=== PATIENT | female | born 1945 | race Caucasian/White ===

== ENCOUNTER → 2016-09-23 | Outpatient (CLI) | payer MEDICARE, BC ==
[2016-09-23 08:55] LABS: Blood Urea Nitrogen 30 mg/dL (7-17); Non-African American GFR(MDRD) 51 (>60 ml/min/1.73 sqM)
--- NOTE | 2016-09-23 09:54 | CT ---
EXAMINATION TYPE: CT chest abdomen w con DATE OF EXAM: 09/23/2016 9:37 AM INDICATION: Liver transplant COMPARISON: CT chest and abdomen of 04/06/2016 CT DLP: 1451 mGycm CONTRAST: Performed with Oral Contrast and with IV Contrast, patient injected with 80 mL of Visipaque 320. TECHNIQUE: Axial images at 5 mm thick sections. Reconstructed images in the coronal plane. Delayed images through the kidneys. FINDINGS: CT CHEST: Portion of the thyroid visualized is normal. No suspicious lung nodules or focal infiltrates are present. There are shotty lymph nodes within the superior mediastinum. No enlarged mediastinal or hilar adenop athy is evident. The ascending aorta diameter at the level of the main pulmonary artery is 2.9 cm. The main pulmonary artery diameter at the bifurcation is 2.[address] ABDOMEN: Multiple postsurgical clips are within the epigastric region. This causes some beam harde nilo artifact. Liver: Mild fatty infiltration liver is present. No discrete masses or cysts are evident. Spleen: Normal Pancreas: Atrophic Adrenal glands: Nodular prominence in the right adrenal gland from prior study appears stable. Gallbladder: Normal Kidneys: No masses are evident. No hydronephrosis is present. No cysts are present. Delayed images were obtained through the kidneys, which remain unremarkable. Aorta: Vascular calcification is within the aorta. Inferior vena cava: Normal. Fecal debris is within the colon. Small bowel loops distended with oral contrast appear unremarkable. IMPRESSIONS: 1. Shotty lymphadenopathy within the superior mediastinum. 2. No acute pulmonary process. 3. Postsurgical changes within the abdomen. 2. Mild fatty infiltration to the liver. 5. Pancreas atrophy.
== END | disposition home or self-care (01) ==
LOC: RADCTMAIN 08:07
DX: C22.0 Liver cell carcinoma (principal); K76.0 Fatty (change of) liver, not elsewhere classified; K86.89 Other specified diseases of pancreas; R59.0 Localized enlarged lymph nodes; Z98.890 Other specified postprocedural states; Z94.4 Liver transplant status
CPT/HCPCS: 82565; 84520; 71260; 74160; 36415; Q9967

== ENCOUNTER 2016-12-03 10:19 | Emergency (ER) | payer MEDICARE, BC ==
[2016-12-03 10:42] VITALS: RESP 18; TEMP 97.8
[2016-12-03] MEDS ORDERED: hydrOXYzine HCL 25 MG TAB PO STA (11:26)
--- NOTE | 2016-12-03 11:32 | ED ---
General Adult HPI - General Chief complaint: Recheck/Abnormal Lab/Rx Stated complaint: Hx liver transplant, itching all over Source: patient, family Mode of arrival: ambulatory Limitations: no limitations - History of Present Illness Initial comments: Patient is a pleasant 71-year-old female who presents for evaluation for itching over the last 24 hours. Past medical history of a liver transplant back in 2014. Patient states that she has been having severe whole-body itching over the last 24 hours. She denies any new exposures. Denies any changes in the skull or of her skin. Has a history of vertigo but denies any dizziness or lightheadedness or tremors. She does not seem confused per the family. No changes in her medications. Has been compliant with her medications. She contacted her liver patient services coordinator who recommended coming to the emergency department for evaluation. She currently denies fever, chills, headache, changes in vision, URI symptoms, shortness of breath, cough, chest pain, nausea, vomiting, diarrhea, pain or burning with urination. - Related Data Home Medications Medication Instructions Recorded Confirmed Mirtazapine 30 mg PO HS 05/10/15 12/03/16 Fludrocortisone [Florinef] 0.1 mg PO DAILY 10/23/15 12/03/16 Levothyroxine Sodium [Synthroid] 125 mcg PO AC-BRKFST 10/23/15 12/03/16 Metoprolol Tartrate [Lopressor] 12.5 mg PO BID 10/23/15 12/03/16 Tacrolimus [Prograf] 2 mg PO BID 10/23/15 12/03/16 Ursodiol [Actigall] 300 mg PO HS 10/23/15 12/03/16 Ursodiol [Actigall] 600 mg PO DAILY 10/23/15 12/03/16 Everolimus [Zortress] 2.25 mg PO BID 03/03/16 12/03/16 Aspirin 325 mg PO DAILY 12/03/16 12/03/16 hydrOXYzine HCL [Atarax] 25 mg PO TID PRN 12/03/16 12/03/16 Allergies Allergy/AdvReac Type Severity Reaction Status Date / Time No Known Allergies Allergy Verified 12/03/16 11:40 Review of Systems ROS Statement: Those systems with pertinent positive or pertinent negative responses have been documented in the HPI. ROS Other: All systems not noted in ROS Statement are negative. Past Medical History Past Medical History: COPD, Deep Vein Thrombosis (DVT), Liver Disease, Respiratory Disorder, Thyroid Disorder Additional Past Medical History / Comment(s): emphysema, thoracentesis 06/24/14, underactive thyroid. liver transplant 2014 History of Any Multi-Drug Resistant Organisms: None Reported Past Surgical History: Hernia Repair, Tonsillectomy Additional Past Surgical History / Comment(s): hiatal hernia, past liver/ gallbladder biopsies neg, Liver transplant 03/27/2015. Past Anesthesia/Blood Transfusion Reactions: No Reported Reaction Past Psychological History: No Psychological Hx Reported Smoking Status: Former smoker Past Alcohol Use History: None Reported Past Drug Use History: None Reported - Past Family History Father Family Medical History: Liver Disease Additional Family Medical History / Comment(s): dad at age 72- was a heavy drinker had liver disease Mother Family Medical History: Diabetes Mellitus, Renal Disease Additional Family Medical History / Comment(s): at age 78 kidney failure General Exam Limitations: no limitations General appearance: alert, in no apparent distress, other (Actively itching her body) Head exam: Present: atraumatic, normocephalic, normal inspection Eye exam: Present: normal appearance, PERRL, EOMI, scleral icterus (Very subtle scleral icterus bilaterally). Absent: conjunctival injection, periorbital swelling ENT exam: Present: normal exam, mucous membranes moist, other (The frenulum appears somewhat jaundiced) Neck exam: Present: normal inspection. Absent: tenderness, meningismus, lymphadenopathy Respiratory exam: Present: normal lung sounds bilaterally. Absent: respiratory distress, wheezes, rales, rhonchi, stridor Cardiovascular Exam: Present: regular rate, normal rhythm, normal heart sounds. Absent: systolic murmur, diastolic murmur, rubs, gallop, clicks GI/Abdominal exam: Present: soft, normal bowel sounds. Absent: distended, tenderness, guarding, rebound, rigid Extremities exam: Present: normal inspection, full ROM, normal capillary refill. Absent: tenderness, pedal edema, joint swelling, calf tenderness Back exam: Present: normal inspection Neurological exam: Present: alert, oriented X3, CN II-XII intact, other ( Granular sticking through 12 grossly intact without focal neurological deficits. Mentation appropriate. Alert and oriented 3. No asterixis. No tremors.) Psychiatric exam: Present: normal affect, normal mood Skin exam: Present: warm, dry, intact, normal color, other (No definitive rash area skin may be slightly red from her itching. No lesions. No vesicles. No petechia.). Absent: rash Course Vital Signs 12/03/16 10:39 Temperature 97.8 F Pulse Rate 115 H Respiratory 18 Rate Blood Pressure 141/86 O2 Sat by Pulse 96 Oximetry Medical Decision Making - Medical Decision Making 1130: Patient is a 71-year-old female history of liver transplant with whole- body itching. I spoke with the liver patient services coordinator, Tessa ([phone]) . Discussed physical exam findings. Will order CBC, CMP, urinalysis, coags and Atarax. No further requests per liver patient services coordinator. 1215: Discussed case with the drug safety coordinator. Redirected to the fellow. Recommending transfer to [facility] for further workup. Her AST and nail T and alk phos are acutely elevated from baseline. Her creatinine is also elevated from baseline. Her itching has resolved. Working on getting a bed currently. 1300: Patient has a bed at [facility]; [id number] (Dr. Villegas). Stable to drive herself downtown. Answered all questions. - Lab Data Result diagrams: 12/03/16 11:30 12/03/16 11:30 Lab Results 12/03/16 12/03/16 12/03/16 Range/Units 11:30 11:30 11:30 WBC 5.0 (3.8-10.6) k/uL RBC 4.32 (3.80-5.40) m/uL Hgb 12.0 (11.4-16.0) gm/dL Hct 33.8 L (34.0-46.0) % MCV 78.3 L (80.0-100.0) fL MCH 27.7 (25.0-35.0) pg MCHC 35.4 (31.0-37.0) g/dL RDW 15.7 H (11.5-15.5) % Plt Count 191 (150-450) k/uL Neutrophils % (Manual) 67.0 % Lymphocytes % (Manual) 27.0 % Monocytes % (Manual) 5.0 % Eosinophils % (Manual) 1.0 % Neutrophils # (Manual) 3.4 (1.3-7.7) k/uL Lymphocytes # (Manual) 1.4 (1.0-4.8) k/uL Monocytes # (Manual) 0.3 (0-1.0) k/uL Eosinophils # (Manual) 0.1 (0-0.7) k/uL Nucleated RBCs 0 (0-0) /100 WBC Manual Slide Review Performed Microcytosis Slight PT 10.0 (9.0-12.0) sec INR 1.0 (<1.1) APTT 23.6 (22.0-30.0) sec Sodium 142 (137-145) mmol/L Potassium 4.6 (3.5-5.1) mmol/L Chloride 108 H (98-107) mmol/L Carbon Dioxide 20 L (22-30) mmol/L Anion Gap 14 mmol/L BUN 31 H (7-17) mg/dL Creatinine 1.50 H (0.52-1.04) mg/dL Est GFR (MDRD) Af Amer 42 (>60 ml/min/1.73 sqM) Est GFR (MDRD) Non-Af 34 (>60 ml/min/1.73 sqM) Glucose 129 H (74-99) mg/dL Calcium 9.5 (8.4-10.2) mg/dL Magnesium 1.8 (1.6-2.3) mg/dL Total Bilirubin 0.5 (0.2-1.3) mg/dL AST 122 H (14-36) U/L ALT 139 H (9-52) U/L Alkaline Phosphatase 223 H (38-126) U/L Total Protein 7.3 (6.3-8.2) g/dL Albumin 4.4 (3.5-5.0) g/dL Urine Color Urine Appearance (Clear) Urine pH (5.0-8.0) Ur Specific [place] (1.001-1.035) Urine Protein (Negative) Urine Glucose (UA) (Negative) Urine Ketones (Negative) Urine Blood (Negative) Urine Nitrite (Negative) Urine Bilirubin (Negative) Urine Urobilinogen (<2.0) mg/dL Ur Leukocyte Esterase (Negative) 12/03/16 Range/Units 11:55 WBC (3.8-10.6) k/uL RBC (3.80-5.40) m/uL Hgb (11.4-16.0) gm/dL Hct (34.0-46.0) % MCV (80.0-100.0) fL MCH (25.0-35.0) pg MCHC (31.0-37.0) g/dL RDW (11.5-15.5) % Plt Count (150-450) k/uL Neutrophils % (Manual) % Lymphocytes % (Manual) % Monocytes % (Manual) % Eosinophils % (Manual) % Neutrophils # (Manual) (1.3-7.7) k/uL Lymphocytes # (Manual) (1.0-4.8) k/uL Monocytes # (Manual) (0-1.0) k/uL Eosinophils # (Manual) (0-0.7) k/uL Nucleated RBCs (0-0) /100 WBC Manual Slide Review Microcytosis PT (9.0-12.0) sec INR (<1.1) APTT (22.0-30.0) sec Sodium (137-145) mmol/L Potassium (3.5-5.1) mmol/L Chloride (98-107) mmol/L Carbon Dioxide (22-30) mmol/L Anion Gap mmol/L BUN (7-17) mg/dL Creatinine (0.52-1.04) mg/dL Est GFR (MDRD) Af Amer (>60 ml/min/1.73 sqM) Est GFR (MDRD) Non-Af (>60 ml/min/1.73 sqM) Glucose (74-99) mg/dL Calcium (8.4-10.2) mg/dL Magnesium (1.6-2.3) mg/dL Total Bilirubin (0.2-1.3) mg/dL AST (14-36) U/L ALT (9-52) U/L Alkaline Phosphatase (38-126) U/L Total Protein (6.3-8.2) g/dL Albumin (3.5-5.0) g/dL Urine Color Yellow Urine Appearance Clear (Clear) Urine pH 5.0 (5.0-8.0) Ur Specific [place] 1.010 (1.001-1.035) Urine Protein Trace H (Negative) Urine Glucose (UA) Negative (Negative) Urine Ketones Negative (Negative) Urine Blood Negative (Negative) Urine Nitrite Negative (Negative) Urine Bilirubin Negative (Negative) Urine Urobilinogen <2.0 (<2.0) mg/dL Ur Leukocyte Esterase Negative (Negative) Disposition Clinical Impression: Transaminitis, ASAF (acute kidney injury), Liver transplant recipient, Jaundice , Itching Disposition: OTHER INSTITUTION NOT DEFINED Condition: Fair Instructions: Jaundice (ED) Referrals: George Wheeler MD [Primary Care Provider] - 1-2 days - Out of Hospital Transfer - Req. Specs Out of Hospital Transfer - Requested Specifics: Other Non-Acute ([facility] Main)
[2016-12-03 12:03] LABS: Calcium 9.5 mg/dL (8.4-10.2); Magnesium 1.8 mg/dL (1.6-2.3); Potassium 4.6 mmol/L (3.5-5.1); Total Bilirubin 0.5 mg/dL (0.2-1.3); Total Protein 7.3 g/dL (6.3-8.2)
[2016-12-03 12:05] LABS: Aty Lym Flag Moderate; CH 26.4; HCT 33.8 % (34.0-46.0); HDW 3.37; MCH 27.7 pg (25.0-35.0); MCHC 35.4 g/dL (31.0-37.0); MCV 78.3 fL (80.0-100.0); Mean Platelet Volume 7.3; Microcytosis Slight; RBC 4.32 m/uL (3.80-5.40); RDW 15.7 % (11.5-15.5); WBC (Perox) 5.37
[2016-12-03 12:10] LABS: Appearance,Urine Clear (Clear); Bilirubin,Urine Negative (Negative); Glucose,Urine (UA) Negative (Negative); Ketones,Urine Negative (Negative); Leukocyte Esterase,Urine Negative (Negative); Nitrite,Urine Negative (Negative); Protein,Urine Trace (Negative); UA Billing (MACRO vs. MICRO) CHEM; Urobilinogen,Urine <2.0 mg/dL (<2.0)
[2016-12-03 12:12] LABS: Partial Thromboplastin Time 23.6 sec (22.0-30.0)
[2016-12-03] MEDS ORDERED: SODIUM CHLORIDE 0.9% 1,000 ML IV ONE (12:22)
[2016-12-03 12:59] LABS: Add Differential Manual Differential
[2016-12-03 13:03] LABS: Manual Review Performed; Nucleated Red Blood Cells 0 /100 WBC (0-0); Total Cells Counted 100
[2016-12-03 13:31] VITALS: BP 196/96; PULSE 107
== END 2016-12-03 13:38 | disposition short-term general hospital (02) ==
LOC: EC 10:19
DX: N17.9 Acute kidney failure, unspecified (principal); R74.0 Nonspecific elevation of levels of transaminase and lactic acid dehydrogenase [LDH]; R17 Unspecified jaundice; L29.9 Pruritus, unspecified; E07.9 Disorder of thyroid, unspecified; Z87.891 Personal history of nicotine dependence; Z79.82 Long term (current) use of aspirin; Z79.899 Other long term (current) drug therapy; Z94.4 Liver transplant status; Z84.1 Family history of disorders of kidney and ureter; Z83.79 Family history of other diseases of the digestive system
CPT/HCPCS: 36415; 80053; 81003; 83735; 85025; 85610; 85730; 96360; 99284

== ENCOUNTER 2017-03-09 17:54 | Emergency (ER) | payer MEDICARE, BC ==
[2017-03-09] MEDS ORDERED: methylPREDNISolone SOD SUCCI 125 MG/2 ML VIAL IV STA (19:00)
[2017-03-09] MEDS ORDERED: IPRATROPIUM-ALBUTEROL 3 ML NEB INHALATION STA (19:00)
[2017-03-09] MEDS ORDERED: SODIUM CHLORIDE 0.9% 1,000 ML IV STA (19:00)
[2017-03-09] MEDS ORDERED: SODIUM CHLORIDE 0.9% 500 ML IV STA (19:00)
--- NOTE | 2017-03-09 19:10 | ED ---
SOB HPI - General Chief Complaint: Shortness of Breath Stated Complaint: VIANNEY Time Seen by Provider: 03/09/17 18:40 Source: patient, RN notes reviewed Mode of arrival: wheelchair Limitations: no limitations - History of Present Illness Initial Comments: This is a 71-year-old female who presents with complaints of shortness of breath chills shaking all which started around midafternoon today. She also some nausea vomiting and route to. No dysuria no heme. Other symptoms such as chest pain. No rhinorrhea no earache sore throat he does have a slight cough with no phlegm production. Complaint: shortness of breath - Related Data Home Medications Medication Instructions Recorded Confirmed Fludrocortisone [Florinef] 0.1 mg PO DAILY 10/23/15 03/09/17 Levothyroxine Sodium [Synthroid] 125 mcg PO AC-BRKFST 10/23/15 03/09/17 Metoprolol Tartrate [Lopressor] 25 mg PO BID 10/23/15 03/09/17 Everolimus [Zortress] 3 mg PO QAM 03/03/16 03/09/17 Aspirin 325 mg PO DAILY 12/03/16 03/09/17 HYDROcodone/APAP 5-325MG [Rock 1 tab PO Q4-6H PRN 03/09/17 03/09/17 5-325] Ursodiol 600 mg PO DAILY 03/09/17 03/09/17 Ursodiol [Actigall] 300 mg PO HS 03/09/17 03/09/17 Zortress 0.75mg 2.25 mg PO HS 03/09/17 03/09/17 Allergies Allergy/AdvReac Type Severity Reaction Status Date / Time No Known Allergies Allergy Verified 03/09/17 19:15 Review of Systems ROS Statement: Those systems with pertinent positive or pertinent negative responses have been documented in the HPI. ROS Other: All systems not noted in ROS Statement are negative. Past Medical History Past Medical History: COPD, Deep Vein Thrombosis (DVT), Liver Disease, Respiratory Disorder, Thyroid Disorder Additional Past Medical History / Comment(s): emphysema, thoracentesis 06/24/14, underactive thyroid. liver transplant 2014 History of Any Multi-Drug Resistant Organisms: None Reported Past Surgical History: Hernia Repair, Tonsillectomy Additional Past Surgical History / Comment(s): hiatal hernia, past liver/ gallbladder biopsies neg, Liver transplant 03/27/2015. Past Anesthesia/Blood Transfusion Reactions: No Reported Reaction Past Psychological History: No Psychological Hx Reported Smoking Status: Former smoker Past Alcohol Use History: None Reported Past Drug Use History: None Reported - Past Family History Father Family Medical History: Liver Disease Additional Family Medical History / Comment(s): dad at age 72- was a heavy drinker had liver disease Mother Family Medical History: Diabetes Mellitus, Renal Disease Additional Family Medical History / Comment(s): at age 78 kidney failure General Exam - General Exam Comments Initial Comments: This is a well-developed well-nourished awake alert oriented x 3 female Limitations: no limitations General appearance: alert, in no apparent distress Head exam: Present: atraumatic, normocephalic, normal inspection Eye exam: Present: normal appearance, PERRL, EOMI. Absent: scleral icterus, conjunctival injection, periorbital swelling ENT exam: Present: normal exam, mucous membranes moist Neck exam: Present: normal inspection. Absent: tenderness, meningismus, lymphadenopathy Respiratory exam: Present: normal lung sounds bilaterally. Absent: respiratory distress, wheezes, rales, rhonchi, stridor Cardiovascular Exam: Present: regular rate, normal rhythm, normal heart sounds. Absent: systolic murmur, diastolic murmur, rubs, gallop, clicks GI/Abdominal exam: Present: soft, normal bowel sounds. Absent: distended, tenderness, guarding, rebound, rigid Extremities exam: Present: normal inspection, full ROM, normal capillary refill. Absent: tenderness, pedal edema, joint swelling, calf tenderness Back exam: Present: normal inspection Neurological exam: Present: alert, oriented X3, CN II-XII intact Psychiatric exam: Present: normal affect, normal mood Skin exam: Present: warm, dry, intact, normal color. Absent: rash Course Vital Signs 03/09/17 03/09/17 03/09/17 18:22 18:40 19:22 Temperature 101 F H Pulse Rate 103 H 96 Respiratory 22 24 Rate Blood Pressure 184/78 O2 Sat by Pulse 95 Oximetry 03/09/17 03/09/17 19:33 19:35 Temperature 99.2 F Pulse Rate 94 94 Respiratory 32 H Rate Blood Pressure 173/79 O2 Sat by Pulse 100 Oximetry Medical Decision Making - Medical Decision Making I did a long discussion with the patient family members regarding the findings Onset of CHF is suspected due to the elevated BNP the patient does have renal insufficiency and COPD exacerbation with a fever. I did discuss the case with family who is requesting transfer to [facility] in [place]. This is due to the liver transplant. Did discuss case with Dr. Jason who is agreed to accept the patient in transfer as a direct admit. Patient will be transported by EMS. Viral etiology of the elevated temperature suspected at this time - Lab Data Result diagrams: 03/09/17 18:57 03/09/17 18:57 Lab Results 03/09/17 03/09/17 03/09/17 Range/Units 18:57 18:57 18:57 WBC 6.3 (3.8-10.6) k/uL RBC 4.21 (3.80-5.40) m/uL Hgb 11.2 L (11.4-16.0) gm/dL Hct 34.4 (34.0-46.0) % MCV 81.7 (80.0-100.0) fL MCH 26.5 (25.0-35.0) pg MCHC 32.5 (31.0-37.0) g/dL RDW 16.3 H (11.5-15.5) % Plt Count 141 L (150-450) k/uL Neutrophils % 85 % Lymphocytes % 7 % Monocytes % 6 % Eosinophils % 2 % Basophils % 0 % Neutrophils # 5.4 (1.3-7.7) k/uL Lymphocytes # 0.4 L (1.0-4.8) k/uL Monocytes # 0.4 (0-1.0) k/uL Eosinophils # 0.1 (0-0.7) k/uL Basophils # 0.0 (0-0.2) k/uL Anisocytosis Slight PT (9.0-12.0) sec INR (<1.2) APTT (22.0-30.0) sec Sodium 137 (137-145) mmol/L Potassium 5.8 H (3.5-5.1) mmol/L Chloride 110 H (98-107) mmol/L Carbon Dioxide 16 L (22-30) mmol/L Anion Gap 11 mmol/L BUN 26 H (7-17) mg/dL Creatinine 1.20 H (0.52-1.04) mg/dL Est GFR (MDRD) Af Amer 54 (>60 ml/min/1.73 sqM) Est GFR (MDRD) Non-Af 45 (>60 ml/min/1.73 sqM) Glucose 109 H (74-99) mg/dL Calcium 9.2 (8.4-10.2) mg/dL Magnesium 1.7 (1.6-2.3) mg/dL Total Bilirubin 0.4 (0.2-1.3) mg/dL AST 18 (14-36) U/L ALT 26 (9-52) U/L Alkaline Phosphatase 138 H (38-126) U/L Total Creatine Kinase 107 (30-135) U/L CK-MB (CK-2) 0.6 (0.0-2.4) ng/mL CK-MB (CK-2) Rel Index 0.6 Troponin I <0.012 (0.000-0.034) ng/mL NT-Pro-B Natriuret Pep pg/mL Total Protein 7.3 (6.3-8.2) g/dL Albumin 4.1 (3.5-5.0) g/dL Urine Color Urine Appearance (Clear) Urine pH (5.0-8.0) Ur Specific [place] (1.001-1.035) Urine Protein (Negative) Urine Glucose (UA) (Negative) Urine Ketones (Negative) Urine Blood (Negative) Urine Nitrite (Negative) Urine Bilirubin (Negative) Urine Urobilinogen (<2.0) mg/dL Ur Leukocyte Esterase (Negative) Urine RBC (0-5) /hpf Urine WBC (0-5) /hpf Ur Squamous Epith Cells (0-4) /hpf Urine Mucus (None) /hpf 03/09/17 03/09/17 03/09/17 Range/Units 18:57 18:57 20:34 WBC (3.8-10.6) k/uL RBC (3.80-5.40) m/uL Hgb (11.4-16.0) gm/dL Hct (34.0-46.0) % MCV (80.0-100.0) fL MCH (25.0-35.0) pg MCHC (31.0-37.0) g/dL RDW (11.5-15.5) % Plt Count (150-450) k/uL Neutrophils % % Lymphocytes % % Monocytes % % Eosinophils % % Basophils % % Neutrophils # (1.3-7.7) k/uL Lymphocytes # (1.0-4.8) k/uL Monocytes # (0-1.0) k/uL Eosinophils # (0-0.7) k/uL Basophils # (0-0.2) k/uL Anisocytosis PT 10.2 (9.0-12.0) sec INR 1.0 (<1.2) APTT 24.7 (22.0-30.0) sec Sodium (137-145) mmol/L Potassium (3.5-5.1) mmol/L Chloride (98-107) mmol/L Carbon Dioxide (22-30) mmol/L Anion Gap mmol/L BUN (7-17) mg/dL Creatinine (0.52-1.04) mg/dL Est GFR (MDRD) Af Amer (>60 ml/min/1.73 sqM) Est GFR (MDRD) Non-Af (>60 ml/min/1.73 sqM) Glucose (74-99) mg/dL Calcium (8.4-10.2) mg/dL Magnesium (1.6-2.3) mg/dL Total Bilirubin (0.2-1.3) mg/dL AST (14-36) U/L ALT (9-52) U/L Alkaline Phosphatase (38-126) U/L Total Creatine Kinase (30-135) U/L CK-MB (CK-2) (0.0-2.4) ng/mL CK-MB (CK-2) Rel Index Troponin I (0.000-0.034) ng/mL NT-Pro-B Natriuret Pep 2770 pg/mL Total Protein (6.3-8.2) g/dL Albumin (3.5-5.0) g/dL Urine Color Yellow Urine Appearance Clear (Clear) Urine pH 5.0 (5.0-8.0) Ur Specific [place] 1.012 (1.001-1.035) Urine Protein Trace H (Negative) Urine Glucose (UA) Negative (Negative) Urine Ketones 2+ H (Negative) Urine Blood Trace H (Negative) Urine Nitrite Negative (Negative) Urine Bilirubin Negative (Negative) Urine Urobilinogen <2.0 (<2.0) mg/dL Ur Leukocyte Esterase Trace H (Negative) Urine RBC 2 (0-5) /hpf Urine WBC 1 (0-5) /hpf Ur Squamous Epith Cells <1 (0-4) /hpf Urine Mucus Rare H (None) /hpf - EKG Data -: EKG Interpreted by Me EKG shows normal: sinus rhythm (Sinus tachycardia rate of 102 appear interval 120 QRS rate 60 QT since QTC of 328/427 st-t wave changes.) - Radiology Data Radiology results: report reviewed (I did review the imaging and reports this appears be no acute change from previous x-ray.), image reviewed Disposition Clinical Impression: COPD with exacerbation, Febrile illness, acute, Renal insufficiency syndrome, Elevated brain natriuretic peptide (BNP) level Disposition: OTHER INSTITUTION NOT DEFINED Condition: Stable Referrals: George Wheeler MD [Primary Care Provider] - 1-2 days - Out of Hospital Transfer - Req. Specs Out of Hospital Transfer - Requested Specifics: Other Non-Acute
[2017-03-09 19:11] LABS: Anisocytosis Slight; Basophils % (A) 0 %; CHCM 33.3; Eosinophils # (A) 0.1 k/uL (0-0.7); Eosinophils % (A) 2 %; HCT 34.4 % (34.0-46.0); HDW 3.28; HGB 11.2 gm/dL (11.4-16.0); Luc # (Auto) 0.03; Luc % (Auto) 1; Lymphocytes # (A) 0.4 k/uL (1.0-4.8); Lymphocytes % (A) 7 %; MCH 26.5 pg (25.0-35.0); MCHC 32.5 g/dL (31.0-37.0); MCV 81.7 fL (80.0-100.0); Mean Platelet Volume 7.3; Monocytes # (A) 0.4 k/uL (0-1.0); Monocytes % (A) 6 %; Neutrophils # (A) 5.4 k/uL (1.3-7.7); Neutrophils % (A) 85 %; RBC 4.21 m/uL (3.80-5.40); RDW 16.3 % (11.5-15.5); WBC 6.3 k/uL (3.8-10.6); WBC (Perox) 6.83
[2017-03-09 19:23] LABS: Calcium 9.2 mg/dL (8.4-10.2); Magnesium 1.7 mg/dL (1.6-2.3); Potassium 5.8 mmol/L (3.5-5.1); Total Bilirubin 0.4 mg/dL (0.2-1.3); Total Protein 7.3 g/dL (6.3-8.2)
[2017-03-09 19:25] LABS: Partial Thromboplastin Time 24.7 sec (22.0-30.0); Prothrombin Time 10.2 sec (9.0-12.0)
[2017-03-09 19:33] VITALS: PULSE 94
[2017-03-09 19:36] VITALS: BP 173/79; RESP 32; TEMP 99.2
[2017-03-09 19:48] LABS: Creatine Kinase 107 U/L (30-135)
--- NOTE | 2017-03-09 19:57 | XR ---
EXAMINATION TYPE: XR chest 2V DATE OF EXAM: 03/09/2017 COMPARISON: 03/03/2016 HISTORY: Difficulty breathing TECHNIQUE: Frontal and lateral views of the chest are obtained. FINDINGS: There is no heart failure nor confluent pneumonic infiltrate. There is some coarsening of interstitial markings. There are chest leads. Bony thorax is intact. There is no sign of pleural effu alan. IMPRESSION: Interstitial pulmonary fibrotic changes. No acute lung disease. No significant change co mpared to old exam.
[2017-03-09 20:00] LABS: Creatine Kinase MB 0.6 ng/mL (0.0-2.4); Troponin I <0.012 ng/mL (0.000-0.034)
[2017-03-09 20:49] LABS: Appearance,Urine Clear (Clear); Bilirubin,Urine Negative (Negative); Glucose,Urine (UA) Negative (Negative); Ketones,Urine 2+ (Negative); Leukocyte Esterase,Urine Trace (Negative); Mucus,Urine Rare /hpf; Nitrite,Urine Negative (Negative); Particle Count 3356; Protein,Urine Trace (Negative); RBC,Urine 2 /hpf (0-5); Specific Gravity,Urine 1.012 (1.001-1.035); Squamous Epithelial Cell,Urine <1 /hpf (0-4); UA Billing (MACRO vs. MICRO) MICRO; Urobilinogen,Urine <2.0 mg/dL (<2.0); WBC,Urine 1 /hpf (0-5)
== END 2017-03-09 21:34 | disposition other institution (70) ==
LOC: EC 17:54
DX: J44.1 Chronic obstructive pulmonary disease with (acute) exacerbation (principal); R50.9 Fever, unspecified; N28.9 Disorder of kidney and ureter, unspecified; R79.89 Other specified abnormal findings of blood chemistry; E07.9 Disorder of thyroid, unspecified; Z86.718 Personal history of other venous thrombosis and embolism; Z87.891 Personal history of nicotine dependence; Z79.82 Long term (current) use of aspirin; Z79.899 Other long term (current) drug therapy
CPT/HCPCS: 36415; 94640; 93005; 83880; 80053; 82550; 82553; 83735; 84484; 85025; 85610; 85730; 81001; 87040; 71020; 99285; 96374; 96361 ×2; J2930

== ENCOUNTER 2017-04-27 19:02 | Emergency (ER) | payer MEDICARE, BC ==
[2017-04-27 19:15] VITALS: TEMP 98.2
[2017-04-27] MEDS ORDERED: PROPARACAINE 0.5% OPHTH DROPS 15 ML BTL ONE (22:04)
[2017-04-27] MEDS ORDERED: TOBRAMYCIN 0.3% OPHTH DROPS 5 ML BTL LEFT EYE STA (22:38)
--- NOTE | 2017-04-27 22:39 | ED ---
General Adult HPI - General Chief complaint: Eye Problems Stated complaint: LEFT EYE PAIN Time Seen by Provider: 04/27/17 21:22 Source: patient, RN notes reviewed, old records reviewed Mode of arrival: ambulatory Limitations: no limitations - History of Present Illness Initial comments: This is a 71-year-old female to the ER with left eye pain. Patient has left eye pain that started tonight. Patient admitted overnight a little bit but denies getting foreign body in her eye or has no recollection of that. No change in vision. No prior history of eye pain. Patient states the pain feels the left side of her eye. No modifying factors for her pain - Related Data Home Medications Medication Instructions Recorded Confirmed Metoprolol Tartrate [Lopressor] 50 mg PO BID 10/23/15 04/27/17 Everolimus [Zortress] 1.5 mg PO BID 03/03/16 04/27/17 Aspirin 325 mg PO QAM 12/03/16 04/27/17 Ursodiol 600 mg PO QAM 03/09/17 04/27/17 Ursodiol [Actigall] 300 mg PO HS 03/09/17 04/27/17 Levothyroxine Sodium 100 mcg PO QAM 04/27/17 04/27/17 Tacrolimus [Prograf] 1 mg PO HS 04/27/17 04/27/17 Tacrolimus [Prograf] 2 mg PO QAM 04/27/17 04/27/17 Allergies Allergy/AdvReac Type Severity Reaction Status Date / Time No Known Allergies Allergy Verified 04/27/17 21:14 Review of Systems ROS Statement: Those systems with pertinent positive or pertinent negative responses have been documented in the HPI. ROS Other: All systems not noted in ROS Statement are negative. Past Medical History Past Medical History: COPD, Deep Vein Thrombosis (DVT), Liver Disease, Respiratory Disorder, Thyroid Disorder Additional Past Medical History / Comment(s): emphysema, thoracentesis 06/24/14, underactive thyroid. liver transplant 2014 History of Any Multi-Drug Resistant Organisms: None Reported Past Surgical History: Hernia Repair, Tonsillectomy Additional Past Surgical History / Comment(s): hiatal hernia, past liver/ gallbladder biopsies neg, Liver transplant 03/27/2015. Past Anesthesia/Blood Transfusion Reactions: No Reported Reaction Past Psychological History: No Psychological Hx Reported Smoking Status: Former smoker Past Alcohol Use History: None Reported Past Drug Use History: None Reported - Past Family History Father Family Medical History: Liver Disease Additional Family Medical History / Comment(s): dad at age 72- was a heavy drinker had liver disease Mother Family Medical History: Diabetes Mellitus, Renal Disease Additional Family Medical History / Comment(s): at age 78 kidney failure General Exam - General Exam Comments Initial Comments: Left eye foreseen exam does show positive corneal abrasion, no foreign body, corneal abrasion at 6:00 Limitations: no limitations General appearance: alert, in no apparent distress Head exam: Present: atraumatic, normocephalic, normal inspection Eye exam: Present: normal appearance, PERRL, EOMI. Absent: scleral icterus, conjunctival injection, periorbital swelling ENT exam: Present: normal exam, mucous membranes moist Neck exam: Present: normal inspection. Absent: tenderness, meningismus, lymphadenopathy Respiratory exam: Present: normal lung sounds bilaterally. Absent: respiratory distress, wheezes, rales, rhonchi, stridor Cardiovascular Exam: Present: regular rate, normal rhythm, normal heart sounds. Absent: systolic murmur, diastolic murmur, rubs, gallop, clicks GI/Abdominal exam: Present: soft, normal bowel sounds. Absent: distended, tenderness, guarding, rebound, rigid Extremities exam: Present: normal inspection, full ROM, normal capillary refill. Absent: tenderness, pedal edema, joint swelling, calf tenderness Back exam: Present: normal inspection Neurological exam: Present: alert, oriented X3, CN II-XII intact Psychiatric exam: Present: normal affect, normal mood Skin exam: Present: warm, dry, intact, normal color. Absent: rash Course Vital Signs 04/27/17 04/27/17 19:13 22:49 Temperature 98.2 F Pulse Rate 87 75 Respiratory 18 16 Rate Blood Pressure 191/84 177/94 O2 Sat by Pulse 98 96 Oximetry - Reevaluation(s) Reevaluation #1: Should had complete relief after proparacaine Medical Decision Making - Medical Decision Making 71 female to ER with left corneal abrasion, patient given eyedrops antibiotics for discharge. Patient is not, patient to follow-up with ophthalmology in the morning Disposition Clinical Impression: Corneal abrasion, left Disposition: HOME SELF-CARE Condition: Good Instructions: Corneal Abrasion (ED), Eye Foreign Body (ED) Referrals: George Wheelre MD [Primary Care Provider] - 1-2 days Dawit Franklin MD [STAFF PHYSICIAN] - 1-2 days
[2017-04-27 22:50] VITALS: BP 177/94; PULSE 75; RESP 16
== END 2017-04-27 22:50 | disposition home or self-care (01) ==
LOC: EC 19:02
DX: S05.02XA Injury of conjunctiva and corneal abrasion without foreign body, left eye, initial encounter (principal); E07.89 Other specified disorders of thyroid; Z87.891 Personal history of nicotine dependence; Z79.82 Long term (current) use of aspirin; Z79.899 Other long term (current) drug therapy; X58.XXXA Exposure to other specified factors, initial encounter
CPT/HCPCS: 99283

== ENCOUNTER 2017-10-26 17:37 | Emergency (ER) | payer MEDICARE, BC ==
[2017-10-26] MEDS ORDERED: SODIUM CHLORIDE 0.9% 1,000 ML IV STA (18:18)
[2017-10-26] MEDS ORDERED: METOCLOPRAMIDE 5 MG/ML 2 ML VIAL IVP STA (18:19)
[2017-10-26] MEDS ORDERED: MECLIZINE 12.5 MG TAB PO STA (18:19)
--- NOTE | 2017-10-26 18:24 | ED ---
General Adult HPI - General Chief complaint: Dizziness Stated complaint: Dizziness Time Seen by Provider: 10/26/17 18:05 Source: patient, family, RN notes reviewed Mode of arrival: wheelchair Limitations: no limitations - History of Present Illness Initial comments: Patient is a pleasant 72-year-old female presenting to the emergency Department with complaints of dizziness. Onset of symptoms was a couple hours ago. Onset was fairly sudden. Patient has lightheadedness with associated spinning sensation. Symptoms are positional. Symptoms also worsen with upright position. Patient had similar symptoms several years ago associated with vertigo. No confusion. No speech problems. No weakness. Patient does have associated nausea. - Related Data Home Medications Medication Instructions Recorded Confirmed Metoprolol Tartrate [Lopressor] 50 mg PO BID 10/23/15 10/26/17 Everolimus [Zortress] 1.5 mg PO BID 03/03/16 10/26/17 Aspirin 325 mg PO QAM 12/03/16 10/26/17 Ursodiol 600 mg PO QAM 03/09/17 10/26/17 Ursodiol [Actigall] 300 mg PO HS 03/09/17 10/26/17 Levothyroxine Sodium 100 mcg PO QAM 04/27/17 10/26/17 Tacrolimus [Prograf] 1 mg PO QAM 04/27/17 10/26/17 Cholecalciferol [Vitamin D3] 400 unit PO BID 10/26/17 10/26/17 Omeprazole [PriLOSEC] 20 mg PO AC-BRKFST 10/26/17 10/26/17 Tacrolimus [Prograf] 0.5 mg PO HS 10/26/17 10/26/17 Allergies Allergy/AdvReac Type Severity Reaction Status Date / Time No Known Allergies Allergy Verified 10/26/17 18:29 Review of Systems ROS Statement: Those systems with pertinent positive or pertinent negative responses have been documented in the HPI. ROS Other: All systems not noted in ROS Statement are negative. Constitutional: Denies: fever Eyes: Denies: eye pain ENT: Denies: ear pain Respiratory: Denies: cough Cardiovascular: Denies: chest pain Endocrine: Denies: fatigue Gastrointestinal: Reports: nausea. Denies: abdominal pain Genitourinary: Denies: dysuria Musculoskeletal: Denies: back pain Skin: Denies: rash Neurological: Reports: vertigo. Denies: headache, confusion Past Medical History Past Medical History: COPD, Deep Vein Thrombosis (DVT), Liver Disease, Respiratory Disorder, Thyroid Disorder Additional Past Medical History / Comment(s): emphysema, thoracentesis 06/24/14, underactive thyroid. liver transplant 2014 History of Any Multi-Drug Resistant Organisms: None Reported Past Surgical History: Hernia Repair, Tonsillectomy Additional Past Surgical History / Comment(s): hiatal hernia, past liver/ gallbladder biopsies neg, Liver transplant 03/27/2015. Past Anesthesia/Blood Transfusion Reactions: No Reported Reaction Past Psychological History: No Psychological Hx Reported Smoking Status: Former smoker Past Alcohol Use History: None Reported Past Drug Use History: None Reported - Past Family History Father Family Medical History: Liver Disease Additional Family Medical History / Comment(s): dad at age 72- was a heavy drinker had liver disease Mother Family Medical History: Diabetes Mellitus, Renal Disease Additional Family Medical History / Comment(s): at age 78 kidney failure General Exam Limitations: no limitations General appearance: alert, in no apparent distress Head exam: Present: atraumatic Eye exam: Present: normal appearance, PERRL, EOMI. Absent: nystagmus ENT exam: Present: normal oropharynx Neck exam: Present: normal inspection Respiratory exam: Present: normal lung sounds bilaterally Cardiovascular Exam: Present: regular rate, normal rhythm GI/Abdominal exam: Present: soft. Absent: tenderness Extremities exam: Present: normal inspection Neurological exam: Present: alert, CN II-XII intact. Absent: motor sensory deficit Expanded Neurological exam: Present: protecting the airway Speech: Present: fluid speech Cranial nerves: EOM's Intact: Normal, Facial Sensation: Normal Sensory exam: Upper Extremity Light Touch: Normal, Lower Extremity Light Touch: Normal Motor strength exam: RUE: 5, LUE: 5, RLE: 5, LLE: 5 Eye Response: (4) open spontaneously Motor Response: (6) obeys commands Verbal Response: (5) oriented Psychiatric exam: Present: normal affect, normal mood Skin exam: Present: normal color Course Vital Signs 10/26/17 10/26/17 17:59 20:01 Temperature 98.6 F 97.4 F L Pulse Rate 90 82 Respiratory 20 16 Rate Blood Pressure 126/77 148/68 O2 Sat by Pulse 98 100 Oximetry EKG Findings - EKG Comments: EKG Findings:: Normal sinus rhythm 89. IN 134. QRS 74. QT 394. QTC 479. Normal axis. Normal QRS. No acute ST change. Medical Decision Making - Medical Decision Making Patient reevaluated and is requesting discharge. Patient states she is now symptom-free at this time. Patient was able to get up and ambulate to the emergency department without any difficulty. Patient updated on results and need for follow-up. - Lab Data Result diagrams: 10/26/17 18:32 10/26/17 18:32 Lab Results 10/26/17 10/26/17 10/26/17 Range/Units 18:32 18:32 18:32 WBC 5.9 (3.8-10.6) k/uL RBC 4.39 (3.80-5.40) m/uL Hgb 12.0 (11.4-16.0) gm/dL Hct 35.9 (34.0-46.0) % MCV 81.8 (80.0-100.0) fL MCH 27.3 (25.0-35.0) pg MCHC 33.4 (31.0-37.0) g/dL RDW 15.3 (11.5-15.5) % Plt Count 178 (150-450) k/uL Neutrophils % 69 % Lymphocytes % 17 % Monocytes % 8 % Eosinophils % 5 % Basophils % 0 % Neutrophils # 4.1 (1.3-7.7) k/uL Lymphocytes # 1.0 (1.0-4.8) k/uL Monocytes # 0.5 (0-1.0) k/uL Eosinophils # 0.3 (0-0.7) k/uL Basophils # 0.0 (0-0.2) k/uL PT 10.3 (9.0-12.0) sec INR 1.1 (<1.2) APTT 25.7 (22.0-30.0) sec Sodium 140 (137-145) mmol/L Potassium 4.2 (3.5-5.1) mmol/L Chloride 108 H (98-107) mmol/L Carbon Dioxide 18 L (22-30) mmol/L Anion Gap 14 mmol/L BUN 26 H (7-17) mg/dL Creatinine 1.00 (0.52-1.04) mg/dL Est GFR (CKD-EPI)AfAm 66 (>60 ml/min/1.73 sqM) Est GFR (CKD-EPI)NonAf 58 (>60 ml/min/1.73 sqM) Glucose 203 H (74-99) mg/dL Calcium 8.7 (8.4-10.2) mg/dL Total Bilirubin 0.1 L (0.2-1.3) mg/dL AST 19 (14-36) U/L ALT 21 (9-52) U/L Alkaline Phosphatase 114 (38-126) U/L Total Protein 6.5 (6.3-8.2) g/dL Albumin 3.7 (3.5-5.0) g/dL - Radiology Data Radiology results: report reviewed (Computed tomography scan of the brain shows no acute process.) Disposition Clinical Impression: Vertigo Disposition: HOME SELF-CARE Condition: Stable Instructions: Dizziness (ED) Additional Instructions: Please follow-up with primary care physician in the next day or 2 for recheck. [id number] Antivert as needed for dizziness. Return for increased dizziness, confusion, weakness, vomiting, sense of passing out, worsening symptoms or other concerns. Is patient prescribed a controlled substance at d/c from ED?: No Referrals: George Wheeler MD [Primary Care Provider] - 1-2 days Jeremiah Grace MD [STAFF PHYSICIAN] - 1-2 days Romy Oates MD [STAFF PHYSICIAN] - 1-2 days Time of Disposition: 20:32
[2017-10-26 18:45] LABS: Basophils % (A) 0 %; Eosinophils # (A) 0.3 k/uL (0-0.7); Eosinophils % (A) 5 %; HCT 35.9 % (34.0-46.0); Lymphocytes % (A) 17 %; MCH 27.3 pg (25.0-35.0); MCHC 33.4 g/dL (31.0-37.0); MCV 81.8 fL (80.0-100.0); Mean Platelet Volume 7.2; Monocytes # (A) 0.5 k/uL (0-1.0); Monocytes % (A) 8 %; Neutrophils # (A) 4.1 k/uL (1.3-7.7); Neutrophils % (A) 69 %; Platelet Count 178 k/uL (150-450); RBC 4.39 m/uL (3.80-5.40); RDW 15.3 % (11.5-15.5); WBC 5.9 k/uL (3.8-10.6)
[2017-10-26 18:50] LABS: Albumin 3.7 g/dL (3.5-5.0); Calcium 8.7 mg/dL (8.4-10.2); Potassium 4.2 mmol/L (3.5-5.1); Total Bilirubin 0.1 mg/dL (0.2-1.3); Total Protein 6.5 g/dL (6.3-8.2)
[2017-10-26 19:03] LABS: INR 1.1 (<1.2); Partial Thromboplastin Time 25.7 sec (22.0-30.0); Prothrombin Time 10.3 sec (9.0-12.0)
--- NOTE | 2017-10-26 19:32 | CT ---
EXAMINATION TYPE: CT brain wo con DATE OF EXAM: 10/26/2017 COMPARISON: 10/24/2015 HISTORY: Dizziness. CT DLP: [address] of the brain was performed. The ventricles, basal cisterns and sulci overlying the cerebral convexities demonstrate mild enlargem ent. There is no evidence for intracranial hemorrhage or sulcal effacement. There is decreased attenuation about the periventricular white matter and deep white matter of both c erebral hemispheres, compatible with chronic small vessel ischemia. Differential diagnosis does inclu de demyelination. No mass effects are seen.No midline shift. Osseous calvarium is intact. If symptoms persist consider MRI. IMPRESSION: 1. Age related atrophic and chronic small vessel ischemic change without acute intracranial process s een at this time.
[2017-10-26 20:02] VITALS: BP 148/68; PULSE 82; RESP 16; TEMP 97.4
== END 2017-10-26 20:20 | disposition home or self-care (01) ==
LOC: EC 17:37
DX: R42 Dizziness and giddiness (principal); R11.0 Nausea; R40.2142 Coma scale, eyes open, spontaneous, at arrival to emergency department; R40.2252 Coma scale, best verbal response, oriented, at arrival to emergency department; R40.2362 Coma scale, best motor response, obeys commands, at arrival to emergency department; E07.9 Disorder of thyroid, unspecified; Z86.718 Personal history of other venous thrombosis and embolism; Z94.4 Liver transplant status; Z98.890 Other specified postprocedural states; Z87.891 Personal history of nicotine dependence; Z79.82 Long term (current) use of aspirin; Z79.899 Other long term (current) drug therapy
CPT/HCPCS: 36415; 93005; 80053; 85025; 85610; 85730; 70450; 99284; 96374; 96361; J2765

== ENCOUNTER 2018-03-06 21:18 | Inpatient (IN) | payer MEDICARE, BC ==
[2018-03-06] MEDS ORDERED: MORPHINE SULFATE 4 MG/ML SYRINGE IV STA (21:47)
--- NOTE | 2018-03-06 21:56 | ED ---
General Adult HPI - General Chief complaint: Abdominal Pain Stated complaint: abdominal pain Time Seen by Provider: 03/06/18 21:41 Source: patient, family, RN notes reviewed, old records reviewed Mode of arrival: wheelchair Limitations: no limitations - History of Present Illness Initial comments: 72-year-old female presents for evaluation of left upper quadrant and epigastric abdominal pain. This is the patient's second ER visit with similar symptoms. She was seen on Tuesday at [facility] with similar symptoms. She does follow at [facility], history of liver transplant. She also has history of pancreatic cyst. She denies any chest pain. Denies dyspnea. Pain is localized to the epigastrium and left upper quadrant. This was sudden onset severe pain. She describes it as a constant ache and does radiate to her back. No lower abdominal pain. No fever or chills. No vomiting or diarrhea. - Related Data Home Medications Medication Instructions Recorded Confirmed Metoprolol Tartrate [Lopressor] 50 mg PO BID 10/23/15 03/06/18 Everolimus [Zortress] 1.5 mg PO BID 03/03/16 03/06/18 Aspirin 325 mg PO QAM 12/03/16 03/06/18 Ursodiol 600 mg PO QAM 03/09/17 03/06/18 Ursodiol [Actigall] 300 mg PO HS 03/09/17 03/06/18 Levothyroxine Sodium 100 mcg PO QAM 04/27/17 03/06/18 Tacrolimus [Prograf] 1 mg PO QAM 04/27/17 03/06/18 Cholecalciferol [Vitamin D3] 400 unit PO BID 10/26/17 03/06/18 Omeprazole [PriLOSEC] 20 mg PO AC-BRKFST 10/26/17 03/06/18 Tacrolimus [Prograf] 0.5 mg PO HS 10/26/17 03/06/18 Zortress 0.75mg 1.5 mg PO BID 03/06/18 03/06/18 Allergies Allergy/AdvReac Type Severity Reaction Status Date / Time No Known Allergies Allergy Verified 03/06/18 21:52 Review of Systems ROS Statement: Those systems with pertinent positive or pertinent negative responses have been documented in the HPI. ROS Other: All systems not noted in ROS Statement are negative. Past Medical History Past Medical History: COPD, Deep Vein Thrombosis (DVT), Liver Disease, Respiratory Disorder, Thyroid Disorder Additional Past Medical History / Comment(s): emphysema, thoracentesis 06/24/14, underactive thyroid. liver transplant 2014 History of Any Multi-Drug Resistant Organisms: None Reported Past Surgical History: Hernia Repair, Tonsillectomy Additional Past Surgical History / Comment(s): hiatal hernia, past liver/ gallbladder biopsies neg, Liver transplant 03/27/2015. Past Anesthesia/Blood Transfusion Reactions: No Reported Reaction Past Psychological History: No Psychological Hx Reported Smoking Status: Former smoker Past Alcohol Use History: None Reported Past Drug Use History: None Reported - Past Family History Father Family Medical History: Liver Disease Additional Family Medical History / Comment(s): dad at age 72- was a heavy drinker had liver disease Mother Family Medical History: Diabetes Mellitus, Renal Disease Additional Family Medical History / Comment(s): at age 78 kidney failure General Exam Limitations: no limitations General appearance: alert, in no apparent distress Head exam: Present: atraumatic, normocephalic Eye exam: Present: normal appearance, PERRL ENT exam: Present: normal exam Neck exam: Present: normal inspection. Absent: tenderness, meningismus Respiratory exam: Present: normal lung sounds bilaterally. Absent: respiratory distress, wheezes Cardiovascular Exam: Present: regular rate, normal rhythm GI/Abdominal exam: Present: distended, tenderness (Epigastric and right upper quadrant tenderness to palpation) Extremities exam: Present: normal inspection, normal capillary refill, other ( Distal pulses intact). Absent: pedal edema Back exam: Present: normal inspection, full ROM. Absent: tenderness Neurological exam: Present: alert, oriented X3, CN II-XII intact. Absent: motor sensory deficit Psychiatric exam: Present: normal affect, normal mood Skin exam: Present: warm, dry, intact. Absent: cyanosis, diaphoretic Course Vital Signs 03/06/18 03/07/18 03/07/18 21:32 00:22 00:23 Temperature 97.9 F Pulse Rate 95 83 76 Respiratory 26 H 17 15 Rate Blood Pressure 191/108 170/78 145/65 O2 Sat by Pulse 96 98 98 Oximetry Medical Decision Making - Medical Decision Making 72-year-old female presenting with severe abdominal pain. Patient does have tenderness in the epigastrium and left upper quadrant on initial evaluation. X- rays obtained, shows dilated stomach, CT is obtained, this does show dilated stomach with significant amount of debris, there is some concern for small bowel obstruction in mildly dilated loops of small bowel. There is concern for gastroparesis. Patient has been having normal bowel movements, no vomiting. CBC CMP are normal. Patient will be admitted for symptomatically treatment, she is placed on Reglan. Gastroenterology to see. Case discussed with Dr. Wheeler, will accept admission - Lab Data Result diagrams: 03/06/18 22:05 03/06/18 22:05 Lab Results 03/06/18 03/06/18 03/06/18 Range/Units 22:05 22:05 22:05 WBC 5.4 (3.8-10.6) k/uL RBC 4.51 (3.80-5.40) m/uL Hgb 12.0 (11.4-16.0) gm/dL Hct 37.1 (34.0-46.0) % MCV 82.1 (80.0-100.0) fL MCH 26.6 (25.0-35.0) pg MCHC 32.4 (31.0-37.0) g/dL RDW 15.5 (11.5-15.5) % Plt Count 198 (150-450) k/uL Neutrophils % 67 % Lymphocytes % 21 % Monocytes % 7 % Eosinophils % 3 % Basophils % 0 % Neutrophils # 3.6 (1.3-7.7) k/uL Lymphocytes # 1.1 (1.0-4.8) k/uL Monocytes # 0.4 (0-1.0) k/uL Eosinophils # 0.1 (0-0.7) k/uL Basophils # 0.0 (0-0.2) k/uL Hypochromasia Slight PT (9.0-12.0) sec INR (<1.2) APTT (22.0-30.0) sec Sodium 142 (137-145) mmol/L Potassium 4.8 (3.5-5.1) mmol/L Chloride 111 H (98-107) mmol/L Carbon Dioxide 22 (22-30) mmol/L Anion Gap 9 mmol/L BUN 27 H (7-17) mg/dL Creatinine 1.09 H (0.52-1.04) mg/dL Est GFR (CKD-EPI)AfAm 60 (>60 ml/min/1.73 sqM) Est GFR (CKD-EPI)NonAf 52 (>60 ml/min/1.73 sqM) Glucose 140 H (74-99) mg/dL Plasma Lactic Acid Jose (0.7-2.0) mmol/L Calcium 9.5 (8.4-10.2) mg/dL Total Bilirubin 0.2 (0.2-1.3) mg/dL AST 21 (14-36) U/L ALT 23 (9-52) U/L Alkaline Phosphatase 109 (38-126) U/L Total Creatine Kinase 225 H (30-135) U/L CK-MB (CK-2) 1.2 (0.0-2.4) ng/mL CK-MB (CK-2) Rel Index 0.5 Troponin I <0.012 (0.000-0.034) ng/mL Total Protein 7.5 (6.3-8.2) g/dL Albumin 4.1 (3.5-5.0) g/dL Amylase 72 (30-110) U/L Lipase 153 (23-300) U/L Urine Color Urine Appearance (Clear) Urine pH (5.0-8.0) Ur Specific [place] (1.001-1.035) Urine Protein (Negative) Urine Glucose (UA) (Negative) Urine Ketones (Negative) Urine Blood (Negative) Urine Nitrite (Negative) Urine Bilirubin (Negative) Urine Urobilinogen (<2.0) mg/dL Ur Leukocyte Esterase (Negative) Urine WBC (0-5) /hpf Ur Squamous Epith Cells (0-4) /hpf Urine Bacteria (None) /hpf Urine Mucus (None) /hpf 03/06/18 03/06/18 03/06/18 Range/Units 22:05 22:05 22:32 WBC (3.8-10.6) k/uL RBC (3.80-5.40) m/uL Hgb (11.4-16.0) gm/dL Hct (34.0-46.0) % MCV (80.0-100.0) fL MCH (25.0-35.0) pg MCHC (31.0-37.0) g/dL RDW (11.5-15.5) % Plt Count (150-450) k/uL Neutrophils % % Lymphocytes % % Monocytes % % Eosinophils % % Basophils % % Neutrophils # (1.3-7.7) k/uL Lymphocytes # (1.0-4.8) k/uL Monocytes # (0-1.0) k/uL Eosinophils # (0-0.7) k/uL Basophils # (0-0.2) k/uL Hypochromasia PT 9.4 (9.0-12.0) sec INR 0.9 (<1.2) APTT 23.7 (22.0-30.0) sec Sodium (137-145) mmol/L Potassium (3.5-5.1) mmol/L Chloride (98-107) mmol/L Carbon Dioxide (22-30) mmol/L Anion Gap mmol/L BUN (7-17) mg/dL Creatinine (0.52-1.04) mg/dL Est GFR (CKD-EPI)AfAm (>60 ml/min/1.73 sqM) Est GFR (CKD-EPI)NonAf (>60 ml/min/1.73 sqM) Glucose (74-99) mg/dL Plasma Lactic Acid Jose 0.9 (0.7-2.0) mmol/L Calcium (8.4-10.2) mg/dL Total Bilirubin (0.2-1.3) mg/dL AST (14-36) U/L ALT (9-52) U/L Alkaline Phosphatase (38-126) U/L Total Creatine Kinase (30-135) U/L CK-MB (CK-2) (0.0-2.4) ng/mL CK-MB (CK-2) Rel Index Troponin I (0.000-0.034) ng/mL Total Protein (6.3-8.2) g/dL Albumin (3.5-5.0) g/dL Amylase (30-110) U/L Lipase (23-300) U/L Urine Color Yellow Urine Appearance Cloudy H (Clear) Urine pH 5.5 (5.0-8.0) Ur Specific [place] 1.023 (1.001-1.035) Urine Protein Trace H (Negative) Urine Glucose (UA) Negative (Negative) Urine Ketones Negative (Negative) Urine Blood Negative (Negative) Urine Nitrite Negative (Negative) Urine Bilirubin Negative (Negative) Urine Urobilinogen <2.0 (<2.0) mg/dL Ur Leukocyte Esterase Small H (Negative) Urine WBC 6 H (0-5) /hpf Ur Squamous Epith Cells 4 (0-4) /hpf Urine Bacteria Occasional H (None) /hpf Urine Mucus Occasional H (None) /hpf Disposition Clinical Impression: Abdominal pain, Dilatation, stomach, acute Disposition: ADMITTED IP TO THIS [facility] Condition: Stable Is patient prescribed a controlled substance at d/c from ED?: No Referrals: George Wheeler MD [Primary Care Provider] - 1-2 days Decision to Admit Reason: Admit from EC Decision Date: 03/07/18 Decision Time: 01:05
[2018-03-06 22:24] LABS: Basophils % (A) 0 %; Eosinophils # (A) 0.1 k/uL (0-0.7); Eosinophils % (A) 3 %; HCT 37.1 % (34.0-46.0); Hypochromasia Slight; Lymphocytes # (A) 1.1 k/uL (1.0-4.8); Lymphocytes % (A) 21 %; MCH 26.6 pg (25.0-35.0); MCHC 32.4 g/dL (31.0-37.0); MCV 82.1 fL (80.0-100.0); Mean Platelet Volume 6.9; Monocytes # (A) 0.4 k/uL (0-1.0); Monocytes % (A) 7 %; Neutrophils # (A) 3.6 k/uL (1.3-7.7); Neutrophils % (A) 67 %; Platelet Count 198 k/uL (150-450); RBC 4.51 m/uL (3.80-5.40); RDW 15.5 % (11.5-15.5); WBC 5.4 k/uL (3.8-10.6)
[2018-03-06 22:37] LABS: Albumin 4.1 g/dL (3.5-5.0); Calcium 9.5 mg/dL (8.4-10.2); Potassium 4.8 mmol/L (3.5-5.1); Total Bilirubin 0.2 mg/dL (0.2-1.3); Total Protein 7.5 g/dL (6.3-8.2)
[2018-03-06 22:40] LABS: INR 0.9 (<1.2); Partial Thromboplastin Time 23.7 sec (22.0-30.0); Prothrombin Time 9.4 sec (9.0-12.0)
[2018-03-06 22:46] LABS: Creatine Kinase 225 U/L (30-135)
[2018-03-06] MEDS ORDERED: SODIUM CHLORIDE 0.9% 500 ML IV STA (22:47)
--- NOTE | 2018-03-06 22:49 | XR ---
EXAMINATION TYPE: XR KUB DATE OF EXAM: 03/06/2018 COMPARISON: NONE HISTORY: Abdominal pain TECHNIQUE: 2 views upright FINDINGS: There are multiple surgical clips in the left upper quadrant. There is large stomach. There is no sign of pneumoperitoneum. Fecal pattern is normal. Lung bases are clear of consolidation. IMPRESSION: Mildly dilated stomach. No free air.
[2018-03-06 22:59] LABS: Creatine Kinase MB 1.2 ng/mL (0.0-2.4); Troponin I <0.012 ng/mL (0.000-0.034)
[2018-03-06 23:07] LABS: Appearance,Urine Cloudy (Clear); Bacteria,Urine Occasional /hpf; Bilirubin,Urine Negative (Negative); Blood,Urine Negative (Negative); Color,Urine Yellow; Glucose,Urine (UA) Negative (Negative); Ketones,Urine Negative (Negative); Leukocyte Esterase,Urine Small (Negative); Mucus,Urine Occasional /hpf; Nitrite,Urine Negative (Negative); PH, Urine 5.5 (5.0-8.0); Protein,Urine Trace (Negative); Specific Gravity,Urine 1.023 (1.001-1.035); Squamous Epithelial Cell,Urine 4 /hpf (0-4); Urobilinogen,Urine <2.0 mg/dL (<2.0); WBC,Urine 6 /hpf (0-5)
--- NOTE | 2018-03-06 23:38 | CT ---
EXAMINATION TYPE: CT abdomen pelvis w con DATE OF EXAM: 03/06/2018 COMPARISON: 09/23/2016 HISTORY: Abdominal pain x3 hours. CT DLP: 1547.3 mGycm Automated exposure control for dose reduction was used. TECHNIQUE: Helical acquisition of images was performed from the lung bases through the pelvis. CONTRAST: Performed without Oral Contrast and with IV Contrast, patient injected with 100ml mL of Isovue 300. FINDINGS: Lung bases are clear. There is no pleural effusion. Heart size is normal. There is no pericardial eff usion. There are numerous surgical clips around the stomach. Stomach is mildly dilated. Spleen appear s normal. There is no evidence of pancreatic mass. There is no adrenal mass. Kidneys show satisfactory contrast opacification. There is no hydronephrosi s. There is no retroperitoneal adenopathy. There is no mesenteric adenopathy. There is no ascites. Bl adder distends smoothly. Uterus is slightly retroverted. There are mild spondylotic changes in the kristina mbar spine. There is 10% depression superior endplate of L4 and also 20% depression superior endplate of T12. I see no intestinal wall thickening. Gallbladder is absent. Bile ducts are not dilated. Splenic vein and portal vein are patent. Superior mesenteric vein is patent. There is surgical clips at the venous anastomosis. There is no sign of pneumoperitoneum. There are some fluid-filled distended proximal sm all bowel loops that measure up to 2.7 cm. There is small umbilical hernia that contains fat. There is no inguinal hernia or adenopathy. IMPRESSION: DILATED STOMACH AND MILD DISTENDED SMALL BOWEL LOOPS WITH FLUID. THIS COULD RELATE TO ILEUS AND GASTR OPARESIS. NO OBSTRUCTING LESION SEEN. NO DILATED DUCTS. ABNORMALITIES APPEAR NEW COMPARED TO LAST EXA M.
[2018-03-07] MEDS ORDERED: METOCLOPRAMIDE 5 MG/ML 2 ML VIAL IVP STA (00:33)
[2018-03-07] MEDS ORDERED: MORPHINE SULFATE 4 MG/ML SYRINGE IV PRN (01:00)
[2018-03-07] MEDS ORDERED: NALOXONE 0.4 MG/ML 1 ML VIAL IV PRN (01:00)
[2018-03-07] MEDS: SODIUM CHLORIDE 0.9% 1,000 ML IV SCH ×2 (01:59→16:32)
[2018-03-07 02:38] VITALS: BMI 31.9
[2018-03-07] MEDS: METOCLOPRAMIDE 5 MG/ML 2 ML VIAL IVP SCH ×4 (05:54→23:35)
[2018-03-07] MEDS: LEVOTHYROXINE 100 MCG TAB PO SCH (08:54)
[2018-03-07] MEDS: EVEROLIMUS PO SCH ×2 (08:54→21:47)
[2018-03-07] MEDS: TACROLIMUS 1 MG CAP PO SCH (08:55)
[2018-03-07] MEDS: METOPROLOL TARTRATE 25 MG TAB PO SCH ×2 (08:55→21:46)
[2018-03-07] MEDS: URSODIOL 300 MG CAP PO SCH (08:55)
[2018-03-07] MEDS: ZORTRESS PO SCH ×2 (08:56→21:47)
--- NOTE | 2018-03-07 10:15 | P.CONS ---
History of Present Illness - Reason for Consult Consult date: 03/07/18 abdominal pain diarrhea Requesting physician: George Wheeler - Chief Complaint abdominal pain - History of Present Illness 72-year-old female patient Dr. Wheeler with a past medical history of primary biliary cirrhosis status post liver transplant 2015 at [facility] [place], COPD, DVT. Patient developed mild to moderate midepigastric abdominal pain with nonbloody loose bowel movements last /Tuesday. She was evaluated at [facility] on Tuesday. According to the family and patient some abdominal imaging was performed and she was released; symptoms possibly related to constipation. Over the weekend her symptoms did not improve. She still continues to have loose nonbloody bowel movements. No emesis. Yesterday after eating a small dinner she developed severe epigastric pain. Denies hematemesis hematochezia or melena. No fever or chills. Prior to the onset of diarrhea and epigastric pain no changes in bowel habits. No history of these types of symptoms. No recent antibiotics. No changes in diet recent travel sick contacts or changes in medications. She was taken off her PPI therapy a few weeks ago by the [facility] transplant service. Endoscopic history: 1. EGD more than 10 years ago. Colonoscopy less than 5 years but more than 2 years does not remember results. White count 5.4. Hemoglobin 12. INR 0.9. Potassium 4.8. Sodium 142. BUN 27. Creatinine 1.0. LFTs within normal limits. Glucose 140. Urinalysis cloudy small leukocyte esterase. Occasional urine bacteria. CT abdomen and pelvis dilated stomach and mild distended small bowel loops with fluid. This could relate to ileus gastroparesis. No obstructing lesions seen. No dilated ducts. No pneumoperitoneum. Review of Systems Constitutional: Denies fever, chills, sweats, weight gain, or loss. HEENT: Negative for migraines, blurred vision or loss, earaches, drainage, tinnitus, oral mucosal lesions, dysphagia, or odynophagia. CARDIAC: Negative for chest pain, arrhythmias, or palpitation. RESPIRATORY: Negative for shortness of breath, hemoptysis, cough, or sputum production. GI: See HPI for pertinent findings. : Negative for hematuria, urgency, frequency, polyuria, or dysuria. GYNc: Negative vaginal discharge. MUSCULOSKELETAL: Negative for muscle aches, swelling, arthritis, and arthralgias. NEUROLOGIC: Negative for stroke or TIA. ENDOCRINE: History of underactive thyroid. SKIN: Negative for rash or itching. PSYCHIATRIC: Negative history for depression and anxiety Past Medical History Past Medical History: COPD, Deep Vein Thrombosis (DVT), Liver Disease, Respiratory Disorder, Thyroid Disorder Additional Past Medical History / Comment(s): emphysema, thoracentesis 06/24/14, underactive thyroid. liver transplant 2014 History of Any Multi-Drug Resistant Organisms: None Reported Past Surgical History: Hernia Repair, Tonsillectomy Additional Past Surgical History / Comment(s): hiatal hernia, past liver/ gallbladder biopsies neg, Liver transplant 03/27/2015. Past Anesthesia/Blood Transfusion Reactions: No Reported Reaction Past Psychological History: No Psychological Hx Reported Smoking Status: Former smoker Past Alcohol Use History: None Reported Additional Past Alcohol Use History / Comment(s): started smoking at age 17 smokes 1 ppd, stopped smoking 2 days ago. gave smoking cessation booklet. Past Drug Use History: None Reported - Past Family History Father Family Medical History: Liver Disease Additional Family Medical History / Comment(s): dad at age 72- was a heavy drinker had liver disease Mother Family Medical History: Diabetes Mellitus, Renal Disease Additional Family Medical History / Comment(s): at age 78 kidney failure Medications and Allergies Home Medications Medication Instructions Recorded Confirmed Type Metoprolol Tartrate [Lopressor] 50 mg PO BID 10/23/15 03/06/18 History Everolimus [Zortress] 1.5 mg PO BID 03/03/16 03/06/18 History Aspirin 325 mg PO QAM 12/03/16 03/06/18 History Ursodiol 600 mg PO QAM 03/09/17 03/06/18 History Ursodiol [Actigall] 300 mg PO HS 03/09/17 03/06/18 History Levothyroxine Sodium 100 mcg PO QAM 04/27/17 03/06/18 History Tacrolimus [Prograf] 1 mg PO QAM 04/27/17 03/06/18 History Cholecalciferol [Vitamin D3] 400 unit PO BID 10/26/17 03/06/18 History Omeprazole [PriLOSEC] 20 mg PO AC-BRKFST 10/26/17 03/06/18 History Tacrolimus [Prograf] 0.5 mg PO HS 10/26/17 03/06/18 History Zortress 0.75mg 1.5 mg PO BID 03/06/18 03/06/18 History Allergies Allergy/AdvReac Type Severity Reaction Status Date / Time No Known Allergies Allergy Verified 03/06/18 21:52 Physical Exam Vitals: Vital Signs Temp Pulse Pulse Resp BP BP Pulse Ox 03/07/18 06:48 97.9 F 85 18 110/71 96 03/07/18 02:50 97.7 F 84 18 110/73 95 03/07/18 01:39 95 15 113/57 95 03/07/18 00:23 76 15 145/65 98 03/07/18 00:22 83 17 170/78 98 03/06/18 21:32 97.9 F 95 26 H 191/108 96 Intake and Output 03/06/18 03/07/18 03/07/18 22:59 06:59 14:59 Other: # Voids 2 1 # Bowel Movements 1 Weight 87.09 kg 87.09 kg General appearance: The patient is alert, oriented, in no acute distress. HET: Head is normocephalic and atraumatic. Pupils are equal and reactive. Oropharynx is clear without lesions. Neck: Supple without lymphadenopathy. Trachea midline. Heart: S1 S2. Regular rate and rhythm. Lungs: No crackles or wheezes are heard. Abdomen: Soft, midepigastric tenderness mildly bloated hypoactive bowel sounds. No peritoneal signs. No palpable organomegaly or masses. Extremities: Normal skin color and turgor. No cyanosis, rash, ulceration, clubbing, or edema. Radial and pedal pulses are 2/4 bilaterally. Neurological: No focal deficits. Strength and sensation are grossly intact. Results CBC & Chem 7: 03/06/18 22:05 03/06/18 22:05 Labs: Abnormal Lab Results - Last 24 Hours (Table) 03/06/18 03/06/18 03/06/18 Range/Units 22:05 22:05 22:32 Chloride 111 H (98-107) mmol/L BUN 27 H (7-17) mg/dL Creatinine 1.09 H (0.52-1.04) mg/dL Glucose 140 H (74-99) mg/dL Total Creatine Kinase 225 H (30-135) U/L Urine Appearance Cloudy H (Clear) Urine Protein Trace H (Negative) Ur Leukocyte Esterase Small H (Negative) Urine WBC 6 H (0-5) /hpf Urine Bacteria Occasional H (None) /hpf Urine Mucus Occasional H (None) /hpf CT scan - abdomen: report reviewed (Dr. Ramsay) Assessment and Plan (1) Abdominal pain Narrative/Plan: 72-year-old female admitted with acute onset of nonbloody diarrhea midepigastric pain with a history of primary biliary cirrhosis status post liver transplant in 2014. Possible gastroenteritis. CT imaging reported dilated stomach small bowel loops suggestive of possible ileus possible gastroparesis. Current Visit: Yes Status: Acute Code(s): R10.9 - UNSPECIFIED ABDOMINAL PAIN SNOMED Code(s): 47163503 (2) Diarrhea Current Visit: Yes Status: Acute Code(s): R19.7 - DIARRHEA, UNSPECIFIED SNOMED Code(s): 90164658 (3) Primary biliary cirrhosis Current Visit: Yes Status: Resolved Code(s): K74.3 - PRIMARY BILIARY CIRRHOSIS SNOMED Code(s): 08540693 (4) Liver transplant recipient Current Visit: Yes Status: Chronic Code(s): Z94.4 - LIVER TRANSPLANT STATUS SNOMED Code(s): 415066523 Plan: 1. Symptomatic and supportive measures. Stool studies requested including Clostridium difficile testing. 2. Nothing by mouth except medications ice chips and popsicles as tolerated. 3. CBC BMP in a.m. 4. Abdominal x-rays today. 5. Protonix 40 mg daily. Inpatient endoscopic exams not planned at this time but contingent on clinical course. [facility] records requested for review. We 'll follow closely with you. Thank you for this kind referral and the opportunity to participate in the care of your patient. This consultation was discussed with Dr. Ramsay. The impression and plan of care have been directed as dictated.
[2018-03-07] MEDS: PANTOPRAZOLE 40 MG/10 ML VIAL IVP SCH (11:25)
--- NOTE | 2018-03-07 11:45 | P.HPIM ---
History of Present Illness H&P Date: 03/07/18 Chief Complaint: Abdominal pain 72-year-old female presented to emergency room on 03/06/2018 with a chief complaint of abdominal pain. Patient states over the last week she has been having abdominal pain but it became severe last night and she was doubled over in pain. She reports she was seen last week at [facility] in [place] for similar symptoms but was discharged home. She states her pain is mostly in the left upper quadrant. Patient reports that she has been having diarrhea 4-5 times a day. She reports increased pain after she eats a meal. She has been taking [id number] Rolaids which she reports usually helps her symptoms but did not yesterday. She denies nausea or vomiting. Denies hematemesis, hematochezia, or melena. Denies fever or chills. Denies shortness of breath. Denies chest pain or pressure. KUB x-ray was completed revealing mildly dilated stomach. No free air. CT of abdomen and pelvis was completed revealing dilated stomach and mild distended small bowel loops with fluid. This could relate to ileus and gastric paresis. No obstructing lesion seen. No dilated ducts. Laboratory data upon admission reveals white count of 5.4. Hemoglobin 12.0. Platelet count 197. Sodium 142. Potassium 4.8. BUN 27. Creatinine 1.09. Lactic acid 0.9. AST 21. ALT 23. Alkaline phosphatase 109. Total creatine kinase 225. Troponin negative 1. Amylase 72. Lipase 153. The patient was noted to the hospital under the care of Dr. Wheeler. Consultations were placed to gastroenterology. Review of Systems Those systems with pertinent positive or pertinent negative responses have been documented in the HPI Past Medical History Past Medical History: COPD, Deep Vein Thrombosis (DVT), Liver Disease, Respiratory Disorder, Thyroid Disorder Additional Past Medical History / Comment(s): emphysema, thoracentesis 06/24/14, underactive thyroid. liver transplant 2014 History of Any Multi-Drug Resistant Organisms: None Reported Past Surgical History: Hernia Repair, Tonsillectomy Additional Past Surgical History / Comment(s): hiatal hernia, past liver/ gallbladder biopsies neg, Liver transplant 03/27/2015. Past Anesthesia/Blood Transfusion Reactions: No Reported Reaction Past Psychological History: No Psychological Hx Reported Smoking Status: Former smoker Past Alcohol Use History: None Reported Additional Past Alcohol Use History / Comment(s): started smoking at age 17 smokes 1 ppd, stopped smoking 2 days ago. gave smoking cessation booklet. Past Drug Use History: None Reported - Past Family History Father Family Medical History: Liver Disease Additional Family Medical History / Comment(s): dad at age 72- was a heavy drinker had liver disease Mother Family Medical History: Diabetes Mellitus, Renal Disease Additional Family Medical History / Comment(s): at age 78 kidney failure Medications and Allergies Home Medications Medication Instructions Recorded Confirmed Type Metoprolol Tartrate [Lopressor] 50 mg PO BID 10/23/15 03/06/18 History Everolimus [Zortress] 1.5 mg PO BID 03/03/16 03/06/18 History Aspirin 325 mg PO QAM 12/03/16 03/06/18 History Ursodiol 600 mg PO QAM 03/09/17 03/06/18 History Ursodiol [Actigall] 300 mg PO HS 03/09/17 03/06/18 History Levothyroxine Sodium 100 mcg PO QAM 04/27/17 03/06/18 History Tacrolimus [Prograf] 1 mg PO QAM 04/27/17 03/06/18 History Cholecalciferol [Vitamin D3] 400 unit PO BID 10/26/17 03/06/18 History Omeprazole [PriLOSEC] 20 mg PO AC-BRKFST 10/26/17 03/06/18 History Tacrolimus [Prograf] 0.5 mg PO HS 10/26/17 03/06/18 History Zortress 0.75mg 1.5 mg PO BID 03/06/18 03/06/18 History Allergies Allergy/AdvReac Type Severity Reaction Status Date / Time No Known Allergies Allergy Verified 03/06/18 21:52 Physical Exam Vitals: Vital Signs Temp Pulse Pulse Resp BP BP Pulse Ox 03/07/18 06:48 97.9 F 85 18 110/71 96 03/07/18 02:50 97.7 F 84 18 110/73 95 03/07/18 01:39 95 15 113/57 95 03/07/18 00:23 76 15 145/65 98 03/07/18 00:22 83 17 170/78 98 03/06/18 21:32 97.9 F 95 26 H 191/108 96 Intake and Output 03/06/18 03/07/18 03/07/18 22:59 06:59 14:59 Other: # Voids 2 1 # Bowel Movements 1 Weight 87.09 kg 87.09 kg GENERAL: This is a 72-year-old female in no apparent distress at the time of examination. Pleasant and cooperative. HEENT: Head is atraumatic, normocephalic. Pupils are equal, round, and reactive to light. Sclerae anicteric. Conjunctivae are clear. Mucus membranes of the mouth are moist. Neck is supple. RESPIRATORY: Clear to ausculation. No wheezes, rales, or rhonchi. No use of accessory muscles. Patient maintaining oxygen saturation greater than 92%. No chest wall tenderness is noted on palpation or with deep breathing. CARDIOVASCULAR: Regular rate and rhythm. S1 and S2 noted. No systolic or diastolic murmur auscultated. No JVD noted. No S3 or S4 noted. GASTROINTESTINAL: No distention noted. Abdomen soft and round. Hypoactive bowel sounds auscultated to left upper quadrant. Bowel sounds normal in all remaining quadrants. Pain and tenderness noted upon palpation of left upper quadrant. INTEGUMENTARY: No cyanosis. No jaundice. No rashes noted. No cellulitis noted. EXTREMITIES: 2+ peripheral pulses. No evidence of peripheral edema. No calf tenderness noted. NEUROLOGIC: Cranial nerves II-XII intact. PSYCHIATRIC: Awake, alert, and oriented X 3. Appropriate affect. Intact judgement and insight. Results CBC & Chem 7: 03/06/18 22:05 03/06/18 22:05 Labs: Abnormal Lab Results - Last 24 Hours (Table) 03/06/18 03/06/18 03/06/18 Range/Units 22:05 22:05 22:32 Chloride 111 H (98-107) mmol/L BUN 27 H (7-17) mg/dL Creatinine 1.09 H (0.52-1.04) mg/dL Glucose 140 H (74-99) mg/dL Total Creatine Kinase 225 H (30-135) U/L Urine Appearance Cloudy H (Clear) Urine Protein Trace H (Negative) Ur Leukocyte Esterase Small H (Negative) Urine WBC 6 H (0-5) /hpf Urine Bacteria Occasional H (None) /hpf Urine Mucus Occasional H (None) /hpf Thrombosis Risk Factor Assmnt - Choose All That Apply Each Factor Represents 1 point: Abnormal pulmonary function (COPD) Each Risk Factor Represents 2 Points: Age 61-74 years Each Risk Factor Represents 3 Points: History of DVT/PE Thrombosis Risk Factor Assessment Total Risk Factor Score: 6 Thrombosis Risk Factor Assessment Level: High Risk Assessment and Plan Plan: ASSESSMENT: Abdominal pain with diarrhea x 1 week, CT reveals possible ileus or gastroparesis Primary biliary cirrhosis, status post liver transplant 2014 COPD, no evidence of acute exacerbation History of deep vein thrombosis Obesity: BMI 32.0 Nicotine dependence, patient smokes 1 pack per day PLAN: GI on consult. Appreciate recommendations and input Abdominal x-ray ordered. Await results Continue Reglan Home meds as appropriate NPO except medications and ice chips Monitor labs GI prophylaxis: Protonix 40 mg IV Daily DVT prophylaxis: SCDs to bilateral lower extremities Monitor vital signs and address as appropriate Discharge planning: Patient to return home when stable Further recommendations pending patient's course Nurse practitioner note has been reviewed by physician. Signing provider agrees with the documented findings, assessment, and plan of care.
[2018-03-07 15:38] VITALS: RESP 16
--- NOTE | 2018-03-07 16:05 | XR ---
EXAMINATION TYPE: XR abdomen complete w decub DATE OF EXAM: 03/07/2018 CLINICAL HISTORY: Abdominal pain not further specified. TECHNIQUE: Supine, upright, and left side down lateral decubitus views of the abdomen are obtained. COMPARISON: Abdominal x-ray and CT abdomen and pelvis from yesterday.. FINDINGS: Multiple surgical clips epigastric region are redemonstrated. There is interval improvement in debris-filled stomach epigastric region. On current study there is gas seen in nondistended small and large bowel loops throughout the abdomen and pelvis. Cholecystectomy clips are redemonstrated. L jaziel bases remain clear. Levoconvex scoliosis centered in the mid lumbar spine is redemonstrated. A fe w scattered pelvic phleboliths are seen. Dystrophic calcification in the left iliac crest correlates with posterior soft tissue on CT. IMPRESSION: Marked improvement in debris-filled distended stomach. Overall nonobstructive bowel gas p attern currently.
[2018-03-07] MEDS ORDERED: URSODIOL 300 MG CAP PO SCH (21:00)
[2018-03-07] MEDS ORDERED: TACROLIMUS 0.5 MG CAP PO SCH (21:00)
[2018-03-08] MEDS: SODIUM CHLORIDE 0.9% 1,000 ML IV SCH (05:25)
[2018-03-08] MEDS: METOCLOPRAMIDE 5 MG/ML 2 ML VIAL IVP SCH ×2 (05:53→11:48)
[2018-03-08 06:36] VITALS: BP 140/83; PULSE 73; TEMP 98.1
[2018-03-08] MEDS: METOPROLOL TARTRATE 25 MG TAB PO SCH (08:27)
[2018-03-08] MEDS: LEVOTHYROXINE 100 MCG TAB PO SCH (08:27)
[2018-03-08] MEDS: PANTOPRAZOLE 40 MG/10 ML VIAL IVP SCH (08:28)
[2018-03-08] MEDS: TACROLIMUS 1 MG CAP PO SCH (08:28)
[2018-03-08] MEDS: EVEROLIMUS PO SCH (08:29)
[2018-03-08] MEDS: URSODIOL 300 MG CAP PO SCH (08:29)
[2018-03-08] MEDS: ZORTRESS PO SCH (08:29)
--- NOTE | 2018-03-08 09:56 | P.PN ---
Subjective Progress Note Date: 03/08/18 Principal diagnosis: Abdominal pain nausea diarrhea Feels better today. Minimal abdominal discomfort. Afebrile. Past a formed nonbloody bowel movement. Requesting diet advancement. [facility] records reviewed. Abdominal x-ray just showed improvement in stomach distention. No nausea vomiting. Stool study positive for lactoferrin. Stool culture in progress. C. diff negative. Objective - Vital Signs Vital signs: Vital Signs Temp 98.1 F 03/08/18 06:36 Pulse 73 03/08/18 06:36 Resp 16 03/08/18 06:36 BP 140/83 03/08/18 06:36 Pulse Ox 96 03/08/18 06:36 Intake & Output 03/07/18 03/08/18 03/08/18 18:59 06:59 18:59 Intake Total 600 Balance 600 Intake: Intake, IV Titration 600 Amount Sodium Chloride 0.9% 1, 600 000 ml @ 75 mls/hr IV . [id number] [facility] Rx#:[id number] Other: # Voids 2 1 # Bowel Movements 1 - Exam General appearance: The patient is alert, oriented, in no acute distress. HET: Head is normocephalic and atraumatic. Pupils are equal and reactive. Oropharynx is clear without lesions. Neck: Supple without lymphadenopathy. Trachea midline. Heart: S1 S2. Regular rate and rhythm. Lungs: No crackles or wheezes are heard. Abdomen: Soft, nontender, nondistended with bowel sounds. No peritoneal signs. No palpable organomegaly or masses. Extremities: Normal skin color and turgor. No cyanosis, rash, ulceration, clubbing, or edema. Radial and pedal pulses are 2/4 bilaterally. Neurological: No focal deficits. Strength and sensation are grossly intact. - Labs CBC & Chem 7: 03/06/18 22:05 03/06/18 22:05 Labs: Abnormal Lab Results - Last 24 Hours (Table) 03/07/18 Range/Units 13:07 Stool Lactoferrin POSITIVE H (NEGATIVE) Microbiology - Last 24 Hours (Table) 03/07/18 13:07 Stool Culture - Preliminary Stool Assessment and Plan (1) Abdominal pain Narrative/Plan: 72-year-old female admitted with acute onset of nonbloody diarrhea midepigastric pain with a history of primary biliary cirrhosis status post liver transplant in 2014. Possible gastroenteritis. CT imaging reported dilated stomach small bowel loops suggestive of possible ileus possible gastroparesis. Current Visit: Yes Status: Acute Code(s): R10.9 - UNSPECIFIED ABDOMINAL PAIN SNOMED Code(s): 06992979 (2) Diarrhea Current Visit: Yes Status: Acute Code(s): R19.7 - DIARRHEA, UNSPECIFIED SNOMED Code(s): 91344901 (3) Primary biliary cirrhosis Current Visit: Yes Status: Resolved Code(s): K74.3 - PRIMARY BILIARY CIRRHOSIS SNOMED Code(s): 35909332 (4) Liver transplant recipient Current Visit: Yes Status: Chronic Code(s): Z94.4 - LIVER TRANSPLANT STATUS SNOMED Code(s): 850169261 Plan: 1. Advance diet if tolerated may be discharged. Return to GI office after discharge. Assessment and plan a care discussed with Dr. Ramsay
[2018-03-08] MEDS ORDERED: ACETAMINOPHEN TAB 325 MG TAB PO PRN (10:42)
--- NOTE | 2018-03-08 12:18 | P.PN ---
Subjective Progress Note Date: 03/08/18 72-year-old female presented to emergency room on 03/06/2018 with a chief complaint of abdominal pain. Patient states over the last week she has been having abdominal pain but it became severe last night and she was doubled over in pain. She reports she was seen last week at [facility] in [place] for similar symptoms but was discharged home. She states her pain is mostly in the left upper quadrant. Patient reports that she has been having diarrhea 4-5 times a day. She reports increased pain after she eats a meal. She has been taking [id number] Rolaids which she reports usually helps her symptoms but did not yesterday. She denies nausea or vomiting. Denies hematemesis, hematochezia, or melena. Denies fever or chills. Denies shortness of breath. Denies chest pain or pressure. KUB x-ray was completed revealing mildly dilated stomach. No free air. CT of abdomen and pelvis was completed revealing dilated stomach and mild distended small bowel loops with fluid. This could relate to ileus and gastric paresis. No obstructing lesion seen. No dilated ducts. Laboratory data upon admission reveals white count of 5.4. Hemoglobin 12.0. Platelet count 197. Sodium 142. Potassium 4.8. BUN 27. Creatinine 1.09. Lactic acid 0.9. AST 21. ALT 23. Alkaline phosphatase 109. Total creatine kinase 225. Troponin negative 1. Amylase 72. Lipase 153. The patient was noted to the hospital under the care of Dr. Wheeler. Consultations were placed to gastroenterology. The patient was made NPO. She did have a bowel movement. Abdominal pain has resolved. Abdominal xray revealed marked improvement in debris filled distended stomach. Nonobstructive bowel gas pattern. Lactoferrin was positive. GI aware. Cdiff negative. Patient was cleared for discharge from a GI standpoint. Patient also deemed stable for discharge per Dr. Wheeler. She is to follow up on an outpatient basis. DISCHARGE DIAGNOSIS: Abdominal pain with diarrhea x 1 week, CT reveals possible ileus or gastroparesis, resolved at discharge Primary biliary cirrhosis, status post liver transplant 2014 COPD, no evidence of acute exacerbation History of deep vein thrombosis Obesity: BMI 32.0 Nicotine dependence, patient smokes 1 pack per day Nurse practitioner note has been reviewed by physician. Signing provider agrees with the documented findings, assessment, and plan of care. Objective - Vital Signs Vital signs: Vital Signs Temp 98.1 F 03/08/18 06:36 Pulse 73 03/08/18 06:36 Resp 16 03/08/18 06:36 BP 140/83 03/08/18 06:36 Pulse Ox 96 03/08/18 06:36 Intake & Output 03/07/18 03/08/18 03/08/18 18:59 06:59 18:59 Intake Total 600 Balance 600 Intake: Intake, IV Titration 600 Amount Sodium Chloride 0.9% 1, 600 000 ml @ 75 mls/hr IV . [id number] [facility] Rx#:[id number] Other: # Voids 2 1 # Bowel Movements 1 - Labs CBC & Chem 7: 03/06/18 22:05 03/06/18 22:05 Labs: Abnormal Lab Results - Last 24 Hours (Table) 03/07/18 Range/Units 13:07 Stool Lactoferrin POSITIVE H (NEGATIVE) Microbiology - Last 24 Hours (Table) 03/07/18 13:07 Stool Culture - Preliminary Stool
--- NOTE | 2018-03-10 15:01 | CDI ---
Last Revision, May 2017 Documentation Clarification Form Date: 03/10/18 From: Ginna Jamaal Brandy Blanc, Manager Protein Hours-8:30 am & 5 pm [place] Admit Date: 03/07/2018 1:01:00 AM Patient Name: Wendie Montenegro Visit Number: [id number] Discharge Date: 03/08/18 ATTENTION: The Clinical Documentation Specialists (CDI) and [facility] Coding Staff appreciate your assistance in clarifying documentation. Please respond to the clarification below the line at the bottom and electronically sign. The CDI & [facility] Coding staff will review the response and follow-up if needed. Please note: Queries are made part of the Legal Health Record. If you have any questions, please contact the author of this message via ITS. Dr. Jesus Ramsay, Dr Wheeler referred query to GI physician to respond. Documentation in the HP states "abdominal pain with diarrhea x 1 week, CT reveals possible ileus or gastroparesis". GI consult documents Possible gastroenteritis, possible ileus, possible gastroparesis Presenting symptoms: acute onset of nonbloody diarrhea Patient history/risk factors: liver transplant status, emphysema, obesity Clinical Indicators: Lab findings: stool lactoferrin positive; [id number]-qcyoyeib ABDPELW: Dilated stomach and mild distended small bowel loops with fluid. This could related to ileus and gastroparesis. AAS: Marked improvement in debris-filled distended stomach. Vital Signs: R-26, T-97.9, BP-191/108 Treatment: Protonix IV 40 mg daily, continue Reglan, fluids The patients principal diagnosis has not been clearly identified and requires clarification. In your professional opinion, can you please clarify which diagnosis, after study, accounted for the patients presenting symptoms and was the reason chiefly responsible for the admission? Gastroenteritis Gastroparesis Ileus Other Please continue to document in your progress notes and discharge summary in order to capture severity of illness and risk of mortality. Include clinical findings that support your diagnosis. MTDD
--- NOTE | 2018-03-12 21:09 | P.DS ---
Providers Date of admission: 03/07/18 01:01 Expected date of discharge: 03/08/18 Attending physician: George Wheeler Consults: 03/07/18 01:01 Consult Physician Routine Consulting Provider: Danish Ashford Consult Reason/Comments: Distended stomach, concern for gastroparesis Do you want consulting provider notified?: Yes Primary care physician: George Liam [place] Hospital Course: 72-year-old female presented to emergency room on 03/06/2018 with a chief complaint of abdominal pain. Patient states over the last week she has been having abdominal pain but it became severe last night and she was doubled over in pain. She reports she was seen last week at [facility] in [place] for similar symptoms but was discharged home. She states her pain is mostly in the left upper quadrant. Patient reports that she has been having diarrhea 4-5 times a day. She reports increased pain after she eats a meal. She has been taking [id number] Rolaids which she reports usually helps her symptoms but did not yesterday. She denies nausea or vomiting. Denies hematemesis, hematochezia, or melena. Denies fever or chills. Denies shortness of breath. Denies chest pain or pressure. KUB x-ray was completed revealing mildly dilated stomach. No free air. CT of abdomen and pelvis was completed revealing dilated stomach and mild distended small bowel loops with fluid. This could relate to ileus and gastric paresis. No obstructing lesion seen. No dilated ducts. Laboratory data upon admission reveals white count of 5.4. Hemoglobin 12.0. Platelet count 197. Sodium 142. Potassium 4.8. BUN 27. Creatinine 1.09. Lactic acid 0.9. AST 21. ALT 23. Alkaline phosphatase 109. Total creatine kinase 225. Troponin negative 1. Amylase 72. Lipase 153. The patient was noted to the hospital under the care of Dr. Wheeler. Consultations were placed to gastroenterology. The patient was made NPO. She did have a bowel movement. Abdominal pain has resolved. Abdominal xray revealed marked improvement in debris filled distended stomach. Nonobstructive bowel gas pattern. Lactoferrin was positive. GI aware. Cdiff negative. Patient was cleared for discharge from a GI standpoint. Patient also deemed stable for discharge per Dr. Wheeler. She is to follow up on an outpatient basis. DISCHARGE DIAGNOSIS: Abdominal pain with diarrhea x 1 week, CT reveals possible ileus or gastroparesis, resolved at discharge Primary biliary cirrhosis, status post liver transplant 2014 COPD, no evidence of acute exacerbation History of deep vein thrombosis Obesity: BMI 32.0 Nicotine dependence, patient smokes 1 pack per day Nurse practitioner note has been reviewed by physician. Signing provider agrees with the documented findings, assessment, and plan of care. Patient Condition at Discharge: Stable Plan - Discharge Summary Discharge Rx Participant: No New Discharge Prescriptions: Continue Metoprolol Tartrate [Lopressor] 50 mg PO BID Everolimus [Zortress] 1.5 mg PO BID Aspirin 325 mg PO QAM Ursodiol [Actigall] 300 mg PO HS Ursodiol 600 mg PO QAM Tacrolimus [Prograf] 1 mg PO QAM Levothyroxine Sodium 100 mcg PO QAM Cholecalciferol [Vitamin D3] 400 unit PO BID Omeprazole [PriLOSEC] 20 mg PO AC-BRKFST Tacrolimus [Prograf] 0.5 mg PO HS Zortress 0.75mg 1.5 mg PO BID Discharge Medication List Metoprolol Tartrate [Lopressor] 50 mg PO BID 10/23/15 [History] Everolimus [Zortress] 1.5 mg PO BID 03/03/16 [History] Aspirin 325 mg PO QAM 12/03/16 [History] Ursodiol 600 mg PO QAM 03/09/17 [History] Ursodiol [Actigall] 300 mg PO HS 03/09/17 [History] Levothyroxine Sodium 100 mcg PO QAM 04/27/17 [History] Tacrolimus [Prograf] 1 mg PO QAM 04/27/17 [History] Cholecalciferol [Vitamin D3] 400 unit PO BID 10/26/17 [History] Omeprazole [PriLOSEC] 20 mg PO AC-BRKFST 10/26/17 [History] Tacrolimus [Prograf] 0.5 mg PO HS 10/26/17 [History] Zortress 0.75mg 1.5 mg PO BID 03/06/18 [History] Follow up Appointment(s)/Referral(s): Zelda Kincaid MD [STAFF PHYSICIAN] - 04/13/18 3:15 pm George Wheeler MD [Primary Care Provider] - 03/16/18 3:00 pm Patient Instructions/Handouts: Acute Abdominal Pain (DC), Gastroparesis (DC) Activity/Diet/Wound Care/Special Instructions: Cardiac diet. Activity as tolerated. Discharge Disposition: HOME SELF-CARE
--- NOTE | 2018-03-16 13:02 | CDI ---
Last Revision, May 2017 Documentation Clarification Form Date: 03/16/18 From: Ginna Jamaal Brandy Guanaco, Accounts Receivable Manager Hours-8:30 am & 5 pm [place] Admit Date: 03/07/2018 1:01:00 AM Patient Name: Wendie Montenegro Visit Number: [id number] Discharge Date: 03/08/18 ATTENTION: The Clinical Documentation Specialists (CDI) and [facility] Coding Staff appreciate your assistance in clarifying documentation. Please respond to the clarification below the line at the bottom and electronically sign. The CDI & [facility] Coding staff will review the response and follow-up if needed. Please note: Queries are made part of the Legal Health Record. If you have any questions, please contact the author of this message via ITS. Jesus Maurice MD Dr Stromberg requested that query be referred to GI physician. Documentation in the HP states "abdominal pain with diarrhea x 1 week, CT reveals possible ileus or gastroparesis". GI consult documents Possible gastroenteritis, possible ileus, possible gastroparesis Presenting symptoms: acute onset of nonbloody diarrhea Patient history/risk factors: liver transplant status, emphysema, obesity Clinical Indicators: Lab findings: stool lactoferrin positive; B-[id number]-[id number] ABDPELW: Dilated stomach and mild distended small bowel loops with fluid. This could related to ileus and gastroparesis. AAS: Marked improvement in debris-filled distended stomach. Vital Signs: R-26, T-97.9, BP-191/108 Treatment: Protonix IV 40 mg daily, continue Reglan, fluids The patients principal diagnosis has not been clearly identified and requires clarification. In your professional opinion, can you please clarify which diagnosis, after study, accounted for the patients presenting symptoms and was the reason chiefly responsible for the admission? Gastroenteritis Gastroparesis Ileus diagnosis: ileus secondary to acute gastroenteritis Other Please continue to document in your progress notes and discharge summary in order to capture severity of illness and risk of mortality. Include clinical findings that support your diagnosis. MTDD
== END 2018-03-08 13:35 | disposition home or self-care (01) | DRG 389 ==
LOC: EC 21:18 → 4MS4W 03-07 01:01
PROVIDERS: ADMIT Family Medicine; ATTEND Family Medicine
DX: K56.7 Ileus, unspecified (principal); Z94.4 Liver transplant status; K31.84 Gastroparesis; J43.9 Emphysema, unspecified; K52.9 Noninfective gastroenteritis and colitis, unspecified; E07.9 Disorder of thyroid, unspecified; F17.210 Nicotine dependence, cigarettes, uncomplicated; Z71.6 Tobacco abuse counseling; E66.9 Obesity, unspecified; Z68.32 Body mass index [BMI] 32.0-32.9, adult; Z79.82 Long term (current) use of aspirin; Z79.890 Hormone replacement therapy; Z79.899 Other long term (current) drug therapy; Z86.718 Personal history of other venous thrombosis and embolism; Z87.19 Personal history of other diseases of the digestive system; Z83.79 Family history of other diseases of the digestive system; Z83.3 Family history of diabetes mellitus; Z84.1 Family history of disorders of kidney and ureter
CPT/HCPCS: 36415; 74018; 74021; 74177; 80053; 81001; 82150; 82550; 82553; 83605; 83630; 83690; 84484; 85025; 85610; 85730; 87045; 87046; 87324; 96361; 96374; 96375; 99285

== ENCOUNTER → 2018-08-29 | Outpatient (CLI) | payer MEDICARE, BC ==
[2018-08-29 12:05] LABS: Anisocytosis Slight; Basophils % (A) 0 %; Eosinophils # (A) 0.1 k/uL (0-0.7); Eosinophils % (A) 3 %; HCT 36.1 % (34.0-46.0); HGB 11.2 gm/dL (11.4-16.0); Hypochromasia Slight; Lymphocytes % (A) 22 %; MCH 25.2 pg (25.0-35.0); MCV 81.4 fL (80.0-100.0); Mean Platelet Volume 6.8; Monocytes # (A) 0.3 k/uL (0-1.0); Monocytes % (A) 8 %; Neutrophils # (A) 2.8 k/uL (1.3-7.7); Neutrophils % (A) 64 %; Platelet Count 193 k/uL (150-450); RBC 4.44 m/uL (3.80-5.40); RDW 16.5 % (11.5-15.5); WBC 4.4 k/uL (3.8-10.6)
== END | disposition home or self-care (01) ==
LOC: LABWHC1 11:29
PROVIDERS: ATTEND Nurse Practitioner Women's Health
DX: D64.9 Anemia, unspecified (principal); K86.9 Disease of pancreas, unspecified; R94.4 Abnormal results of kidney function studies
CPT/HCPCS: 36415; 82150; 82565; 83690; 84520; 85025

== ENCOUNTER → 2018-08-30 | Outpatient (CLI) | payer MEDICARE, BC ==
[2018-08-30 08:17] LABS: Anisocytosis Slight; Basophils % (A) 1 %; Eosinophils # (A) 0.1 k/uL (0-0.7); Eosinophils % (A) 2 %; HCT 36.6 % (34.0-46.0); HGB 11.9 gm/dL (11.4-16.0); Hypochromasia Slight; Lymphocytes # (A) 0.9 k/uL (1.0-4.8); Lymphocytes % (A) 20 %; MCH 27.2 pg (25.0-35.0); MCHC 32.7 g/dL (31.0-37.0); MCV 83.2 fL (80.0-100.0); Mean Platelet Volume 6.8; Monocytes # (A) 0.4 k/uL (0-1.0); Monocytes % (A) 10 %; Neutrophils # (A) 2.8 k/uL (1.3-7.7); Neutrophils % (A) 65 %; Platelet Count 193 k/uL (150-450); RBC 4.39 m/uL (3.80-5.40); RDW 16.4 % (11.5-15.5); WBC 4.3 k/uL (3.8-10.6)
[2018-08-30 16:26] LABS: ALT 12 U/L (8-44); AST 17 U/L (13-35); Albumin/Globulin Ratio 1.78 (1.60-3.17); Alkaline Phosphatase 113 U/L (41-126); Bilirubin, Conjugated <0.20 mg/dL (0.20-0.40); Carbon Dioxide 23.8 mmol/L (21.6-31.8); Chloride 104 mmol/L (96-109); Cholesterol 208 mg/dL (0-200); Globulin 2.3 g/dL (1.6-3.3); Glucose 148 mg/dL (70-110); LDL Cholesterol,Calculated 107.6 mg/dL (0.0-131.0); Magnesium 1.7 mg/dL (1.5-2.4); Potassium 4.5 mmol/L (3.5-5.5); Sodium 138 mmol/L (135-145); Total Bilirubin 0.4 mg/dL (0.3-1.2); Total Protein 6.4 g/dL (6.2-8.2)
[2018-08-30 16:45] LABS: Alpha Fetoprotein, Tumor Mkr 3.3 ng/mL (0.0-7.9)
[2018-08-30 17:14] LABS: Cancer Antigen 19-9 6.3 U/mL (0.0-34.9)
== END | disposition home or self-care (01) ==
LOC: LABWHC1 06:46
PROVIDERS: ATTEND Internal Medicine Gastroenterology
DX: C22.0 Liver cell carcinoma (principal); Z94.4 Liver transplant status; R97.8 Other abnormal tumor markers
CPT/HCPCS: 36415; 80048; 80061; 80076; 80169; 80197; 82105; 83735; 85025; 86301

== ENCOUNTER → 2018-10-04 | Outpatient (CLI) | payer MEDICARE, BC ==
--- NOTE | 2018-10-04 16:55 | MR ---
EXAMINATION TYPE: MR brain and iac wo/w con DATE OF EXAM: 10/04/2018 COMPARISON: Brain 01/23/2016 HISTORY: 73-year-old female Sudden hearing loss / Tinnitus TECHNIQUE: Multiplanar, multisequence images of the brain and brainstem were acquired before and aft er administration of 8.5 mL IV Gadavist. Diffusion weighted imaging was performed. Additional coned -down sequences through the internal auditory canals and posterior cranial fossa before and after IV contrast administration. FINDINGS: Diffusion weighted images demonstrate no evidence of an acute ischemic lesion in the brain. T2/FLAIR weighted sequences show moderate confluent periventricular and mild to moderate scattered gardner bcortical and deep white matter bright signal change, slightly progressed from 01/23/2016. Midline structures demonstrate normal morphology. The craniocervical junction is normal. Moderate cerebral atrophy. No hydrocephalus. There is no evidence of an acute intracranial hemorrhage, infarct, mass, mass-effect or an extra-axia l fluid collection. There is no cerebellopontine angle mass. The internal auditory canals are symmetric. Brainstem and skull base abnormalities are not seen. Post contrast images demonstrate patchy irregular mild enhancement diffusely throughout the mastoid p rocess and bony labyrinth on the right (refer to axial series 801 image 13) with associated fluid in the right mastoid air cells. No evidence of pathologic enhancement in the posterior cranial fossa or the internal auditory canals. There is abnormal diminution or loss of signal in the proximal basal turn of the right cochlea, refer to axial series 601 image 42. Mucosal retention cyst right sphenoid sinus and moderate mucosal thickening left ethmoid air cells. T he globes appear intact. IMPRESSION: 1. Fluid in the right mastoid air cells suggestive of mastoiditis. 2. Postcontrast sequence shows diffuse patchy enhancement throughout the right mastoid process and anoop ny labyrinth. There is also truncation of normal signal in the proximal basal turn of the right coch aleksandr. Correlate for a contiguous labyrinthitis. CT may be helpful in assessing for any abnormal ossifi cation/bony changes. 3. Otherwise, no acute intracranial abnormality seen. 4. Moderate cerebral atrophy with patchy and confluent bright white matter change likely relating to chronic small vessel ischemic disease.
== END | disposition home or self-care (01) ==
LOC: RADMRIMAIN 08:40
PROVIDERS: ATTEND Otolaryngology
DX: G31.9 Degenerative disease of nervous system, unspecified (principal); R90.89 Other abnormal findings on diagnostic imaging of central nervous system; H91.91 Unspecified hearing loss, right ear; H93.11 Tinnitus, right ear
CPT/HCPCS: 70553; A9585

== ENCOUNTER → 2018-10-05 | Outpatient (CLI) | payer MEDICARE, BC ==
--- NOTE | 2018-10-05 19:24 | BD ---
EXAMINATION TYPE: Axial Bone Density DATE OF EXAM: 10/05/2018 COMPARISON: NONE CLINICAL HISTORY: 73 YR OLD FEMALE....ICD-10 CODE: Z78.0 POST MENOPAUSAL W/O HRT Height: 62 Weight: 193 FRAX RISK QUESTIONS: Secondary Osteoporosis: YES 5. Chronic liver disease: YES, HAS HAD LIVER TRANSPLANT Current Tobacco Use: QUIT ABOUT 30 YRS AGO RISK FACTORS HISTORY OF: Diet low in dairy products/other sources of calcium: YES Postmenopausal woman: YES AT AGE 52 Lost more than 2 inches in height since high school: YES Frequent falls: UNSTEADY Poor Health: FRAIL, TRANSPLANT RECIPIENT MEDICATIONS: Thyroid Medications: YES, TAKES SYNTHROID, X15 YRS Additional Medications: ANTI-REJECTION MEDS, VIT D , Additional History: LIVER TRANSPLANT, 2016 , EXAM MEASUREMENTS: Bone mineral densitometry was performed using the OTOY System. Bone mineral density as measured about the Lumbar spine is: ----- L1-L4(G/cm2): 1.000 T Score Values are as follows: ----- L1: -1.9 ----- L2: -1.9 ----- L3: -0.7 ----- L4: -1.8 ----- L1-L4: -1.5 Bone mineral density FIRST DEXA SCAN......BASELINE STUDY Bone mineral density about the R hip (g/cm2): 0.719 Bone mineral density about the L hip (g/cm2): 0.662 T Score values are as follows: -----R Neck: -2.4 -----L Neck: -2.3 -----R Total: -2.3 -----L Total: -2.7 Bone mineral density BASELINE STUDY FRAX%%s: THERE IS A 13.2% CHANCE FOR A MAJOR OSTEOPOROTIC FX AND A 3.1% FOR HIP.....PROBABILITY OF FX IN 10 YRS TIME IMPRESSION: Osteoporosis (T Score less than -2.5). There is increased fracture risk and therapy is usually indicated based on age. Re-Screen 1-2 years. NOTE: T-SCORE=SD OF THE YOUNG ADULT MEAN.
--- NOTE | 2018-10-09 08:06 | MM ---
Reason for exam: screening (asymptomatic). Last mammogram was performed 12 years and 4 months ago. History: Patient is postmenopausal. Family history of breast cancer in grandmother. Benign stereotactic core biopsy of the left breast, March 05, 2002. Benign excisional biopsy of the right breast, 1994. Taking estrogen for 2 years beginning at age 58. Taking progesterone for 2 years beginning at age 58. Physical Findings: A clinical breast exam by your physician is recommended on an annual basis and results should be correlated with mammographic findings. MG 3D Screening Mammo W/Cad Bilateral CC and MLO view(s) were taken. XCCL view(s) were taken of the right breast. Prior study comparison: June 07, 2006, bilateral screening mammogram w/CAD. There are scattered fibroglandular densities. No significant changes when compared with prior studies. ASSESSMENT: Benign, BI-RAD 2 RECOMMENDATION: Routine screening mammogram of both breasts in 1 year.
== END | disposition home or self-care (01) ==
LOC: RADBDWWP 14:14
PROVIDERS: ATTEND Family Medicine
DX: Z12.31 Encounter for screening mammogram for malignant neoplasm of breast (principal); M81.0 Age-related osteoporosis without current pathological fracture
CPT/HCPCS: 77063; 77067; 77080

== ENCOUNTER → 2018-10-31 | Outpatient (CLI) | payer MEDICARE, BC ==
--- NOTE | 2018-10-31 10:02 | CT ---
EXAMINATION TYPE: CT iac wo con DATE OF EXAM: 10/31/2018 COMPARISON: CT brain 10/26/2017 HISTORY: Hearing loss, Acoustic nerve disorder CT DLP: 150mGycm Automated exposure control for dose reduction was used. FINDINGS: The external auditory canals are patent bilaterally. Minimal change of right mastoiditis no nirali. Changes of chronic sinusitis seen. The middle ear ossicles are symmetric and unremarkable. There is no evidence of suspicious surroundi ng soft tissue density to suggest cholesteatoma. The scutum is preserved bilaterally. The cochlea a nd the semicircular canals are symmetric and unremarkable. Vestibular aqueduct and internal carotid canal appear unremarkable. Temporomandibular joints are maintained bilaterally. IMPRESSION: 1. Minimal changes of right mastoiditis. 2. Chronic sinusitis.
== END | disposition home or self-care (01) ==
LOC: RADCTMAIN 07:43
PROVIDERS: ATTEND Otolaryngology
DX: H70.91 Unspecified mastoiditis, right ear (principal); J32.9 Chronic sinusitis, unspecified
CPT/HCPCS: 36415; 70480; 82565; 84520

== ENCOUNTER 2018-11-01 20:52 | Observation (INO) | payer MEDICARE, BC ==
[2018-11-01] MEDS ORDERED: MECLIZINE 12.5 MG TAB PO STA (21:25)
[2018-11-01 22:26] LABS: Anisocytosis Slight; Basophils % (A) 0 %; Eosinophils # (A) 0.2 k/uL (0-0.7); Eosinophils % (A) 3 %; HGB 11.1 gm/dL (11.4-16.0); Lymphocytes # (A) 1.1 k/uL (1.0-4.8); Lymphocytes % (A) 19 %; MCH 26.5 pg (25.0-35.0); MCHC 31.8 g/dL (31.0-37.0); MCV 83.2 fL (80.0-100.0); Monocytes # (A) 0.5 k/uL (0-1.0); Monocytes % (A) 9 %; Neutrophils # (A) 3.6 k/uL (1.3-7.7); Neutrophils % (A) 66 %; Platelet Count 164 k/uL (150-450); RBC 4.21 m/uL (3.80-5.40); RDW 16.5 % (11.5-15.5); WBC 5.5 k/uL (3.8-10.6)
[2018-11-01 22:36] LABS: Albumin 3.5 g/dL (3.5-5.0); Calcium 9.9 mg/dL (8.4-10.2); Potassium 4.9 mmol/L (3.5-5.1); Total Bilirubin 0.3 mg/dL (0.2-1.3); Total Protein 6.4 g/dL (6.3-8.2)
--- NOTE | 2018-11-01 22:39 | ED ---
Dizziness HPI - General Chief Complaint: Dizziness Stated Complaint: Vertigo,weakness Time Seen by Provider: 11/01/18 21:25 Source: patient, family Mode of arrival: EMS Limitations: no limitations - History of Present Illness MD Complaint: dizziness, difficulty walking Onset/Timin -: hour(s) Timing: sudden onset Description: difficulty walking - Related Data Home Medications Medication Instructions Recorded Confirmed Metoprolol Tartrate [Lopressor] 50 mg PO BID 10/23/15 11/01/18 Everolimus [Zortress] 1.5 mg PO BID 03/03/16 11/01/18 Ursodiol 600 mg PO QAM 03/09/17 11/01/18 Ursodiol [Actigall] 300 mg PO HS 03/09/17 11/01/18 Levothyroxine Sodium 100 mcg PO QAM 04/27/17 11/01/18 Tacrolimus [Prograf] 1 mg PO QAM 04/27/17 11/01/18 Zortress 0.75mg 1.5 mg PO BID 03/06/18 11/01/18 Cholecalciferol [Vitamin D3 (25 5,000 unit PO BID 11/01/18 11/01/18 Mcg = 1000 Iu)] Escitalopram [Lexapro] 10 mg PO DAILY 11/01/18 11/01/18 Tacrolimus [Prograf] 0.5 mg PO HS 11/01/18 11/01/18 Allergies Allergy/AdvReac Type Severity Reaction Status Date / Time No Known Allergies Allergy Verified 11/01/18 21:24 Review of Systems ROS Statement: Those systems with pertinent positive or pertinent negative responses have been documented in the HPI. ROS Other: All systems not noted in ROS Statement are negative. Limitations: ROS unobtainable due to patients medical condition Past Medical History Past Medical History: COPD, Deep Vein Thrombosis (DVT), Liver Disease, Respiratory Disorder, Thyroid Disorder Additional Past Medical History / Comment(s): emphysema, thoracentesis 06/24/14, underactive thyroid. liver transplant 2014 History of Any Multi-Drug Resistant Organisms: None Reported Past Surgical History: Hernia Repair, Tonsillectomy Additional Past Surgical History / Comment(s): hiatal hernia, past liver/gallbladder biopsies neg, Liver transplant 03/27/2015. Past Anesthesia/Blood Transfusion Reactions: No Reported Reaction Past Psychological History: No Psychological Hx Reported Smoking Status: Former smoker Past Alcohol Use History: None Reported Past Drug Use History: None Reported - Past Family History Father Family Medical History: Liver Disease Additional Family Medical History / Comment(s): dad at age 72- was a heavy drinker had liver disease Mother Family Medical History: Diabetes Mellitus, Renal Disease Additional Family Medical History / Comment(s): at age 78 kidney failure General Exam Limitations: no limitations General appearance: alert, in no apparent distress Head exam: Present: atraumatic, normocephalic Eye exam: Present: normal appearance, PERRL, EOMI. Absent: scleral icterus, conjunctival injection ENT exam: Present: mucous membranes dry Respiratory exam: Present: normal lung sounds bilaterally. Absent: respiratory distress, wheezes, rales, rhonchi, stridor Cardiovascular Exam: Present: regular rate, normal rhythm, normal heart sounds. Absent: systolic murmur, diastolic murmur, rubs, gallop GI/Abdominal exam: Present: soft. Absent: distended, tenderness, guarding, rebound, mass Back exam: Present: normal inspection. Absent: CVA tenderness (R), CVA tenderness (L) Neurological exam: Present: altered, CN II-XII intact. Absent: motor sensory deficit Skin exam: Present: warm, dry, intact, normal color. Absent: rash Course Vital Signs 11/01/18 11/01/18 11/01/18 20:54 22:18 22:21 Temperature 98.0 F Pulse Rate 82 89 80 Respiratory 16 8 L 10 L Rate Blood Pressure 139/98 204/139 186/95 O2 Sat by Pulse 97 99 100 Oximetry 11/01/18 11/01/18 11/01/18 22:24 22:30 22:50 Temperature Pulse Rate 81 71 74 Respiratory 12 18 16 Rate Blood Pressure 184/91 148/75 147/89 O2 Sat by Pulse 100 100 100 Oximetry 11/01/18 23:00 Temperature Pulse Rate 71 Respiratory 18 Rate Blood Pressure 147/73 O2 Sat by Pulse 98 Oximetry EKG Findings - EKG Results: EKG: interpreted by GLORIA RAMIREZ, sinus rhythm (Rate 80 bpm), normal axis, normal QRS, normal ST/T, no acute changes Medical Decision Making - Lab Data Result diagrams: 11/01/18 22:00 11/01/18 22:00 Lab Results 11/01/18 11/01/1819 Range/Units 22:00 22:00 22:00 WBC 5.5 (3.8-10.6) k/uL RBC 4.21 (3.80-5.40) m/uL Hgb 11.1 L (11.4-16.0) gm/dL Hct 35.0 (34.0-46.0) % MCV 83.2 (80.0-100.0) fL MCH 26.5 (25.0-35.0) pg MCHC 31.8 (31.0-37.0) g/dL RDW 16.5 H (11.5-15.5) % Plt Count 164 (150-450) k/uL Neutrophils % 66 % Lymphocytes % 19 % Monocytes % 9 % Eosinophils % 3 % Basophils % 0 % Neutrophils # 3.6 (1.3-7.7) k/uL Lymphocytes # 1.1 (1.0-4.8) k/uL Monocytes # 0.5 (0-1.0) k/uL Eosinophils # 0.2 (0-0.7) k/uL Basophils # 0.0 (0-0.2) k/uL Anisocytosis Slight PT (9.0-12.0) sec INR (<1.2) APTT (22.0-30.0) sec VBG pH (7.31-7.41) VBG pCO2 (37-51) mmHg VBG HCO3 (24-28) mmol/L Sodium 137 (137-145) mmol/L Potassium 4.9 (3.5-5.1) mmol/L Chloride 110 H (98-107) mmol/L Carbon Dioxide 22 (22-30) mmol/L Anion Gap 5 mmol/L BUN 35 H (7-17) mg/dL Creatinine 1.24 H (0.52-1.04) mg/dL Est GFR (CKD-EPI)AfAm 51 (>60 ml/min/1.73 sqM) Est GFR (CKD-EPI)NonAf 44 (>60 ml/min/1.73 sqM) Glucose 154 H (74-99) mg/dL Plasma Lactic Acid Jose 0.8 (0.7-2.0) mmol/L Calcium 9.9 (8.4-10.2) mg/dL Total Bilirubin 0.3 (0.2-1.3) mg/dL AST 18 (14-36) U/L ALT 14 (9-52) U/L Alkaline Phosphatase 97 (38-126) U/L Ammonia (<30) umol/L Troponin I (0.000-0.034) ng/mL Total Protein 6.4 (6.3-8.2) g/dL Albumin 3.5 (3.5-5.0) g/dL Urine Color Urine Appearance (Clear) Urine pH (5.0-8.0) Ur Specific [place] (1.001-1.035) Urine Protein (Negative) Urine Glucose (UA) (Negative) Urine Ketones (Negative) Urine Blood (Negative) Urine Nitrite (Negative) Urine Bilirubin (Negative) Urine Urobilinogen (<2.0) mg/dL Ur Leukocyte Esterase (Negative) 11/01/18 11/01/18 11/01/18 Range/Units 22:00 22:00 22:00 WBC (3.8-10.6) k/uL RBC (3.80-5.40) m/uL Hgb (11.4-16.0) gm/dL Hct (34.0-46.0) % MCV (80.0-100.0) fL MCH (25.0-35.0) pg MCHC (31.0-37.0) g/dL RDW (11.5-15.5) % Plt Count (150-450) k/uL Neutrophils % % Lymphocytes % % Monocytes % % Eosinophils % % Basophils % % Neutrophils # (1.3-7.7) k/uL Lymphocytes # (1.0-4.8) k/uL Monocytes # (0-1.0) k/uL Eosinophils # (0-0.7) k/uL Basophils # (0-0.2) k/uL Anisocytosis PT 9.3 (9.0-12.0) sec INR 0.8 (<1.2) APTT 23.2 (22.0-30.0) sec VBG pH (7.31-7.41) VBG pCO2 (37-51) mmHg VBG HCO3 (24-28) mmol/L Sodium (137-145) mmol/L Potassium (3.5-5.1) mmol/L Chloride (98-107) mmol/L Carbon Dioxide (22-30) mmol/L Anion Gap mmol/L BUN (7-17) mg/dL Creatinine (0.52-1.04) mg/dL Est GFR (CKD-EPI)AfAm (>60 ml/min/1.73 sqM) Est GFR (CKD-EPI)NonAf (>60 ml/min/1.73 sqM) Glucose (74-99) mg/dL Plasma Lactic Acid Jose (0.7-2.0) mmol/L Calcium (8.4-10.2) mg/dL Total Bilirubin (0.2-1.3) mg/dL AST (14-36) U/L ALT (9-52) U/L Alkaline Phosphatase (38-126) U/L Ammonia 13 (<30) umol/L Troponin I <0.012 (0.000-0.034) ng/mL Total Protein (6.3-8.2) g/dL Albumin (3.5-5.0) g/dL Urine Color Urine Appearance (Clear) Urine pH (5.0-8.0) Ur Specific [place] (1.001-1.035) Urine Protein (Negative) Urine Glucose (UA) (Negative) Urine Ketones (Negative) Urine Blood (Negative) Urine Nitrite (Negative) Urine Bilirubin (Negative) Urine Urobilinogen (<2.0) mg/dL Ur Leukocyte Esterase (Negative) 11/01/18 11/01/18 Range/Units 22:55 23:58 WBC (3.8-10.6) k/uL RBC (3.80-5.40) m/uL Hgb (11.4-16.0) gm/dL Hct (34.0-46.0) % MCV (80.0-100.0) fL MCH (25.0-35.0) pg MCHC (31.0-37.0) g/dL RDW (11.5-15.5) % Plt Count (150-450) k/uL Neutrophils % % Lymphocytes % % Monocytes % % Eosinophils % % Basophils % % Neutrophils # (1.3-7.7) k/uL Lymphocytes # (1.0-4.8) k/uL Monocytes # (0-1.0) k/uL Eosinophils # (0-0.7) k/uL Basophils # (0-0.2) k/uL Anisocytosis PT (9.0-12.0) sec INR (<1.2) APTT (22.0-30.0) sec VBG pH 7.32 (7.31-7.41) VBG pCO2 44 (37-51) mmHg VBG HCO3 22 L (24-28) mmol/L Sodium (137-145) mmol/L Potassium (3.5-5.1) mmol/L Chloride (98-107) mmol/L Carbon Dioxide (22-30) mmol/L Anion Gap mmol/L BUN (7-17) mg/dL Creatinine (0.52-1.04) mg/dL Est GFR (CKD-EPI)AfAm (>60 ml/min/1.73 sqM) Est GFR (CKD-EPI)NonAf (>60 ml/min/1.73 sqM) Glucose (74-99) mg/dL Plasma Lactic Acid Jose (0.7-2.0) mmol/L Calcium (8.4-10.2) mg/dL Total Bilirubin (0.2-1.3) mg/dL AST (14-36) U/L ALT (9-52) U/L Alkaline Phosphatase (38-126) U/L Ammonia (<30) umol/L Troponin I (0.000-0.034) ng/mL Total Protein (6.3-8.2) g/dL Albumin (3.5-5.0) g/dL Urine Color Light Yellow Urine Appearance Clear (Clear) Urine pH 5.0 (5.0-8.0) Ur Specific [place] 1.020 (1.001-1.035) Urine Protein Trace H (Negative) Urine Glucose (UA) Negative (Negative) Urine Ketones Negative (Negative) Urine Blood Negative (Negative) Urine Nitrite Negative (Negative) Urine Bilirubin Negative (Negative) Urine Urobilinogen <2.0 (<2.0) mg/dL Ur Leukocyte Esterase Negative (Negative) Disposition Clinical Impression: Altered mental status, Syncope Disposition: ADMITTED IP TO THIS [facility] Condition: Fair Referrals: George Wheeler MD [Primary Care Provider] - 1-2 days
[2018-11-01 22:46] LABS: INR 0.8 (<1.2); Partial Thromboplastin Time 23.2 sec (22.0-30.0); Prothrombin Time 9.3 sec (9.0-12.0)
[2018-11-01 23:04] LABS: VBG PH 7.32 (7.31-7.41)
--- NOTE | 2018-11-01 23:05 | CT ---
EXAM: CT Head Without Intravenous Contrast CLINICAL HISTORY: Reason: altered mental status TECHNIQUE: Axial computed tomography images of the head/brain without intravenous contrast. CTDI is 49.3 mGy and DLP is 1054.4 mGy-cm. This CT exam was performed using one or more of the following dose reduction techniques: automated exposure control, adjustment of the mA and/or kV according to patient size, and/or use of iterative reconstruction technique. COMPARISON: CT head 10/26/2017 FINDINGS: Brain: No evidence of acute transcortical cerebral infarction or intracranial hemorrhage. No abnormal mass effect or midline shift. No abnormal extra-axial collections. Cerebral atrophy and moderate chronic white matter ischemic changes. Ventricles: Unremarkable. Bones/joints: No skull fracture identified. Sinuses: Mild partial opacification of left ethmoid sinuses. Small bilateral sphenoid mucous retention cysts. Mastoid air cells: Mastoid sinuses are clear. IMPRESSION: No evidence of acute intracranial abnormality.
--- NOTE | 2018-11-01 23:39 | XR ---
EXAM: XR Chest, 1 View CLINICAL HISTORY: ITS.REASON XR Reason: MS change TECHNIQUE: Frontal view of the chest. COMPARISON: Chest x-ray 03/09/2017 FINDINGS: Lungs: No focal pulmonary infiltrates or consolidations. No evidence of overt congestive failure or pulmonary edema. Pleural space: No evidence of pleural effusion or pneumothorax. Heart: Mild cardiomegaly. Mediastinum: Mediastinal structures are unremarkable. Bones/joints: Imaged bony thorax is unremarkable. Upper abdomen: Post surgical changes in region of GE junction and left upper quadrant of abdomen. IMPRESSION: Mild cardiomegaly. No evidence of acute cardiopulmonary disease.
[2018-11-02 00:12] LABS: Appearance,Urine Clear (Clear); Bilirubin,Urine Negative (Negative); Blood,Urine Negative (Negative); Color,Urine Light Yellow; Glucose,Urine (UA) Negative (Negative); Ketones,Urine Negative (Negative); Leukocyte Esterase,Urine Negative (Negative); Nitrite,Urine Negative (Negative); Protein,Urine Trace (Negative); Urobilinogen,Urine <2.0 mg/dL (<2.0)
[2018-11-02] MEDS ORDERED: NITROGLYCERIN SL TABS 0.4 MG TAB SUBLINGUAL PRN (01:23)
[2018-11-02] MEDS: LEVOTHYROXINE 100 MCG TAB PO SCH (06:04)
[2018-11-02] MEDS: URSODIOL 300 MG CAP PO SCH (07:51)
[2018-11-02] MEDS: METOPROLOL TARTRATE 25 MG TAB PO SCH (07:51)
[2018-11-02] MEDS: CHOLECALCIFEROL 1,000 UNIT TAB PO SCH ×2 (07:51→20:09)
[2018-11-02] MEDS: ESCITALOPRAM 10 MG TAB PO SCH (07:52)
[2018-11-02] MEDS: TACROLIMUS 1 MG CAP PO SCH (07:52)
[2018-11-02] MEDS: ZORTRESS PO SCH ×2 (12:04→20:12)
--- NOTE | 2018-11-02 13:29 | US ---
EXAMINATION TYPE: US carotid duplex BILAT DATE OF EXAM: 11/02/2018 COMPARISON: US 2016 CLINICAL HISTORY: syncope/?TIA. Syncope/?TIA per order. Dizziness. Previous smoker. EXAM MEASUREMENTS: RIGHT: Peak Systolic Velocity (PSV) cm/sec ----- Right CCA: 70.3 ----- Right ICA: 66.0 ----- Right ECA: 63.8 ICA/CCA ratio: 0.9 RIGHT: End Diastole cm/sec ----- Right CCA: 18.8 ----- Right ICA: 18.8 ----- Right ECA: 0.0 LEFT: Peak Systolic Velocity (PSV) cm/sec ----- Left CCA: 69.4 ----- Left ICA: 83.1 ----- Left ECA: 53.1 ICA/CCA ratio: 1.2 LEFT: End Diastole cm/sec ----- Left CCA: 18.8 ----- Left ICA: 27.0 ----- Left ECA: 6.1 VERTEBRALS (direction of flow): Right Vertebral: Antegrade Left Vertebral: Antegrade Rhythm: Normal Intimal thickening seen bilaterally. Plaque seen bilateral bifurcations, increased on left side. Limi nirali visualization of left ECA. No elevated velocities obtained. No significant stenosis seen. IMPRESSION: Mild degree of grayscale atheromatous plaquing with no sonographically evident hemodynam ically significant stenosis within either visualized carotid arterial system. Criteria for Assigning % of Stenosis / Diameter reduction (Estimation based on the indirect measurements of the internal carotid artery velocities (ICA PSV). 1. Normal (no stenosis)=ICA PSV < 125 cm/s: ratio < 2.0: ICA EDV<40 cm/s. 2. Less than 50% stenosis=ICA PSV < 125 cm/s: ratio < 2.0: ICA EDV<40 cm/s. 3. 50 to 69% stenosis=ICA PSV of 125 to 230 cm/s: ration 2.0 ? 4.0: ICA EDV 40-100 cm/s. 4. Greater than 70% stenosis to near occlusion= ICA PSV > 230 cm/s: ratio > 4.0: ICA EDV > 100 cm/s. 5. Near occlusion= ICA PSV velocities may be low or undetectable: variable ratio and ICA EDV. 6. Total occlusion=unable to detect flow.
--- NOTE | 2018-11-02 14:36 | P.HPIM ---
History of Present Illness H&P Date: 11/02/18 Chief Complaint: syncope, dizziness this is a 73-year-old brought into the ER via EMS with complaints of dizziness, syncope in a patient with history of COPD, DVT, liver disease, emphysema, hypothyroidism, former nicotine abuse and multiple other medical issues. reports patient requests sitting at the kitchen table and developed a blank stare for a few minutes then passed out. Patient reports she was not incontinent of urine or stool. Prior to the event she reports dizziness with blurred visionwith no chest pain, palpitations or increased shortness of breath. reports a couple years ago at a [facility] patient had a similar presentation.brain CT reported no acute intracranial abnormality.Chest x-ray reports nonacute.Troponins negative 3,EKG reporting normal sinus rhythm.blood sugar on admission 154. Creatinine elevated 1.24,UA negative.hemoglobin 11.1, platelets 164 and INR 0.8. afebrile,normal WBC,ammonia 13. On room air with O2 sat of 97%,respiratory rate 16 with systolic blood pressures in the 130s. Apparently while in the ER,patient became unresponsive, requiring 100% nonrebreather with respirations 8-12 with systolic blood pressures up into the 200s,resolved shortly thereafter per review of computer flowsheet.lactic acid 0.8. This morning, feels significantly better, no dizziness, no lightheadedness, focal deficits. No headache, no blurred vision. Ambulating in room, tolerating exertion well with no difficulty. Significant other at bedside. Orthostatic vital signs negative for orthostatic hypotension. Maintaining O2 sats of 99% on room air, systolic blood pressures in the 130s, heart rate in the 70s, telemetry sinus rhythm.patient is alert and oriented 3, hard of hearing.denies any further syncope spells. Denies any chest pain, palpitations or shortness of breath this morning.Neurology consulted.carotid ultrasound, EEG, echo ordered. Review of Systems ROS Statement: Those systems with pertinent positive or pertinent negative responses have been documented in the HPI. ROS Other: All systems not noted in ROS Statement are negative. Past Medical History Past Medical History: COPD, Deep Vein Thrombosis (DVT), Liver Disease, Respiratory Disorder, Thyroid Disorder Additional Past Medical History / Comment(s): emphysema, thoracentesis 06/24/14, underactive thyroid. liver transplant 2014 History of Any Multi-Drug Resistant Organisms: None Reported Past Surgical History: Hernia Repair, Tonsillectomy Additional Past Surgical History / Comment(s): hiatal hernia, past liver/gallbladder biopsies neg, Liver transplant 03/27/2015. Past Anesthesia/Blood Transfusion Reactions: No Reported Reaction Past Psychological History: No Psychological Hx Reported Smoking Status: Former smoker Past Alcohol Use History: None Reported Additional Past Alcohol Use History / Comment(s): started smoking at age 17 smokes 1 ppd, stopped smoking in 2014. Past Drug Use History: None Reported - Past Family History Father Family Medical History: Liver Disease Additional Family Medical History / Comment(s): dad at age 72- was a heavy drinker had liver disease Mother Family Medical History: Diabetes Mellitus, Renal Disease Additional Family Medical History / Comment(s): at age 78 kidney failure Medications and Allergies Home Medications Medication Instructions Recorded Confirmed Type Metoprolol Tartrate [Lopressor] 50 mg PO BID 10/23/15 11/01/18 History Everolimus [Zortress] 1.5 mg PO BID 03/03/16 11/01/18 History Ursodiol 600 mg PO QAM 03/09/17 11/01/18 History Ursodiol [Actigall] 300 mg PO HS 03/09/17 11/01/18 History Levothyroxine Sodium 100 mcg PO QAM 04/27/17 11/01/18 History Tacrolimus [Prograf] 1 mg PO QAM 04/27/17 11/01/18 History Zortress 0.75mg 1.5 mg PO BID 03/06/18 11/01/18 History Cholecalciferol [Vitamin D3 (25 5,000 unit PO BID 11/01/18 11/01/18 History Mcg = 1000 Iu)] Escitalopram [Lexapro] 10 mg PO DAILY 11/01/18 11/01/18 History Tacrolimus [Prograf] 0.5 mg PO HS 11/01/18 11/01/18 History Allergies Allergy/AdvReac Type Severity Reaction Status Date / Time No Known Allergies Allergy Verified 11/01/18 21:24 Physical Exam Vitals: Vital Signs Temp Pulse Pulse Resp BP BP BP 11/02/18 08:00 77 18 11/02/18 07:00 97.4 F L 77 18 114/73 11/02/18 04:00 18 11/02/18 03:33 97.6 F 88 18 121/75 11/02/18 02:48 16 11/02/18 01:45 99 16 123/62 11/01/18 23:00 71 18 147/73 11/01/18 22:50 74 16 147/89 11/01/18 22:30 71 18 148/75 11/01/18 22:24 81 12 184/91 11/01/18 22:21 80 10 L 186/95 11/01/18 22:18 89 8 L 204/139 11/01/18 20:54 98.0 F 82 16 139/98 Pulse Ox 11/02/18 08:00 11/02/18 07:00 97 11/02/18 04:00 11/02/18 03:33 97 11/02/18 02:48 11/02/18 01:45 97 11/01/18 23:00 98 11/01/18 22:50 100 11/01/18 22:30 100 11/01/18 22:24 100 11/01/18 22:21 100 11/01/18 22:18 99 11/01/18 20:54 97 Intake and Output 11/01/18 11/02/18 11/02/18 22:59 06:59 14:59 Other: Voiding Method Toilet Toilet # Voids 1 Weight 87.543 kg PHYSICAL EXAM: VITAL SIGNS: [as above] GENERAL: sitting up in bed, no acute distress HEENT: Conjunctivae normal. eyes normal. NECK: No JVD. No thyroid enlargement. No LNs CARDIOVASCULAR: S1, S2 regular. No murmur,wraps or gallops RESPIRATION: Breath sounds essentially clear,diminished in the bases. No rhonchi or crackles. No bronchial breathing. ABDOMEN: Soft, nontender . No guarding. no masses palpable. Bowel sounds heard. LEGS: No edema. no swelling PSYCHIATRY: Alert and oriented -3, mood and affect normal. NERVOUS SYSTEM: Cranial N 2-12 grossly normal. speech fluent and appropriate, no facial asymmetry. Moves all 4 limbs. ambulating in room without difficulty. No focal deficits. No sensory deficit. Skin: no lesions, no rash Joints: No active swelling. No inflammation. Lymphatic system. No LN neck axilla or groin. Results CBC & Chem 7: 11/01/18 22:00 11/01/18 22:00 Labs: Abnormal Lab Results - Last 24 Hours (Table) 11/01/18 11/01/18 11/01/18 Range/Units 22:00 22:00 22:55 Hgb 11.1 L (11.4-16.0) gm/dL RDW 16.5 H (11.5-15.5) % VBG HCO3 22 L (24-28) mmol/L Chloride 110 H (98-107) mmol/L BUN 35 H (7-17) mg/dL Creatinine 1.24 H (0.52-1.04) mg/dL Glucose 154 H (74-99) mg/dL Urine Protein (Negative) 11/01/18 Range/Units 23:58 Hgb (11.4-16.0) gm/dL RDW (11.5-15.5) % VBG HCO3 (24-28) mmol/L Chloride (98-107) mmol/L BUN (7-17) mg/dL Creatinine (0.52-1.04) mg/dL Glucose (74-99) mg/dL Urine Protein Trace H (Negative) Thrombosis Risk Factor Assmnt - Choose All That Apply Any of the Below Risk Factors Present?: Yes Each Factor Represents 1 point: Obesity (BMI >25) Other Risk Factors: Yes Each Risk Factor Represents 2 Points: Age 61-74 years Thrombosis Risk Factor Assessment Total Risk Factor Score: 3 Thrombosis Risk Factor Assessment Level: Moderate Risk Assessment and Plan Assessment: -altered mental status, syncope, possibly related to seizure disorder, possible TIA.Denies Chest pain, palpitations with troponins negative 3, EKG reporting normal sinus rhythm. Workup in progress. -acute renal failure, baseline around 0.96 -COPD, stable -History of DVT -History of liver transplant 2014 -Emphysema -hypothyroidism -history of nicotine abuse, smoked 1 pack a day since age 17, quit smoking in 2015. plan: Continue on current medication regime ,monitoring and symptomatic treatment. Neurology consulted. Echo, carotid ultrasound, EEG ordered.home meds have been reviewed and resumed. GI and DVT prophylaxis in place. Further recommendations to follow. The impression and plan of care has been dictated as directed. : I performed a history and examination of this patient, discussed the same with the dictator. I agree with the dictator's note ,documented as a scribe. Any additional findings or plans will be noted. Time taken: 35 minutes
[2018-11-02] MEDS: ASPIRIN 325 MG TAB PO SCH (15:39)
[2018-11-02] MEDS: PANTOPRAZOLE 40 MG/10 ML VIAL IVP SCH (15:39)
--- NOTE | 2018-11-02 15:39 | P.CNNES ---
History of Present Illness Consult date: 11/02/18 Reason for Consult: Vertigo, syncope Chief complaint: Syncope History of Present Illness: Patient is a 73-year-old female, who has history of liver transplant 2015 for [place], on immune suppressive medications, came to the hospital with episodes of syncope and vertigo. Patient states that she was playing solitaire when all of a sudden room started spinning, and she passed out for 3-4 minutes. However states that she was out for 10 minutes. She would not respond to sternal rub, and was completely out. Her son came after the event, and at that time patient was just complaining of room spinning and everything was spinning. EMS was called and patient was brought to the hospital. While in the ER, patient had at least 2 episodes of unresponsiveness. She would go into a blank stare, not respond to sternal rub, and would take almost 10 minutes for her to come around. She did have vertigo with those episodes also. There was no facial droop, slurred speech or focal weakness noted. She had nausea only with the episode at the home, but not in the ER. Patient underwent computed tomography scan of the head, which revealed no acute intracranial abnormality. Chest x-ray showed mild cardiomegaly with no evidence of acute cardiopulmonary disease. EKG shows normal sinus rhythm. Carotid Doppler showed mild degree of grayscale atheromatous plaquing with no sonographically evident hemodynamically significant stenosis within either visualized carotid arterial system. Antegrade flow in both vertebral arteries. Patient's blood test shows normal CBC, PT/PTT, Chem-7 with BUN 35 creatinine 1.24. Liver functions are normal. Troponins negative. Patient has history of vertigo, for which she has been seen by ENT specialist. Patient had MRI of the brain and IAC with and without contrast on 10/04/2018, which revealed fluid in the right mastoid air cells suggestive of mastoiditis. Postcontrast sequence shows diffuse patchy enhancement throughout the right mastoid process and bony labyrinth. There is also truncation of normal signal in the proximal basal turn of the right cochlea. Correlate for a contiguous labyrinthitis. Moderate cerebral atrophy and patchy and confluent bright white matter change likely relating to chronic small vessel ischemic disease. Patient had CT of the internal auditory canal without contrast on 10/31/2018, which revealed minimal changes of right mastoiditis. Chronic sinusitis. Patient had a previous MRI of cervical spine from 01/23/2016, which revealed multilevel intervertebral foraminal narrowing with mild facet arthropathy. No spinal stenosis. Her blood tests showed cholesterol 208, LDL 107, HDL 66. Ammonia is normal. TSH is decreased 0.123. Patient states she has smoked 1-1-1/2 pack per day for 30 years, quit 20 years ago. Patient at one point was also on anticoagulation with Coumadin and then Xarelto, however she has been off anticoagulation for number of years. Patient's son and does not know the reason why she was on anticoagulation previously. At present patient does not take any antiplatelet medication. Review of Systems All systems: negative (Dizziness. Patient denies any tinnitus, loss of hearing, although she does have evidence hearing loss on the right side based upon the audiology testing from the ENT.) Past Medical History Past Medical History: COPD, Deep Vein Thrombosis (DVT), Liver Disease, Respiratory Disorder, Thyroid Disorder Additional Past Medical History / Comment(s): emphysema, thoracentesis 06/24/14, underactive thyroid. liver transplant 2014 History of Any Multi-Drug Resistant Organisms: None Reported Past Surgical History: Hernia Repair, Tonsillectomy Additional Past Surgical History / Comment(s): hiatal hernia, past liver/gallbladder biopsies neg, Liver transplant 03/27/2015. Past Anesthesia/Blood Transfusion Reactions: No Reported Reaction Past Psychological History: No Psychological Hx Reported Smoking Status: Former smoker Past Alcohol Use History: None Reported Additional Past Alcohol Use History / Comment(s): started smoking at age 17 smokes 1 ppd, stopped smoking in 2014. Past Drug Use History: None Reported - Past Family History Father Family Medical History: Liver Disease Additional Family Medical History / Comment(s): dad at age 72- was a heavy drinker had liver disease Mother Family Medical History: Diabetes Mellitus, Renal Disease Additional Family Medical History / Comment(s): at age 78 kidney failure Medications and Allergies Home Medications Medication Instructions Recorded Confirmed Type Metoprolol Tartrate [Lopressor] 50 mg PO BID 10/23/15 11/01/18 History Everolimus [Zortress] 1.5 mg PO BID 03/03/16 11/01/18 History Ursodiol 600 mg PO QAM 03/09/17 11/01/18 History Ursodiol [Actigall] 300 mg PO HS 03/09/17 11/01/18 History Levothyroxine Sodium 100 mcg PO QAM 04/27/17 11/01/18 History Tacrolimus [Prograf] 1 mg PO QAM 04/27/17 11/01/18 History Zortress 0.75mg 1.5 mg PO BID 03/06/18 11/01/18 History Cholecalciferol [Vitamin D3 (25 5,000 unit PO BID 11/01/18 11/01/18 History Mcg = 1000 Iu)] Escitalopram [Lexapro] 10 mg PO DAILY 11/01/18 11/01/18 History Tacrolimus [Prograf] 0.5 mg PO HS 11/01/18 11/01/18 History Allergies Allergy/AdvReac Type Severity Reaction Status Date / Time No Known Allergies Allergy Verified 11/01/18 21:24 Physical Examination - Vital Signs Vital Signs: Vital Signs Temp Pulse Pulse Pulse Pulse Pulse Resp 11/02/18 12:00 77 78 79 74 18 11/02/18 11:15 97.5 F L 78 79 74 18 11/02/18 08:00 77 18 11/02/18 07:00 97.4 F L 77 18 11/02/18 04:00 18 11/02/18 03:33 97.6 F 88 18 11/02/18 02:48 16 11/02/18 01:45 99 16 11/01/18 23:00 71 18 11/01/18 22:50 74 16 11/01/18 22:30 71 18 11/01/18 22:24 81 12 11/01/18 22:21 80 10 L 11/01/18 22:18 89 8 L 11/01/18 20:54 98.0 F 82 16 BP BP BP BP BP BP Pulse Ox 11/02/18 12:00 11/02/18 11:15 138/85 139/85 135/83 99 11/02/18 08:00 11/02/18 07:00 114/73 97 11/02/18 04:00 11/02/18 03:33 121/75 97 11/02/18 02:48 11/02/18 01:45 123/62 97 11/01/18 23:00 147/73 98 11/01/18 22:50 147/89 100 11/01/18 22:30 148/75 100 11/01/18 22:24 184/91 100 11/01/18 22:21 186/95 100 11/01/18 22:18 204/139 99 11/01/18 20:54 139/98 97 Intake and Output 11/02/18 11/02/18 11/02/18 06:59 14:59 22:59 Intake Total 480 Balance 480 Intake: Oral 480 Other: Voiding Method Toilet Toilet # Voids 1 On examination patient is an elderly female, very pleasant, in no ac rell distress. Patient is alert and awake, fully oriented to time place and person. Speech and language functions are normal. Attention and concentration fund of knowledge is adequate. On cranial nerve examination pupils are round and reacting to light. Visual rollins are full on confrontation. Extraocular muscles reveal mild nystagmus looking to the right, but patient developed significant dizziness and slight vertigo when looking to the left. It was reproduced on multiple times. Face is symmetric and tongue protrudes to the midline. Her hearing is severely decreased to finger rubbing bilaterally. However normal for routine conversation. On muscle strength testing there is no pronator drift and the strength is normal in arms and legs. Reflexes are diminished and plantars downgoing sensory touch is equal. No neglect. Patient at first appeared to have significant ataxia for [id number] and [id number] testing on the left side (with mild ataxia for [id number] on the right and none in the right upper limb). However on repeated testing, she started improving and within few minutes, the ataxia seems to have resolved mostly. At that time patient was able to get up from the bed, walk without any problem. No wide base. Results - Laboratory Findings CBC and BMP: 11/01/18 22:00 11/01/18 22:00 Abnormal Lab Findings: Abnormal Labs 11/01/18 11/01/18 11/01/18 22:00 22:00 22:55 Hgb 11.1 L RDW 16.5 H VBG HCO3 22 L Chloride 110 H BUN 35 H Creatinine 1.24 H Glucose 154 H Urine Protein 11/01/18 23:58 Hgb RDW VBG HCO3 Chloride BUN Creatinine Glucose Urine Protein Trace H Assessment and Plan Assessment: * Recurrent episodes of vertigo, and episodes of unresponsiveness (x3). Differential diagnosis is quite extensive. Rule out vertebrobasilar insuf ficiency with TIA, rule out seizures. Her vertigo could be explained on the basis of recent labyrinthitis, however would not explain for syncopal spells. Mnire's disease is also in the differential. * History of mastoiditis and labyrinthitis on the right side in September 2018. * History of liver transplant, on immune suppressive medication, stable. * Renal insufficiency * X tobacco use Plan: * EEG to rule out seizures * MRA of the brain to rule out vertebrobasilar insufficiency. * Start aspirin 325 mg daily * Consider low-dose statins, if medically clear. * Follow up with ENT specialist as an outpatient, if above test comes back unremarkable.
--- NOTE | 2018-11-02 17:09 | MR ---
EXAMINATION TYPE: MR angio head wo con DATE OF EXAM: 11/02/2018 COMPARISON: 11/01/2018 CT HISTORY: Vertigo, unresponsive, ? vertebrobasilar insuffici TECHNIQUE: Time of flight images focusing on the [place] were performed without contrast. De partmental protocol with source imaging and multifocal 3-D reconstruction renderings. FINDINGS: The vascular flow pattern of the posterior circulation shows symmetry and demonstrates tom rial tortuosity but is negative for stenosis or aneurysm or evidence of dissection. The vascular flow pattern of the anterior circulation is symmetric. There is tortuosity but there is no stenosis or aneurysm or evidence of dissection. No incidental extravascular findings. IMPRESSION: No acute process.
[2018-11-02] MEDS ORDERED: TACROLIMUS 0.5 MG CAP PO SCH (21:00)
[2018-11-02] MEDS ORDERED: URSODIOL 300 MG CAP PO SCH (21:00)
[2018-11-03] MEDS: METOPROLOL TARTRATE 25 MG TAB PO SCH ×2 (00:51→08:43)
[2018-11-03 05:33] LABS: Cholesterol 232 mg/dL (<200); HDL Cholesterol 58 mg/dL (40-60); LDL Cholesterol,Calculated 116 mg/dL (0-99); Triglycerides 290 mg/dL (<150)
[2018-11-03] MEDS: LEVOTHYROXINE 100 MCG TAB PO SCH (06:31)
[2018-11-03 07:36] VITALS: RESP 16
[2018-11-03] MEDS: ASPIRIN 325 MG TAB PO SCH (08:43)
[2018-11-03] MEDS: PANTOPRAZOLE 40 MG/10 ML VIAL IVP SCH (08:43)
[2018-11-03] MEDS: CHOLECALCIFEROL 1,000 UNIT TAB PO SCH (08:43)
[2018-11-03] MEDS: ESCITALOPRAM 10 MG TAB PO SCH ×2 (08:44→08:45)
[2018-11-03] MEDS: TACROLIMUS 1 MG CAP PO SCH (08:44)
[2018-11-03] MEDS: URSODIOL 300 MG CAP PO SCH (08:44)
[2018-11-03] MEDS: ZORTRESS PO SCH (08:44)
[2018-11-03] MEDS ORDERED: ASPIRIN 325 MG TAB PO SCH (09:00)
--- NOTE | 2018-11-03 09:46 | ECHOF ---
Referral Reason:LV fx MEASUREMENTS -------- HEIGHT: 165.1 cm WEIGHT: 87.5 kg BP: 114/73 RVIDd: 3.0 cm (< 3.3) IVSd: 1.2 cm (0.6 - 1.1) LVIDd: 3.3 cm (3.9 - 5.3) LVPWd: 1.1 cm (0.6 - 1.1) IVSs: 1.5 cm LVIDs: 2.5 cm LVPWs: 1.7 cm LA Diam: 3.3 cm (2.7 - 3.8) LAESV Index (A-L): 19.31 ml/m Ao Diam: 2.7 cm (2.0 - 3.7) AV Cusp: 2.0 cm (1.5 - 2.6) MV EXCURSION: 10.933 mm (> 18.000) MV EF SLOPE: 47 mm/s (70 - 150) EPSS: 0.6 cm MV E Haroon: 0.92 m/s MV DecT: 257 ms MV A Haroon: 0.98 m/s MV E/A Ratio: 0.93 RAP: 5.00 mmHg RVSP: 42.48 mmHg FINDINGS -------- Sinus rhythm. This was a technically good study. The left ventricular size is normal. There is borderline concentric left ventricular hypertrophy. Overall left ventricular systolic function is normal with, an EF between 60 - 65 %. The right ventricle is normal in size. Normal LA size by volume 22+/-6 ml/m2. The right atrium is normal in size. Interatrial and interventricular septum intact. The aortic valve is trileaflet and appears structurally normal. There is trace mitral regurgitation. Mild tricuspid regurgitation present. There is mild pulmonary hypertension. The right ventricular systolic pressure, as measured by Doppler, is 42.48mmHg. The pulmonic valve was not well visualized. The aortic root size is normal. Normal inferior vena cava with normal inspiratory collapse consistent with estimated right atrial pre ssure of 5 mmHg. There is no pericardial effusion. CONCLUSIONS -------- 1. Sinus rhythm. 2. This was a technically good study. 3. The left ventricular size is normal. 4. There is borderline concentric left ventricular hypertrophy. 5. Overall left ventricular systolic function is normal with, an EF between 60 - 65 %. 6. The right ventricle is normal in size. 7. Normal LA size by volume 22+/-6 ml/m2. 8. The right atrium is normal in size. 9. Interatrial and interventricular septum intact. 10. The aortic valve is trileaflet and appears structurally normal. 11. There is trace mitral regurgitation. 12. Mild tricuspid regurgitation present. 13. There is mild pulmonary hypertension. 14. The right ventricular systolic pressure, as measured by Doppler, is 42.48mmHg. 15. The pulmonic valve was not well visualized. 16. The aortic root size is normal. 17. Normal inferior vena cava with normal inspiratory collapse consistent with estimated right atrial pressure of 5 mmHg. 18. There is no pericardial effusion. [employer] SUPERVISOR: Elaine Daily RDCS
--- NOTE | 2018-11-03 10:19 | P.PN ---
Subjective Progress Note Date: 11/03/18 Patient denies any further episodes of vertigo. Denies any focal neurological symptoms. Agent had an MRA of the brain which is normal. I reviewed it in detail and agree with the findings. No evidence of vertebral artery stenosis, or basilar stenosis or aneurysm. On looking at the brain images, there is no evidence of cerebellar ischemia. No evidence of brainstem ischemia. Objective - Vital Signs Vital signs: Vital Signs Temp 97.9 F 11/03/18 04:00 Pulse 97 11/03/18 07:35 Resp 16 11/03/18 07:35 BP 129/84 11/03/18 07:35 Pulse Ox 97 11/03/18 07:35 Intake & Output 11/02/18 11/03/18 11/03/18 18:59 06:59 18:59 Intake Total 660 Balance 660 Intake: Oral 660 Other: Voiding Method Toilet Toilet # Voids 3 1 - Exam Patient's mental status patient limits functions are normal. Muscle strength and gait is normal. - Labs CBC & Chem 7: 11/03/18 10:58 11/03/18 10:58 Labs: Abnormal Lab Results - Last 24 Hours (Table) 11/02/18 Range/Units 03:51 Triglycerides 290 H (<150) mg/dL Cholesterol 232 H (<200) mg/dL LDL Cholesterol, Calc 116 H (0-99) mg/dL Assessment and Plan Assessment: * Recurrent episodes of vertigo, and episodes of unresponsiveness (x3). No evidence of vertebrobasilar insufficiency on MRA. * Abnormal EEG, probably representing focal seizures. * History of mastoiditis and labyrinthitis on the right side in September 2018. * History of liver transplant, on immune suppressive medication, stable. * Renal insufficiency * X tobacco use Plan: * Patient had EEG performed, which revealed frequent focal slowing and sharp waves over the left temporal region, suggestive of focal cortical neuronal dysfunction with underlying cortical irritability and tendency for seizures. Patient will be started on Keppra 250 mg twice a day. If she has any more episodes, then the dose can be further increased. I'm starting lower dose because of her history of kidney transplant. Patient was recommended to follow up with her business education instructor to make sure Keppra is fine, although I feel it is, as Keppra is renally excreted. Patient was informed of possible side effects of drowsiness, mood changes. Patient was also informed of [place] state law of no driving unless seizure free for 6 months, operating dangerous machinery, climbing ladders or unsupervised swimming. * MRA of the brain was negative for vertebral or basilar artery stenosis or aneurysm. * Continue aspirin 325 mg daily * Consider low-dose statins, if medically clear. * Will check B12, folate, TSH is normal. * Follow up with ENT specialist as an outpatient, if above test comes back unremarkable. * Addendum 11/04/2018 (post discharge) * Patient's B12 is 223 which is borderline. Folate 6.2. TSH is normal. * Call patient's home today, and spoke to her Mr. Wyman, and suggested to start taking vitamin B12 1000 mg sublingually daily.
[2018-11-03 11:17] VITALS: BP 123/76; PULSE 71; TEMP 97.5
[2018-11-03 11:17] LABS: Anisocytosis Slight; Basophils % (A) 0 %; Eosinophils # (A) 0.1 k/uL (0-0.7); Eosinophils % (A) 2 %; HCT 33.4 % (34.0-46.0); HGB 10.9 gm/dL (11.4-16.0); Lymphocytes % (A) 20 %; MCHC 32.6 g/dL (31.0-37.0); MCV 82.9 fL (80.0-100.0); Mean Platelet Volume 6.6; Monocytes # (A) 0.4 k/uL (0-1.0); Monocytes % (A) 8 %; Neutrophils # (A) 3.5 k/uL (1.3-7.7); Neutrophils % (A) 67 %; Platelet Count 170 k/uL (150-450); RBC 4.03 m/uL (3.80-5.40); RDW 16.5 % (11.5-15.5); WBC 5.2 k/uL (3.8-10.6)
[2018-11-03 11:31] LABS: Calcium 9.7 mg/dL (8.4-10.2); Potassium 5.5 mmol/L (3.5-5.1)
--- NOTE | 2018-11-03 13:24 | P.DS ---
Providers Date of admission: 11/02/18 01:23 Expected date of discharge: 11/03/18 Attending physician: George Wheeler Consults: 11/02/18 10:54 Consult Physician Routine Consulting Provider: Scott Rucker Consult Reason/Comments: syncope Do you want consulting provider notified?: Yes Primary care physician: George Wheeler [facility] Course: Final diagnoses -altered mental status, syncope, possibly related to seizure disorder, possible TIA, possible vertigo.Denies Chest pain, palpitations with troponins negative 3, EKG reporting normal sinus rhythm. MRA of brain reported nonacute. EEG results pending. -Possible recurrent vertigo with Recent contiguous labryinthitis per MRI 10/04/18 -Mastoiditis per MRI 10/04/18 -acute renal failure, baseline around 0.96 -COPD, stable -History of DVT -History of liver transplant 2014, immuno-suppressant therapy -Emphysema -hypothyroidism -history of nicotine abuse, smoked 1 pack a day since age 17, quit smoking in 2014. -Hyperlipidemia Hospital course:this is a 73-year-old brought into the ER via EMS with complaints of dizziness, syncope in a patient with history of COPD, DVT, liver disease, emphysema, hypothyroidism, former nicotine abuse and multiple other medical issues. reports patient requests sitting at the kitchen table and developed a blank stare for a few minutes then passed out. Patient reports she was not incontinent of urine or stool. Prior to the event she reports dizziness with blurred visionwith no chest pain, palpitations or increased shortness of breath. reports a couple years ago at a picnic patient had a similar presentation.brain CT reported no acute intracranial abnormality.Chest x-ray reports nonacute.Troponins negative 3,EKG reporting normal sinus rhythm.blood sugar on admission 154. Creatinine elevated 1.24,UA negative.hemoglobin 11.1, platelets 164 and INR 0.8. afebrile,normal WBC,ammonia 13. On room air with O2 sat of 97%,respiratory rate 16 with systolic blood pressures in the 130s. Apparently while in the ER,patient became unresponsive, requiring 100% nonrebreather with respirations 8-12 with systolic blood pressures up into the 200s,resolved shortly thereafter per review of computer flowsheet.lactic acid 0.8. This morning, feels significantly better, no dizziness, no lightheadedness, focal deficits. No headache, no blurred vision. Ambulating in room, tolerating exertion well with no difficulty. Significant other at bedside. Orthostatic vital signs negative for orthostatic hypotension. Maintaining O2 sats of 99% on room air, systolic blood pressures in the 130s, heart rate in the 70s, telemetry sinus rhythm.patient is alert and oriented 3, hard of hearing.denies any further syncope spells. Denies any chest pain, palpitations or shortness of breath this morning.Neurology consulted.carotid ultrasound, EEG, echo ordered. MRI in September, by Dr. Poon, reported :fluid in the right mastoid air cells suggestive of mastoiditis, diffuse patchy enhancement throughout the right mastoid process and bony labyrinth, possible contiguous labryinthitis.- moderate cerebral atrophy with -patchy and confluent bright white matter change likely chronic and small vessel ischemic disease. Aspirin, statin initiated. Negative for orthostatic hypotension .Evaluated by neurology, neuro workup completed. MRA of head reported no acute process;nega tive for vertebral, or basilar artery stenosis. Carotid Doppler report no hemodynamic significant stenosis. EEG completed, results pending. Patient is being discharged home in a stable condition with guarded prognosis pending EEG results, renal ultrasound, final DC recommendations and clearance from neurology. Patient to follow-up in office with Dr. Wheeler on Tuesday and with both Dr. Coto, ENT and neurology outpatient. Reduce EXAM: GENERAL: alert & oriented X 3, no acute distress CARDIOVASCULAR: S1, S2 regular. No murmur, rubs or gallops RESPIRATION: Breath sounds essentially clear,diminished in the bases. ABDOMEN: Soft, nontender . No guarding. no masses palpable. Bowel sounds heard. NERVOUS SYSTEM: No focal deficits. The impression and plan of care has been dictated as directed. : I performed a history and examination of this patient, discussed the same with the dictator. I agree with the dictator's note ,documented as a scribe. Any additional findings or plans will be noted. Time taken: 35 minutes Patient Condition at Discharge: Stable Plan - Discharge Summary Discharge Rx Participant: No New Discharge Prescriptions: New Aspirin EC [Ecotrin Low Dose] 81 mg PO DAILY #30 tablet. Atorvastatin [Lipitor] 10 mg PO HS #30 tab Famotidine [Pepcid] 20 mg PO BID #60 tablet Meclizine [Antivert] 12.5 mg PO TID PRN #30 tablet PRN Reason: Vertigo Continue Metoprolol Tartrate [Lopressor] 50 mg PO BID Everolimus [Zortress] 1.5 mg PO BID Ursodiol [Actigall] 300 mg PO HS Ursodiol 600 mg PO QAM Tacrolimus [Prograf] 1 mg PO QAM Levothyroxine Sodium 100 mcg PO QAM Zortress 0.75mg 1.5 mg PO BID Tacrolimus [Prograf] 0.5 mg PO HS Escitalopram [Lexapro] 10 mg PO DAILY Cholecalciferol [Vitamin D3 (25 Mcg = 1000 Iu)] 5,000 unit PO BID Discharge Medication List Metoprolol Tartrate [Lopressor] 50 mg PO BID 10/23/15 [History] Everolimus [Zortress] 1.5 mg PO BID 03/03/16 [History] Ursodiol 600 mg PO QAM 03/09/17 [History] Ursodiol [Actigall] 300 mg PO HS 03/09/17 [History] Levothyroxine Sodium 100 mcg PO QAM 04/27/17 [History] Tacrolimus [Prograf] 1 mg PO QAM 04/27/17 [History] Zortress 0.75mg 1.5 mg PO BID 03/06/18 [History] Cholecalciferol [Vitamin D3 (25 Mcg = 1000 Iu)] 5,000 unit PO BID 11/01/18 [History] Escitalopram [Lexapro] 10 mg PO DAILY 11/01/18 [History] Tacrolimus [Prograf] 0.5 mg PO HS 11/01/18 [History] Aspirin EC [Ecotrin Low Dose] 81 mg PO DAILY #30 tablet.dr 11/03/18 [Rx] Atorvastatin [Lipitor] 10 mg PO HS #30 tab 11/03/18 [Rx] Famotidine [Pepcid] 20 mg PO BID #60 tablet 11/03/18 [Rx] Meclizine [Antivert] 12.5 mg PO TID PRN #30 tablet 11/03/18 [Rx] Follow up Appointment(s)/Referral(s): Radha Zamora MD [STAFF PHYSICIAN] - 1 Week Sean Story MD [STAFF PHYSICIAN] - 2 Weeks Norbert Mattson MD [STAFF PHYSICIAN] - 1 Week (Maintain appointment already scheduled for next week) George Wheeler MD [Primary Care Provider] - 11/07/18 Activity/Diet/Wound Care/Special Instructions: Call Dr. Wheeler with renal ultrasound results if abnormal. Pending clearance from neurology/ EEG results
[2018-11-03] MEDS ORDERED: levETIRAcetam 250 MG TAB PO SCH (14:00)
--- NOTE | 2018-11-03 14:18 | EEG ---
ELECTROENCEPHALOGRAM REPORT ELECTROENCEPHALOGRAM REPORT: DATE OF SERVICE: 11/03/2018 PREAMBLE: This is a 73-year-old female who has an episode of intense vertigo along with unresponsiveness lasting for 10 minutes. Patient had three such episodes. This study is performed to evaluate for any epileptiform activity. CURRENT MEDICATIONS: Zortress, Actigall, Prograf, Pantoprazole, metoprolol, Lexapro, vitamin D3, and aspirin. EEG FINDINGS: A routine 21 channel awake digital EEG recording was completed utilizing the 10 to 20 international system with bipolar and differential montages. The background consists of well-developed, fairly well-regulated, moderate amplitude activity in mixed frequencies of alpha and theta, better seen involving the right hemispheric region. Background is posterior dominant and seems to be reactive to eye opening and closing. There is very frequent focal slowing in high amplitude theta and delta activity with some sharp-looking waves over the left hemispheric region, mainly involving the left temporal region. Different stages of sleep were not seen. Sharp appearing rales over the left hemispheric region were seen. EKG rhythm leads reveal no obvious arrhythmia. Photic driving response was seen with some flash frequencies. IMPRESSION: This is abnormal EEG due to frequent focal slowing and some sharp waves seen over the left hemispheric region, maximal left temporal. This is suggestive of focal cortical neural dysfunction with underlying cortical irritability and tendency for seizures. Clinical correlation is strong recommended. ALTAGRACIA / CLAYTONN: [id number] /
--- NOTE | 2018-11-03 15:04 | US ---
EXAMINATION TYPE: US renals and bladder DATE OF EXAM: 11/03/2018 COMPARISON: CT CLINICAL HISTORY: elevated bun and creat . Elevated BUN and creatinine. EXAM MEASUREMENTS: Right Kidney: 9.6 x 4.7 x 4.1 cm Left Kidney: 10.0 x 4.8 x 3.5 cm Post Void Residual Volume: Not performed Limited study due to patient's inability to take breaths in for imaging. Right Kidney: No hydronephrosis or masses seen Left Kidney: No hydronephrosis or masses seen Bladder: appears anechoic Bilateral Jets seen: right jet seen IMPRESSION: 1. Renal ultrasound as visualized is unremarkable
[2018-11-03 16:44] LABS: Folate, Serum 6.2 ng/mL
[2018-11-03] MEDS ORDERED: ATORVASTATIN 10 MG TAB PO SCH (21:00)
[2018-11-04] MEDS ORDERED: PANTOPRAZOLE 40 MG TABLET PO SCH (07:30)
== END 2018-11-03 15:43 ==
LOC: EC 20:52 → 1SOBS 11-02 01:23
PROVIDERS: ADMIT Family Medicine; ATTEND Family Medicine
DX: R41.82 Altered mental status, unspecified (principal); R55 Syncope and collapse; R94.01 Abnormal electroencephalogram [EEG]; N17.9 Acute kidney failure, unspecified; Z86.718 Personal history of other venous thrombosis and embolism; Z94.4 Liver transplant status; J43.9 Emphysema, unspecified; E03.9 Hypothyroidism, unspecified; E78.5 Hyperlipidemia, unspecified; H83.01 Labyrinthitis, right ear; H70.91 Unspecified mastoiditis, right ear; J32.9 Chronic sinusitis, unspecified; H91.90 Unspecified hearing loss, unspecified ear; E66.9 Obesity, unspecified; Z68.32 Body mass index [BMI] 32.0-32.9, adult; Z87.891 Personal history of nicotine dependence; Z79.899 Other long term (current) drug therapy; Z79.890 Hormone replacement therapy; Z83.3 Family history of diabetes mellitus; Z83.79 Family history of other diseases of the digestive system
CPT/HCPCS: 96374; 96376; 99285; 36415; 95816; 93005; 93306; 80061; 80053; 80048; 84443; 82607; 82140; 82746; 82803; 83605; 84484 ×2; 85025 ×2; 85610; 85730; 81003; 71045; 76770; 93880; 70450; 70544; G0378 ×2; J7507 ×2; C9113 ×2

== ENCOUNTER → 2018-11-10 | Outpatient (CLI) | payer MEDICARE, BC | END | disposition home or self-care (01) | LOC: RADUSWWP 14:55 | PROVIDERS: ATTEND Family Medicine | DX: Z53.9 Procedure and treatment not carried out, unspecified reason (principal) ==

== ENCOUNTER → 2018-11-22 | Outpatient (CLI) | payer MEDICARE, BC ==
[2018-11-22 18:36] LABS: Creatinine 24 Hour,Urine 603.2 mg/24hr (800.0-1800.0)
[2018-11-22 22:24] LABS: Total Volume 24 Hour,Urine 800 mL
[2018-11-22 22:53] LABS: Total Protein 24 Hour,Urine 83.2 mg/24Hr
== END | disposition home or self-care (01) ==
LOC: LABWHC1 15:52
PROVIDERS: ATTEND Family Medicine
DX: R94.4 Abnormal results of kidney function studies (principal); N18.2 Chronic kidney disease, stage 2 (mild)
CPT/HCPCS: 36415; 81050; 82575; 84156

== ENCOUNTER → 2018-11-23 | Outpatient (CLI) | payer MEDICARE, BC | END | disposition home or self-care (01) | LOC: LABWHC1 10:24 | PROVIDERS: ATTEND Family Medicine | DX: Z53.9 Procedure and treatment not carried out, unspecified reason (principal) ==

== ENCOUNTER → 2018-12-01 | Outpatient (CLI) | payer MEDICARE, BC ==
[2018-12-01 14:45] LABS: Basophils % (A) 0 %; Eosinophils # (A) 0.2 k/uL (0-0.7); Eosinophils % (A) 2 %; HCT 34.6 % (34.0-46.0); HGB 11.1 gm/dL (11.4-16.0); Hypochromasia Slight; Lymphocytes # (A) 1.2 k/uL (1.0-4.8); Lymphocytes % (A) 16 %; MCH 26.8 pg (25.0-35.0); MCHC 32.1 g/dL (31.0-37.0); MCV 83.6 fL (80.0-100.0); Mean Platelet Volume 7.2; Monocytes # (A) 0.6 k/uL (0-1.0); Monocytes % (A) 8 %; Neutrophils # (A) 5.2 k/uL (1.3-7.7); Neutrophils % (A) 71 %; Platelet Count 198 k/uL (150-450); RBC 4.14 m/uL (3.80-5.40); RDW 15.7 % (11.5-15.5); WBC 7.3 k/uL (3.8-10.6)
[2018-12-01 15:05] LABS: Appearance,Urine Clear (Clear); Bacteria,Urine Rare /hpf; Bilirubin,Urine Negative (Negative); Blood,Urine Negative (Negative); Color,Urine Yellow; Glucose,Urine (UA) Negative (Negative); Hyaline Casts,Urine 4 /lpf (0-2); Ketones,Urine Negative (Negative); Leukocyte Esterase,Urine Small (Negative); Mucus,Urine Rare /hpf; Nitrite,Urine Negative (Negative); PH, Urine 5.5 (5.0-8.0); Protein,Urine Trace (Negative); RBC,Urine 2 /hpf (0-5); Specific Gravity,Urine 1.025 (1.001-1.035); Squamous Epithelial Cell,Urine 4 /hpf (0-4); Urobilinogen,Urine <2.0 mg/dL (<2.0); WBC,Urine 1 /hpf (0-5)
[2018-12-01 23:03] LABS: Iron Saturation 13.84 (12.00-45.00)
[2018-12-01 23:10] LABS: Vitamin D 25 Hydroxy 49.4 ng/mL (30.0-100.0)
[2018-12-01 23:19] LABS: African American GFR (CKD) 43.7 (60.0-200.0); BUN/Creat Ratio 22.14 Ratio (12.00-20.00); Magnesium 1.6 mg/dL (1.5-2.4); Phosphorus 3.6 mg/dL (2.4-5.1); Potassium 4.3 mmol/L (3.5-5.5); Uric Acid 7.2 mg/dL (2.9-7.7)
[2018-12-01 23:22] LABS: Parathyroid Hormone Intact 214.8 pg/mL (14.0-72.0)
== END | disposition home or self-care (01) ==
LOC: LABWHC1 13:01
PROVIDERS: ATTEND Internal Medicine Nephrology
DX: D64.9 Anemia, unspecified (principal); E83.39 Other disorders of phosphorus metabolism; N39.0 Urinary tract infection, site not specified; M10.9 Gout, unspecified; N25.81 Secondary hyperparathyroidism of renal origin
CPT/HCPCS: 36415; 80048; 81001; 82306; 83540; 83550; 83735; 83970; 84100; 84550; 85025

== ENCOUNTER → 2019-02-23 | Outpatient (CLI) | payer MEDICARE, BC ==
--- NOTE | 2019-02-23 09:40 | US ---
EXAMINATION TYPE: US carotid duplex BILAT DATE OF EXAM: 02/23/2019 COMPARISON: US 11/02/2018 CLINICAL HISTORY: R93.5 Abnormal MRA,R42 Dizziness. EXAM MEASUREMENTS: RIGHT: Peak Systolic Velocity (PSV) cm/sec ----- Right CCA: 73.9 ----- Right ICA: 90.3 ----- Right ECA: 71.0 ICA/CCA ratio: 1.22 RIGHT: End Diastole cm/sec ----- Right CCA: 17.3 ----- Right ICA: 25.4 ----- Right ECA: 8.6 LEFT: Peak Systolic Velocity (PSV) cm/sec ----- Left CCA: 67.2 ----- Left ICA: 89.2 ----- Left ECA: 54.0 ICA/CCA ratio: 1.33 LEFT: End Diastole cm/sec ----- Left CCA: 14.5 ----- Left ICA: 24.2 ----- Left ECA: 2.8 VERTEBRALS (direction of flow): Right Vertebral: Antegrade Left Vertebral: Antegrade Rhythm: Normal No significant stenosis seen, no elevated velocities. IMPRESSION: Mild degree of grayscale atheromatous plaquing with no sonographically evident hemodynam ically significant stenosis within either visualized carotid arterial system. Criteria for Assigning % of Stenosis / Diameter reduction (Estimation based on the indirect measurements of the internal carotid artery velocities (ICA PSV). 1. Normal (no stenosis)=ICA PSV < 125 cm/s: ratio < 2.0: ICA EDV<40 cm/s. 2. Less than 50% stenosis=ICA PSV < 125 cm/s: ratio < 2.0: ICA EDV<40 cm/s. 3. 50 to 69% stenosis=ICA PSV of 125 to 230 cm/s: ration 2.0 ? 4.0: ICA EDV 40-100 cm/s. 4. Greater than 70% stenosis to near occlusion= ICA PSV > 230 cm/s: ratio > 4.0: ICA EDV > 100 cm/s. 5. Near occlusion= ICA PSV velocities may be low or undetectable: variable ratio and ICA EDV. 6. Total occlusion=unable to detect flow.
== END | disposition home or self-care (01) ==
LOC: RADUSWWP 09:02
PROVIDERS: ATTEND Psychiatry & Neurology Neurology
DX: I65.23 Occlusion and stenosis of bilateral carotid arteries (principal); R93.5 Abnormal findings on diagnostic imaging of other abdominal regions, including retroperitoneum
CPT/HCPCS: 93880

== ENCOUNTER 2019-03-31 17:16 | Emergency (ER) | payer MEDICARE, BC ==
[2019-03-31 17:24] VITALS: BP 113/70; PULSE 69; RESP 16; TEMP 98.4
[2019-03-31] MEDS ORDERED: KETOROLAC 30 MG/ML 1 ML VIAL IM STA (17:48)
--- NOTE | 2019-03-31 17:57 | XR ---
EXAMINATION TYPE: XR knee complete LT DATE OF EXAM: 03/31/2019 COMPARISON: NONE HISTORY: Pain TECHNIQUE: 3 views FINDINGS: I see no fracture nor dislocation. Joint spaces are normal. There is no pathologic calcific ation. There is no sign of joint effusion. IMPRESSION: Negative left knee exam.
--- NOTE | 2019-03-31 18:22 | ED ---
General Adult HPI - General Chief complaint: Extremity Injury, Lower Stated complaint: Knee injury Time Seen by Provider: 03/31/19 17:25 Source: patient, RN notes reviewed Mode of arrival: wheelchair Limitations: no limitations - History of Present Illness Initial comments: 73-year-old female with a past medical history of COPD, liver disease, DVT, resp iratory disorder presents to the emergency department for a chief of left knee pain x 2 hours. Patient was getting out of bed when her right foot slipped on the hardwood floor and she fell on her left knee. States it has been painful and hard to walk on since that time. Denies hitting her head. Denies any other injuries. No blood thinners.Patient has no other complaints at this time including shortness of breath, chest pain, abdominal pain, nausea or vomiting, headache, or visual changes. - Related Data Home Medications Medication Instructions Recorded Confirmed Metoprolol Tartrate [Lopressor] 50 mg PO BID 10/23/15 11/01/18 Everolimus [Zortress] 1.5 mg PO BID 03/03/16 11/01/18 Ursodiol 600 mg PO QAM 03/09/17 11/01/18 Ursodiol [Actigall] 300 mg PO HS 03/09/17 11/01/18 Levothyroxine Sodium 100 mcg PO QAM 04/27/17 11/01/18 Tacrolimus [Prograf] 1 mg PO QAM 04/27/17 11/01/18 Zortress 0.75mg 1.5 mg PO BID 03/06/18 11/01/18 Cholecalciferol [Vitamin D3 (25 5,000 unit PO BID 11/01/18 11/01/18 Mcg = 1000 Iu)] Escitalopram [Lexapro] 10 mg PO DAILY 11/01/18 11/01/18 Tacrolimus [Prograf] 0.5 mg PO HS 11/01/18 11/01/18 Previous Rx's Medication Instructions Recorded Aspirin EC [Ecotrin Low Dose] 81 mg PO DAILY #30 tablet. 11/03/18 Atorvastatin [Lipitor] 10 mg PO HS #30 tab 11/03/18 Famotidine [Pepcid] 20 mg PO BID #60 tablet 11/03/18 Meclizine [Antivert] 12.5 mg PO TID PRN #30 tablet 11/03/18 Allergies Allergy/AdvReac Type Severity Reaction Status Date / Time No Known Allergies Allergy Verified 03/31/19 17:24 Review of Systems ROS Statement: Those systems with pertinent positive or pertinent negative responses have been documented in the HPI. ROS Other: All systems not noted in ROS Statement are negative. Past Medical History Past Medical History: COPD, Deep Vein Thrombosis (DVT), Liver Disease, Respiratory Disorder, Thyroid Disorder Additional Past Medical History / Comment(s): emphysema, thoracentesis 06/24/14, underactive thyroid. liver transplant 2014 History of Any Multi-Drug Resistant Organisms: None Reported Past Surgical History: Hernia Repair, Tonsillectomy Additional Past Surgical History / Comment(s): hiatal hernia, past liver/gallbladder biopsies neg, Liver transplant 03/27/2015. Past Anesthesia/Blood Transfusion Reactions: No Reported Reaction Past Psychological History: No Psychological Hx Reported Smoking Status: Former smoker Past Alcohol Use History: None Reported Past Drug Use History: None Reported - Past Family History Father Family Medical History: Liver Disease Additional Family Medical History / Comment(s): dad at age 72- was a heavy drinker had liver disease Mother Family Medical History: Diabetes Mellitus, Renal Disease Additional Family Medical History / Comment(s): at age 78 kidney failure General Exam Limitations: no limitations General appearance: alert, in no apparent distress Head exam: Present: atraumatic, normocephalic, normal inspection Eye exam: Present: normal appearance, PERRL, EOMI. Absent: scleral icterus, conjunctival injection, periorbital swelling ENT exam: Present: normal exam, mucous membranes moist Neck exam: Present: normal inspection, full ROM. Absent: tenderness, meningismus, lymphadenopathy Respiratory exam: Present: normal lung sounds bilaterally. Absent: respiratory distress, wheezes, rales, rhonchi, stridor Cardiovascular Exam: Present: regular rate, normal rhythm, normal heart sounds. Absent: systolic murmur, diastolic murmur, rubs, gallop, clicks Extremities exam: Present: tenderness (Generalized tenderness to the left knee.), normal capillary refill (Capillary refill less than 2 seconds, DP pulse 2+ and left lower extremity.), other (Sensation intact the left lower extremity). Absent: full ROM (Patient has a new degrees flexion of the left knee which is then limited by pain. Full extension.), joint swelling (No edema or erythema noted of the left knee. No contusion or ecchymosis.), calf tenderness Back exam: Absent: vertebral tenderness Neurological exam: Present: alert Course Vital Signs 03/31/19 17:23 Temperature 98.4 F Pulse Rate 69 Respiratory 16 Rate Blood Pressure 113/70 O2 Sat by Pulse 96 Oximetry Medical Decision Making - Medical Decision Making X-ray of the left knee is negative for fracture. Neurovascular status is intact left lower extremity. X-ray was reviewed by myself and Dr. Bland. At this time patient will be discharged home with a knee immobilizer to follow-up with orthopedics. Referral was given. Patient will return here should she have any worsening symptoms and will take Motrin and Tylenol for pain. Disposition Clinical Impression: Left knee pain Disposition: HOME SELF-CARE Condition: Good Instructions (If sedation given, give patient instructions): Knee Pain (ED) Additional Instructions: Please take Motrin and Tylenol for pain. rest, ice and elevate the left leg. Please use knee immobilizer until you follow up with orthopedics. Follow-up with orthopedics on Tuesday. Return if you have any worsening symptoms. Is patient prescribed a controlled substance at d/c from ED?: No Referrals: George Wheeler MD [Primary Care Provider] - 1-2 days Time of Disposition: 18:21
== END 2019-03-31 18:47 | disposition home or self-care (01) ==
LOC: EC 17:16
DX: S89.92XA Unspecified injury of left lower leg, initial encounter (principal); K76.9 Liver disease, unspecified; E03.9 Hypothyroidism, unspecified; Z79.890 Hormone replacement therapy; Z79.899 Other long term (current) drug therapy; Z94.4 Liver transplant status; Z86.718 Personal history of other venous thrombosis and embolism; Z87.891 Personal history of nicotine dependence; W01.0XXA Fall on same level from slipping, tripping and stumbling without subsequent striking against object, initial encounter; Y93.89 Activity, other specified; Y92.009 Unspecified place in unspecified non-institutional (private) residence as the place of occurrence of the external cause
CPT/HCPCS: 99283; 96372; 29505; 73562; L1830 ×2; J1885

== ENCOUNTER → 2019-04-07 | Outpatient (CLI) | payer MEDICARE, BC ==
--- NOTE | 2019-04-09 06:53 | PE ---
EXAMINATION TYPE: PET CT fusion skull to thigh DATE OF EXAM: 04/07/2019 COMPARISON: CT abdomen pelvis 03/06/2018. Prior PET/CT: None HISTORY: Multiple lung nodules TECHNIQUE: Following the intravenous administration of 11.235 mCi of F-18 FDG, whole body images are performed from the skull base to the midthigh. Images are reviewed on the computer in the coronal, axial, and sagittal planes. Reconstructed rotating images are created on independent workstation and reviewed on the computer. A localization and attenuation correction CT is performed in conjunction with the PET scan. DLP: 442.34 mGycm SCAN: Initial Blood glucose: 127 mg/dL Average Mediastinum SUV: 1.42 Average Liver SUV: 2.71 FINDINGS: NECK: No abnormal uptake THORAX: There is some focal uptake within the infraspinatus left shoulder muscle. No suspicious uptake is evident within the chest. Suspicious lung nodules are not identified on the l ocalization CT. ABDOMEN: No abnormal uptake PELVIS: No abnormal uptake OSSEOUS STRUCTURES: No abnormal uptake LOCALIZATION CT: Postsurgical changes are in the epigastric region. No nodules larger than 0.6 cm wayne ntified within the lungs COMPARISON: None IMPRESSION: 1. No suspicious uptake to suggest neoplastic process.
== END | disposition home or self-care (01) ==
LOC: RADPETMAIN 12:19
PROVIDERS: ATTEND Internal Medicine Critical Care Medicine
DX: R91.8 Other nonspecific abnormal finding of lung field (principal)
CPT/HCPCS: 78815; A9552

== ENCOUNTER → 2019-04-12 | Outpatient (CLI) | payer MEDICARE, BC ==
[2019-04-12 12:58] LABS: HCT 33.3 % (34.0-46.0); MCH 26.7 pg (25.0-35.0); MCHC 33.1 g/dL (31.0-37.0); MCV 80.7 fL (80.0-100.0); Mean Platelet Volume 6.7; Platelet Count 163 k/uL (150-450); RBC 4.13 m/uL (3.80-5.40); RDW 15.2 % (11.5-15.5); WBC 4.2 k/uL (3.8-10.6)
[2019-04-12 13:13] LABS: Amorphous Sediment,Urine Rare /hpf; Appearance,Urine Clear (Clear); Bacteria,Urine Rare /hpf; Bilirubin,Urine Negative (Negative); Blood,Urine Negative (Negative); Color,Urine Yellow; Glucose,Urine (UA) Negative (Negative); Hyaline Casts,Urine 11 /lpf (0-2); Ketones,Urine Negative (Negative); Leukocyte Esterase,Urine Moderate (Negative); Mucus,Urine Occasional /hpf; Nitrite,Urine Negative (Negative); Protein,Urine Trace (Negative); RBC,Urine 1 /hpf (0-5); Squamous Epithelial Cell,Urine 3 /hpf (0-4); Urobilinogen,Urine <2.0 mg/dL (<2.0); WBC,Urine 4 /hpf (0-5)
[2019-04-12 19:19] LABS: Ferritin 141.5 ng/mL (10.0-291.0)
[2019-04-12 19:22] LABS: % Iron Saturation 10.49 (12.00-45.00); African American GFR (CKD) 47.8 (60.0-200.0); Albumin 4.1 g/dL (3.80-4.90); Albumin/Globulin Ratio 2.16 (1.60-3.17); Anion Gap 9.2 mmol/L (4.00-12.00); BUN/Creat Ratio 17.69 Ratio (12.00-20.00); Calcium 9.3 mg/dL (8.7-10.3); Carbon Dioxide 26.8 mmol/L (21.6-31.8); Globulin 1.9 g/dL (1.6-3.3); Magnesium 1.6 mg/dL (1.5-2.4); Non-African American GFR(CKD) 41.2 (60.0-200.0); Phosphorus 3.1 mg/dL (2.4-5.1); Total Bilirubin 0.3 mg/dL (0.3-1.2); Uric Acid 7.4 mg/dL (2.9-7.7)
[2019-04-12 19:51] LABS: Creatinine,Urine Random 216.2 mg/dL
[2019-04-12 20:43] LABS: Total Protein,Urine Random 26.7 mg/dL (0.0-13.5)
== END | disposition home or self-care (01) ==
LOC: LABWHC1 12:15
PROVIDERS: ATTEND Internal Medicine
DX: D64.9 Anemia, unspecified (principal); N39.0 Urinary tract infection, site not specified; R80.9 Proteinuria, unspecified; N25.81 Secondary hyperparathyroidism of renal origin; E55.9 Vitamin D deficiency, unspecified; M10.9 Gout, unspecified; N18.3 Chronic kidney disease, stage 3 (moderate)
CPT/HCPCS: 36415; 80053; 81001; 82306; 82570; 82728; 83540; 83550; 83735; 83970; 84100; 84156; 84550; 85027

== ENCOUNTER → 2019-04-20 | Outpatient (CLI) | payer MEDICARE, BC | END | disposition home or self-care (01) | LOC: CPPFTMAIN 08:52 | PROVIDERS: ATTEND Internal Medicine Critical Care Medicine | DX: J44.9 Chronic obstructive pulmonary disease, unspecified (principal); R94.2 Abnormal results of pulmonary function studies | CPT/HCPCS: 94060; 94726; 94729 ==

== ENCOUNTER → 2020-05-07 | Outpatient (CLI) | payer MEDICARE, BC ==
[2020-05-07 16:50] LABS: Basophils % (A) 0 %; Eosinophils # (A) 0.2 k/uL (0-0.7); Eosinophils % (A) 3 %; HCT 35.6 % (34.0-46.0); HGB 11.4 gm/dL (11.4-16.0); Lymphocytes # (A) 1.2 k/uL (1.0-4.8); Lymphocytes % (A) 20 %; MCH 26.5 pg (25.0-35.0); MCV 82.9 fL (80.0-100.0); Mean Platelet Volume 7.2; Monocytes # (A) 0.4 k/uL (0-1.0); Monocytes % (A) 7 %; Neutrophils # (A) 3.9 k/uL (1.3-7.7); Neutrophils % (A) 68 %; Platelet Count 178 k/uL (150-450); RDW 14.9 % (11.5-15.5); WBC 5.8 k/uL (3.8-10.6)
[2020-05-08 00:09] LABS: Albumin 4.2 g/dL (3.80-4.90); Bilirubin, Conjugated 0.2 mg/dL (0.20-0.40); Bilirubin,Unconjugated 0.1 mg/dL; Chol/HDL Ratio 3.37; Globulin 2.1 g/dL (1.6-3.3); LDL Cholesterol,Calculated 89.6 mg/dL (0.0-131.0); Total Bilirubin 0.3 mg/dL (0.3-1.2); Total Protein 6.3 g/dL (6.2-8.2); VLDL Calculation 38.4 mg/dL (5.00-40.00)
[2020-05-08 00:11] LABS: % Iron Saturation 13.54 (12.00-45.00); African American GFR (CKD) 39.9 (60.0-200.0); Albumin 4.1 g/dL (3.80-4.90); Albumin/Globulin Ratio 1.78 (1.60-3.17); Anion Gap 5.7 mmol/L (4.00-12.00); Calcium 9.5 mg/dL (8.7-10.3); Carbon Dioxide 27.3 mmol/L (21.6-31.8); Globulin 2.3 g/dL (1.6-3.3); Magnesium 1.6 mg/dL (1.5-2.4); Non-African American GFR(CKD) 34.4 (60.0-200.0); Phosphorus 3.6 mg/dL (2.4-5.1); Potassium 3.9 mmol/L (3.5-5.5); Total Bilirubin 0.3 mg/dL (0.2-1.2); Total Protein 6.4 g/dL (6.2-8.2); Uric Acid 7.7 mg/dL (2.9-7.7)
[2020-05-08 00:23] LABS: Ferritin 316.6 ng/mL (10.0-291.0)
[2020-05-08 00:48] LABS: Cancer Antigen 19-9 5.8 U/mL (0.0-34.9)
== END | disposition home or self-care (01) ==
LOC: LABWHC1 15:31
PROVIDERS: ATTEND Internal Medicine Gastroenterology
DX: N18.30 Chronic kidney disease, stage 3 unspecified (principal); C25.9 Malignant neoplasm of pancreas, unspecified; Z94.4 Liver transplant status; C22.0 Liver cell carcinoma
CPT/HCPCS: 36415; 80053; 80061; 80076; 80169; 80197; 82105; 82306; 82728; 83540; 83550; 83735; 83970; 84100; 84550; 85025; 86301

== ENCOUNTER → 2020-05-15 | Outpatient (CLI) | payer MEDICARE, BC ==
[2020-05-15 12:55] LABS: Basophils % (A) 1 %; Eosinophils # (A) 0.1 k/uL (0-0.7); Eosinophils % (A) 2 %; HCT 35.4 % (34.0-46.0); HGB 11.7 gm/dL (11.4-16.0); Lymphocytes # (A) 0.8 k/uL (1.0-4.8); Lymphocytes % (A) 16 %; MCH 27.6 pg (25.0-35.0); MCHC 33.1 g/dL (31.0-37.0); MCV 83.4 fL (80.0-100.0); Mean Platelet Volume 7.5; Monocytes # (A) 0.4 k/uL (0-1.0); Monocytes % (A) 8 %; Neutrophils # (A) 3.8 k/uL (1.3-7.7); Neutrophils % (A) 72 %; Platelet Count 192 k/uL (150-450); RBC 4.24 m/uL (3.80-5.40); RDW 14.9 % (11.5-15.5); WBC 5.3 k/uL (3.8-10.6)
[2020-05-15 20:01] LABS: Alpha Fetoprotein, Tumor Mkr 4.2 ng/mL (0.0-7.9)
[2020-05-15 20:30] LABS: Cancer Antigen 19-9 7.4 U/mL (0.0-34.9)
[2020-05-15 20:43] LABS: ALT 13 U/L (8-44); AST 17 U/L (13-35); African American GFR (CKD) 43.4 (60.0-200.0); Albumin/Globulin Ratio 2.15 (1.60-3.17); Alkaline Phosphatase 82 U/L (41-126); Bilirubin, Conjugated <0.20 mg/dL (0.20-0.40); Calcium 9.7 mg/dL (8.7-10.3); Carbon Dioxide 26.1 mmol/L (21.6-31.8); Chloride 108 mmol/L (96-109); Chol/HDL Ratio 3.58; Cholesterol 204 mg/dL (0-200); Glucose 153 mg/dL (70-110); LDL Cholesterol,Calculated 101.4 mg/dL (0.0-131.0); Magnesium 1.5 mg/dL (1.5-2.4); Non-African American GFR(CKD) 37.4 (60.0-200.0); Potassium 4.5 mmol/L (3.5-5.5); Sodium 143 mmol/L (135-145); Total Bilirubin 0.3 mg/dL (0.3-1.2); Total Protein 6.3 g/dL (6.2-8.2)
== END | disposition home or self-care (01) ==
LOC: LABWHC1 10:59
DX: C25.9 Malignant neoplasm of pancreas, unspecified (principal); C22.0 Liver cell carcinoma; Z94.4 Liver transplant status
CPT/HCPCS: 36415; 80048; 80061; 80076; 80169; 80197; 82105; 83735; 85025; 86301

== ENCOUNTER → 2020-10-03 | Outpatient (CLI) | payer MEDICARE, BC ==
[2020-10-03 15:37] LABS: HCT 33.9 % (37.2-46.3); HGB 10.4 g/dL (12.0-15.0); MCH 26.7 pg (27.0-32.0); MCHC 30.7 g/dL (32.0-37.0); MCV 87.1 fL (80.0-97.0); Mean Platelet Volume 10.3 fL (9.5-12.2); Platelet Count 199 X 10*3/uL (140-440); RBC 3.89 X 10*6/uL (4.10-5.20); RDW 14.1 % (11.5-14.5); WBC 5.25 X 10*3/uL (4.50-10.00)
[2020-10-04 03:56] LABS: African American GFR (CKD) 43.1 (60.0-200.0); Albumin 3.9 g/dL (3.80-4.90); Albumin/Globulin Ratio 1.95 (1.60-3.17); Anion Gap 12.4 mmol/L (4.00-12.00); BUN/Creat Ratio 17.14 Ratio (12.00-20.00); Calcium 9.2 mg/dL (8.7-10.3); Carbon Dioxide 20.6 mmol/L (21.6-31.8); Magnesium 1.7 mg/dL (1.5-2.4); Non-African American GFR(CKD) 37.2 (60.0-200.0); Phosphorus 3.4 mg/dL (2.4-5.1); Potassium 4.5 mmol/L (3.5-5.5); Total Bilirubin 0.3 mg/dL (0.2-1.2); Total Protein 5.9 g/dL (6.2-8.2); Uric Acid 6.3 mg/dL (2.9-7.7)
[2020-10-04 04:06] LABS: Ferritin 267.8 ng/mL (10.0-291.0)
== END | disposition home or self-care (01) ==
LOC: LABWHC1 09:44
PROVIDERS: ATTEND Nurse Practitioner Family
DX: N39.0 Urinary tract infection, site not specified (principal); N18.30 Chronic kidney disease, stage 3 unspecified; N25.81 Secondary hyperparathyroidism of renal origin; E55.9 Vitamin D deficiency, unspecified; D64.9 Anemia, unspecified; M10.9 Gout, unspecified; R80.9 Proteinuria, unspecified
CPT/HCPCS: 36415; 80053; 82306; 82728; 83540; 83550; 83735; 83970; 84100; 84550; 85027

== ENCOUNTER 2021-03-24 21:09 | Inpatient (IN) | payer MEDICARE, BC ==
[2021-03-24] MEDS ORDERED: IPRATROPIUM-ALBUTEROL 3 ML NEB INHALATION STA ×2 (21:43→22:43)
[2021-03-24] MEDS ORDERED: methylPREDNISolone SOD SUCCI 125 MG/2 ML VIAL IV STA (21:43)
--- NOTE | 2021-03-24 22:05 | XR ---
EXAMINATION TYPE: XR chest 1V portable DATE OF EXAM: 03/24/2021 COMPARISON: 11/01/2018 HISTORY: Cough TECHNIQUE: FINDINGS: There is no heart failure nor confluent pneumonic infiltrate. Costophrenic angles are clear . There are chest leads. Bony thorax is intact. IMPRESSION: No active cardiopulmonary disease. No adverse change.
[2021-03-24 22:17] LABS: Basophils % (A) 0 %; Eosinophils # (A) 0.2 k/uL (0-0.7); Eosinophils % (A) 4 %; HCT 36.2 % (34.0-46.0); HGB 11.8 gm/dL (11.4-16.0); Lymphocytes # (A) 1.3 k/uL (1.0-4.8); Lymphocytes % (A) 23 %; MCHC 32.5 g/dL (31.0-37.0); MCV 86.1 fL (80.0-100.0); Mean Platelet Volume 7.7; Monocytes # (A) 0.4 k/uL (0-1.0); Monocytes % (A) 7 %; Neutrophils # (A) 3.7 k/uL (1.3-7.7); Neutrophils % (A) 64 %; Platelet Count 200 k/uL (150-450); RBC 4.21 m/uL (3.80-5.40); RDW 14.7 % (11.5-15.5); WBC 5.7 k/uL (3.8-10.6)
[2021-03-24 22:32] LABS: Calcium 9.9 mg/dL (8.4-10.2); Potassium 4.6 mmol/L (3.5-5.1); Total Bilirubin 0.4 mg/dL (0.2-1.3); Total Protein 6.9 g/dL (6.3-8.2)
[2021-03-24 22:42] LABS: INR 0.9 (<1.2); Partial Thromboplastin Time 22.2 sec (22.0-30.0); Prothrombin Time 9.4 sec (9.0-12.0)
[2021-03-24] MEDS ORDERED: IPRATROPIUM-ALBUTEROL 3 ML NEB INHALATION PRN (22:55)
[2021-03-24] MEDS ORDERED: cefTRIAXone IN SWFI 1,000 MG/10 ML SYRINGE IVP STA (22:57)
--- NOTE | 2021-03-24 23:08 | ED ---
General Adult HPI - General Chief complaint: Shortness of Breath Stated complaint: SOB Time Seen by Provider: 03/24/21 21:32 Source: patient Mode of arrival: ambulatory Limitations: no limitations - History of Present Illness Initial comments: 75-year-old female with a past medical history of COPD, emphysema, liver transplant 2015, DVT presents to the emergency room for a chief complaint of shortness of breath. Patient has a history of COPD. Patient states she started to get shortness of breath earlier today. Patient denies cough or fever. Patitanesha nt states that she has not been doing her breathing treatments at home, has only been doing them a couple times a week.patient denies any chest pain. Patient has no other complaints at this time including chest pain, abdominal pain, nausea or vomiting, headache, or visual changes. - Related Data Home Medications Medication Instructions Recorded Confirmed Metoprolol Tartrate [Lopressor] 50 mg PO BID 10/23/15 05/02/19 Everolimus [Zortress] 1.5 mg PO BID 03/03/16 05/02/19 ursodioL [Actigall] 300 mg PO HS 03/09/17 05/02/19 ursodioL [Ursodiol] 600 mg PO QAM 03/09/17 05/02/19 Levothyroxine Sodium 100 mcg PO QAM 04/27/17 05/02/19 Tacrolimus [Prograf] 1 mg PO QAM 04/27/17 05/02/19 Zortress 0.75mg 1.5 mg PO BID 03/06/18 05/02/19 Cholecalciferol [Vitamin D3 (25 5,000 unit PO BID 11/01/18 05/02/19 Mcg = 1000 Iu)] Escitalopram [Lexapro] 10 mg PO DAILY 11/01/18 05/02/19 Tacrolimus [Prograf] 0.5 mg PO HS 11/01/18 05/02/19 Previous Rx's Medication Instructions Recorded Aspirin EC [Ecotrin Low Dose] 81 mg PO DAILY #30 tablet. 11/03/18 Atorvastatin [Lipitor] 10 mg PO HS #30 tab 11/03/18 Famotidine [Pepcid] 20 mg PO BID #60 tablet 11/03/18 Meclizine [Antivert] 12.5 mg PO TID PRN #30 tablet 11/03/18 Allergies Allergy/AdvReac Type Severity Reaction Status Date / Time No Known Allergies Allergy Verified 03/24/21 21:29 Review of Systems ROS Statement: Those systems with pertinent positive or pertinent negative responses have been documented in the HPI. ROS Other: All systems not noted in ROS Statement are negative. Past Medical History Past Medical History: COPD, Deep Vein Thrombosis (DVT), Liver Disease, Respiratory Disorder, Thyroid Disorder Additional Past Medical History / Comment(s): emphysema, thoracentesis 06/24/14, underactive thyroid. liver transplant 2014 History of Any Multi-Drug Resistant Organisms: None Reported Past Surgical History: Hernia Repair, Tonsillectomy Additional Past Surgical History / Comment(s): hiatal hernia, past liver/gallbladder biopsies neg, Liver transplant 03/27/2015. Past Anesthesia/Blood Transfusion Reactions: No Reported Reaction Past Psychological History: No Psychological Hx Reported Smoking Status: Never smoker Past Alcohol Use History: None Reported Past Drug Use History: None Reported - Past Family History Father Family Medical History: Liver Disease Additional Family Medical History / Comment(s): dad at age 72- was a heavy drinker had liver disease Mother Family Medical History: Diabetes Mellitus, Renal Disease Additional Family Medical History / Comment(s): at age 78 kidney failure General Exam Limitations: no limitations General appearance: alert, in no apparent distress Head exam: Present: atraumatic Eye exam: Present: normal appearance, PERRL, EOMI. Absent: scleral icterus, conjunctival injection ENT exam: Present: normal exam, mucous membranes moist Neck exam: Present: normal inspection, full ROM. Absent: tenderness Respiratory exam: Present: wheezes, decreased breath sounds Cardiovascular Exam: Present: regular rate, normal rhythm, normal heart sounds GI/Abdominal exam: Present: soft, normal bowel sounds. Absent: distended, tenderness Neurological exam: Present: alert Course Vital Signs 03/24/21 03/24/21 21:24 21:53 Temperature 97.2 F L Pulse Rate 80 77 Respiratory 26 H Rate Blood Pressure 181/88 O2 Sat by Pulse 98 Oximetry EKG Findings - EKG Comments: EKG Findings:: Normal sinus rhythm, ventricular rate 78, MD interval 124, QTC 433 Medical Decision Making - Medical Decision Making Vitals are stable. Patient is slightly tachypneic. Physical exam reveals diminished lung sounds bilaterally with background wheezing. Chest x-ray was obtained on arrival which revealed no active cardiopulmonary disease. No adverse change. EKG is nonischemic. CBC CMP was obtained which was unremarkable. Troponin is negative. BNP is 511. Patient was given 2 DuoNeb treatments which did help somewhat with her shortness of breath. She was given a third as well as steroids. Patient was also evaluated by Dr. Cook, at this t shaji agrees with care plan of treating patient for COPD exacerbation with admission to the hospital. Case discussed with Dr. Wheeler, accepts patient. Coronavirus pending at the time of that conversation. Urinalysis did show positive nitrate urine and she will be treated with a dose of Rocephin. - Lab Data Result diagrams: 03/24/21 22:08 03/24/21 22:08 Lab Results 03/24/21 03/24/21 03/24/21 Range/Units 22:08 22:08 22:08 WBC 5.7 (3.8-10.6) k/uL RBC 4.21 (3.80-5.40) m/uL Hgb 11.8 (11.4-16.0) gm/dL Hct 36.2 (34.0-46.0) % MCV 86.1 (80.0-100.0) fL MCH 28.0 (25.0-35.0) pg MCHC 32.5 (31.0-37.0) g/dL RDW 14.7 (11.5-15.5) % Plt Count 200 (150-450) k/uL MPV 7.7 Neutrophils % 64 % Lymphocytes % 23 % Monocytes % 7 % Eosinophils % 4 % Basophils % 0 % Neutrophils # 3.7 (1.3-7.7) k/uL Lymphocytes # 1.3 (1.0-4.8) k/uL Monocytes # 0.4 (0-1.0) k/uL Eosinophils # 0.2 (0-0.7) k/uL Basophils # 0.0 (0-0.2) k/uL PT 9.4 (9.0-12.0) sec INR 0.9 (<1.2) APTT 22.2 (22.0-30.0) sec Sodium 138 (137-145) mmol/L Potassium 4.6 (3.5-5.1) mmol/L Chloride 108 H (98-107) mmol/L Carbon Dioxide 21 L (22-30) mmol/L Anion Gap 9 mmol/L BUN 32 H (7-17) mg/dL Creatinine 1.53 H (0.52-1.04) mg/dL Est GFR (CKD-EPI)AfAm 39 (>60 ml/min/1.73 sqM) Est GFR (CKD-EPI)NonAf 34 (>60 ml/min/1.73 sqM) Glucose 173 H (74-99) mg/dL Plasma Lactic Acid Jose (0.7-2.0) mmol/L Calcium 9.9 (8.4-10.2) mg/dL Total Bilirubin 0.4 (0.2-1.3) mg/dL AST 20 (14-36) U/L ALT 14 (4-34) U/L Alkaline Phosphatase 93 (38-126) U/L Troponin I (0.000-0.034) ng/mL NT-Pro-B Natriuret Pep pg/mL Total Protein 6.9 (6.3-8.2) g/dL Albumin 4.0 (3.5-5.0) g/dL 03/24/21 03/24/21 03/24/21 Range/Units 22:08 22:08 22:08 WBC (3.8-10.6) k/uL RBC (3.80-5.40) m/uL Hgb (11.4-16.0) gm/dL Hct (34.0-46.0) % MCV (80.0-100.0) fL MCH (25.0-35.0) pg MCHC (31.0-37.0) g/dL RDW (11.5-15.5) % Plt Count (150-450) k/uL MPV Neutrophils % % Lymphocytes % % Monocytes % % Eosinophils % % Basophils % % Neutrophils # (1.3-7.7) k/uL Lymphocytes # (1.0-4.8) k/uL Monocytes # (0-1.0) k/uL Eosinophils # (0-0.7) k/uL Basophils # (0-0.2) k/uL PT (9.0-12.0) sec INR (<1.2) APTT (22.0-30.0) sec Sodium (137-145) mmol/L Potassium (3.5-5.1) mmol/L Chloride (98-107) mmol/L Carbon Dioxide (22-30) mmol/L Anion Gap mmol/L BUN (7-17) mg/dL Creatinine (0.52-1.04) mg/dL Est GFR (CKD-EPI)AfAm (>60 ml/min/1.73 sqM) Est GFR (CKD-EPI)NonAf (>60 ml/min/1.73 sqM) Glucose (74-99) mg/dL Plasma Lactic Acid Jose 0.9 (0.7-2.0) mmol/L Calcium (8.4-10.2) mg/dL Total Bilirubin (0.2-1.3) mg/dL AST (14-36) U/L ALT (4-34) U/L Alkaline Phosphatase (38-126) U/L Troponin I <0.012 (0.000-0.034) ng/mL NT-Pro-B Natriuret Pep 511 pg/mL Total Protein (6.3-8.2) g/dL Albumin (3.5-5.0) g/dL Disposition Clinical Impression: COPD exacerbation, Dyspnea, Shortness of breath Disposition: ADMITTED IP TO THIS HOSP Is patient prescribed a controlled substance at d/c from ED?: No Referrals: George Wheeler MD [Primary Care Provider] - 1-2 days Time of Disposition: 23:08
[2021-03-25] MEDS: methylPREDNISolone SOD SUCCI 125 MG/2 ML VIAL IV SCH ×5 (00:25→23:41)
[2021-03-25] MEDS ORDERED: LORazepam 2 MG/ML INJ IV STA (02:35)
[2021-03-25] MEDS: IPRATROPIUM-ALBUTEROL 3 ML NEB INHALATION SCH ×4 (08:39→21:00)
[2021-03-25 11:52] LABS: Glucose,Whole Blood 398 mg/dL (75-99)
[2021-03-25] MEDS: INSULIN ASPART (NovoLOG) 100 UNIT/ML VIAL SQ SCH ×3 (12:42→20:49)
[2021-03-25] MEDS: METOPROLOL TARTRATE 25 MG TAB PO SCH ×2 (12:43→20:48)
[2021-03-25] MEDS: ursodioL 300 MG CAP PO SCH (12:43)
[2021-03-25] MEDS: LEVOTHYROXINE 100 MCG TAB PO SCH (12:43)
[2021-03-25] MEDS: TACROLIMUS 1 MG CAP PO SCH (12:50)
--- NOTE | 2021-03-25 14:28 | P.CNPUL ---
History of Present Illness Consult date: 03/25/21 Reason for consult: dyspnea Chief complaint: dyspnea History of present illness: 75-year-old white female patient with past medical history of severe COPD, with the baseline FEV1 of 46% of predicted, stage III COPD, not home oxygen dependent, anxiety, depression, history of liver transplant at the [facility] in 2014, and patient is on immunosuppressive therapy, Prograf. Other medical history is significant for previous history of DVT not on chronic anticoagulation at this point, previous history of pleural effusion with previous thoracentesis, multiple pulmonary nodules with negative PET scan, hypothyroidism, and seizure disorder. Patient presented to the emergency department on 03/25/2021 with complaints of increased shortness of breath, patient denies any fever or chills, denies any cough or phlegm production, no wheezing. Tested negative for COVID-19, chest x-ray did not show any acute pulmonary process. She has been afebrile in the hospital, on 2 L of oxygen her pulse ox is 97-100%. Vital signs are stable, no wheezing or rhonchi on physical exam, her son is at the bedside, he states that recently she had gone off the Lexapro because of increased lethargy. Since then she reports that her roommate is noticing increased tenseness, mild anxiety, and possibly increased dyspnea related to anxiety. No complaints of chest pain, no phlegm production, no hemoptysis. Her CBC was completely within normal limits, and was 130, potassium is 4.6, BUN is 32, creatinine is 1.53, plasma lactic acid was 0.9, LFTs were unremarkable, troponin was less than 0.012, proBNP was 511. Patient's son reports recent visit to the [facility] for routine checkup regarding her liver transplant and was told that her condition is satisfactory. Patient reports no swelling in her lower extremities, no calf pain. Started on nebulized bronchodilators in the emergency department, IV steroids. We were asked to see the patient in evaluation for her increased shortness of breath. Review of Systems All systems: negative Constitutional: Denies chills, Denies fever Eyes: denies blurred vision, denies pain Ears, nose, mouth and throat: Denies headache, Denies sore throat Cardiovascular: Denies chest pain, Denies shortness of breath Respiratory: Reports dyspnea, Denies cough Gastrointestinal: Denies abdominal pain, Denies diarrhea, Denies nausea, Denies vomiting Genitourinary: Denies dysuria, Denies hematuria Musculoskeletal: Denies myalgias Integumentary: Denies pruritus, Denies rash Neurological: Denies numbness, Denies weakness Psychiatric: Denies anxiety, Denies depression Endocrine: Denies fatigue, Denies weight change Past Medical History Past Medical History: COPD, Deep Vein Thrombosis (DVT), Liver Disease, Respiratory Disorder, Thyroid Disorder Additional Past Medical History / Comment(s): emphysema, thoracentesis 06/24/14, underactive thyroid. liver transplant 2014 History of Any Multi-Drug Resistant Organisms: None Reported Past Surgical History: Hernia Repair, Tonsillectomy Additional Past Surgical History / Comment(s): hiatal hernia, past liver/gallbladder biopsies neg, Liver transplant 03/27/2015. Past Anesthesia/Blood Transfusion Reactions: No Reported Reaction Past Psychological History: No Psychological Hx Reported Smoking Status: Never smoker Past Alcohol Use History: None Reported Additional Past Alcohol Use History / Comment(s): started smoking at age 17 smokes 1 ppd, stopped smoking in 2014. Past Drug Use History: None Reported - Past Family History Father Family Medical History: Liver Disease Additional Family Medical History / Comment(s): dad at age 72- was a heavy drinker had liver disease Mother Family Medical History: Diabetes Mellitus, Renal Disease Additional Family Medical History / Comment(s): at age 78 kidney failure Medications and Allergies Home Medications Medication Instructions Recorded Confirmed Type Metoprolol Tartrate [Lopressor] 25 mg PO BID 10/23/15 03/24/21 History Everolimus [Zortress] 1.5 mg PO BID 03/03/16 03/24/21 History ursodioL [Actigall] 300 mg PO HS 03/09/17 03/24/21 History ursodioL [Ursodiol] 600 mg PO DAILY 03/09/17 03/24/21 History Levothyroxine Sodium 100 mcg PO DAILY 04/27/17 03/24/21 History Tacrolimus [Prograf] 1 mg PO DAILY 04/27/17 03/24/21 History Tacrolimus [Prograf] 0.5 mg PO HS 11/01/18 03/24/21 History Aspirin EC [Ecotrin Low Dose] 81 mg PO DAILY #30 tablet. 11/03/18 03/24/21 Rx Albuterol Sulfate [Albuterol 2 puff PO RT-Q6H PRN 03/24/21 03/24/21 History Sulfate Hfa] Cholecalciferol [Vitamin D3 (25 50 mcg PO DAILY 03/24/21 03/24/21 History Mcg = 1000 Iu)] calcitrioL [Calcitriol] 0.25 mcg PO SA 03/24/21 03/24/21 History Allergies Allergy/AdvReac Type Severity Reaction Status Date / Time No Known Allergies Allergy Verified 03/24/21 23:36 Physical Exam Vitals: Vital Signs Temp Pulse Pulse Resp BP BP Pulse Ox 03/25/21 08:39 104 H 18 100 03/25/21 07:02 97.2 F L 100 18 157/78 97 03/25/21 07:00 97.5 F L 103 H 17 158/80 98 03/25/21 05:40 100 18 157/78 97 03/25/21 02:35 101 H 26 H 178/83 96 03/24/21 23:32 92 20 149/72 96 03/24/21 22:59 18 03/24/21 21:53 77 03/24/21 21:24 97.2 F L 80 26 H 181/88 98 Intake and Output 03/24/21 03/25/21 03/25/21 22:59 06:59 14:59 Other: Weight 86.183 kg 86.183 kg GENERAL EXAM: Alert, very pleasant, 75-year-old female, on 2 L of oxygen with a pulse ox of 100%, comfortable in no apparent distress. HEAD: Normocephalic/atraumatic. EYES: Normal reaction of pupils, equal size. Conjunctiva pink, sclera white. NOSE: Clear with pink turbinates. THROAT: No erythema or exudates. NECK: No masses, no JVD, no thyroid enlargement, no adenopathy. CHEST: No chest wall deformity. Symmetrical expansion. LUNGS: Equal air entry with no crackles, wheeze, rhonchi or dullness. CVS: Regular rate and rhythm, normal S1 and S2, no gallops, no murmurs, no rubs. Sounds are tachycardic but regular ABDOMEN: Soft, nontender. No hepatosplenomegaly, normal bowel sounds, no guarding or rigidity. EXTREMITIES: No clubbing, no edema, no cyanosis, 2+ pulses and upper and lower extremities. MUSCULOSKELETAL: Muscle strength and tone normal. SPINE: No scoliosis or deformity SKIN: No rashes CENTRAL NERVOUS SYSTEM: Alert and oriented -3. No focal deficits, tone is normal in all 4 extremities. PSYCHIATRIC: Alert and oriented -3. Appropriate affect. Intact judgment and insight. Results - Laboratory Findings CBC and BMP: 03/24/21 22:08 03/24/21 22:08 PT/INR, D-dimer PT 9.4 sec (9.0-12.0) 03/24/21 22:08 INR 0.9 (<1.2) 03/24/21 22:08 Abnormal lab findings: Abnormal Labs 03/24/21 22:08 Chloride 108 H Carbon Dioxide 21 L BUN 32 H Creatinine 1.53 H Glucose 173 H - Diagnostic Findings Chest x-ray: report reviewed, image reviewed Additional studies: EKG reviewed Assessment and Plan Plan: Assessment: #1. Shortness of breath, under investigation. Possibly related to discontinuation of Lexapro which the patient takes for anxiety. Chest x-ray showed no acute pulmonary process, no coughing, no wheezing no fever or chills, there may be a component of mild COPD exacerbation, which has improved since admission #2. History of COPD, stage III, with FEV1 of 47% of predicted, not on oxygen on a regular basis #3. History of liver transplantation at the [facility] in 2014, on Prograf and ursodiol on a regular basis #4. Hypertension #5. Previous history of pleural effusion with thoracentesis #6. Previous history of multiple lung nodules with negative PET scan #7. Seizure disorder #8. Hypothyroidism #9. Previous history of DVT, not currently on any maintenance anticoagulation at this time #10. Hiatal hernia Plan: Continue current medical treatment Continue steroids, antibiotics and nebulized bronchodilators COPD seems to be relatively stable, no wheezing chest congestion or fever or chills, chest x-ray shows no acute process D-dimer was checked and came back elevated, we will obtain a VQ scan to rule out possibility of pulmonary embolism Patient's son thinks that patient might be having trouble breathing related to increased anxiety since discontinuation of her Lexapro Hemodynamically stable, patient is on room air, tolerating ambulation If VQ scan is negative and patient remains stable she may be considered for discharge home She will need outpatient follow-up with Dr. Baer in the office, and we'll defer to the primary care service to make a decision on restarting of her Lexapro or starting the patient on a different agent for her anxiety as she was having increased lethargy on Lexapro. I performed a history & physical examination of the patient and discussed their management with my nurse practitioner, Ale Suazo. I reviewed the nurse practitioner's note and agree with the documented findings and plan of care. Lung sounds are positive for dim breath sounds throughout the lung rollins. The findings and the impression was discussed with the patient. I attest to the documentation by the nurse practitioner. Time with Patient: Greater than 30
--- NOTE | 2021-03-25 14:54 | P.HPIM ---
History of Present Illness H&P Date: 03/25/21 Chief Complaint: Worsening Shortness of breath This is a 75-year-old female with past medical history of COPD, DVT, liver disease, emphysema, hypothyroidism, former nicotine abuse and multiple other medical issues, presented to the ER with worsening shortness of breath that i nitiated abruptly yesterday. Denies fever or chills or productive cough. Tested negative for COVID-19. Chest x-ray reported no active cardiopulmonary disease, or change. Patient shaky, states she's taken herself off of her Lexapro related to increased lethargy. Denies chest pain, palpitations. Afebrile, normal WBC-normal CBC, maintaining O2 sats in the high 90s to 100% on 2 L nasal cannula. Sodium 138, potassium 4.6, BUN 32, creatinine 1.53, T bili/LFTs within normal limits. Received nebulized bronchodilators and IV steroids initiated in the ER. Review of Systems ROS Statement: Those systems with pertinent positive or pertinent negative responses have been documented in the HPI. ROS Other: All systems not noted in ROS Statement are negative. Past Medical History Past Medical History: COPD, Deep Vein Thrombosis (DVT), Liver Disease, Respiratory Disorder, Thyroid Disorder Additional Past Medical History / Comment(s): emphysema, thoracentesis 06/24/14, underactive thyroid. liver transplant 2014 History of Any Multi-Drug Resistant Organisms: None Reported Past Surgical History: Hernia Repair, Tonsillectomy Additional Past Surgical History / Comment(s): hiatal hernia, past liver/gallbladder biopsies neg, Liver transplant 03/27/2015. Past Anesthesia/Blood Transfusion Reactions: No Reported Reaction Past Psychological History: No Psychological Hx Reported Smoking Status: Never smoker Past Alcohol Use History: None Reported Additional Past Alcohol Use History / Comment(s): started smoking at age 17 smokes 1 ppd, stopped smoking in 2014. Past Drug Use History: None Reported - Past Family History Father Family Medical History: Liver Disease Additional Family Medical History / Comment(s): dad at age 72- was a heavy drinker had liver disease Mother Family Medical History: Diabetes Mellitus, Renal Disease Additional Family Medical History / Comment(s): at age 78 kidney failure Medications and Allergies Home Medications Medication Instructions Recorded Confirmed Type Metoprolol Tartrate [Lopressor] 25 mg PO BID 10/23/15 03/24/21 History Everolimus [Zortress] 2.25 mg PO BID 03/03/16 03/25/21 History ursodioL [Actigall] 300 mg PO HS 03/09/17 03/24/21 History ursodioL [Ursodiol] 600 mg PO DAILY 03/09/17 03/24/21 History Levothyroxine Sodium 100 mcg PO DAILY 04/27/17 03/24/21 History Tacrolimus [Prograf] 0.5 mg PO BID 11/01/18 03/25/21 History Aspirin EC [Ecotrin Low Dose] 81 mg PO DAILY #30 tablet. 11/03/18 03/24/21 Rx Albuterol Sulfate [Albuterol 2 puff PO RT-Q6H PRN 03/24/21 03/24/21 History Sulfate Hfa] Cholecalciferol [Vitamin D3 (25 50 mcg PO DAILY 03/24/21 03/24/21 History Mcg = 1000 Iu)] calcitrioL [Calcitriol] 0.25 mcg PO SA 03/24/21 03/24/21 History Allergies Allergy/AdvReac Type Severity Reaction Status Date / Time No Known Allergies Allergy Verified 03/24/21 23:36 Physical Exam Vitals: Vital Signs Temp Pulse Pulse Resp BP BP Pulse Ox 03/25/21 12:53 110 H 03/25/21 12:42 108 H 03/25/21 08:39 104 H 18 100 03/25/21 08:00 103 H 18 03/25/21 07:02 97.2 F L 100 18 157/78 97 03/25/21 07:00 97.5 F L 103 H 17 158/80 98 03/25/21 05:40 100 18 157/78 97 03/25/21 02:35 101 H 26 H 178/83 96 03/24/21 23:32 92 20 149/72 96 03/24/21 22:59 18 03/24/21 21:53 77 03/24/21 21:24 97.2 F L 80 26 H 181/88 98 Intake and Output 03/24/21 03/25/21 03/25/21 22:59 06:59 14:59 Other: Weight 86.183 kg 86.183 kg PHYSICAL EXAM: VITAL SIGNS: [as above] GENERAL: sitting up at side of bed, no acute distress, shaky HEENT: Conjunctivae normal. eyes normal. NECK: No JVD. No thyroid enlargement. No LNs CARDIOVASCULAR: S1, S2 regular. No murmur,wraps or gallops RESPIRATION: Good air entry, tachypneic ,Coarse Breath sounds,diminished in the bases. No rhonchi or crackles. No bronchial breathing. ABDOMEN: Soft, nontender . No guarding. no masses palpable. Bowel sounds heard. LEGS: No edema, no cyanosis, no clubbing. PSYCHIATRY: Alert and oriented -3, mood and affect normal. NERVOUS SYSTEM: Cranial N 2-12 grossly normal. speech fluent and appropriate, no facial asymmetry. Moves all 4 limbs. No focal deficits. No sensory deficit. Skin: Warm and dry, no rashes Results CBC & Chem 7: 03/24/21 22:08 03/24/21 22:08 Labs: Abnormal Lab Results - Last 24 Hours (Table) 03/24/21 03/25/21 03/25/21 Range/Units 22:08 11:43 11:50 D-Dimer 2.65 H (<0.60) mg/L FEU Chloride 108 H (98-107) mmol/L Carbon Dioxide 21 L (22-30) mmol/L BUN 32 H (7-17) mg/dL Creatinine 1.53 H (0.52-1.04) mg/dL Glucose 173 H (74-99) mg/dL POC Glucose (mg/dL) 398 H (75-99) mg/dL Thrombosis Risk Factor Assmnt - Choose All That Apply Any of the Below Risk Factors Present?: Yes Each Factor Represents 1 point: Abnormal pulmonary function (COPD), Obesity (BMI >25) Other Risk Factors: Yes Each Risk Factor Represents 2 Points: Age 61-74 years Thrombosis Risk Factor Assessment Total Risk Factor Score: 4 Thrombosis Risk Factor Assessment Level: Moderate Risk Assessment and Plan Assessment: -Acute COPD exacerbation, -Ruling out PE -Anxiety ,Recently discontinued Lexapro -History of DVT, not on maintenance anticoagulation -History of liver transplant 2014, on immunosuppressive therapy, Prograf -Emphysema -hypothyroidism -history of nicotine abuse, smoked 1 pack a day since age 17, quit smoking in 2014. -Hypothyroidism -Hypertension -Seizure disorder - Plan: Continue current medication regime ,monitoring and symptomatic treatment. V/Q ordered , elevated d-dimer, ruling out PE. Pulmonary consult in place, recommendations pending. Maintain nebulized bronchodilators, steroids. Discha rge planning in progress pending V/Q sinus computed tomography scan. Anoxiolytics to be further reviewed with patient and PCP. The impression and plan of care has been dictated as directed. : I performed a history and examination of this patient, discussed the same with the dictator. I agree with the dictator's note ,documented as a scribe. Any additional findings or plans will be noted.
[2021-03-25] MEDS: INSULIN DETEMIR (LEVEMIR) 100 UNIT/ML SYR SQ SCH (17:09)
[2021-03-25 17:56] LABS: Glucose,Whole Blood 292 mg/dL (75-99)
[2021-03-25 19:59] LABS: Glucose,Whole Blood 249 mg/dL (75-99)
[2021-03-25] MEDS ORDERED: SODIUM CHLORIDE 0.9% 1,000 ML IV SCH (20:00)
[2021-03-25] MEDS: EVEROLIMUS 0.75 MG PO SCH (20:40)
[2021-03-25] MEDS ORDERED: ursodioL 300 MG CAP PO SCH (21:00)
[2021-03-25] MEDS ORDERED: TACROLIMUS 0.5 MG CAP PO SCH (21:00)
[2021-03-25] MEDS ORDERED: METOPROLOL TARTRATE 25 MG TAB PO STA (23:26)
[2021-03-26] MEDS ORDERED: SODIUM CHLORIDE 0.9% 1,000 ML IV SCH
[2021-03-26] MEDS: methylPREDNISolone SOD SUCCI 125 MG/2 ML VIAL IV SCH (06:00)
[2021-03-26] MEDS: LEVOTHYROXINE 100 MCG TAB PO SCH (06:00)
--- NOTE | 2021-03-26 07:35 | NM ---
EXAMINATION TYPE: NM pul perfusion DATE OF EXAM: 03/25/2021 COMPARISON: NONE HISTORY: Elevated d-dimer Following administration of 5.3 mCi Tc 99m MAA. Images obtained post injection. FINDINGS: No moderate or large perfusion defects are evident. No patchy small defects in perfusion. IMPRESSION: Low probability for pulmonary embolism based on modified PIOPED 2 criteria
[2021-03-26 07:46] LABS: Glucose,Whole Blood 370 mg/dL (75-99)
[2021-03-26 08:13] VITALS: BP 131/77; RESP 16; TEMP 97.5
[2021-03-26] MEDS: INSULIN DETEMIR (LEVEMIR) 100 UNIT/ML SYR SQ SCH (08:47)
[2021-03-26] MEDS: INSULIN ASPART (NovoLOG) 100 UNIT/ML VIAL SQ SCH (08:48)
[2021-03-26] MEDS: METOPROLOL TARTRATE 25 MG TAB PO SCH (08:48)
[2021-03-26] MEDS: EVEROLIMUS 0.75 MG PO SCH (08:49)
[2021-03-26] MEDS: TACROLIMUS 1 MG CAP PO SCH (08:50)
[2021-03-26] MEDS: ursodioL 300 MG CAP PO SCH (08:50)
[2021-03-26] MEDS: IPRATROPIUM-ALBUTEROL 3 ML NEB INHALATION SCH (08:54)
[2021-03-26] MEDS ORDERED: CHOLECALCIFEROL 25 MCG (1000 IU) TABLET PO SCH (09:00)
[2021-03-26] MEDS ORDERED: ASPIRIN 81 MG PO SCH (09:00)
[2021-03-26 09:06] VITALS: PULSE 109
[2021-03-26 09:30] LABS: Basophils # (A) 0.01 X 10*3/uL (0.00-0.10); Basophils % (A) 0.1 %; Eosinophils # (A) 0 X 10*3/uL (0.04-0.35); Eosinophils % (A) 0 %; HCT 34.7 % (37.2-46.3); HGB 10.6 g/dL (12.0-15.0); Lymphocytes # (A) 0.42 X 10*3/uL (0.90-5.00); Lymphocytes % (A) 3.3 %; MCHC 30.5 g/dL (32.0-37.0); MCV 88.5 fL (80.0-97.0); Mean Platelet Volume 10.5 fL (9.5-12.2); Monocytes # (A) 0.29 X 10*3/uL (0.20-1.00); Monocytes % (A) 2.3 %; Neutrophils # (A) 11.83 X 10*3/uL (1.80-7.70); Neutrophils % (A) 93.7 %; Platelet Count 247 X 10*3/uL (140-440); RBC 3.92 X 10*6/uL (4.10-5.20); RDW 14.9 % (11.5-14.5); WBC 12.62 X 10*3/uL (4.50-10.00)
[2021-03-26 09:46] LABS: Magnesium 1.9 mg/dL (1.5-2.4)
--- NOTE | 2021-03-26 10:54 | P.NPCON ---
History of Present Illness - Reason for Consult chronic renal failure - History of Present Illness Reason for consultation: Chronic kidney disease History of present illness: The patient is a 75-year-old female seen in renal consultation for chronic any disease. Patient has chronic kidney disease stage IIIB secondary to nephrosclerosis as well as long-term calcineurin inhibitor exposure. Patient's baseline creatinine is in the range of 1.3-1.5. Creatinine as of March 24 was 1.53. Patient presented to the hospital on 03/24/2021 with shortness of breath. She does have history of COPD. No cough. No fever. No abdominal pain. No nausea vomiting. Oral intake is fair. Blood pressure stable. Denies use of nonsteroidals. Patient has history of liver transplant. VQ scan revealed low probability of PE. CTA has been canceled pulmonology. She is currently on 2 L cannula. No active complaints. Vital signs are stable. General: The patient appeared well nourished and normally developed. HEENT: Head exam is unremarkable. LUNGS: Breath sounds decreased. HEART: Rate and Rhythm are regular. ABDOMEN: Soft, no distention. EXTREMITITES: No edema. Past Medical History Past Medical History: COPD, Deep Vein Thrombosis (DVT), Liver Disease, Respirat ory Disorder, Thyroid Disorder Additional Past Medical History / Comment(s): emphysema, thoracentesis 06/24/14, underactive thyroid. liver transplant 2014 History of Any Multi-Drug Resistant Organisms: None Reported Past Surgical History: Hernia Repair, Tonsillectomy Additional Past Surgical History / Comment(s): hiatal hernia, past liver/gallbladder biopsies neg, Liver transplant 03/27/2015. Past Anesthesia/Blood Transfusion Reactions: No Reported Reaction Past Psychological History: No Psychological Hx Reported Smoking Status: Never smoker Past Alcohol Use History: None Reported Additional Past Alcohol Use History / Comment(s): started smoking at age 17 smokes 1 ppd, stopped smoking in 2014. Past Drug Use History: None Reported - Past Family History Father Family Medical History: Liver Disease Additional Family Medical History / Comment(s): dad at age 72- was a heavy drinker had liver disease Mother Family Medical History: Diabetes Mellitus, Renal Disease Additional Family Medical History / Comment(s): at age 78 kidney failure Medications and Allergies Home Medications Medication Instructions Recorded Confirmed Type Metoprolol Tartrate [Lopressor] 25 mg PO BID 10/23/15 03/24/21 History Everolimus [Zortress] 2.25 mg PO BID 03/03/16 03/25/21 History ursodioL [Actigall] 300 mg PO HS 03/09/17 03/24/21 History ursodioL [Ursodiol] 600 mg PO DAILY 03/09/17 03/24/21 History Levothyroxine Sodium 100 mcg PO DAILY 04/27/17 03/24/21 History Tacrolimus [Prograf] 0.5 mg PO BID 11/01/18 03/25/21 History Aspirin EC [Ecotrin Low Dose] 81 mg PO DAILY #30 tablet. 11/03/18 03/24/21 Rx Albuterol Sulfate [Albuterol 2 puff PO RT-Q6H PRN 03/24/21 03/24/21 History Sulfate Hfa] Cholecalciferol [Vitamin D3 (25 50 mcg PO DAILY 03/24/21 03/24/21 History Mcg = 1000 Iu)] calcitrioL [Calcitriol] 0.25 mcg PO SA 03/24/21 03/24/21 History Allergies Allergy/AdvReac Type Severity Reaction Status Date / Time No Known Allergies Allergy Verified 03/24/21 23:36 Physical Exam Vitals: Vital Signs Temp Pulse Pulse Pulse Resp BP BP 03/26/21 09:06 109 H 03/26/21 08:55 110 H 03/26/21 07:51 62 03/26/21 07:00 97.5 F L 97 16 131/77 03/26/21 02:00 97.8 F 62 17 148/69 03/26/21 01:09 19 03/25/21 23:00 97.7 F 124 H 20 114/70 03/25/21 21:09 106 H 03/25/21 21:00 98 03/25/21 20:00 19 03/25/21 19:43 97.4 F L 105 H 19 126/78 03/25/21 15:00 97.7 F 109 H 18 142/81 03/25/21 14:00 18 03/25/21 12:53 110 H 03/25/21 12:42 108 H Pulse Ox 03/26/21 09:06 03/26/21 08:55 97 03/26/21 07:51 03/26/21 07:00 100 03/26/21 02:00 94 L 03/26/21 01:09 03/25/21 23:00 97 03/25/21 21:09 03/25/21 21:00 03/25/21 20:00 03/25/21 19:43 98 03/25/21 15:00 96 03/25/21 14:00 03/25/21 12:53 03/25/21 12:42 Intake and Output 03/25/21 03/26/21 03/26/21 22:59 06:59 14:59 Other: Voiding Method Toilet Toilet # Voids 2 2 Results - Lab Results Most recent lab results Calcium 9.9 mg/dL (8.4-10.2) 03/24/21 22:08 Magnesium 1.9 mg/dL (1.5-2.4) 03/26/21 06:09 03/26/21 06:09 03/24/21 22:08 Assessment and Plan Plan: Assessment: 1. Chronic kidney disease stage IIIB with baseline creatinine in the range of 1.3-1.5 secondary to nephrosclerosis and long-term calcineurin inhibitor use. Renal function stable. 2. Dyspnea. Unclear etiology. Concern for anxiety versus COPD. Low probability of PE on VQ scan. 3. History of liver transplant and the [facility] in 2014 maintained on immunosuppression medications. 4. Hypertension with chronic kidney disease. Stable. 5. Chronic kidney disease mineral bone disease maintained on calcitriol. 6. Diabetes mellitus. Plan: Hep-Lock IV fluids. Encourage oral intake. Avoid nephrotoxins. Possible discharge today. Follow up outpatient in 2 weeks. Thank you for the consultation. I will continue to follow the patient with you during her hospital stay.
[2021-03-26 11:08] LABS: African American GFR (CKD) 31.2 (60.0-200.0); Anion Gap 14.5 mmol/L (4.00-12.00); BUN/Creat Ratio 22.79 Ratio (12.00-20.00); Blood Urea Nitrogen 41.7 mg/dL (9.0-27.0); Calcium 9.7 mg/dL (8.7-10.3); Carbon Dioxide 17.9 mmol/L (21.6-31.8); Non-African American GFR(CKD) 26.9 (60.0-200.0); Potassium 4.8 mmol/L (3.5-5.5)
--- NOTE | 2021-03-26 11:17 | P.PN ---
Subjective Progress Note Date: 03/26/21 Principal diagnosis: Shortness of breath, status post liver transplant. 75-year-old white female patient with past medical history of severe COPD, with the baseline FEV1 of 46% of predicted, stage III COPD, not home oxygen dependent, anxiety, depression, history of liver transplant at the [facility] in 2014, and patient is on immunosuppressive therapy, Prograf. Other medical history is significant for previous history of DVT not on chronic anticoagulation at this point, previous history of pleural effusion with previous thoracentesis, multiple pulmonary nodules with negative PET scan, hypothyroidism, and seizure disorder. Patient [facility] on 03/25/2021 with complaints of increased shortness of breath, patient denies any fever or chills, denies any cough or phlegm production, no wheezing. Tested negative for COVID-19, chest x-ray did not show any acute pulmonary process. She has been afebrile in the hospital, on 2 L of oxygen her pulse ox is 97-100%. Vital signs are stable, no wheezing or rhonchi on physical exam, her son is at the bedside, he states that recently she had gone off the Lexapro because of increased lethargy. Since then she reports that her roommate is noticing increased tenseness, mild anxiety, and possibly increased dyspnea related to anxiety. No complaints of chest pain, no phlegm production, no hemoptysis. Her CBC was completely within normal limits, and was 130, potassium is 4.6, BUN is 32, creatinine is 1.53, plasma lactic acid was 0.9, LFTs were unremarkable, troponin was less than 0.012, proBNP was 511. Patient's son reports recent visit to the [facility] for routine checkup regarding her liver transplant and was told that her condition is satisfactory. Patient reports no swelling in her lower extremities, no calf pain. Started on nebulized bronchodilators in the emergency department, IV steroids. We were asked to see the patient in evaluation for her increased shortness of breath. Progress note dated 03/26/2021. The patient's feeling much better. She currently is on 2 L nasal cannula. She's getting saline at 75 mL an hour. The ventilation perfusion lung scan was low probability. A CTA was reported by the hospital service, but I don't think she needs it my opinion. Clinically she looks well. Current labs include a white count of 12.62, hemoglobin 10.6, hematocrit 34.7, and platelet count 247,000. Sodium 139, potassium 4.8, chlorides 107, CO2 18, anion gap 15, BUN 42, and creatinine 1.8. The patient does have severe COPD, with an FEV1 that's 46% of predicted, as well as anxiety, depression, status post liver transplantation, and previous pleural effusion, requiring thoracentesis. Objective - Vital Signs Vital signs: Vital Signs Temp 97.5 F L 03/26/21 07:00 Pulse 109 H 03/26/21 09:06 Resp 16 03/26/21 07:00 BP 131/77 03/26/21 07:00 Pulse Ox 97 03/26/21 08:55 Intake & Output 03/25/21 03/26/21 03/26/21 18:59 06:59 18:59 Weight 86.183 kg Other: Voiding Method Toilet Toilet # Voids 2 - Exam No acute distress, oriented 3. Currently on 2 L nasal cannula. No respiratory distress, use of accessory muscles, or conversational dyspnea. HEENT examination is grossly unremarkable. Neck supple. Full range of motion. No adenopathy thyromegaly or neck vein distention. Cardiovascular examination reveals regular rhythm rate. S1-S2 normal. No S3 or S4. No discernible murmur noted. Heart rate is 73 bpm. Lungs reveal clear breath sounds. Breath sounds are equal bilaterally. No adventitious lung sounds including wheezes rhonchi or crackles. Abdomen obese. Bowel sounds heard. No masses or tenderness. Extremities are intact. No cyanosis clubbing or edema. Skin is without rash or lesion. Neurologic examination is brief but nonfocal. - Labs CBC & Chem 7: 03/26/21 06:09 03/26/21 06:09 Labs: Abnormal Lab Results - Last 24 Hours (Table) 03/25/21 03/25/21 03/25/21 Range/Units 11:43 11:50 17:55 WBC (4.50-10.00) X 10*3/uL RBC (4.10-5.20) X 10*6/uL Hgb (12.0-15.0) g/dL Hct (37.2-46.3) % MCHC (32.0-37.0) g/dL RDW (11.5-14.5) % Immature Gran # (0.00-0.04) X 10*3/uL Neutrophils # (1.80-7.70) X 10*3/uL Lymphocytes # (0.90-5.00) X 10*3/uL Eosinophils # (0.04-0.35) X 10*3/uL D-Dimer 2.65 H (<0.60) mg/L FEU Carbon Dioxide (21.6-31.8) mmol/L Anion Gap (4.00-12.00) mmol/L BUN (9.0-27.0) mg/dL Creatinine (0.6-1.5) mg/dL Est GFR (CKD-EPI)AfAm (60.0-200.0) Est GFR (CKD-EPI)NonAf (60.0-200.0) BUN/Creatinine Ratio (12.00-20.00) Ratio Glucose (70-110) mg/dL POC Glucose (mg/dL) 398 H 292 H (75-99) mg/dL 03/25/21 03/26/21 03/26/21 Range/Units 19:58 06:09 06:09 WBC 12.62 H (4.50-10.00) X 10*3/uL RBC 3.92 L (4.10-5.20) X 10*6/uL Hgb 10.6 L (12.0-15.0) g/dL Hct 34.7 L (37.2-46.3) % MCHC 30.5 L (32.0-37.0) g/dL RDW 14.9 H (11.5-14.5) % Immature Gran # 0.07 H (0.00-0.04) X 10*3/uL Neutrophils # 11.83 H (1.80-7.70) X 10*3/uL Lymphocytes # 0.42 L (0.90-5.00) X 10*3/uL Eosinophils # 0 L (0.04-0.35) X 10*3/uL D-Dimer (<0.60) mg/L FEU Carbon Dioxide 17.9 L (21.6-31.8) mmol/L Anion Gap 14.50 H (4.00-12.00) mmol/L BUN 41.7 H (9.0-27.0) mg/dL Creatinine 1.8 H (0.6-1.5) mg/dL Est GFR (CKD-EPI)AfAm 31.2 L (60.0-200.0) Est GFR (CKD-EPI)NonAf 26.9 L (60.0-200.0) BUN/Creatinine Ratio 22.79 H (12.00-20.00) Ratio Glucose 422 H (70-110) mg/dL POC Glucose (mg/dL) 249 H (75-99) mg/dL 03/26/21 Range/Units 07:39 WBC (4.50-10.00) X 10*3/uL RBC (4.10-5.20) X 10*6/uL Hgb (12.0-15.0) g/dL Hct (37.2-46.3) % MCHC (32.0-37.0) g/dL RDW (11.5-14.5) % Immature Gran # (0.00-0.04) X 10*3/uL Neutrophils # (1.80-7.70) X 10*3/uL Lymphocytes # (0.90-5.00) X 10*3/uL Eosinophils # (0.04-0.35) X 10*3/uL D-Dimer (<0.60) mg/L FEU Carbon Dioxide (21.6-31.8) mmol/L Anion Gap (4.00-12.00) mmol/L BUN (9.0-27.0) mg/dL Creatinine (0.6-1.5) mg/dL Est GFR (CKD-EPI)AfAm (60.0-200.0) Est GFR (CKD-EPI)NonAf (60.0-200.0) BUN/Creatinine Ratio (12.00-20.00) Ratio Glucose (70-110) mg/dL POC Glucose (mg/dL) 370 H (75-99) mg/dL Assessment and Plan Assessment: #1. Shortness of breath, under investigation. Possibly related to discontin uation of Lexapro which the patient takes for anxiety. Chest x-ray showed no acute pulmonary process, no coughing, no wheezing no fever or chills, there may be a component of mild COPD exacerbation, which has improved since admission. VQ scan low probability for PE. #2. History of COPD, stage III, with FEV1 of 47% of predicted, not on oxygen on a regular basis. #3. History of liver transplantation at the [facility] in 2014, on Prograf and ursodiol on a regular basis. #4. Hypertension. #5. Previous history of pleural effusion with thoracentesis. #6. Previous history of multiple lung nodules with negative PET scan. #7. Seizure disorder. #8. Hypothyroidism. #9. Previous history of DVT, not currently on any maintenance anticoagulation at this time. #10. Hiatal hernia. Plan: Plan dated 03/26/2021. Currently, the patient is seemingly doing much better. The ventilation perfusion lung scan was low probability for pulmonary embolism. In my opinion, the patient does not need a CT angiogram. Additional recommendations and suggestions are forthcoming. The patient should follow with me in the office. Overall prognosis is good. She continues on steroids, antibiotics, and bronchodilators. Discharge planning underway. Time with Patient: Less than 30
--- NOTE | 2021-03-26 14:02 | P.DS ---
Providers Date of admission: 03/26/21 09:01 Expected date of discharge: 03/26/21 Attending physician: George Wheeler Consults: 03/25/21 14:07 Consult Physician Urgent Consulting Provider: Radha Zamora Consult Reason/Comments: CT clearance Do you want consulting provider notified?: Yes Primary care physician: George Wheeler [facility] Course: Final Diagnoses: -Acute COPD exacerbation, possibly exacerbated by discontinuation of Lexapro -Ruling out PE -Anxiety ,Recently discontinued Lexapro-reevaluate at follow-up in clinic for alternative choices. -History of DVT, not on maintenance anticoagulation -History of liver transplant 2014, on immunosuppressive therapy, Prograf -Emphysema -hypothyroidism -history of nicotine abuse, smoked 1 pack a day since age 17, quit smoking in 2014. -Hypothyroidism -Hypertension -Seizure disorder - Hospital course:This is a 75-year-old female with past medical history of COPD, DVT, liver disease, emphysema, hypothyroidism, former nicotine abuse and multiple other medical issues, presented to the ER with worsening shortness of breath that initiated abruptly yesterday. Denies fever or chills or productive cough. Tested negative for COVID-19. Chest x-ray reported no active cardiopulmonary disease, or change. Patient shaky, states she's taken herself off of her Lexapro related to increased lethargy. Denies chest pain, palpita tions. Afebrile, normal WBC-normal CBC, maintaining O2 sats in the high 90s to 100% on 2 L nasal cannula. Sodium 138, potassium 4.6, BUN 32, creatinine 1.53, T bili/LFTs within normal limits. Received nebulized bronchodilators and IV steroids initiated in the ER. VQ scan reported low probability, cleared by pulmonary and does not recommend CTA. Patient will be discharged home today in a stable condition with guarded prognosis. Patient had stopped her Lexapro secondary to increased fatigue and weakness and wishes to discuss alternative choices in clinic. The impression and plan of care has been dictated as directed. : I performed a history and examination of this patient, discussed the same with the dictator. I agree with the dictator's note ,documented as a scribe. Any additional findings or plans will be noted. Patient Condition at Discharge: Stable Plan - Discharge Summary Discharge Rx Participant: No New Discharge Prescriptions: New predniSONE 10 mg PO DIRECTED #30 tab Continue Metoprolol Tartrate [Lopressor] 25 mg PO BID Everolimus [Zortress] 2.25 mg PO BID ursodioL [Actigall] 300 mg PO HS ursodioL [Ursodiol] 600 mg PO DAILY Levothyroxine Sodium 100 mcg PO DAILY Tacrolimus [Prograf] 0.5 mg PO BID Aspirin EC [Ecotrin Low Dose] 81 mg PO DAILY #30 tablet. Cholecalciferol [Vitamin D3 (25 Mcg = 1000 Iu)] 50 mcg PO DAILY Albuterol Sulfate [Albuterol Sulfate Hfa] 2 puff PO RT-Q6H PRN PRN Reason: Shortness Of Breath calcitrioL [Calcitriol] 0.25 mcg PO SA Discharge Medication List Metoprolol Tartrate [Lopressor] 25 mg PO BID 10/23/15 [History] Everolimus [Zortress] 2.25 mg PO BID 03/03/16 [History] ursodioL [Actigall] 300 mg PO HS 03/09/17 [History] ursodioL [Ursodiol] 600 mg PO DAILY 03/09/17 [History] Levothyroxine Sodium 100 mcg PO DAILY 04/27/17 [History] Tacrolimus [Prograf] 0.5 mg PO BID 11/01/18 [History] Aspirin EC [Ecotrin Low Dose] 81 mg PO DAILY #30 tablet. 11/03/18 [Rx] Albuterol Sulfate [Albuterol Sulfate Hfa] 2 puff PO RT-Q6H PRN 03/24/21 [History] Cholecalciferol [Vitamin D3 (25 Mcg = 1000 Iu)] 50 mcg PO DAILY 03/24/21 [History] calcitrioL [Calcitriol] 0.25 mcg PO SA 03/24/21 [History] predniSONE 10 mg PO DIRECTED #30 tab 03/26/21 [Rx] Follow up Appointment(s)/Referral(s): Iam Baer DO [Doctor of Osteopathic Medicine] - 04/10/21 2:30 pm George Wheeler MD [Primary Care Provider] - 3 Days Patient Instructions/Handouts: COPD (Chronic Obstructive Pulmonary Disease) (DC) Activity/Diet/Wound Care/Special Instructions: Anoxiolytics to be further discussed with PCP at follow-up in clinic Discharge Disposition: HOME SELF-CARE
== END 2021-03-26 11:39 | disposition home or self-care (01) | DRG 191 ==
LOC: EC 21:09 → 6NMEDSUR 23:00 → OBSVTOIN 03-26 09:01
PROVIDERS: ADMIT Family Medicine; ATTEND Family Medicine
DX: J43.9 Emphysema, unspecified (principal); Z94.4 Liver transplant status; E03.9 Hypothyroidism, unspecified; I12.9 Hypertensive chronic kidney disease with stage 1 through stage 4 chronic kidney disease, or unspecified chronic kidney disease; Z87.891 Personal history of nicotine dependence; Z20.822 Contact with and (suspected) exposure to COVID-19; K76.9 Liver disease, unspecified; F41.9 Anxiety disorder, unspecified; N18.32 Chronic kidney disease, stage 3b; E11.22 Type 2 diabetes mellitus with diabetic chronic kidney disease; F32.9 Major depressive disorder, single episode, unspecified; M89.8X8 Other specified disorders of bone, other site; G40.909 Epilepsy, unspecified, not intractable, without status epilepticus; K44.9 Diaphragmatic hernia without obstruction or gangrene; Z79.890 Hormone replacement therapy; Z79.899 Other long term (current) drug therapy; Z79.82 Long term (current) use of aspirin; Z86.718 Personal history of other venous thrombosis and embolism; Z87.19 Personal history of other diseases of the digestive system; Z99.81 Dependence on supplemental oxygen
CPT/HCPCS: 36415; 71045; 78580; 80048; 80053; 81001; 82306; 82728; 83540; 83550; 83605; 83735; 83880; 83970; 84100; 84145; 84484; 84550; 85025; 85027; 85379; 85610; 85730; 87635; 93005; 94640; 94760; 96374; 99285

== ENCOUNTER → 2021-03-24 | Outpatient (CLI) | payer MEDICARE, BC ==
[2021-03-24 14:31] LABS: Appearance,Urine Cloudy (Clear); Bacteria,Urine Few /hpf; Bilirubin,Urine Negative (Negative); Blood,Urine Negative (Negative); Color,Urine Yellow; Glucose,Urine (UA) Negative (Negative); Hyaline Casts,Urine 4 /lpf (0-2); Ketones,Urine Negative (Negative); Leukocyte Esterase,Urine Large (Negative); Mucus,Urine Rare /hpf; Nitrite,Urine Positive (Negative); Protein,Urine Negative (Negative); RBC,Urine 6 /hpf (0-5); Specific Gravity,Urine 1.019 (1.001-1.035); Squamous Epithelial Cell,Urine 5 /hpf (0-4); Urobilinogen,Urine <2.0 mg/dL (<2.0); WBC,Urine 13 /hpf (0-5)
[2021-03-24 20:22] LABS: HCT 36.2 % (37.2-46.3); HGB 11.1 g/dL (12.0-15.0); MCH 27.6 pg (27.0-32.0); MCHC 30.7 g/dL (32.0-37.0); Mean Platelet Volume 10.7 fL (9.5-12.2); Platelet Count 201 X 10*3/uL (140-440); RBC 4.02 X 10*6/uL (4.10-5.20); RDW 14.8 % (11.5-14.5)
[2021-03-25 09:07] LABS: % Iron Saturation 11.76 (12.00-45.00); African American GFR (CKD) 37.8 (60.0-200.0); Albumin 4.1 g/dL (3.8-4.9); Albumin/Globulin Ratio 1.59 (1.60-3.17); Anion Gap 17.6 mmol/L (4.00-12.00); BUN/Creat Ratio 19.74 Ratio (12.00-20.00); Blood Urea Nitrogen 30.8 mg/dL (9.0-27.0); Calcium 9.7 mg/dL (8.7-10.3); Globulin 2.6 g/dL (1.6-3.3); Magnesium 1.8 mg/dL (1.5-2.4); Non-African American GFR(CKD) 32.6 (60.0-200.0); Phosphorus 3.3 mg/dL (2.4-5.1); Potassium 3.8 mmol/L (3.5-5.5); Total Bilirubin 0.3 mg/dL (0.30-1.20); Total Protein 6.7 g/dL (6.2-8.2); Uric Acid 7.5 mg/dL (2.9-7.7)
== END | disposition home or self-care (01) ==
LOC: LABWHC1 09:54
PROVIDERS: ATTEND Internal Medicine
DX: N25.81 Secondary hyperparathyroidism of renal origin (principal); E55.9 Vitamin D deficiency, unspecified; M10.9 Gout, unspecified; D64.9 Anemia, unspecified; N39.0 Urinary tract infection, site not specified; N18.32 Chronic kidney disease, stage 3b
CPT/HCPCS: 36415; 80053; 81001; 82306; 82728; 83540; 83550; 83735; 83970; 84100; 84550; 85027

== ENCOUNTER 2021-06-30 22:43 | Inpatient (IN) | payer MEDICARE, BC ==
--- NOTE | 2021-06-30 23:01 | ED ---
Altered Mental Status HPI - General Chief Complaint: Altered Mental Status Stated Complaint: Altered mental status Time Seen by Provider: 06/30/21 22:46 Source: EMS, RN notes reviewed, old records reviewed Mode of arrival: EMS Limitations: altered mental status - History of Present Illness Initial Comments: This is a 75-year-old female to the emergency department today. Patient presents today for evaluation regards to significant altered mental status, patient has persistent altered mental status here in the ER [place] for history patient answering questions fairly appropriately but without complaint. Patient's family member does state that patient is not acting appropriately. MD Complaint: altered mental status, confusion -: hour(s) Severity: moderate Consistency of Symptoms: getting worse Context: history of similar presentation Associated Symptoms: denies other symptoms Treatments Prior to Arrival: other pre-hospital medication (none) - Related Data Home Medications Medication Instructions Recorded Confirmed Everolimus [Zortress] 3 mg PO BID 03/03/16 07/01/21 ursodioL [Actigall] 300 mg PO HS 03/09/17 07/01/21 ursodioL [Ursodiol] 600 mg PO DAILY 03/09/17 07/01/21 Levothyroxine Sodium 100 mcg PO DAILY 04/27/17 07/01/21 Tacrolimus [Prograf] 0.5 mg PO BID 11/01/18 07/01/21 Albuterol Sulfate [Albuterol 2 puff PO RT-Q6H PRN 03/24/21 07/01/21 Sulfate Hfa] Cholecalciferol [Vitamin D3 (25 50 mcg PO DAILY 03/24/21 07/01/21 Mcg = 1000 Iu)] calcitrioL [Calcitriol] 0.25 mcg PO SA 03/24/21 07/01/21 Aspirin EC [Ecotrin] 325 mg PO DAILY 07/01/21 07/01/21 Escitalopram [Lexapro] 10 mg PO DAILY 07/01/21 07/01/21 Magnesium Oxide [Mag-Ox] 400 mg PO DAILY 07/01/21 07/01/21 Metoprolol Tartrate [Lopressor] 50 mg PO BID 07/01/21 07/01/21 Allergies Allergy/AdvReac Type Severity Reaction Status Date / Time No Known Allergies Allergy Verified 06/30/21 22:53 Review of Systems ROS Statement: Those systems with pertinent positive or pertinent negative responses have been documented in the HPI. ROS Other: All systems not noted in ROS Statement are negative. Past Medical History Past Medical History: COPD, Deep Vein Thrombosis (DVT), Liver Disease, Respiratory Disorder, Thyroid Disorder Additional Past Medical History / Comment(s): emphysema, thoracentesis 06/24/14, underactive thyroid. liver transplant 2014 History of Any Multi-Drug Resistant Organisms: None Reported Past Surgical History: Hernia Repair, Tonsillectomy Additional Past Surgical History / Comment(s): hiatal hernia, past liver/gallbladder biopsies neg, Liver transplant 03/27/2015. Past Anesthesia/Blood Transfusion Reactions: No Reported Reaction Past Psychological History: No Psychological Hx Reported Smoking Status: Never smoker Past Alcohol Use History: None Reported Past Drug Use History: None Reported - Past Family History Father Family Medical History: Liver Disease Additional Family Medical History / Comment(s): dad at age 72- was a heavy drinker had liver disease Mother Family Medical History: Diabetes Mellitus, Renal Disease Additional Family Medical History / Comment(s): at age 78 kidney failure General Exam Limitations: altered mental status General appearance: alert, in no apparent distress, anxious Head exam: Present: atraumatic, normocephalic, normal inspection Eye exam: Present: normal appearance, PERRL, EOMI. Absent: scleral icterus, conjunctival injection, periorbital swelling ENT exam: Present: normal exam, mucous membranes moist Neck exam: Present: normal inspection. Absent: tenderness, meningismus, lymphadenopathy Respiratory exam: Present: normal lung sounds bilaterally. Absent: respiratory distress, wheezes, rales, rhonchi, stridor Cardiovascular Exam: Present: normal rhythm, tachycardia, normal heart sounds. Absent: systolic murmur, diastolic murmur, rubs, gallop, clicks GI/Abdominal exam: Present: soft, normal bowel sounds. Absent: distended, tenderness, guarding, rebound, rigid Extremities exam: Present: normal inspection, full ROM, normal capillary refill. Absent: tenderness, pedal edema, joint swelling, calf tenderness Back exam: Present: normal inspection Neurological exam: Present: alert, oriented X3, CN II-XII intact Psychiatric exam: Present: normal affect, normal mood Skin exam: Present: warm, dry, intact, normal color. Absent: rash Course Vital Signs 06/30/21 06/30/21 07/01/21 22:46 23:53 01:44 Temperature 98.3 F Pulse Rate 110 H 97 99 Pulse Rate [ Pulse Oximetery ] Respiratory 16 16 16 Rate Blood Pressure 131/93 145/85 126/72 Blood Pressure [Right Arm] O2 Sat by Pulse 94 L 95 94 L Oximetry 07/01/21 07/01/21 07/01/21 02:00 03:00 03:15 Temperature 97.8 F Pulse Rate 89 88 Pulse Rate [ 94 Pulse Oximetery ] Respiratory 17 Rate Blood Pressure 126/72 126/72 Blood Pressure 136/78 [Right Arm] O2 Sat by Pulse 95 Oximetry - Reevaluation(s) Reevaluation #1: 07/01/21 Medical record is reviewed Patient symptoms are significantly improved here in the emergency department Patient informed of results and questions answered Medical Decision Making - Medical Decision Making 75 female to the emergency department for altered mental status patient is positive for coronavirus likely infection causing patient's worsening symptoms and mental state. Patient be admitted for supportive care - Lab Data Result diagrams: 06/30/21 23:10 07/01/21 12:51 Lab Results 06/30/21 06/30/21 06/30/21 Range/Units 23:10 23:10 23:10 WBC 6.3 (3.8-10.6) k/uL RBC 4.84 (3.80-5.40) m/uL Hgb 13.3 (11.4-16.0) gm/dL Hct 41.0 (34.0-46.0) % MCV 84.9 (80.0-100.0) fL MCH 27.5 (25.0-35.0) pg MCHC 32.4 (31.0-37.0) g/dL RDW 15.8 H (11.5-15.5) % Plt Count 215 (150-450) k/uL MPV 7.9 Neutrophils % 73 % Lymphocytes % 12 % Monocytes % 11 % Eosinophils % 1 % Basophils % 1 % Neutrophils # 4.6 (1.3-7.7) k/uL Lymphocytes # 0.8 L (1.0-4.8) k/uL Monocytes # 0.7 (0-1.0) k/uL Eosinophils # 0.0 (0-0.7) k/uL Basophils # 0.0 (0-0.2) k/uL PT 10.1 (9.0-12.0) sec INR 0.9 (<1.2) APTT 24.0 (22.0-30.0) sec Sodium 132 L (137-145) mmol/L Potassium 4.6 (3.5-5.1) mmol/L Chloride 97 L (98-107) mmol/L Carbon Dioxide 21 L (22-30) mmol/L Anion Gap 14 mmol/L BUN 21 H (7-17) mg/dL Creatinine 1.26 H (0.52-1.04) mg/dL Est GFR (CKD-EPI)AfAm 49 (>60 ml/min/1.73 sqM) Est GFR (CKD-EPI)NonAf 42 (>60 ml/min/1.73 sqM) Glucose 285 H (74-99) mg/dL Plasma Lactic Acid Jose (0.7-2.0) mmol/L Calcium 9.5 (8.4-10.2) mg/dL Phosphorus 3.5 (2.5-4.5) mg/dL Magnesium 1.4 L (1.6-2.3) mg/dL Total Bilirubin 0.7 (0.2-1.3) mg/dL AST 66 H (14-36) U/L ALT 32 (4-34) U/L Alkaline Phosphatase 105 (38-126) U/L Ammonia (<30) umol/L Troponin I (0.000-0.034) ng/mL NT-Pro-B Natriuret Pep pg/mL Total Protein 7.3 (6.3-8.2) g/dL Albumin 4.2 (3.5-5.0) g/dL Urine Color Urine Appearance (Clear) Urine pH (5.0-8.0) Ur Specific [place] (1.001-1.035) Urine Protein (Negative) Urine Glucose (UA) (Negative) Urine Ketones (Negative) Urine Blood (Negative) Urine Nitrite (Negative) Urine Bilirubin (Negative) Urine Urobilinogen (<2.0) mg/dL Ur Leukocyte Esterase (Negative) Urine RBC (0-5) /hpf Urine WBC (0-5) /hpf Ur Squamous Epith Cells (0-4) /hpf Urine Bacteria (None) /hpf Hyaline Casts (0-2) /lpf Urine Mucus (None) /hpf Salicylates mg/dL Urine Opiates Screen (NotDetected) Ur Oxycodone Screen (NotDetected) Urine Methadone Screen (NotDetected) Ur Propoxyphene Screen (NotDetected) Acetaminophen ug/mL Ur Barbiturates Screen (NotDetected) U Tricyclic Antidepress (NotDetected) Ur Phencyclidine Scrn (NotDetected) Ur Amphetamines Screen (NotDetected) U Methamphetamines Scrn (NotDetected) U Benzodiazepines Scrn (NotDetected) Urine Cocaine Screen (NotDetected) U Marijuana (THC) Screen (NotDetected) 06/30/21 06/30/21 06/30/21 Range/Units 23:10 23:10 23:10 WBC (3.8-10.6) k/uL RBC (3.80-5.40) m/uL Hgb (11.4-16.0) gm/dL Hct (34.0-46.0) % MCV (80.0-100.0) fL MCH (25.0-35.0) pg MCHC (31.0-37.0) g/dL RDW (11.5-15.5) % Plt Count (150-450) k/uL MPV Neutrophils % % Lymphocytes % % Monocytes % % Eosinophils % % Basophils % % Neutrophils # (1.3-7.7) k/uL Lymphocytes # (1.0-4.8) k/uL Monocytes # (0-1.0) k/uL Eosinophils # (0-0.7) k/uL Basophils # (0-0.2) k/uL PT (9.0-12.0) sec INR (<1.2) APTT (22.0-30.0) sec Sodium (137-145) mmol/L Potassium (3.5-5.1) mmol/L Chloride (98-107) mmol/L Carbon Dioxide (22-30) mmol/L Anion Gap mmol/L BUN (7-17) mg/dL Creatinine (0.52-1.04) mg/dL Est GFR (CKD-EPI)AfAm (>60 ml/min/1.73 sqM) Est GFR (CKD-EPI)NonAf (>60 ml/min/1.73 sqM) Glucose (74-99) mg/dL Plasma Lactic Acid Jose 1.7 (0.7-2.0) mmol/L Calcium (8.4-10.2) mg/dL Phosphorus (2.5-4.5) mg/dL Magnesium (1.6-2.3) mg/dL Total Bilirubin (0.2-1.3) mg/dL AST (14-36) U/L ALT (4-34) U/L Alkaline Phosphatase (38-126) U/L Ammonia <9 (<30) umol/L Troponin I <0.012 (0.000-0.034) ng/mL NT-Pro-B Natriuret Pep 638 pg/mL Total Protein (6.3-8.2) g/dL Albumin (3.5-5.0) g/dL Urine Color Urine Appearance (Clear) Urine pH (5.0-8.0) Ur Specific [place] (1.001-1.035) Urine Protein (Negative) Urine Glucose (UA) (Negative) Urine Ketones (Negative) Urine Blood (Negative) Urine Nitrite (Negative) Urine Bilirubin (Negative) Urine Urobilinogen (<2.0) mg/dL Ur Leukocyte Esterase (Negative) Urine RBC (0-5) /hpf Urine WBC (0-5) /hpf Ur Squamous Epith Cells (0-4) /hpf Urine Bacteria (None) /hpf Hyaline Casts (0-2) /lpf Urine Mucus (None) /hpf Salicylates mg/dL Urine Opiates Screen (NotDetected) Ur Oxycodone Screen (NotDetected) Urine Methadone Screen (NotDetected) Ur Propoxyphene Screen (NotDetected) Acetaminophen ug/mL Ur Barbiturates Screen (NotDetected) U Tricyclic Antidepress (NotDetected) Ur Phencyclidine Scrn (NotDetected) Ur Amphetamines Screen (NotDetected) U Methamphetamines Scrn (NotDetected) U Benzodiazepines Scrn (NotDetected) Urine Cocaine Screen (NotDetected) U Marijuana (THC) Screen (NotDetected) 06/30/21 07/01/21 07/01/21 Range/Units 23:10 00:39 00:39 WBC (3.8-10.6) k/uL RBC (3.80-5.40) m/uL Hgb (11.4-16.0) gm/dL Hct (34.0-46.0) % MCV (80.0-100.0) fL MCH (25.0-35.0) pg MCHC (31.0-37.0) g/dL RDW (11.5-15.5) % Plt Count (150-450) k/uL MPV Neutrophils % % Lymphocytes % % Monocytes % % Eosinophils % % Basophils % % Neutrophils # (1.3-7.7) k/uL Lymphocytes # (1.0-4.8) k/uL Monocytes # (0-1.0) k/uL Eosinophils # (0-0.7) k/uL Basophils # (0-0.2) k/uL PT (9.0-12.0) sec INR (<1.2) APTT (22.0-30.0) sec Sodium (137-145) mmol/L Potassium (3.5-5.1) mmol/L Chloride (98-107) mmol/L Carbon Dioxide (22-30) mmol/L Anion Gap mmol/L BUN (7-17) mg/dL Creatinine (0.52-1.04) mg/dL Est GFR (CKD-EPI)AfAm (>60 ml/min/1.73 sqM) Est GFR (CKD-EPI)NonAf (>60 ml/min/1.73 sqM) Glucose (74-99) mg/dL Plasma Lactic Acid Jose (0.7-2.0) mmol/L Calcium (8.4-10.2) mg/dL Phosphorus (2.5-4.5) mg/dL Magnesium (1.6-2.3) mg/dL Total Bilirubin (0.2-1.3) mg/dL AST (14-36) U/L ALT (4-34) U/L Alkaline Phosphatase (38-126) U/L Ammonia (<30) umol/L Troponin I (0.000-0.034) ng/mL NT-Pro-B Natriuret Pep pg/mL Total Protein (6.3-8.2) g/dL Albumin (3.5-5.0) g/dL Urine Color Yellow Urine Appearance Cloudy H (Clear) Urine pH 5.5 (5.0-8.0) Ur Specific [place] 1.024 (1.001-1.035) Urine Protein 2+ H (Negative) Urine Glucose (UA) 3+ H (Negative) Urine Ketones 1+ H (Negative) Urine Blood Small H (Negative) Urine Nitrite Negative (Negative) Urine Bilirubin Negative (Negative) Urine Urobilinogen <2.0 (<2.0) mg/dL Ur Leukocyte Esterase Negative (Negative) Urine RBC 1 (0-5) /hpf Urine WBC 2 (0-5) /hpf Ur Squamous Epith Cells 5 H (0-4) /hpf Urine Bacteria Occasional H (None) /hpf Hyaline Casts 26 H (0-2) /lpf Urine Mucus Rare H (None) /hpf Salicylates <1.0 mg/dL Urine Opiates Screen Not Detected (NotDetected) Ur Oxycodone Screen Not Detected (NotDetected) Urine Methadone Screen Not Detected (NotDetected) Ur Propoxyphene Screen Not Detected (NotDetected) Acetaminophen <10.0 ug/mL Ur Barbiturates Screen Not Detected (NotDetected) U Tricyclic Antidepress Not Detected (NotDetected) Ur Phencyclidine Scrn Not Detected (NotDetected) Ur Amphetamines Screen Not Detected (NotDetected) U Methamphetamines Scrn Not Detected (NotDetected) U Benzodiazepines Scrn Not Detected (NotDetected) Urine Cocaine Screen Not Detected (NotDetected) U Marijuana (THC) Screen Not Detected (NotDetected) - EKG Data -: EKG Interpreted by Me (EKG is sinus tachycardia 112 SC 142 QRS 66 QTc 464) - Radiology Data Radiology results: report reviewed (CT brain and chest x-rays negative for acute disease), image reviewed Disposition Clinical Impression: Delirium due to general medical condition, Altered mental status, COVID Disposition: ADMITTED IP TO THIS [facility] Condition: Fair Is patient prescribed a controlled substance at d/c from ED?: No
[2021-06-30] MEDS ORDERED: SODIUM CHLORIDE 0.9% 1,000 ML IV STA (23:12)
--- NOTE | 2021-06-30 23:45 | XR ---
EXAMINATION TYPE: XR chest 1V DATE OF EXAM: 06/30/2021 COMPARISON: 03/24/2021 HISTORY: Cough TECHNIQUE: Single view FINDINGS: There is no heart failure no confluent pneumonic infiltrate. Costophrenic angles are clear. There are chest leads. There are no hilar masses. IMPRESSION: No active cardiopulmonary disease. Normal heart. No change.
--- NOTE | 2021-06-30 23:49 | CT ---
EXAMINATION TYPE: CT brain wo con DATE OF EXAM: 06/30/2021 COMPARISON: 11/01/2018 HISTORY: AMS CT DLP: 1174.4 mGycm Automated exposure control for dose reduction was used. There is cerebral cortical atrophy. There is no mass effect or midline shift. There is no sign of int racranial hemorrhage. There is some patchy hypodensity in the periventricular white matter. Calvarium is intact. Skull base is intact. There is normal aeration of the mastoid sinuses. IMPRESSION: Cerebral atrophy. Mild chronic small vessel ischemia. No acute intracranial abnormality. No significa nt change.
[2021-07-01 00:19] LABS: Basophils % (A) 1 %; Eosinophils % (A) 1 %; HGB 13.3 gm/dL (11.4-16.0); Lymphocytes # (A) 0.8 k/uL (1.0-4.8); Lymphocytes % (A) 12 %; MCH 27.5 pg (25.0-35.0); MCHC 32.4 g/dL (31.0-37.0); MCV 84.9 fL (80.0-100.0); Mean Platelet Volume 7.9; Monocytes # (A) 0.7 k/uL (0-1.0); Monocytes % (A) 11 %; Neutrophils # (A) 4.6 k/uL (1.3-7.7); Neutrophils % (A) 73 %; Platelet Count 215 k/uL (150-450); RBC 4.84 m/uL (3.80-5.40); RDW 15.8 % (11.5-15.5); WBC 6.3 k/uL (3.8-10.6)
[2021-07-01 00:24] LABS: INR 0.9 (<1.2); Prothrombin Time 10.1 sec (9.0-12.0)
[2021-07-01 00:29] LABS: Lactic Acid, Venous 1.7 mmol/L (0.7-2.0)
[2021-07-01 00:30] LABS: Albumin 4.2 g/dL (3.5-5.0); Calcium 9.5 mg/dL (8.4-10.2); Total Bilirubin 0.7 mg/dL (0.2-1.3); Total Protein 7.3 g/dL (6.3-8.2)
[2021-07-01 01:10] LABS: Magnesium 1.4 mg/dL (1.6-2.3); Phosphorus 3.5 mg/dL (2.5-4.5); Potassium 4.6 mmol/L (3.5-5.1)
[2021-07-01] MEDS ORDERED: ONDANSETRON 4 MG/2 ML VIAL IVP PRN (01:16)
[2021-07-01] MEDS ORDERED: ACETAMINOPHEN TAB 325 MG TAB PO PRN (01:16)
[2021-07-01] MEDS ORDERED: NALOXONE 0.4 MG/ML 1 ML VIAL IV PRN (01:16)
[2021-07-01] MEDS ORDERED: LORazepam 2 MG/ML INJ IV PRN (01:16)
[2021-07-01 01:20] LABS: Appearance,Urine Cloudy (Clear); Bacteria,Urine Occasional /hpf; Bilirubin,Urine Negative (Negative); Blood,Urine Small (Negative); Color,Urine Yellow; Glucose,Urine (UA) 3+ (Negative); Hyaline Casts,Urine 26 /lpf (0-2); Ketones,Urine 1+ (Negative); Leukocyte Esterase,Urine Negative (Negative); Mucus,Urine Rare /hpf; Nitrite,Urine Negative (Negative); PH, Urine 5.5 (5.0-8.0); Protein,Urine 2+ (Negative); RBC,Urine 1 /hpf (0-5); Specific Gravity,Urine 1.024 (1.001-1.035); Squamous Epithelial Cell,Urine 5 /hpf (0-4); Urobilinogen,Urine <2.0 mg/dL (<2.0); WBC,Urine 2 /hpf (0-5)
[2021-07-01] MEDS ORDERED: MAGNESIUM SULFATE-D5W PMX 1 GM in DEXTROSE/WATER 1 100ML.BAG IVPB ONE (01:25)
[2021-07-01 01:45] LABS: Acetaminophen <10.0 ug/mL; Salicylate <1.0 mg/dL
[2021-07-01] MEDS: SODIUM CHLORIDE 0.9% 1,000 ML IV SCH ×3 (01:52→17:17)
[2021-07-01 01:57] LABS: Amphetamine Screen,Urine Not Detected (NotDetected); Barbiturate Screen,Urine Not Detected (NotDetected); Benzodiazepines Screen,Urine Not Detected (NotDetected); Cocaine Screen,Urine Not Detected (NotDetected); Methadone Screen, Urine Not Detected (NotDetected); Opiate Screen,Urine Not Detected (NotDetected); Oxycodone Screen, Urine Not Detected (NotDetected); Phencyclidine Screen,Urine Not Detected (NotDetected); Tricyclic Antidepressant,Urine Not Detected (NotDetected); Urn Cannabinoid Scrn Not Detected (NotDetected)
[2021-07-01] MEDS ORDERED: PANTOPRAZOLE 40 MG/10 ML VIAL IVP SCH (10:45)
[2021-07-01] MEDS ORDERED: ALBUTEROL HFA INHALER INHALATION PRN (10:45)
[2021-07-01] MEDS ORDERED: EVEROLIMUS 0.75 MG PO SCH (11:00)
[2021-07-01] MEDS ORDERED: CHOLECALCIFEROL 25 MCG (1000 IU) TABLET PO SCH (11:00)
[2021-07-01] MEDS ORDERED: Magnesium Replacement Protocol 1 EACH MISC MISCELLANE PRN (11:30)
--- NOTE | 2021-07-01 11:47 | P.HPIM ---
History of Present Illness H&P Date: 07/01/21 Chief Complaint: Altered mental status, increased weakness This is a 75-year-old female with past medical history of primary biliary cirrhosis, status post liver transplant 2014 at [facility], COPD, DVT, former nicotine dependence-quit smoking in 2014 and multiple other medical issues brought into the ER via EMS. SonKyle in [place] reported he noted his mother confused on the telephone. ER documentation currently unavailable. Patient is confused to person, time,that she is in the hospital. Denies chest pain, palpitations or shortness of breath. Troponin less than 0.012, EKG reported sinus tachycardia, nonspecific ST abnormality Denies nausea or vomiting or diarrhea. Afebrile, normal WBC.maintaining O2 sats in the mid 90s on room air. Vital signs stable. Hematology, coagulation panel is unremarkable. Sodium 132, potassium 4.6 bicarb 21, BUN 21, creatinine 1.26- baseline, glucose 285, lactic acid 1.7 phosphorus 3.5, magnesium 1.4, total bili 0.7, AST 66, ALT 32, alk phos 105, ammonia less than 9. , proBNP 638 albumin 4.2. UA negative, toxicology screen negative. Coronal virus PCR detected. Chest x-ray reported no active cardiopulmonary disease. Brain CT reported cerebral atrophy, chronic small vessel ischemia, no acute intracranial abnormality, no significant change. Review of Systems ROS Statement: Those systems with pertinent positive or pertinent negative responses have been documented in the HPI. ROS Other: All systems not noted in ROS Statement are negative. Past Medical History Past Medical History: COPD, Deep Vein Thrombosis (DVT), Liver Disease, Respiratory Disorder, Thyroid Disorder Additional Past Medical History / Comment(s): emphysema, thoracentesis 06/24/14, underactive thyroid. liver transplant 2014 History of Any Multi-Drug Resistant Organisms: None Reported Past Surgical History: Hernia Repair, Tonsillectomy Additional Past Surgical History / Comment(s): hiatal hernia, past li esteban/gallbladder biopsies neg, Liver transplant 03/27/2015. Past Anesthesia/Blood Transfusion Reactions: No Reported Reaction Past Psychological History: No Psychological Hx Reported Smoking Status: Former smoker Past Alcohol Use History: None Reported Additional Past Alcohol Use History / Comment(s): started smoking at age 17 smokes 1 ppd, stopped smoking in 2014. Past Drug Use History: None Reported - Past Family History Father Family Medical History: Liver Disease Additional Family Medical History / Comment(s): dad at age 72- was a heavy drinker had liver disease Mother Family Medical History: Diabetes Mellitus, Renal Disease Additional Family Medical History / Comment(s): at age 78 kidney failure Medications and Allergies Home Medications Medication Instructions Recorded Confirmed Type Everolimus [Zortress] 3 mg PO BID 03/03/16 07/01/21 History ursodioL [Actigall] 300 mg PO HS 03/09/17 07/01/21 History ursodioL [Ursodiol] 600 mg PO DAILY 03/09/17 07/01/21 History Levothyroxine Sodium 100 mcg PO DAILY 04/27/17 07/01/21 History Tacrolimus [Prograf] 0.5 mg PO BID 11/01/18 07/01/21 History Albuterol Sulfate [Albuterol 2 puff PO RT-Q6H PRN 03/24/21 07/01/21 History Sulfate Hfa] Cholecalciferol [Vitamin D3 (25 50 mcg PO DAILY 03/24/21 07/01/21 History Mcg = 1000 Iu)] calcitrioL [Calcitriol] 0.25 mcg PO SA 03/24/21 07/01/21 History Aspirin EC [Ecotrin] 325 mg PO DAILY 07/01/21 07/01/21 History Escitalopram [Lexapro] 10 mg PO DAILY 07/01/21 07/01/21 History Magnesium Oxide [Mag-Ox] 400 mg PO DAILY 07/01/21 07/01/21 History Metoprolol Tartrate [Lopressor] 50 mg PO BID 07/01/21 07/01/21 History Allergies Allergy/AdvReac Type Severity Reaction Status Date / Time No Known Allergies Allergy Verified 06/30/21 22:53 Physical Exam Vitals: Vital Signs Temp Pulse Pulse Resp BP BP Pulse Ox 07/01/21 06:25 98.3 F 83 16 136/79 94 L 07/01/21 03:15 97.8 F 94 17 136/78 95 07/01/21 03:00 88 126/72 07/01/21 02:00 89 126/72 07/01/21 01:44 99 16 126/72 94 L 06/30/21 23:53 97 16 145/85 95 06/30/21 22:46 98.3 F 110 H 16 131/93 94 L Intake and Output 06/30/21 07/01/21 07/01/21 22:59 06:59 14:59 Output Total 200 Balance -200 Output: Urine 200 Other: # Voids 1 Weight 81.647 kg 81.647 kg PHYSICAL EXAM: VITAL SIGNS: As above GENERAL: Sitting up in bed, no acute distress, confused to person and time, states she is at the hospital. HEENT: Conjunctivae normal. eyes normal. NECK: Supple, No JVD. No thyroid enlargement. No LNs CARDIOVASCULAR: S1, S2 regular..No murmur RESPIRATION: Breath sounds diminished in the bases. No rhonchi or crackles. No bronchial breathing. ABDOMEN: Soft, nontender . Nondistended No guarding. no masses palpable. No peritoneal signs.No ascites, No hepatosplenomegaly.Bowel sounds heard. LEGS: No edema. no swelling NERVOUS SYSTEM: Limited exam-confused , Moves all 4 limbs. Diffuse weakness No focal deficits. Strength and sensation grossly intact. Skin: Warm and dry, no rash Results CBC & Chem 7: 06/30/21 23:10 06/30/21 23:10 Labs: Abnormal Lab Results - Last 24 Hours (Table) 06/30/21 06/30/21 07/01/21 Range/Units 23:10 23:10 00:39 RDW 15.8 H (11.5-15.5) % Lymphocytes # 0.8 L (1.0-4.8) k/uL Sodium 132 L (137-145) mmol/L Chloride 97 L (98-107) mmol/L Carbon Dioxide 21 L (22-30) mmol/L BUN 21 H (7-17) mg/dL Creatinine 1.26 H (0.52-1.04) mg/dL Glucose 285 H (74-99) mg/dL Magnesium 1.4 L (1.6-2.3) mg/dL AST 66 H (14-36) U/L Urine Appearance Cloudy H (Clear) Urine Protein 2+ H (Negative) Urine Glucose (UA) 3+ H (Negative) Urine Ketones 1+ H (Negative) Urine Blood Small H (Negative) Ur Squamous Epith Cells 5 H (0-4) /hpf Urine Bacteria Occasional H (None) /hpf Hyaline Casts 26 H (0-2) /lpf Urine Mucus Rare H (None) /hpf Coronavirus (PCR) (Not Detectd) 07/01/21 Range/Units 01:48 RDW (11.5-15.5) % Lymphocytes # (1.0-4.8) k/uL Sodium (137-145) mmol/L Chloride (98-107) mmol/L Carbon Dioxide (22-30) mmol/L BUN (7-17) mg/dL Creatinine (0.52-1.04) mg/dL Glucose (74-99) mg/dL Magnesium (1.6-2.3) mg/dL AST (14-36) U/L Urine Appearance (Clear) Urine Protein (Negative) Urine Glucose (UA) (Negative) Urine Ketones (Negative) Urine Blood (Negative) Ur Squamous Epith Cells (0-4) /hpf Urine Bacteria (None) /hpf Hyaline Casts (0-2) /lpf Urine Mucus (None) /hpf Coronavirus (PCR) Detected A (Not Detectd) Thrombosis Risk Factor Assmnt - Choose All That Apply Any of the Below Risk Factors Present?: Yes Each Factor Represents 1 point: Abnormal pulmonary function (COPD) Other Risk Factors: Yes Each Risk Factor Represents 2 Points: Age 61-74 years Thrombosis Risk Factor Assessment Total Risk Factor Score: 3 Thrombosis Risk Factor Assessment Level: Moderate Risk Assessment and Plan Assessment: Acute Covid-19 infection Acute metabolic encephalopathy secondary to the above Increased generalized weakness secondary to Covid infection COPD, stage III, currently no evidence of acute exacerbation Emphysema Diabetes mellitus Chronic kidney disease stage IIIB with baseline creatinines 1.3-1.5 secondary to nephrosclerosis. Renal function stable History of primary biliary cirrhosis status post liver transplant in 2014, maintained on immunosuppression medications History of DVT, not on maintenance anticoagulation Obesity, BMI 32.9 History of nicotine dependence, 1 pack per day 52 years, quit in 2014 Hypothyroidism Seizure disorder Anxiety Hypomagnesemia Plan: Continue on current medication regime ,monitoring and symptomatic treatment. Covid cocktail initiated. Labs ordered including magnesium. Magnesium replacement protocol ordered. Home meds reviewed, resumed including immunosuppression medications. PPI for GI prophylaxis.Avoid nephrotoxins. The impression and plan of care has been dictated as directed. : I performed a history and examination of this patient, discussed the same with the dictator. I agree with the dictator's note ,documented as a scribe. Any additional findings or plans will be noted.
[2021-07-01 11:52] LABS: Glucose,Whole Blood 209 mg/dL (75-99)
[2021-07-01] MEDS: ZINC SULFATE 220 MG CAP PO SCH (12:58)
[2021-07-01] MEDS: INSULIN ASPART (NovoLOG) 100 UNIT/ML VIAL SQ SCH ×3 (12:58→20:49)
[2021-07-01] MEDS: ursodioL 300 MG CAP PO SCH (12:59)
[2021-07-01] MEDS: TACROLIMUS 0.5 MG CAP PO SCH ×2 (12:59→20:49)
[2021-07-01] MEDS: CHOLECALCIFEROL 25 MCG (1000 IU) TABLET PO SCH (12:59)
[2021-07-01] MEDS: DEXAMETHASONE SOD PHOSPHATE 10 MG/ML 1 ML VIAL IVP SCH (12:59)
[2021-07-01] MEDS: ASCORBIC ACID 500 MG TAB PO SCH ×2 (13:00→20:48)
[2021-07-01] MEDS: ALBUTEROL HFA INHALER INHALATION SCH ×3 (13:01→19:42)
[2021-07-01] MEDS: LEVOTHYROXINE 100 MCG TAB PO SCH (13:14)
[2021-07-01] MEDS: MAGNESIUM OXIDE 400 MG TAB PO SCH (13:14)
[2021-07-01 13:21] LABS: African American GFR (CKD) 55 (>60 ml/min/1.73 sqM); Anion Gap 9 mmol/L; Blood Urea Nitrogen 17 mg/dL (7-17); Calcium 8.5 mg/dL (8.4-10.2); Carbon Dioxide 21 mmol/L (22-30); Chloride 104 mmol/L (98-107); Glucose 229 mg/dL (74-99); Non-African American GFR(CKD) 48 (>60 ml/min/1.73 sqM); Potassium 3.8 mmol/L (3.5-5.1); Sodium 134 mmol/L (137-145)
[2021-07-01 17:10] LABS: Glucose,Whole Blood 208 mg/dL (75-99)
[2021-07-01 20:29] LABS: Glucose,Whole Blood 338 mg/dL (75-99)
[2021-07-01] MEDS: METOPROLOL TARTRATE 50 MG TAB PO SCH (20:48)
[2021-07-01] MEDS: EVEROLIMUS 0.75 MG PO SCH (20:49)
[2021-07-01] MEDS ORDERED: ursodioL 300 MG CAP PO SCH (21:00)
--- NOTE | 2021-07-01 23:34 | P.CONS ---
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 Creatinine was mildly elevated liver enzymes are normal urine was negative, PCR was negative patient did have local as well as blood cultures obtained she was started on vancomycin has been admitted to the hospital infectious disease was consulted for further management Review of system: CONSTITUTIONAL: Positive for weakness fever. EYES: No complaint. ENT: No complaint. RESPIRATORY: Shortness of breath and cough. CARDIOVASCULAR: No complaint. GENITOURINARY: No complaint. GASTROINTESTINAL: As per history of present illness. MUSCULOSKELETAL: No complaint. INTEGUMENTARY : No complaint. PSYCHOLOGIC: No complaint. ENDOCRINE: No complaint. NEUROLOGIC: No complaint. Past medical history : Reviewed, documented below Past surgical history : Reviewed, documented below Social history: Reviewed, documented below Medications: Reviewed, as documented below EXAMINATION: Vital sigans= Reviewed and documented below GENERAL DESCRIPTION: Middle-aged female lying in bed, no distress. No tachypnea or accessory muscle of respiration use. HEENT: Shows Pallor , no scleral icterus. Oral mucous membrane is dry. NECK: Trachea central, no thyromegaly. LUNGS: Unlabored breathing. Clear to auscultation anteriorly. No wheeze or crackle. HEART: S1, S2, regular rate and rhythm. ABDOMEN: Soft, lower abdominal wall wound which patient has decreased in size no significant slough tissue surrounding redness or drainage EXTREMITIES: No edema feet SKIN: No rash, no masses palpable. NEUROLOGICAL: The patient is awake, alert, oriented x3, mood and affect normal. 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 and concern for possible secondary cellulitis clinically not behaving as such with no fever or elevated white count patient started on vancomycin and culture has been obtained which are currently pending Plan: 1-vancomycin pharmacy to dose target trough of 15 while watching kidney function and vancomycin trough closely 2-local wound care with dry Aquacel dressing 3-discharge antibiotics on the basis of final cultures We will follow on clinical condition and cultures to further adjust medication if needed Thank you for this consultation we will follow the patient along with you Past Medical History Past Medical History: COPD, Deep Vein Thrombosis (DVT), Liver Disease, Respiratory Disorder, Thyroid Disorder Additional Past Medical History / Comment(s): emphysema, thoracentesis 06/24/14, underactive thyroid. liver transplant 2014 History of Any Multi-Drug Resistant Organisms: None Reported Past Surgical History: Hernia Repair, Tonsillectomy Additional Past Surgical History / Comment(s): hiatal hernia, past liver/gallbladder biopsies neg, Liver transplant 03/27/2015. Past Anesthesia/Blood Transfusion Reactions: No Reported Reaction Past Psychological History: No Psychological Hx Reported Smoking Status: Former smoker Past Alcohol Use History: None Reported Additional Past Alcohol Use History / Comment(s): started smoking at age 17 smokes 1 ppd, stopped smoking in 2014. Past Drug Use History: None Reported - Past Family History Father Family Medical History: Liver Disease Additional Family Medical History / Comment(s): dad at age 72- was a heavy drinker had liver disease Mother Family Medical History: Diabetes Mellitus, Renal Disease Additional Family Medical History / Comment(s): at age 78 kidney failure Medications and Allergies Home Medications Medication Instructions Recorded Confirmed Type Everolimus [Zortress] 3 mg PO BID 03/03/16 07/01/21 History ursodioL [Actigall] 300 mg PO HS 03/09/17 07/01/21 History ursodioL [Ursodiol] 600 mg PO DAILY 03/09/17 07/01/21 History Levothyroxine Sodium 100 mcg PO DAILY 04/27/17 07/01/21 History Tacrolimus [Prograf] 0.5 mg PO BID 11/01/18 07/01/21 History Albuterol Sulfate [Albuterol 2 puff PO RT-Q6H PRN 03/24/21 07/01/21 History Sulfate Hfa] Cholecalciferol [Vitamin D3 (25 50 mcg PO DAILY 03/24/21 07/01/21 History Mcg = 1000 Iu)] calcitrioL [Calcitriol] 0.25 mcg PO SA 03/24/21 07/01/21 History Aspirin EC [Ecotrin] 325 mg PO DAILY 07/01/21 07/01/21 History Escitalopram [Lexapro] 10 mg PO DAILY 07/01/21 07/01/21 History Magnesium Oxide [Mag-Ox] 400 mg PO DAILY 07/01/21 07/01/21 History Metoprolol Tartrate [Lopressor] 50 mg PO BID 07/01/21 07/01/21 History Allergies Allergy/AdvReac Type Severity Reaction Status Date / Time No Known Allergies Allergy Verified 06/30/21 22:53 Physical Exam Vitals: Vital Signs Temp Pulse Pulse Resp BP BP Pulse Ox 07/01/21 20:25 97.3 F L 88 12 135/79 93 L 07/01/21 16:15 98.1 F 80 18 111/71 92 L 07/01/21 14:00 98.2 F 85 17 118/75 97 07/01/21 06:25 98.3 F 83 16 136/79 94 L 07/01/21 03:15 97.8 F 94 17 136/78 95 07/01/21 03:00 88 126/72 07/01/21 02:00 89 126/72 07/01/21 01:44 99 16 126/72 94 L 06/30/21 23:53 97 16 145/85 95 06/30/21 22:46 98.3 F 110 H 16 131/93 94 L Intake and Output 07/01/21 07/01/21 07/01/21 06:59 14:59 22:59 Output Total 200 Balance -200 Output: Urine 200 Other: # Voids 1 6 Weight 81.647 kg Results CBC & Chem 7: 06/30/21 23:10 07/01/21 12:51 Labs: Abnormal Lab Results - Last 24 Hours (Table) 06/30/21 06/30/21 07/01/21 Range/Units 23:10 23:10 00:39 RDW 15.8 H (11.5-15.5) % Lymphocytes # 0.8 L (1.0-4.8) k/uL Sodium 132 L (137-145) mmol/L Chloride 97 L (98-107) mmol/L Carbon Dioxide 21 L (22-30) mmol/L BUN 21 H (7-17) mg/dL Creatinine 1.26 H (0.52-1.04) mg/dL Glucose 285 H (74-99) mg/dL POC Glucose (mg/dL) (75-99) mg/dL Magnesium 1.4 L (1.6-2.3) mg/dL AST 66 H (14-36) U/L Urine Appearance Cloudy H (Clear) Urine Protein 2+ H (Negative) Urine Glucose (UA) 3+ H (Negative) Urine Ketones 1+ H (Negative) Urine Blood Small H (Negative) Ur Squamous Epith Cells 5 H (0-4) /hpf Urine Bacteria Occasional H (None) /hpf Hyaline Casts 26 H (0-2) /lpf Urine Mucus Rare H (None) /hpf Coronavirus (PCR) (Not Detectd) 07/01/21 07/01/21 07/01/21 Range/Units 01:48 11:51 12:51 RDW (11.5-15.5) % Lymphocytes # (1.0-4.8) k/uL Sodium 134 L (137-145) mmol/L Chloride (98-107) mmol/L Carbon Dioxide 21 L (22-30) mmol/L BUN (7-17) mg/dL Creatinine 1.14 H (0.52-1.04) mg/dL Glucose 229 H (74-99) mg/dL POC Glucose (mg/dL) 209 H (75-99) mg/dL Magnesium (1.6-2.3) mg/dL AST (14-36) U/L Urine Appearance (Clear) Urine Protein (Negative) Urine Glucose (UA) (Negative) Urine Ketones (Negative) Urine Blood (Negative) Ur Squamous Epith Cells (0-4) /hpf Urine Bacteria (None) /hpf Hyaline Casts (0-2) /lpf Urine Mucus (None) /hpf Coronavirus (PCR) Detected A (Not Detectd) 07/01/21 07/01/21 Range/Units 17:08 20:18 RDW (11.5-15.5) % Lymphocytes # (1.0-4.8) k/uL Sodium (137-145) mmol/L Chloride (98-107) mmol/L Carbon Dioxide (22-30) mmol/L BUN (7-17) mg/dL Creatinine (0.52-1.04) mg/dL Glucose (74-99) mg/dL POC Glucose (mg/dL) 208 H 338 H (75-99) mg/dL Magnesium (1.6-2.3) mg/dL AST (14-36) U/L Urine Appearance (Clear) Urine Protein (Negative) Urine Glucose (UA) (Negative) Urine Ketones (Negative) Urine Blood (Negative) Ur Squamous Epith Cells (0-4) /hpf Urine Bacteria (None) /hpf Hyaline Casts (0-2) /lpf Urine Mucus (None) /hpf Coronavirus (PCR) (Not Detectd)
[2021-07-02] MEDS: SODIUM CHLORIDE 0.9% 1,000 ML IV SCH (00:19)
[2021-07-02] MEDS: LEVOTHYROXINE 100 MCG TAB PO SCH (05:53)
[2021-07-02 06:57] VITALS: RESP 15
[2021-07-02] MEDS: ALBUTEROL HFA INHALER INHALATION SCH ×2 (07:27→13:06)
[2021-07-02] MEDS ORDERED: PANTOPRAZOLE 40 MG TABLET PO SCH (07:30)
[2021-07-02] MEDS: CHOLECALCIFEROL 25 MCG (1000 IU) TABLET PO SCH (07:59)
[2021-07-02] MEDS: ASCORBIC ACID 500 MG TAB PO SCH (07:59)
[2021-07-02] MEDS: METOPROLOL TARTRATE 50 MG TAB PO SCH (07:59)
[2021-07-02] MEDS: ursodioL 300 MG CAP PO SCH (07:59)
[2021-07-02] MEDS: INSULIN ASPART (NovoLOG) 100 UNIT/ML VIAL SQ SCH ×2 (07:59→12:21)
[2021-07-02] MEDS: ZINC SULFATE 220 MG CAP PO SCH (07:59)
[2021-07-02] MEDS: TACROLIMUS 0.5 MG CAP PO SCH (07:59)
[2021-07-02] MEDS: MAGNESIUM OXIDE 400 MG TAB PO SCH (07:59)
[2021-07-02] MEDS: EVEROLIMUS 0.75 MG PO SCH (08:00)
[2021-07-02] MEDS: DEXAMETHASONE SOD PHOSPHATE 10 MG/ML 1 ML VIAL IVP SCH (08:00)
[2021-07-02] MEDS ORDERED: ESCITALOPRAM 10 MG TAB PO SCH (09:00)
[2021-07-02] MEDS ORDERED: ENOXAPARIN 40 MG/0.4 ML SYRINGE SQ SCH (09:00)
[2021-07-02] MEDS ORDERED: ASPIRIN 325 MG TAB PO SCH (09:00)
[2021-07-02 09:43] LABS: Basophils % (A) 1 %; Eosinophils % (A) 1 %; HCT 39.7 % (34.0-46.0); HGB 12.2 gm/dL (11.4-16.0); Hypochromasia Marked; Lymphocytes # (A) 0.9 k/uL (1.0-4.8); Lymphocytes % (A) 25 %; MCH 27.8 pg (25.0-35.0); MCHC 30.7 g/dL (31.0-37.0); Monocytes # (A) 0.2 k/uL (0-1.0); Monocytes % (A) 5 %; Neutrophils # (A) 2.4 k/uL (1.3-7.7); Neutrophils % (A) 68 %; Platelet Count 189 k/uL (150-450); RBC 4.37 m/uL (3.80-5.40); RDW 15.4 % (11.5-15.5); WBC 3.6 k/uL (3.8-10.6)
[2021-07-02 09:44] LABS: Glucose,Whole Blood 225 mg/dL (75-99)
[2021-07-02 09:45] LABS: INR 0.9 (<1.2); Prothrombin Time 9.5 sec (9.0-12.0)
[2021-07-02 09:49] LABS: MCV 90.7 fL (80.0-100.0)
[2021-07-02 09:53] LABS: ALT 22 U/L (4-34); AST 30 U/L (14-36); African American GFR (CKD) 48 (>60 ml/min/1.73 sqM); Albumin 3.2 g/dL (3.5-5.0); Albumin/Globulin Ratio 1.1; Alkaline Phosphatase 95 U/L (38-126); Anion Gap 8 mmol/L; Blood Urea Nitrogen 20 mg/dL (7-17); Carbon Dioxide 17 mmol/L (22-30); Chloride 109 mmol/L (98-107); Globulin 2.9 g/dL; Glucose 304 mg/dL (74-99); Magnesium 1.8 mg/dL (1.6-2.3); Non-African American GFR(CKD) 41 (>60 ml/min/1.73 sqM); Sodium 134 mmol/L (137-145); Total Bilirubin 0.6 mg/dL (0.2-1.3); Total Protein 6.1 g/dL (6.3-8.2)
[2021-07-02 09:54] LABS: Potassium 4.3 mmol/L (3.5-5.1)
[2021-07-02 11:54] LABS: Glucose,Whole Blood 215 mg/dL (75-99)
[2021-07-02] MEDS ORDERED: INSULIN DETEMIR (LEVEMIR) 100 UNIT/ML SYR SQ SCH (12:00)
--- NOTE | 2021-07-02 12:30 | P.PN ---
Subjective Progress Note Date: 07/02/21 This is a 75-year-old female with past medical history of primary biliary cirrhosis, status post liver transplant 2015 at [facility], COPD, DVT, former nicotine dependence-quit smoking in 2015 and multiple other medical issues brought into the ER via EMS. Son[place]yle in [place] reported he noted his mother confused on the telephone. ER documentation currently unavailable. Patient is confused to person, time,that she is in the hospital. Denies chest pain, palpitations or shortness of breath. Troponin less than 0.012, EKG reported sinus tachycardia, nonspecific ST abnormality Denies nausea or vomiting or diarrhea. Afebrile, normal WBC.maintaining O2 sats in the mid 90s on room air. Vital signs stable. Hematology, coagulation panel is unremarkable. Sodium 132, potassium 4.6 bicarb 21, BUN 21, creatinine 1.26- baseline, glucose 285, lactic acid 1.7 phosphorus 3.5, magnesium 1.4, total bili 0.7, AST 66, ALT 32, alk phos 105, ammonia less than 9. , proBNP 638 albumin 4.2. UA negative, toxicology screen negative. Coronal virus PCR detected. Chest x-ray reported no active cardiopulmonary disease. Brain CT reported cerebral atrophy, chronic small vessel ischemia, no acute intracranial abnormality, no significant change. 07/02/2021 maintained on covid cocktail , maintaining O2 sats in the high 90s to 100% on room air. Afebrile, WBC 3.6. Hyperglycemic on admission, hemoglobin A1c pending, currently ranging in the 2 to 300s. Maintained on gentle IV fluid hydration, sodium improved 134, BUN 20, creatinine 1.29. Ambulating with in room, tolerating exertion well. Objective - Vital Signs Vital signs: Vital Signs Temp 97.6 F 07/02/21 09:45 Pulse 81 07/02/21 09:45 Resp 15 07/02/21 09:45 BP 138/78 07/02/21 09:45 Pulse Ox 100 07/02/21 09:45 Intake & Output 07/01/21 07/02/21 07/02/21 18:59 06:59 18:59 Intake Total 550 400 Balance 550 400 Intake: Intake, IV Titration 550 400 Amount Sodium Chloride 0.9% 1, 550 400 000 ml @ 50 mls/hr IV . Q20H [facility] Rx#:[id number] Other: # Voids 6 1 - Exam PHYSICAL EXAM: VITAL SIGNS: As above GENERAL: Sitting up in bed, no acute distress, pleasantly confused, alert and oriented 2, states she is at the hospital and the year is "2019." HEENT: Conjunctivae normal. eyes normal. NECK: Supple, No JVD. CARDIOVASCULAR: S1, S2 regular.No murmur RESPIRATION: Breath sounds diminished in the bases. No rhonchi or crackles. ABDOMEN: Soft, nontender . Nondistended No guarding. no masses palpable. Positive Bowel sounds heard. LEGS: No edema. no swelling NERVOUS SYSTEM: Limited exam-confused , Moves all 4 limbs. No focal deficits. Strength and sensation grossly intact. Skin: Warm and dry, no rash - Labs CBC & Chem 7: 07/02/21 08:35 07/02/21 08:35 Labs: Abnormal Lab Results - Last 24 Hours (Table) 07/01/21 07/01/21 07/01/21 Range/Units 11:51 12:51 17:08 WBC (3.8-10.6) k/uL MCHC (31.0-37.0) g/dL Lymphocytes # (1.0-4.8) k/uL Sodium 134 L (137-145) mmol/L Chloride (98-107) mmol/L Carbon Dioxide 21 L (22-30) mmol/L BUN (7-17) mg/dL Creatinine 1.14 H (0.52-1.04) mg/dL Glucose 229 H (74-99) mg/dL POC Glucose (mg/dL) 209 H 208 H (75-99) mg/dL Total Protein (6.3-8.2) g/dL Albumin (3.5-5.0) g/dL 07/01/21 07/02/21 07/02/21 Range/Units 20:18 07:19 08:35 WBC 3.6 L (3.8-10.6) k/uL MCHC 30.7 L (31.0-37.0) g/dL Lymphocytes # 0.9 L (1.0-4.8) k/uL Sodium (137-145) mmol/L Chloride (98-107) mmol/L Carbon Dioxide (22-30) mmol/L BUN (7-17) mg/dL Creatinine (0.52-1.04) mg/dL Glucose (74-99) mg/dL POC Glucose (mg/dL) 338 H 225 H (75-99) mg/dL Total Protein (6.3-8.2) g/dL Albumin (3.5-5.0) g/dL 07/02/21 Range/Units 08:35 WBC (3.8-10.6) k/uL MCHC (31.0-37.0) g/dL Lymphocytes # (1.0-4.8) k/uL Sodium 134 L (137-145) mmol/L Chloride 109 H (98-107) mmol/L Carbon Dioxide 17 L (22-30) mmol/L BUN 20 H (7-17) mg/dL Creatinine 1.29 H (0.52-1.04) mg/dL Glucose 304 H (74-99) mg/dL POC Glucose (mg/dL) (75-99) mg/dL Total Protein 6.1 L (6.3-8.2) g/dL Albumin 3.2 L (3.5-5.0) g/dL Assessment and Plan Assessment: Acute Covid-19 infection Acute metabolic encephalopathy secondary to the above Increased generalized weakness secondary to Covid infection COPD, stage III, currently no evidence of acute exacerbation Emphysema Diabetes mellitus Chronic kidney disease stage IIIB with baseline creatinines 1.3-1.5 secondary to nephrosclerosis. Renal function stable History of primary biliary cirrhosis status post liver transplant in 2014, maintained on immunosuppression medications History of DVT, not on maintenance anticoagulation Obesity, BMI 32.9 History of nicotine dependence, 1 pack per day 52 years, quit in 2014 Hypothyroidism Seizure disorder Anxiety Hypomagnesemia Plan: Continue on current medication regime ,monitoring and symptomatic treatment. Maintain Covid cocktail. ID consult in place. Discharge planning in progress. Son Kyle is flying home from [place]. Social work assisting in discharge plans, possible [facility] at [place], possible [place] with home care if family planning on staying with patient 03/01. The impression and plan of care has been dictated as directed. : I performed a history and examination of this patient, discussed the same with the dictator. I agree with the dictator's note ,documented as a scribe. Any additional findings or plans will be noted.
--- NOTE | 2021-07-02 13:45 | P.DS ---
Providers Date of admission: 07/01/21 01:16 Expected date of discharge: 07/02/21 Attending physician: George Wheeler Consults: 07/01/21 11:48 Consult Physician Routine Consulting Provider: Oliver Doyle Consult Reason/Comments: Covid, hx of liver tx Do you want consulting provider notified?: Yes Primary care physician: George Wheeler Hospital Course: Final Diagnoses: Acute Covid-19 infection Acute metabolic encephalopathy secondary to the above Increased generalized weakness secondary to Covid infection, improved COPD, stage III, currently no evidence of acute exacerbation Emphysema Hyperglycemic, A1c pending-further follow-up outpatient clinic Chronic kidney disease stage IIIB with baseline creatinines 1.3-1.5 secondary to nephrosclerosis. Renal function stable History of primary biliary cirrhosis status post liver transplant in 2014, maintained on immunosuppression medications History of DVT, not on maintenance anticoagulation Obesity, BMI 32.9 History of nicotine dependence, 1 pack per day 52 years, quit in 2014 Hypothyroidism Seizure disorder Anxiety Hypomagnesemia, supplemented, resolved Hospital course:This is a 75-year-old female with past medical history of primary biliary cirrhosis, status post liver transplant 2014 at [facility], COPD, DVT, former nicotine dependence-quit smoking in 2014 and multiple other medical issues brought into the ER via EMS. Son, Kyle in [place] reported he noted his mother confused on the telephone. ER documentation currently unavailable. Patient is confused to person, time,that s he is in the hospital. Denies chest pain, palpitations or shortness of breath. Troponin less than 0.012, EKG reported sinus tachycardia, nonspecific ST abnormality Denies nausea or vomiting or diarrhea. Afebrile, normal WBC.maintaining O2 sats in the mid 90s on room air. Vital signs stable. Hematology, coagulation panel is unremarkable. Sodium 132, potassium 4.6 bicarb 21, BUN 21, creatinine 1.26- baseline, glucose 285, lactic acid 1.7 phosphorus 3.5, magnesium 1.4, total bili 0.7, AST 66, ALT 32, alk phos 105, ammonia less than 9. , proBNP 638 albumin 4.2. UA negative, toxicology screen negative. Coronal virus PCR detected. Chest x-ray reported no active cardiopulmonary disease. Brain CT reported cerebral atrophy, chronic small vessel ischemia, no acute intracranial abnormality, no significant change. 07/02/2021 maintained on covid cocktail , maintaining O2 sats in the high 90s to 100% on room air. Afebrile, WBC 3.6. Hyperglycemic on admission, hemoglobin A1c pending, currently ranging in the 2 to 300s. Maintained on gentle IV fluid hydration, sodium improved 134, BUN 20, creatinine 1.29. Ambulating with in room, tolerating exertion well. Significant clinical improvement. Son has arrived home from [place], lives 2 doors down from his mother. Patient lives with her significant other. Patient will be discharged home today in a stable condition with guarded prognosis. The impression and plan of care has been dictated as directed. : I performed a history and examination of this patient, discussed the same with the dictator. I agree with the dictator's note ,documented as a scribe. Any additional findings or plans will be noted. Patient Condition at Discharge: Stable Plan - Discharge Summary New Discharge Prescriptions: New dexAMETHasone ORAL [Hexadrol] 6 mg PO DAILY #24 tablet Ascorbic Acid [Vitamin C] 500 mg PO BID #60 tab Zinc Sulfate [Orazinc] 220 mg PO DAILY #30 cap Continue Everolimus [Zortress] 3 mg PO BID ursodioL [Actigall] 300 mg PO HS ursodioL [Ursodiol] 600 mg PO DAILY Levothyroxine Sodium 100 mcg PO DAILY Tacrolimus [Prograf] 0.5 mg PO BID Cholecalciferol [Vitamin D3 (25 Mcg = 1000 Iu)] 50 mcg PO DAILY Albuterol Sulfate [Albuterol Sulfate Hfa] 2 puff PO RT-Q6H PRN PRN Reason: Shortness Of Breath calcitrioL [Calcitriol] 0.25 mcg PO SA Escitalopram [Lexapro] 10 mg PO DAILY Aspirin EC [Ecotrin] 325 mg PO DAILY Magnesium Oxide [Mag-Ox] 400 mg PO DAILY Metoprolol Tartrate [Lopressor] 50 mg PO BID Discharge Medication List Everolimus [Zortress] 3 mg PO BID 03/03/16 [History] ursodioL [Actigall] 300 mg PO HS 03/09/17 [History] ursodioL [Ursodiol] 600 mg PO DAILY 03/09/17 [History] Levothyroxine Sodium 100 mcg PO DAILY 04/27/17 [History] Tacrolimus [Prograf] 0.5 mg PO BID 11/01/18 [History] Albuterol Sulfate [Albuterol Sulfate Hfa] 2 puff PO RT-Q6H PRN 03/24/21 [History] Cholecalciferol [Vitamin D3 (25 Mcg = 1000 Iu)] 50 mcg PO DAILY 03/24/21 [History] calcitrioL [Calcitriol] 0.25 mcg PO SA 03/24/21 [History] Aspirin EC [Ecotrin] 325 mg PO DAILY 07/01/21 [History] Escitalopram [Lexapro] 10 mg PO DAILY 07/01/21 [History] Magnesium Oxide [Mag-Ox] 400 mg PO DAILY 07/01/21 [History] Metoprolol Tartrate [Lopressor] 50 mg PO BID 07/01/21 [History] Ascorbic Acid [Vitamin C] 500 mg PO BID #60 tab 07/02/21 [Rx] Zinc Sulfate [Orazinc] 220 mg PO DAILY #30 cap 07/02/21 [Rx] dexAMETHasone ORAL [Hexadrol] 6 mg PO DAILY #24 tablet 07/02/21 [Rx] Follow up Appointment(s)/Referral(s): [facility], [NON-STAFF] - George Wheeler MD [Primary Care Provider] - 1 Week Patient Instructions/Handouts: Coronavirus Disease 2019 (COVID-19), Altered Mental Status (ED) Activity/Diet/Wound Care/Special Instructions: Complete Quarantine.
[2021-07-02 15:38] VITALS: BP 124/71; PULSE 76; TEMP 98.3
--- NOTE | 2021-07-02 16:35 | P.CONS ---
History of Present Illness - Reason for Consult Consult date: 07/01/21 covid 19 Requesting physician: Felicia Buchanan - Chief Complaint mental status changes x 1 day - History of Present Illness History of Present Illness : Patient is a 75-year female past medical he significant for primary biliary cirrhosis in this patient status post liver transplant done at [facility] in 2004 and has been on immunosuppressive medication patient has been brought into the hospital for evaluation of mental status changes apparently has been noticed by the family the day of presentation to the hospital patient mention she did not know or recall how did she get into the hospital thought she was getting a test patient denies having any headache no URI symptoms to be denies having any chest pain or shortness with very minimal cough no nausea no vomiting no abdominal pain or any diarrhea patient on admission to the hospital was afebrile and she was satting 95 to 94% on room air patient did have a positive COVID test that has prompted this infectious disease consultation patient did have a normal white count with lymphopenia creatinine was mildly elevated liver exams are normal urine is negative and the patient did have a chest x-ray that was negative for acute cardiopulmonary process Review of system: CONSTITUTIONAL: Positive for weakness denies high-grade fever. EYES: No complaint. ENT: No complaint. RESPIRATORY: Mild cough. CARDIOVASCULAR: No complaint. GENITOURINARY: No complaint. GASTROINTESTINAL: No complaint. MUSCULOSKELETAL: No complaint. INTEGUMENTARY : No complaint. PSYCHOLOGIC: No complaint. ENDOCRINE: No complaint. NEUROLOGIC: As per history of present illness. Past medical history : Reviewed, documented below Past surgical history : Reviewed, documented below Social history: Reviewed, documented below Medications: Reviewed, as documented below EXAMINATION: Vital sigans= Reviewed and documented below GENERAL DESCRIPTION: Elderly female lying in bed, no distress. No tachypnea or accessory muscle of respiration use. HEENT: Shows Pallor , no scleral icterus. Oral mucous membrane is dry. NECK: Trachea central, no thyromegaly. LUNGS: Unlabored breathing. Clear to auscultation anteriorly. No wheeze or crackle. HEART: S1, S2, regular rate and rhythm. ABDOMEN: Soft, no tenderness , guarding or rigidity EXTREMITIES: No edema feet SKIN: No rash, no masses palpable. NEUROLOGICAL: The patient is awake, alert, oriented x2, mood and affect normal. LABS AND RADIOLOGY: Reviewed results see below Assessment : Patient presented to hospital for mental status changes in this patient noticed to have a positive COVID test patient is immunocompromise because of her liver transplant however currently no evidence of any pneumonia in this patient who did have a negative chest x-ray patient not hypoxic and no need for supplemental oxygen therapy treatment will be mostly supportive no evidence of any secondary bacterial pneumonia Plan: 1-patient will be continued on Lovenox zinc and ascorbic acid 2-no need for steroids or remdesivir 3-droplet isolation 4-if the patient develop hypoxemia or need for supplemental oxygen she may qualify for remdesivir We will follow on clinical condition and cultures to further adjust medication if needed Thank you for this consultation we will follow the patient along with you Past Medical History Past Medical History: COPD, Deep Vein Thrombosis (DVT), Liver Disease, Respiratory Disorder, Thyroid Disorder Additional Past Medical History / Comment(s): emphysema, thoracentesis 06/24/14, underactive thyroid. liver transplant 2014 History of Any Multi-Drug Resistant Organisms: None Reported Past Surgical History: Hernia Repair, Tonsillectomy Additional Past Surgical History / Comment(s): hiatal hernia, past liver/gallbladder biopsies neg, Liver transplant 03/27/2015. Past Anesthesia/Blood Transfusion Reactions: No Reported Reaction Past Psychological History: No Psychological Hx Reported Smoking Status: Never smoker Past Alcohol Use History: None Reported Past Drug Use History: None Reported - Past Family History Father Family Medical History: Liver Disease Additional Family Medical History / Comment(s): dad at age 72- was a heavy drinker had liver disease Mother Family Medical History: Diabetes Mellitus, Renal Disease Additional Family Medical History / Comment(s): at age 78 kidney failure Medications and Allergies Home Medications Medication Instructions Recorded Confirmed Type Everolimus [Zortress] 3 mg PO BID 03/03/16 07/01/21 History ursodioL [Actigall] 300 mg PO HS 03/09/17 07/01/21 History ursodioL [Ursodiol] 600 mg PO DAILY 03/09/17 07/01/21 History Levothyroxine Sodium 100 mcg PO DAILY 04/27/17 07/01/21 History Tacrolimus [Prograf] 0.5 mg PO BID 11/01/18 07/01/21 History Albuterol Sulfate [Albuterol 2 puff PO RT-Q6H PRN 03/24/21 07/01/21 History Sulfate Hfa] Cholecalciferol [Vitamin D3 (25 50 mcg PO DAILY 03/24/21 07/01/21 History Mcg = 1000 Iu)] calcitrioL [Calcitriol] 0.25 mcg PO SA 03/24/21 07/01/21 History Aspirin EC [Ecotrin] 325 mg PO DAILY 07/01/21 07/01/21 History Escitalopram [Lexapro] 10 mg PO DAILY 07/01/21 07/01/21 History Magnesium Oxide [Mag-Ox] 400 mg PO DAILY 07/01/21 07/01/21 History Metoprolol Tartrate [Lopressor] 50 mg PO BID 07/01/21 07/01/21 History Ascorbic Acid [Vitamin C] 500 mg PO BID #60 tab 07/02/21 Rx Zinc Sulfate [Orazinc] 220 mg PO DAILY #30 cap 07/02/21 Rx dexAMETHasone ORAL [Hexadrol] 6 mg PO DAILY #24 tablet 07/02/21 Rx Allergies Allergy/AdvReac Type Severity Reaction Status Date / Time No Known Allergies Allergy Verified 06/30/21 22:53 Physical Exam Vitals: Vital Signs Temp Pulse Resp BP Pulse Ox 07/02/21 15:37 98.3 F 76 15 124/71 97 07/02/21 09:45 97.6 F 81 15 138/78 100 07/02/21 06:32 97.9 F 74 15 137/77 96 07/02/21 03:05 97.9 F 75 12 139/74 94 L 07/01/21 20:25 97.3 F L 88 12 135/79 93 L Intake and Output 07/02/21 07/02/21 07/02/21 06:59 14:59 22:59 Intake Total 550 400 Balance 550 400 Intake: Intake, IV Titration 550 400 Amount Sodium Chloride 0.9% 1, 550 400 000 ml @ 50 mls/hr IV . Q20H [facility] Rx#:[id number] Other: # Voids 1 Results CBC & Chem 7: 07/02/21 08:35 07/02/21 08:35 Labs: Abnormal Lab Results - Last 24 Hours (Table) 07/01/21 07/01/21 07/02/21 Range/Units 17:08 20:18 07:19 WBC (3.8-10.6) k/uL MCHC (31.0-37.0) g/dL Lymphocytes # (1.0-4.8) k/uL Sodium (137-145) mmol/L Chloride (98-107) mmol/L Carbon Dioxide (22-30) mmol/L BUN (7-17) mg/dL Creatinine (0.52-1.04) mg/dL Glucose (74-99) mg/dL POC Glucose (mg/dL) 208 H 338 H 225 H (75-99) mg/dL Total Protein (6.3-8.2) g/dL Albumin (3.5-5.0) g/dL 07/02/21 07/02/21 07/02/21 Range/Units 08:35 08:35 11:53 WBC 3.6 L (3.8-10.6) k/uL MCHC 30.7 L (31.0-37.0) g/dL Lymphocytes # 0.9 L (1.0-4.8) k/uL Sodium 134 L (137-145) mmol/L Chloride 109 H (98-107) mmol/L Carbon Dioxide 17 L (22-30) mmol/L BUN 20 H (7-17) mg/dL Creatinine 1.29 H (0.52-1.04) mg/dL Glucose 304 H (74-99) mg/dL POC Glucose (mg/dL) 215 H (75-99) mg/dL Total Protein 6.1 L (6.3-8.2) g/dL Albumin 3.2 L (3.5-5.0) g/dL
--- NOTE | 2021-07-02 16:37 | P.PN ---
Subjective Progress Note Date: 07/02/21 Principal diagnosis: Covid19 infection Patient is 75-year-old female with a past medical history significant for liver transplant in 2004 this patient with primary biliary cirrhosis admitted to the hospital with mental status changes noticed to have positive COVID test in this patient with negative chest x-ray and no hypoxemia. On today's evaluation that is 07/02/2021 the patient denies having any fever or any chills, the patient is breathing comfortably on room air which denies having any chest pain did have minimal cough no sputum production no nausea no vomiting no abdominal pain and no diarrhea Objective - Vital Signs Vital signs: Vital Signs Temp 98.3 F 07/02/21 15:37 Pulse 76 07/02/21 15:37 Resp 15 07/02/21 15:37 BP 124/71 07/02/21 15:37 Pulse Ox 97 07/02/21 15:37 Intake & Output 07/01/21 07/02/21 07/02/21 18:59 06:59 18:59 Intake Total 550 400 Balance 550 400 Intake: Intake, IV Titration 550 400 Amount Sodium Chloride 0.9% 1, 550 400 000 ml @ 50 mls/hr IV . Q20H [facility] Rx#:[id number] Other: # Voids 6 1 - Exam GENERAL DESCRIPTION: Elderly female lying in bed, no distress. No tachypnea or accessory muscle of respiration use. LUNGS: Unlabored breathing. Clear to auscultation anteriorly. No wheeze or crackle. HEART: S1, S2, regular rate and rhythm. No loud murmur ABDOMEN: Soft, no tenderness , guarding or rigidity, no organomegaly EXTREMITIES: No edema of feet. - Labs CBC & Chem 7: 07/02/21 08:35 07/02/21 08:35 Labs: Abnormal Lab Results - Last 24 Hours (Table) 07/01/21 07/01/21 07/02/21 Range/Units 17:08 20:18 07:19 WBC (3.8-10.6) k/uL MCHC (31.0-37.0) g/dL Lymphocytes # (1.0-4.8) k/uL Sodium (137-145) mmol/L Chloride (98-107) mmol/L Carbon Dioxide (22-30) mmol/L BUN (7-17) mg/dL Creatinine (0.52-1.04) mg/dL Glucose (74-99) mg/dL POC Glucose (mg/dL) 208 H 338 H 225 H (75-99) mg/dL Total Protein (6.3-8.2) g/dL Albumin (3.5-5.0) g/dL 07/02/21 07/02/21 07/02/21 Range/Units 08:35 08:35 11:53 WBC 3.6 L (3.8-10.6) k/uL MCHC 30.7 L (31.0-37.0) g/dL Lymphocytes # 0.9 L (1.0-4.8) k/uL Sodium 134 L (137-145) mmol/L Chloride 109 H (98-107) mmol/L Carbon Dioxide 17 L (22-30) mmol/L BUN 20 H (7-17) mg/dL Creatinine 1.29 H (0.52-1.04) mg/dL Glucose 304 H (74-99) mg/dL POC Glucose (mg/dL) 215 H (75-99) mg/dL Total Protein 6.1 L (6.3-8.2) g/dL Albumin 3.2 L (3.5-5.0) g/dL Assessment and Plan (1) COVID Status: Acute Code(s): U07.1 - COVID-19 SNOMED Code(s): 041025210 Plan: Patient admitted to hospital with mental status changes in this patient with no fever no hypoxemia chest x-ray has been negative did have positive COVID test more likely mild COVID illness patient to continue the current supportive treatment with the Lovenox zinc and ascorbic acid no need for steroids or remdesivir Time with Patient: Less than 30
[2021-07-02 18:13] LABS: Estimated Average Glucose UNC
== END 2021-07-02 15:31 | disposition home health service (06) | DRG 177 ==
LOC: EC 22:43 → 4SSUR 07-01 01:16
PROVIDERS: ADMIT Family Medicine; ATTEND Family Medicine
DX: U07.1 COVID-19 (principal); G93.41 Metabolic encephalopathy; F05 Delirium due to known physiological condition; Z94.4 Liver transplant status; J43.9 Emphysema, unspecified; N18.32 Chronic kidney disease, stage 3b; R00.0 Tachycardia, unspecified; I12.9 Hypertensive chronic kidney disease with stage 1 through stage 4 chronic kidney disease, or unspecified chronic kidney disease; R73.9 Hyperglycemia, unspecified; G31.89 Other specified degenerative diseases of nervous system; E11.22 Type 2 diabetes mellitus with diabetic chronic kidney disease; E66.01 Morbid (severe) obesity due to excess calories; Z68.32 Body mass index [BMI] 32.0-32.9, adult; E83.42 Hypomagnesemia; R53.1 Weakness; F41.9 Anxiety disorder, unspecified; G40.909 Epilepsy, unspecified, not intractable, without status epilepticus; Z79.82 Long term (current) use of aspirin; Z79.890 Hormone replacement therapy; Z79.899 Other long term (current) drug therapy; Z86.718 Personal history of other venous thrombosis and embolism; Z87.891 Personal history of nicotine dependence; Z87.19 Personal history of other diseases of the digestive system
CPT/HCPCS: 36415; 70450; 71045; 80048; 80053; 80143; 80179; 80306; 81001; 82140; 83036; 83605; 83735; 83880; 84100; 84484; 85025; 85610; 85730; 87635; 93005; 94640; 96360; 99285

== ENCOUNTER 2022-02-04 14:14 | Inpatient (IN) | payer MEDICARE, BC ==
[2022-02-04 14:30] LABS: Glucose,Whole Blood 386 mg/dL (70-110)
[2022-02-04] MEDS ORDERED: ACETAMINOPHEN TAB 325 MG TAB PO STA (14:33)
--- NOTE | 2022-02-04 14:36 | ED ---
General Adult HPI - General Chief complaint: Weakness Stated complaint: fall, weakness Time Seen by Provider: 02/04/22 14:17 Source: patient, EMS, RN notes reviewed Mode of arrival: EMS Limitations: no limitations - History of Present Illness Initial comments: Patient is a pleasant 76-year-old female presenting to the emergency department for generalized weakness. Onset of symptoms was today. Patient feels fatigued. Patient did have a fall without injury. No headache or confusion. No neck or back pain. No chest pain or dyspnea. No abdominal pain. No cough or upper respiratory symptoms. No dysuria. No history of similar symptoms previously. Patient feels she has been eating and drinking appropriately. - Related Data Home Medications Medication Instructions Recorded Confirmed Everolimus [Zortress] 3 mg PO BID 03/03/16 07/01/21 ursodioL [Actigall] 300 mg PO HS 03/09/17 07/01/21 ursodioL [Ursodiol] 600 mg PO DAILY 03/09/17 07/01/21 Levothyroxine Sodium 100 mcg PO DAILY 04/27/17 07/01/21 Tacrolimus [Prograf] 0.5 mg PO BID 11/01/18 07/01/21 Albuterol Sulfate [Albuterol 2 puff PO RT-Q6H PRN 03/24/21 07/01/21 Sulfate Hfa] Cholecalciferol [Vitamin D3 (25 50 mcg PO DAILY 03/24/21 07/01/21 Mcg = 1000 Iu)] calcitrioL [Calcitriol] 0.25 mcg PO SA 03/24/21 07/01/21 Aspirin EC [Ecotrin] 325 mg PO DAILY 07/01/21 07/01/21 Escitalopram [Lexapro] 10 mg PO DAILY 07/01/21 07/01/21 Magnesium Oxide [Mag-Ox] 400 mg PO DAILY 07/01/21 07/01/21 Metoprolol Tartrate [Lopressor] 50 mg PO BID 07/01/21 07/01/21 Previous Rx's Medication Instructions Recorded Ascorbic Acid [Vitamin C] 500 mg PO BID #60 tab 07/02/21 Zinc Sulfate [Orazinc] 220 mg PO DAILY #30 cap 07/02/21 dexAMETHasone ORAL [Hexadrol] 6 mg PO DAILY #24 tablet 07/02/21 Allergies Allergy/AdvReac Type Severity Reaction Status Date / Time No Known Allergies Allergy Verified 02/04/22 14:30 Review of Systems ROS Statement: Those systems with pertinent positive or pertinent negative responses have been documented in the HPI. ROS Other: All systems not noted in ROS Statement are negative. Constitutional: Denies: fever Eyes: Denies: eye pain ENT: Denies: ear pain Respiratory: Denies: cough Cardiovascular: Denies: chest pain Endocrine: Reports: fatigue Gastrointestinal: Denies: abdominal pain Genitourinary: Denies: dysuria Musculoskeletal: Denies: back pain Skin: Denies: rash Neurological: Denies: headache Past Medical History Past Medical History: COPD, Deep Vein Thrombosis (DVT), Liver Disease, Respiratory Disorder, Thyroid Disorder Additional Past Medical History / Comment(s): emphysema, thoracentesis 06/24/14, underactive thyroid. liver transplant 2014 History of Any Multi-Drug Resistant Organisms: None Reported Past Surgical History: Hernia Repair, Tonsillectomy Additional Past Surgical History / Comment(s): hiatal hernia, past liver/gallbla dder biopsies neg, Liver transplant 03/27/2015. Past Anesthesia/Blood Transfusion Reactions: No Reported Reaction Past Psychological History: No Psychological Hx Reported Smoking Status: Never smoker Past Alcohol Use History: None Reported Past Drug Use History: None Reported - Past Family History Father Family Medical History: Liver Disease Additional Family Medical History / Comment(s): dad at age 72- was a heavy drinker had liver disease Mother Family Medical History: Diabetes Mellitus, Renal Disease Additional Family Medical History / Comment(s): at age 78 kidney failure General Exam Limitations: no limitations General appearance: alert, in no apparent distress Head exam: Present: normocephalic Eye exam: Present: normal appearance ENT exam: Present: mucous membranes dry Neck exam: Present: normal inspection Respiratory exam: Present: normal lung sounds bilaterally. Absent: respiratory distress Cardiovascular Exam: Present: tachycardia GI/Abdominal exam: Present: soft. Absent: tenderness Extremities exam: Present: normal inspection. Absent: pedal edema, calf tenderness Neurological exam: Present: alert, CN II-XII intact. Absent: motor sensory deficit Expanded Neurological exam: Present: protecting the airway Speech: Present: fluid speech Cranial nerves: EOM's Intact: Normal Motor strength exam: RUE: 5, LUE: 5, RLE: 5, LLE: 5 Psychiatric exam: Present: normal affect, normal mood Skin exam: Present: normal color. Absent: rash Course Vital Signs 02/04/22 14:16 Temperature 99.4 F Pulse Rate 113 H Respiratory 17 Rate Blood Pressure 158/80 O2 Sat by Pulse 87 L Oximetry EKG Findings - EKG Comments: EKG Findings:: Sinus tachycardia 105. FL 146. QRS 77. QT 347. QTC 408. Normal axis. Normal QRS. No acute ST change. Medical Decision Making - Medical Decision Making Patient reevaluated. Patient and family updated on results and plan. Case was discussed with Dr. Wheeler who will admit his patient. - Lab Data Result diagrams: 02/04/22 14:53 02/04/22 14:53 Lab Results 02/04/22 02/04/22 02/04/22 Range/Units 14:22 14:53 14:53 WBC 10.0 (3.8-10.6) k/uL RBC 4.23 (3.80-5.40) m/uL Hgb 11.6 (11.4-16.0) gm/dL Hct 35.4 (34.0-46.0) % MCV 83.6 (80.0-100.0) fL MCH 27.4 (25.0-35.0) pg MCHC 32.8 (31.0-37.0) g/dL RDW 16.5 H (11.5-15.5) % Plt Count 183 (150-450) k/uL MPV 8.3 Neutrophils % 88 % Lymphocytes % 7 % Monocytes % 3 % Eosinophils % 1 % Basophils % 0 % Neutrophils # 8.8 H (1.3-7.7) k/uL Lymphocytes # 0.7 L (1.0-4.8) k/uL Monocytes # 0.3 (0-1.0) k/uL Eosinophils # 0.1 (0-0.7) k/uL Basophils # 0.0 (0-0.2) k/uL Hypochromasia Slight Poikilocytosis Slight Anisocytosis Slight PT 9.9 (9.0-12.0) sec INR 0.9 (<1.2) APTT 17.9 L (22.0-30.0) sec Sodium (137-145) mmol/L Potassium (3.5-5.1) mmol/L Chloride (98-107) mmol/L Carbon Dioxide (22-30) mmol/L Anion Gap mmol/L BUN (7-17) mg/dL Creatinine (0.52-1.04) mg/dL Est GFR (CKD-EPI)AfAm (>60 ml/min/1.73 sqM) Est GFR (CKD-EPI)NonAf (>60 ml/min/1.73 sqM) Glucose (74-99) mg/dL POC Glucose (mg/dL) 386 H (70-110) mg/dL POC Glu Applications Support Specialist ID Tyrel Harding Plasma Lactic Acid Jose (0.7-2.0) mmol/L Calcium (8.4-10.2) mg/dL Total Bilirubin (0.2-1.3) mg/dL AST (14-36) U/L ALT (4-34) U/L Alkaline Phosphatase (38-126) U/L Total Protein (6.3-8.2) g/dL Albumin (3.5-5.0) g/dL Urine Color Urine Appearance (Clear) Urine pH (5.0-8.0) Ur Specific [place] (1.001-1.035) Urine Protein (Negative) Urine Glucose (UA) (Negative) Urine Ketones (Negative) Urine Blood (Negative) Urine Nitrite (Negative) Urine Bilirubin (Negative) Urine Urobilinogen (<2.0) mg/dL Ur Leukocyte Esterase (Negative) Urine RBC (0-5) /hpf Urine WBC (0-5) /hpf Ur Squamous Epith Cells (0-4) /hpf Urine Bacteria (None) /hpf Urine Mucus (None) /hpf Coronavirus (PCR) (Not Detectd) Influenza Type A RNA (Not Detectd) Influenza Type B (PCR) (Not Detectd) 02/04/22 02/04/22 02/04/22 Range/Units 14:53 14:53 14:53 WBC (3.8-10.6) k/uL RBC (3.80-5.40) m/uL Hgb (11.4-16.0) gm/dL Hct (34.0-46.0) % MCV (80.0-100.0) fL MCH (25.0-35.0) pg MCHC (31.0-37.0) g/dL RDW (11.5-15.5) % Plt Count (150-450) k/uL MPV Neutrophils % % Lymphocytes % % Monocytes % % Eosinophils % % Basophils % % Neutrophils # (1.3-7.7) k/uL Lymphocytes # (1.0-4.8) k/uL Monocytes # (0-1.0) k/uL Eosinophils # (0-0.7) k/uL Basophils # (0-0.2) k/uL Hypochromasia Poikilocytosis Anisocytosis PT (9.0-12.0) sec INR (<1.2) APTT (22.0-30.0) sec Sodium 129 L (137-145) mmol/L Potassium 4.0 (3.5-5.1) mmol/L Chloride 93 L (98-107) mmol/L Carbon Dioxide 22 (22-30) mmol/L Anion Gap 14 mmol/L BUN 15 (7-17) mg/dL Creatinine 1.33 H (0.52-1.04) mg/dL Est GFR (CKD-EPI)AfAm 45 (>60 ml/min/1.73 sqM) Est GFR (CKD-EPI)NonAf 39 (>60 ml/min/1.73 sqM) Glucose 393 H (74-99) mg/dL POC Glucose (mg/dL) (70-110) mg/dL POC Glu Applications Support Specialist ID Plasma Lactic Acid Jose 2.1 H* (0.7-2.0) mmol/L Calcium 9.1 (8.4-10.2) mg/dL Total Bilirubin 0.7 (0.2-1.3) mg/dL AST 23 (14-36) U/L ALT 14 (4-34) U/L Alkaline Phosphatase 107 (38-126) U/L Total Protein 6.9 (6.3-8.2) g/dL Albumin 3.8 (3.5-5.0) g/dL Urine Color Urine Appearance (Clear) Urine pH (5.0-8.0) Ur Specific [place] (1.001-1.035) Urine Protein (Negative) Urine Glucose (UA) (Negative) Urine Ketones (Negative) Urine Blood (Negative) Urine Nitrite (Negative) Urine Bilirubin (Negative) Urine Urobilinogen (<2.0) mg/dL Ur Leukocyte Esterase (Negative) Urine RBC (0-5) /hpf Urine WBC (0-5) /hpf Ur Squamous Epith Cells (0-4) /hpf Urine Bacteria (None) /hpf Urine Mucus (None) /hpf Coronavirus (PCR) (Not Detectd) Influenza Type A RNA Not Detected (Not Detectd) Influenza Type B (PCR) Not Detected (Not Detectd) 02/04/22 02/04/22 Range/Units 14:53 14:53 WBC (3.8-10.6) k/uL RBC (3.80-5.40) m/uL Hgb (11.4-16.0) gm/dL Hct (34.0-46.0) % MCV (80.0-100.0) fL MCH (25.0-35.0) pg MCHC (31.0-37.0) g/dL RDW (11.5-15.5) % Plt Count (150-450) k/uL MPV Neutrophils % % Lymphocytes % % Monocytes % % Eosinophils % % Basophils % % Neutrophils # (1.3-7.7) k/uL Lymphocytes # (1.0-4.8) k/uL Monocytes # (0-1.0) k/uL Eosinophils # (0-0.7) k/uL Basophils # (0-0.2) k/uL Hypochromasia Poikilocytosis Anisocytosis PT (9.0-12.0) sec INR (<1.2) APTT (22.0-30.0) sec Sodium (137-145) mmol/L Potassium (3.5-5.1) mmol/L Chloride (98-107) mmol/L Carbon Dioxide (22-30) mmol/L Anion Gap mmol/L BUN (7-17) mg/dL Creatinine (0.52-1.04) mg/dL Est GFR (CKD-EPI)AfAm (>60 ml/min/1.73 sqM) Est GFR (CKD-EPI)NonAf (>60 ml/min/1.73 sqM) Glucose (74-99) mg/dL POC Glucose (mg/dL) (70-110) mg/dL POC Glu Applications Support Specialist ID Plasma Lactic Acid Jose (0.7-2.0) mmol/L Calcium (8.4-10.2) mg/dL Total Bilirubin (0.2-1.3) mg/dL AST (14-36) U/L ALT (4-34) U/L Alkaline Phosphatase (38-126) U/L Total Protein (6.3-8.2) g/dL Albumin (3.5-5.0) g/dL Urine Color Light Yellow Urine Appearance Cloudy H (Clear) Urine pH 6.0 (5.0-8.0) Ur Specific [place] 1.015 (1.001-1.035) Urine Protein 1+ H (Negative) Urine Glucose (UA) 4+ H (Negative) Urine Ketones 1+ H (Negative) Urine Blood Trace H (Negative) Urine Nitrite Positive H (Negative) Urine Bilirubin Negative (Negative) Urine Urobilinogen <2.0 (<2.0) mg/dL Ur Leukocyte Esterase Large H (Negative) Urine RBC 4 (0-5) /hpf Urine WBC 91 H (0-5) /hpf Ur Squamous Epith Cells <1 (0-4) /hpf Urine Bacteria Rare H (None) /hpf Urine Mucus Rare H (None) /hpf Coronavirus (PCR) Not Detected (Not Detectd) Influenza Type A RNA (Not Detectd) Influenza Type B (PCR) (Not Detectd) - Radiology Data Radiology results: image reviewed ( x-ray shows possible right lower lobe infiltrate) Disposition Clinical Impression: Pneumonia, Urinary tract infection Disposition: ADMITTED IP TO THIS HOSP Is patient prescribed a controlled substance at d/c from ED?: No Referrals: George Wheeler MD [Primary Care Provider] - 1-2 days Time of Disposition: 16:19
[2022-02-04] MEDS: SODIUM CHLORIDE 0.9% 1,000 ML IV SCH ×3 (15:11→23:04)
[2022-02-04 15:20] LABS: Anisocytosis Slight; Basophils % (A) 0 %; Eosinophils # (A) 0.1 k/uL (0-0.7); Eosinophils % (A) 1 %; HCT 35.4 % (34.0-46.0); HGB 11.6 gm/dL (11.4-16.0); Hypochromasia Slight; Lymphocytes # (A) 0.7 k/uL (1.0-4.8); Lymphocytes % (A) 7 %; MCH 27.4 pg (25.0-35.0); MCHC 32.8 g/dL (31.0-37.0); MCV 83.6 fL (80.0-100.0); Mean Platelet Volume 8.3; Monocytes # (A) 0.3 k/uL (0-1.0); Monocytes % (A) 3 %; Neutrophils # (A) 8.8 k/uL (1.3-7.7); Neutrophils % (A) 88 %; Platelet Count 183 k/uL (150-450); Poikilocytosis Slight; RBC 4.23 m/uL (3.80-5.40); RDW 16.5 % (11.5-15.5)
[2022-02-04 15:23] LABS: Albumin 3.8 g/dL (3.5-5.0); Appearance,Urine Cloudy (Clear); Bacteria,Urine Rare /hpf; Bilirubin,Urine Negative (Negative); Blood,Urine Trace (Negative); Calcium 9.1 mg/dL (8.4-10.2); Color,Urine Light Yellow; Glucose,Urine (UA) 4+ (Negative); Ketones,Urine 1+ (Negative); Leukocyte Esterase,Urine Large (Negative); Mucus,Urine Rare /hpf; Nitrite,Urine Positive (Negative); Protein,Urine 1+ (Negative); RBC,Urine 4 /hpf (0-5); Specific Gravity,Urine 1.015 (1.001-1.035); Squamous Epithelial Cell,Urine <1 /hpf (0-4); Total Bilirubin 0.7 mg/dL (0.2-1.3); Total Protein 6.9 g/dL (6.3-8.2); Urobilinogen,Urine <2.0 mg/dL (<2.0); WBC,Urine 91 /hpf (0-5)
[2022-02-04 15:24] LABS: INR 0.9 (<1.2); Prothrombin Time 9.9 sec (9.0-12.0)
--- NOTE | 2022-02-04 15:41 | XR ---
EXAMINATION TYPE: XR chest 2V DATE OF EXAM: 02/04/2022 COMPARISON: Chest x-ray June 30, 2021 HISTORY: Fever. TECHNIQUE: Frontal and lateral views of the chest are obtained. FINDINGS: There is chronic parenchymal changes bilaterally with patchy right basilar opacity. Left l jaziel is clear. No pleural effusion or pneumothorax seen bilaterally. Stable cardiomegaly. The osseou s structures redemonstrated demineralized. Surgical changes in the epigastric region redemonstrated. IMPRESSION: Cardiomegaly and chronic changes with new right basilar acute infiltrate and/or atelecta sis.
--- NOTE | 2022-02-04 15:42 | CT ---
EXAMINATION TYPE: CT brain wo con DATE OF EXAM: 02/04/2022 HISTORY: Weakness. CT DLP: 1188.4 mGycm. Automated Exposure Control for Dose Reduction was Utilized. TECHNIQUE: CT scan of the head is performed without contrast. COMPARISON: CT brain June 30, 2021. FINDINGS: There is no acute intracranial hemorrhage or midline shift identified. There is moderate diffuse ventricular and sulcal prominence consistent with diffuse age-related cerebral atrophy. Ther e is moderate low-attenuation in the periventricular white matter consistent with chronic small vesse l ischemic change. Some vascular calcification distal internal carotid arteries bilaterally is redemo nstrated. The globes are intact and the visualized sinuses are clear. IMPRESSION: No acute intracranial hemorrhage or midline shift. There is moderate diffuse cerebral a trophy and chronic small vessel ischemic change redemonstrated. No significant change from prior CT.
[2022-02-04 15:47] LABS: Partial Thromboplastin Time 17.9 sec (22.0-30.0)
[2022-02-04] MEDS ORDERED: PNEUMONIA PROTOCOL UTILIZED 1 EACH MISC PO PRN (16:19)
[2022-02-04] MEDS ORDERED: AZITHROMYCIN 500 MG in SODIUM CHLORIDE 0.9% 250 ML IVPB STA (16:19)
[2022-02-04] MEDS ORDERED: DEXTROSE 50% SYRINGE 50 ML IVP PRN ×2 (16:26)
[2022-02-04 18:57] LABS: Glucose,Whole Blood 393 mg/dL (70-110)
[2022-02-04] MEDS: INSULIN ASPART (NovoLOG) 100 UNIT/ML VIAL SQ SCH ×2 (19:03→21:08)
[2022-02-04 21:02] LABS: Glucose,Whole Blood 321 mg/dL (70-110)
[2022-02-05 03:40] LABS: Anisocytosis Slight; Basophils # (A) 0.1 k/uL (0-0.2); Basophils % (A) 1 %; Eosinophils # (A) 0.1 k/uL (0-0.7); Eosinophils % (A) 1 %; HCT 33.4 % (34.0-46.0); HGB 10.7 gm/dL (11.4-16.0); Lymphocytes # (A) 0.6 k/uL (1.0-4.8); Lymphocytes % (A) 5 %; MCH 26.2 pg (25.0-35.0); MCHC 32.1 g/dL (31.0-37.0); MCV 81.8 fL (80.0-100.0); Mean Platelet Volume 8.3; Monocytes # (A) 0.6 k/uL (0-1.0); Monocytes % (A) 5 %; Neutrophils # (A) 10.2 k/uL (1.3-7.7); Neutrophils % (A) 88 %; Platelet Count 167 k/uL (150-450); Poikilocytosis Slight; RBC 4.09 m/uL (3.80-5.40); RDW 16.2 % (11.5-15.5); WBC 11.6 k/uL (3.8-10.6)
[2022-02-05 03:51] LABS: African American GFR (CKD) 53 (>60 ml/min/1.73 sqM); Anion Gap 11 mmol/L; Blood Urea Nitrogen 14 mg/dL (7-17); Calcium 8.4 mg/dL (8.4-10.2); Carbon Dioxide 23 mmol/L (22-30); Chloride 98 mmol/L (98-107); Glucose 247 mg/dL (74-99); Non-African American GFR(CKD) 46 (>60 ml/min/1.73 sqM); Potassium 3.7 mmol/L (3.5-5.1); Sodium 132 mmol/L (137-145)
[2022-02-05 08:00] LABS: Glucose,Whole Blood 263 mg/dL (70-110)
[2022-02-05] MEDS: AZITHROMYCIN 500 MG TAB PO SCH (08:55)
[2022-02-05] MEDS: INSULIN ASPART (NovoLOG) 100 UNIT/ML VIAL SQ SCH ×4 (08:55→21:06)
--- NOTE | 2022-02-05 09:08 | XR ---
EXAMINATION TYPE: XR chest 1V portable DATE OF EXAM: 02/05/2022 6:16 AM COMPARISON: Chest radiographs from 02/04/2022 TECHNIQUE: XR chest 1V portable Frontal view of the chest. CLINICAL INDICATION:Female, 76 years old with history of pneumonia; FINDINGS: Lungs/Pleura: Right basilar airspace opacities no evidence of pneumothorax or effusion. Pulmonary vascularity: Unremarkable. Heart/mediastinum: Cardiomediastinal silhouette is enlarged and stable. Musculoskeletal: No acute osseous pathology. Other findings: Surgical clips in the upper abdomen. IMPRESSION: Right basilar airspace opacities no significant change from prior. Could represent atelectasis and/or pneumonia.
[2022-02-05] MEDS ORDERED: ALBUTEROL NEBULIZED 2.5 MG/3 ML INHALATION PRN (10:47)
[2022-02-05 11:28] LABS: Glucose,Whole Blood 212 mg/dL (70-110)
[2022-02-05] MEDS: METOPROLOL TARTRATE 50 MG TAB PO SCH ×2 (12:32→21:05)
[2022-02-05] MEDS: INSULIN DETEMIR (LEVEMIR) 100 UNIT/ML SYR SQ SCH (12:32)
[2022-02-05] MEDS: MAGNESIUM OXIDE 400 MG TAB PO SCH ×2 (12:32→21:05)
[2022-02-05] MEDS: ASPIRIN 325 MG TAB PO SCH (12:32)
[2022-02-05] MEDS: LEVOTHYROXINE 100 MCG TAB PO SCH (12:32)
[2022-02-05] MEDS: ursodioL 300 MG CAP PO SCH ×2 (12:33→21:05)
[2022-02-05] MEDS: levETIRAcetam 250 MG TAB PO SCH ×2 (12:33→21:05)
[2022-02-05] MEDS: TACROLIMUS 0.5 MG CAP PO SCH ×2 (12:33→21:05)
[2022-02-05] MEDS: ESCITALOPRAM 10 MG TAB PO SCH (12:33)
[2022-02-05] MEDS: EVEROLIMUS 0.75 MG PO SCH ×2 (12:42→20:44)
[2022-02-05] MEDS: ACETAMINOPHEN TAB 325 MG TAB PO PRN (12:50)
--- NOTE | 2022-02-05 13:04 | P.HPIM ---
History of Present Illness H&P Date: 02/05/22 Chief Complaint: Generalized weakness This is a 76-year-old female with past medical history of primary biliary cirrhosis, status post liver transplant 2014 at [facility], COPD, DVT, former nicotine dependence-quit smoking in 2014 and multiple other medical issues brought into the ER via EMS . Patient reports increased weakness, fatigue 1 today. Significant other reports 3 falls, initially started approximately 3 days ago. Denies syncope. Denies lightheadedness dizziness or focal deficits. Denies chest pain, palpitations or shortness of breath. Denies cough, congestion. Denies decreased oral intake.Denies nausea, vomiting or diarrhea. Chest x-ray reporting cardiomegaly, chronic changes with new right basilar acute infiltrate or atelectasis. Repeat chest x-ray reported right basilar airspace opacity, no significant change from prior.Brain CT reporting no acute intracranial hemorrhage or midline shift, moderate diffuse cerebral atrophy, chronic small vessel ischemic change we demonstrated, no significant change from prior CT. EKG sinus tachycardia. Afebrile, T-max 99.7, WBC 11.6. Hemoglobin 10.7, platelets 167. On admission Sodium 129, BUN 15, creatinine 1.33 . Received IV fluid hydration, sodium currently 132, renal function improved with creatinine 1.18. Hyperglycemic with blood sugar 393 on admission. A1c 11.9. Lactic acid 1. Q-wave reporting 91 WBCs, large leukocytes, positive nitrates, urine and blood cultures pending. Past Medical History Past Medical History: COPD, Deep Vein Thrombosis (DVT), Liver Disease, Respiratory Disorder, Thyroid Disorder Additional Past Medical History / Comment(s): emphysema, thoracentesis 06/24/14, underactive thyroid. liver transplant 2014 History of Any Multi-Drug Resistant Organisms: None Reported Past Surgical History: Hernia Repair, Tonsillectomy Additional Past Surgical History / Comment(s): hiatal hernia, past liver/gall bladder biopsies neg, Liver transplant 03/27/2015. Past Anesthesia/Blood Transfusion Reactions: No Reported Reaction Past Psychological History: No Psychological Hx Reported Smoking Status: Never smoker Past Alcohol Use History: None Reported Past Drug Use History: None Reported - Past Family History Father Family Medical History: Liver Disease Additional Family Medical History / Comment(s): dad at age 72- was a heavy drinker had liver disease Mother Family Medical History: Diabetes Mellitus, Renal Disease Additional Family Medical History / Comment(s): at age 78 kidney failure Medications and Allergies Home Medications Medication Instructions Recorded Confirmed Type Everolimus [Zortress] 3 mg PO BID 03/03/16 02/04/22 History ursodioL [Actigall] 300 mg PO HS 03/09/17 02/04/22 History ursodioL [Ursodiol] 600 mg PO DAILY 03/09/17 02/04/22 History Levothyroxine Sodium 100 mcg PO DAILY 04/27/17 02/04/22 History Tacrolimus [Prograf] 0.5 mg PO BID 11/01/18 02/04/22 History Albuterol Sulfate [Albuterol 2 puff PO RT-Q6H PRN 03/24/21 02/04/22 History Sulfate Hfa] calcitrioL [Calcitriol] 0.25 mcg PO SA 03/24/21 02/04/22 History Aspirin EC [Ecotrin] 325 mg PO DAILY 07/01/21 02/04/22 History Escitalopram [Lexapro] 10 mg PO DAILY 07/01/21 02/04/22 History Magnesium Oxide [Mag-Ox] 400 mg PO BID 07/01/21 02/04/22 History Metoprolol Tartrate [Lopressor] 50 mg PO BID 07/01/21 02/04/22 History levETIRAcetam [Keppra] 250 mg PO BID 02/04/22 02/04/22 History Allergies Allergy/AdvReac Type Severity Reaction Status Date / Time No Known Allergies Allergy Verified 02/04/22 16:29 Physical Exam Vitals: Vital Signs Temp Pulse Pulse Resp BP BP Pulse Ox 02/05/22 08:05 98.9 F 95 16 162/83 99 02/05/22 05:44 91 20 102/46 99 02/05/22 00:49 98.6 F 109 H 20 127/71 99 02/04/22 23:24 99.3 F 02/04/22 22:53 101 H 20 112/83 96 02/04/22 21:40 105 H 18 126/79 98 02/04/22 21:18 105 H 20 97 02/04/22 20:58 99.7 F H 115 H 28 H 100 02/04/22 19:04 95 15 123/67 98 02/04/22 17:19 98.4 F 97 16 114/68 98 02/04/22 14:16 99.4 F 113 H 17 158/80 87 L Intake and Output 02/04/22 02/05/22 02/05/22 22:59 06:59 14:59 Output Total 1100 Balance -1100 Output: Urine 1100 - Exam PHYSICAL EXAM: VITAL SIGNS: As above GENERAL: Sitting up in bed, no acute distress, pleasantly confused, alert and oriented 2. HEENT: Conjunctivae normal. eyes normal. NECK: Supple, No JVD. CARDIOVASCULAR: S1, S2 regular.No murmur RESPIRATION: Breath sounds diminished in the bases. No rhonchi or crackles. ABDOMEN: Soft, nontender . Nondistended No guarding. no masses palpable. Positive Bowel sounds heard. LEGS: No edema. no swelling NERVOUS SYSTEM: Limited exam-confused , Moves all 4 limbs. No focal deficits. Strength and sensation grossly intact. Skin: Warm and dry, no rash Results CBC & Chem 7: 02/05/22 02:50 02/05/22 02:50 Labs: Abnormal Lab Results - Last 24 Hours (Table) 02/04/22 02/04/22 02/04/22 Range/Units 14:22 14:53 14:53 WBC (3.8-10.6) k/uL Hgb (11.4-16.0) gm/dL Hct (34.0-46.0) % RDW 16.5 H (11.5-15.5) % Neutrophils # 8.8 H (1.3-7.7) k/uL Lymphocytes # 0.7 L (1.0-4.8) k/uL APTT 17.9 L (22.0-30.0) sec Sodium (137-145) mmol/L Chloride (98-107) mmol/L Creatinine (0.52-1.04) mg/dL Glucose (74-99) mg/dL POC Glucose (mg/dL) 386 H (70-110) mg/dL Hemoglobin A1c (0.0-6.0) % Plasma Lactic Acid Jose (0.7-2.0) mmol/L Urine Appearance (Clear) Urine Protein (Negative) Urine Glucose (UA) (Negative) Urine Ketones (Negative) Urine Blood (Negative) Urine Nitrite (Negative) Ur Leukocyte Esterase (Negative) Urine WBC (0-5) /hpf Urine Bacteria (None) /hpf Urine Mucus (None) /hpf 02/04/22 02/04/22 02/04/22 Range/Units 14:53 14:53 14:53 WBC (3.8-10.6) k/uL Hgb (11.4-16.0) gm/dL Hct (34.0-46.0) % RDW (11.5-15.5) % Neutrophils # (1.3-7.7) k/uL Lymphocytes # (1.0-4.8) k/uL APTT (22.0-30.0) sec Sodium 129 L (137-145) mmol/L Chloride 93 L (98-107) mmol/L Creatinine 1.33 H (0.52-1.04) mg/dL Glucose 393 H (74-99) mg/dL POC Glucose (mg/dL) (70-110) mg/dL Hemoglobin A1c (0.0-6.0) % Plasma Lactic Acid Jose 2.1 H* (0.7-2.0) mmol/L Urine Appearance Cloudy H (Clear) Urine Protein 1+ H (Negative) Urine Glucose (UA) 4+ H (Negative) Urine Ketones 1+ H (Negative) Urine Blood Trace H (Negative) Urine Nitrite Positive H (Negative) Ur Leukocyte Esterase Large H (Negative) Urine WBC 91 H (0-5) /hpf Urine Bacteria Rare H (None) /hpf Urine Mucus Rare H (None) /hpf 02/04/22 02/04/22 02/04/22 Range/Units 14:53 18:55 21:00 WBC (3.8-10.6) k/uL Hgb (11.4-16.0) gm/dL Hct (34.0-46.0) % RDW (11.5-15.5) % Neutrophils # (1.3-7.7) k/uL Lymphocytes # (1.0-4.8) k/uL APTT (22.0-30.0) sec Sodium (137-145) mmol/L Chloride (98-107) mmol/L Creatinine (0.52-1.04) mg/dL Glucose (74-99) mg/dL POC Glucose (mg/dL) 393 H 321 H (70-110) mg/dL Hemoglobin A1c 11.9 H (0.0-6.0) % Plasma Lactic Acid Jose (0.7-2.0) mmol/L Urine Appearance (Clear) Urine Protein (Negative) Urine Glucose (UA) (Negative) Urine Ketones (Negative) Urine Blood (Negative) Urine Nitrite (Negative) Ur Leukocyte Esterase (Negative) Urine WBC (0-5) /hpf Urine Bacteria (None) /hpf Urine Mucus (None) /hpf 02/05/22 02/05/22 02/05/22 Range/Units 02:50 02:50 07:59 WBC 11.6 H (3.8-10.6) k/uL Hgb 10.7 L (11.4-16.0) gm/dL Hct 33.4 L (34.0-46.0) % RDW 16.2 H (11.5-15.5) % Neutrophils # 10.2 H (1.3-7.7) k/uL Lymphocytes # 0.6 L (1.0-4.8) k/uL APTT (22.0-30.0) sec Sodium 132 L (137-145) mmol/L Chloride (98-107) mmol/L Creatinine 1.18 H (0.52-1.04) mg/dL Glucose 247 H (74-99) mg/dL POC Glucose (mg/dL) 263 H (70-110) mg/dL Hemoglobin A1c (0.0-6.0) % Plasma Lactic Acid Jose (0.7-2.0) mmol/L Urine Appearance (Clear) Urine Protein (Negative) Urine Glucose (UA) (Negative) Urine Ketones (Negative) Urine Blood (Negative) Urine Nitrite (Negative) Ur Leukocyte Esterase (Negative) Urine WBC (0-5) /hpf Urine Bacteria (None) /hpf Urine Mucus (None) /hpf Microbiology - Last 24 Hours (Table) 02/04/22 14:53 Urine Culture - Preliminary Urine,Clean Catch Assessment and Plan Assessment: Acute right lower lobe pneumonia, community-acquired, possibly aspiration secondary to fall Multiple falls Acute UTI, culture pending Acute metabolic encephalopathy secondary all the above Hyponatremia, improving with IV fluid hydration COPD, stage III, currently no evidence of acute exacerbation Emphysema History of Covid-19 infection in June 2021 Diabetes mellitus, Hyperglycemic, A1c 11.9, new onset- further diabetic education outpatient in clinic Chronic kidney disease stage IIIB with baseline creatinines 1.3-1.5 secondary to nephrosclerosis. Renal function stable History of primary biliary cirrhosis status post liver transplant in 2015, maintained on immunosuppression medications History of DVT, not on maintenance anticoagulation History of nicotine dependence, 1 pack per day 52 years, quit in 2014 Hypothyroidism Seizure disorder Anxiety Plan: Continue on current medication regime ,monitoring and symptomatic treatment. Maintain on IV antibiotics as per case azithromycin, ceftriaxone and gentle IV fluid hydration. nebulized bronchodilators added to med regimen. Hyperglycemia, A1c 11.9, long-acting insulin added to med regime in addition to NovoLog sliding scale. Close monitoring of Accu-Cheks. PT/OT. Case management consulted for potential CECI, diabetic supplies including glucometer at discharge. The impression and plan of care has been dictated as directed. : I performed a history and examination of this patient, discussed the same with the dictator. I agree with the dictator's note ,documented as a scribe. Any additional findings or plans will be noted.
[2022-02-05] MEDS: SODIUM CHLORIDE 0.9% 1,000 ML IV SCH ×4 (14:00→17:32)
[2022-02-05 15:30] VITALS: BMI 20.5
[2022-02-05 17:24] LABS: Glucose,Whole Blood 262 mg/dL (70-110)
[2022-02-05 20:40] LABS: Glucose,Whole Blood 248 mg/dL (70-110)
[2022-02-06] MEDS: SODIUM CHLORIDE 0.9% 1,000 ML IV SCH ×3 (03:24→22:36)
[2022-02-06] MEDS: LEVOTHYROXINE 100 MCG TAB PO SCH (05:51)
[2022-02-06 07:47] LABS: Glucose,Whole Blood 144 mg/dL (70-110)
[2022-02-06] MEDS: INSULIN ASPART (NovoLOG) 100 UNIT/ML VIAL SQ SCH ×4 (07:50→20:52)
[2022-02-06] MEDS: METOPROLOL TARTRATE 50 MG TAB PO SCH ×2 (08:51→20:52)
[2022-02-06] MEDS: ASPIRIN 325 MG TAB PO SCH (08:51)
[2022-02-06] MEDS: AZITHROMYCIN 500 MG TAB PO SCH (08:51)
[2022-02-06] MEDS: levETIRAcetam 250 MG TAB PO SCH ×2 (08:52→20:51)
[2022-02-06] MEDS: MAGNESIUM OXIDE 400 MG TAB PO SCH ×2 (08:52→20:52)
[2022-02-06] MEDS: ursodioL 300 MG CAP PO SCH ×2 (08:52→20:52)
[2022-02-06] MEDS: ESCITALOPRAM 10 MG TAB PO SCH (08:52)
[2022-02-06] MEDS: INSULIN DETEMIR (LEVEMIR) 100 UNIT/ML SYR SQ SCH (08:53)
[2022-02-06] MEDS: TACROLIMUS 0.5 MG CAP PO SCH ×2 (08:53→20:51)
[2022-02-06] MEDS: EVEROLIMUS 0.75 MG PO SCH ×3 (08:54→22:36)
[2022-02-06 09:33] LABS: African American GFR (CKD) 46.8 (60.0-200.0); Anion Gap 6.7 mmol/L (10.00-18.00); BUN/Creat Ratio 9.92 Ratio (12.00-20.00); Blood Urea Nitrogen 12.9 mg/dL (9.0-27.0); Calcium 8.1 mg/dL (8.7-10.3); Carbon Dioxide 24.3 mmol/L (20.0-27.5); Non-African American GFR(CKD) 40.4 (60.0-200.0); Potassium 3.9 mmol/L (3.5-5.5)
[2022-02-06 10:32] LABS: Anisocytosis Slight; Basophils % (A) 0 %; Eosinophils # (A) 0.1 k/uL (0-0.7); Eosinophils % (A) 1 %; HCT 30.8 % (34.0-46.0); HGB 9.9 gm/dL (11.4-16.0); Hypochromasia Slight; Lymphocytes # (A) 0.5 k/uL (1.0-4.8); Lymphocytes % (A) 8 %; MCH 26.6 pg (25.0-35.0); MCHC 32.1 g/dL (31.0-37.0); MCV 82.8 fL (80.0-100.0); Mean Platelet Volume 8.3; Monocytes # (A) 0.4 k/uL (0-1.0); Monocytes % (A) 7 %; Neutrophils # (A) 5.1 k/uL (1.3-7.7); Neutrophils % (A) 80 %; Platelet Count 144 k/uL (150-450); Poikilocytosis Slight; RBC 3.72 m/uL (3.80-5.40); RDW 16.5 % (11.5-15.5); WBC 6.3 k/uL (3.8-10.6)
--- NOTE | 2022-02-06 10:34 | P.PN ---
Subjective Progress Note Date: 02/06/22 02/04/2022 This is a 76-year-old female with past medical history of primary biliary cirrhosis, status post liver transplant 2015 at [facility], COPD, DVT, former nicotine dependence-quit smoking in 2014 and multiple other medical issues brought into the ER via EMS . Patient reports increased weakness, fatigue 1 today. Significant other reports 3 falls, initially started approximately 3 days ago. Denies syncope. Denies lightheadedness dizziness or focal deficits. Denies chest pain, palpitations or shortness of breath. Denies cough, congestion. Denies decreased oral in take.Denies nausea, vomiting or diarrhea. Chest x-ray reporting cardiomegaly, chronic changes with new right basilar acute infiltrate or atelectasis. Repeat chest x-ray reported right basilar airspace opacity, no significant change from prior.Brain CT reporting no acute intracranial hemorrhage or midline shift, moderate diffuse cerebral atrophy, chronic small vessel ischemic change we demonstrated, no significant change from prior CT. EKG sinus tachycardia. Afebrile, T-max 99.7, WBC 11.6. Hemoglobin 10.7, platelets 167. On admission Sodium 129, BUN 15, creatinine 1.33 . Received IV fluid hydration, sodium currently 132, renal function improved with creatinine 1.18. Hyperglycemic with blood sugar 393 on admission. A1c 11.9. Lactic acid 1. Q-wave reporting 91 WBCs, large leukocytes, positive nitrates, urine and blood cultures pending. 02/05/2022: Patient was seen and evaluated today. She is much more weak today. She is oriented 3. Vitals show MAXIMUM TEMPERATURE 101.1 degrees Fahrenheit. Currently she is afebrile, pulse oximetry is 94% on 2 L O2 via nasal cannula. Pulse blood pressure normal. She remains on IV fluids at 100 mL/h. Laboratory studies today showed a sugars in the past 24 hours controlled. Chemistries show sodium 133 potassium is 3.9, nightly 12.9 crit and 1.3, GFR is 40.4 today. Blood cultures are positive 1 for Escherichia coli, urine culture is pending showing gram-negative bacilli. She remains on ceftriaxone and azithromycin antibiotic coverage. She denies any chest pains, pressures, or significant shortness of breath this time. She has a De [place] catheter to gravity. She did have a bowel movement today. Objective - Vital Signs Vital signs: Vital Signs Temp 98.9 F 02/06/22 04:45 Pulse 100 02/06/22 04:45 Resp 18 02/06/22 04:45 BP 116/69 02/06/22 04:45 Pulse Ox 94 L 02/06/22 04:45 FiO2 Intake & Output 02/05/22 02/06/22 02/06/22 18:59 06:59 18:59 Intake Total 1160 Output Total 350 600 Balance -350 560 Weight 54.431 kg Intake: Intake, IV Titration 880 Amount Sodium Chloride 0.9% 1, 880 000 ml @ 130 mls/hr IV . Q7H42M [facility] Rx#:[id number] Oral 280 Output: Urine 350 600 Other: Voiding Method Indwelling Catheter Indwelling Catheter # Bowel Movements 1 - Exam GENERAL: Sitting up in bed, no acute distress, awake alert and oriented 3 today NECK: Supple, No JVD. CARDIOVASCULAR: S1, S2 regular.No murmur RESPIRATION: Breath sounds diminished in the bases, right greater than left. No rhonchi or crackles. ABDOMEN: Soft, nontender . Nondistended No guarding. no masses palpable. Positive Bowel sounds heard. LEGS: No edema. no swelling NERVOUS SYSTEM: Cranial nerves II through XII are intact , Moves all 4 limbs. No focal deficits. Strength and sensation grossly intact. She is awake alert and oriented 3 today Skin: Warm and dry, no rash - Labs CBC & Chem 7: 02/05/22 02:50 02/06/22 04:53 Labs: Abnormal Lab Results - Last 24 Hours (Table) 02/05/22 02/05/22 02/05/22 Range/Units 11:27 17:23 20:38 Sodium (135-145) mmol/L Anion Gap (10.00-18.00) mmol/L Est GFR (CKD-EPI)AfAm (60.0-200.0) Est GFR (CKD-EPI)NonAf (60.0-200.0) BUN/Creatinine Ratio (12.00-20.00) Ratio Glucose (70-110) mg/dL POC Glucose (mg/dL) 212 H 262 H 248 H (70-110) mg/dL Calcium (8.7-10.3) mg/dL 08/27/22 08/27/22 Range/Units 04:53 07:46 Sodium 133 L (135-145) mmol/L Anion Gap 6.70 L (10.00-18.00) mmol/L Est GFR (CKD-EPI)AfAm 46.8 L (60.0-200.0) Est GFR (CKD-EPI)NonAf 40.4 L (60.0-200.0) BUN/Creatinine Ratio 9.92 L (12.00-20.00) Ratio Glucose 144 H (70-110) mg/dL POC Glucose (mg/dL) 144 H (70-110) mg/dL Calcium 8.1 L (8.7-10.3) mg/dL Microbiology - Last 24 Hours (Table) 02/04/22 14:53 Urine Culture - Preliminary Urine,Clean Catch Gram Neg Bacilli 02/04/22 15:51 Blood Culture - Preliminary Blood No Growth after 24 hours 02/04/22 15:41 Blood Culture Gram Stain - Preliminary Blood Blood Culture - Preliminary Escherichia coli 02/04/22 15:41 Blood Culture - Final Blood Assessment and Plan (1) Sepsis Current Visit: Yes Status: Acute Code(s): A41.9 - SEPSIS, UNSPECIFIED ORGANISM SNOMED Code(s): 49705462 (2) Urinary tract infection Current Visit: Yes Status: Acute Code(s): N39.0 - URINARY TRACT INFECTION, SITE NOT SPECIFIED SNOMED Code(s): 55331823 (3) Pneumonia Current Visit: Yes Status: Acute Code(s): J18.9 - PNEUMONIA, UNSPECIFIED ORGANISM SNOMED Code(s): 743965453 (4) Type 2 diabetes mellitus with hyperglycemia Current Visit: Yes Status: Acute Code(s): E11.65 - TYPE 2 DIABETES MELLITUS WITH HYPERGLYCEMIA SNOMED Code(s): 976651375567741 (5) Long-term use of immunosuppressant medication Current Visit: Yes Status: Acute Code(s): Z79.899 - OTHER SR. SOC[employer]IA [employer]BILE MANAGER (CURRENT) DRUG THERAPY SNOMED Code(s): 078538223 (6) Hyponatremia Current Visit: Yes Status: Acute Code(s): E87.1 - HYPO-OSMOLALITY AND HYPONATREMIA SNOMED Code(s): 80291476 (7) CKD (chronic kidney disease) stage 3, GFR 30-59 ml/min Current Visit: Yes Status: Acute Code(s): N18.30 - CHRONIC KIDNEY DISEASE, STAGE 3 UNSPECIFIED SNOMED Code(s): 582653892 (8) Seizure disorder Current Visit: Yes Status: Acute Code(s): G40.909 - EPILEPSY, UNSP, NOT INTRACTABLE, WITHOUT STATUS EPILEPTICUS SNOMED Code(s): 474557618 (9) Hypothyroidism, unspecified Current Visit: Yes Status: Acute Code(s): E03.9 - HYPOTHYROIDISM, UNSPECIFIED SNOMED Code(s): 18163272 (10) Delirium due to general medical condition Current Visit: No Status: Acute Code(s): F05 - DELIRIUM DUE TO KNOWN PHYSIOLOGICAL CONDITION SNOMED Code(s): 2459732 (11) Liver transplant recipient Current Visit: No Status: Chronic Code(s): Z94.4 - LIVER TRANSPLANT STATUS SNOMED Code(s): 674006727 Plan: We'll consult infectious disease regarding her positive blood cultures and evidence of sepsis is resolved. She'll continue on Rocephin and azithromycin in the meantime for her UTI and right lower lobe pneumonia. We'll repeat labs in a.m., continue IV fluids, but monitor for fluid overload, continue on her current medications acetaminophen for fever albuterol updrafts as needed for any shortness breath or cough,'s or stress and tacrolimus for immunosuppression for history liver transplant, levothyroxine for her hypothyroidism, Toprol for hypertension, and Keppra for seizures were. We will repeat labs in ambulation be reevaluated in the next 24 hrours
[2022-02-06 12:50] LABS: Glucose,Whole Blood 164 mg/dL (70-110)
[2022-02-06 17:24] LABS: Glucose,Whole Blood 215 mg/dL (70-110)
[2022-02-06 20:22] LABS: Glucose,Whole Blood 181 mg/dL (70-110)
--- NOTE | 2022-02-07 00:39 | P.CONS ---
History of Present Illness - Reason for Consult Consult date: 02/06/22 Bacteremia Requesting physician: George Wheeler - Chief Complaint weakness and fall x 1 day - History of Present Illness Patient is a 76-year-old female presenting to the hospital 2 days ago for evaluation of generalized weakness patient symptom has been going on for a day before presentation the hospital has been complaining of feeling fatigued and the patient did have a fall however no injury and no loss of consciousness the patient denies having any headache no chest pain or shortness of breath or cough no nausea no vomiting no abdominal pain and no diarrhea patient on presentation to the hospital was running a low-grade fever of 99.4 and she did have a fever of 101.1 F yesterday morning no fever since then patient did have a white count of 11.6 with a left shift yesterday creatinine has been normal liver exams are normal lactic acid was elevated she did have a positive urine May influenza PCR was negative blood cultures are now showing E. coli patient is currently on Rocephin infectious disease was consulted for further management of antibiotic therapy Review of Systems Positive point has been mentioned in the HPI rest of the systems are negative Past Medical History Past Medical History: COPD, Deep Vein Thrombosis (DVT), Liver Disease, Respiratory Disorder, Thyroid Disorder Additional Past Medical History / Comment(s): emphysema, thoracentesis 06/24/14, underactive thyroid. liver transplant 2014 History of Any Multi-Drug Resistant Organisms: None Reported Past Surgical History: Hernia Repair, Tonsillectomy Additional Past Surgical History / Comment(s): hiatal hernia, past liver/gallbladder biopsies neg, Liver transplant 03/27/2015. Past Anesthesia/Blood Transfusion Reactions: No Reported Reaction Past Psychological History: No Psychological Hx Reported Smoking Status: Never smoker Past Alcohol Use History: None Reported Past Drug Use History: None Reported - Past Family History Father Family Medical History: Liver Disease Additional Family Medical History / Comment(s): dad at age 72- was a heavy drinker had liver disease Mother Family Medical History: Diabetes Mellitus, Renal Disease Additional Family Medical History / Comment(s): at age 78 kidney failure Medications and Allergies Home Medications Medication Instructions Recorded Confirmed Type Everolimus [Zortress] 3 mg PO BID 03/03/16 02/04/22 History ursodioL [Actigall] 300 mg PO HS 03/09/17 02/04/22 History ursodioL [Ursodiol] 600 mg PO DAILY 03/09/17 02/04/22 History Levothyroxine Sodium 100 mcg PO DAILY 04/27/17 02/04/22 History Tacrolimus [Prograf] 0.5 mg PO BID 11/01/18 02/04/22 History Albuterol Sulfate [Albuterol 2 puff PO RT-Q6H PRN 03/24/21 02/04/22 History Sulfate Hfa] calcitrioL [Calcitriol] 0.25 mcg PO SA 03/24/21 02/04/22 History Aspirin EC [Ecotrin] 325 mg PO DAILY 07/01/21 02/04/22 History Escitalopram [Lexapro] 10 mg PO DAILY 07/01/21 02/04/22 History Magnesium Oxide [Mag-Ox] 400 mg PO BID 07/01/21 02/04/22 History Metoprolol Tartrate [Lopressor] 50 mg PO BID 07/01/21 02/04/22 History levETIRAcetam [Keppra] 250 mg PO BID 02/04/22 02/04/22 History Allergies Allergy/AdvReac Type Severity Reaction Status Date / Time No Known Allergies Allergy Verified 02/04/22 16:29 Physical Exam Vitals: Vital Signs Temp Pulse Resp BP Pulse Ox 02/06/22 04:45 98.9 F 100 18 116/69 94 L 02/05/22 21:07 105/63 02/05/22 20:16 97.6 F 85 18 99/57 100 02/05/22 20:00 85 18 02/05/22 19:00 100 02/05/22 14:00 98.7 F 02/05/22 11:34 101.1 F H 97 15 143/81 98 Intake and Output 02/05/22 02/06/22 02/06/22 22:59 06:59 14:59 Intake Total 120 1040 Output Total 350 600 Balance -230 440 Intake: Intake, IV Titration 880 Amount Sodium Chloride 0.9% 1, 880 000 ml @ 130 mls/hr IV . Q7H42M [facility] [place] Rx#:[id number] Oral 120 160 Output: Urine 350 600 Other: Voiding Method Indwelling Catheter Indwelling Catheter # Bowel Movements 1 Weight 54.431 kg GENERAL DESCRIPTION: An elderly female lying in bed, no distress. No tachypnea or accessory muscle of respiration use. HEENT: Shows Pallor , no scleral icterus. Oral mucous membrane is dry. No pharyngeal erythema or thrush NECK: Trachea central, no thyromegaly. LUNGS: Unlabored breathing. Clear to auscultation anteriorly. No wheeze or c rackle. HEART: S1, S2, regular rate and rhythm. No loud murmur ABDOMEN: Soft, no tenderness , guarding or rigidity, no organomegaly EXTREMITIES: No edema of feet. SKIN: No rash, no masses palpable. NEUROLOGICAL: The patient is awake, alert, oriented x3, mood and affect normal. Results CBC & Chem 7: 02/06/22 10:02 02/06/22 04:53 Labs: Abnormal Lab Results - Last 24 Hours (Table) 02/05/22 02/05/22 02/05/22 Range/Units 11:27 17:23 20:38 RBC (3.80-5.40) m/uL Hgb (11.4-16.0) gm/dL Hct (34.0-46.0) % RDW (11.5-15.5) % Plt Count (150-450) k/uL Lymphocytes # (1.0-4.8) k/uL Sodium (135-145) mmol/L Anion Gap (10.00-18.00) mmol/L Est GFR (CKD-EPI)AfAm (60.0-200.0) Est GFR (CKD-EPI)NonAf (60.0-200.0) BUN/Creatinine Ratio (12.00-20.00) Ratio Glucose (70-110) mg/dL POC Glucose (mg/dL) 212 H 262 H 248 H (70-110) mg/dL Calcium (8.7-10.3) mg/dL 02/06/22 02/06/22 02/06/22 Range/Units 04:53 07:46 10:02 RBC 3.72 L (3.80-5.40) m/uL Hgb 9.9 L (11.4-16.0) gm/dL Hct 30.8 L (34.0-46.0) % RDW 16.5 H (11.5-15.5) % Plt Count 144 L (150-450) k/uL Lymphocytes # 0.5 L (1.0-4.8) k/uL Sodium 133 L (135-145) mmol/L Anion Gap 6.70 L (10.00-18.00) mmol/L Est GFR (CKD-EPI)AfAm 46.8 L (60.0-200.0) Est GFR (CKD-EPI)NonAf 40.4 L (60.0-200.0) BUN/Creatinine Ratio 9.92 L (12.00-20.00) Ratio Glucose 144 H (70-110) mg/dL POC Glucose (mg/dL) 144 H (70-110) mg/dL Calcium 8.1 L (8.7-10.3) mg/dL Microbiology - Last 24 Hours (Table) 02/04/22 14:53 Urine Culture - Preliminary Urine,Clean Catch Gram Neg Bacilli 02/04/22 15:51 Blood Culture - Preliminary Blood No Growth after 24 hours 02/04/22 15:41 Blood Culture Gram Stain - Preliminary Blood Blood Culture - Preliminary Escherichia coli 02/04/22 15:41 Blood Culture - Final Blood Assessment and Plan (1) Sepsis Current Visit: Yes Status: Acute Code(s): A41.9 - SEPSIS, UNSPECIFIED ORGANISM SNOMED Code(s): 18540521 (2) Urinary tract infection Current Visit: Yes Status: Acute Code(s): N39.0 - URINARY TRACT INFECTION, SITE NOT SPECIFIED SNOMED Code(s): 92756969 Plan: 1patient presented to hospital with sepsis in this patient did have a fever leukocytosis and elevated lactic acid source and likely urinary in this patient did have a positive UA and no other obvious focus of infection. 2we will obtain ultrasound of the kidney bladder area to make sure no evidence of any structural abnormality. 3Rocephin 2 g daily to continue while waiting for the culture to finalize. Family at the bedside multiple questions those were answered We will follow on clinical condition and cultures to further adjust medication if needed Thank you for this consultation will follow this patient along with you
[2022-02-07] MEDS: LEVOTHYROXINE 100 MCG TAB PO SCH (05:19)
--- NOTE | 2022-02-07 07:16 | XR ---
EXAMINATION TYPE: XR chest 2V DATE OF EXAM: 02/07/2022 7:09 AM COMPARISON: Chest radiographs from 02/05/2022 TECHNIQUE: XR chest 2V Frontal and lateral views of the chest. CLINICAL INDICATION:Female, 76 years old with history of pneumonia; FINDINGS: Lungs/Pleura: The lung bases are unchanged from multiple prior exams There is flattening of the diaph ragm with increased lucency of the lungs. No evidence of pneumothorax, pleural effusion or focal cons olidation. Pulmonary vascularity: Unremarkable. Heart/mediastinum: Cardiomediastinal silhouette is unremarkable. Musculoskeletal: No acute osseous pathology. Surgical clips in the upper abdomen IMPRESSION: 1. Unchanged lung bases on multiple prior exams with questionable right lower lobe opacities which m ay represent summation artifact of overlying soft tissues. 2. COPD changes.
[2022-02-07 07:45] LABS: Glucose,Whole Blood 95 mg/dL (70-110)
[2022-02-07] MEDS: INSULIN ASPART (NovoLOG) 100 UNIT/ML VIAL SQ SCH ×3 (08:59→17:56)
[2022-02-07] MEDS: levETIRAcetam 250 MG TAB PO SCH ×2 (09:00→19:58)
[2022-02-07] MEDS: METOPROLOL TARTRATE 50 MG TAB PO SCH ×2 (09:00→19:58)
[2022-02-07] MEDS: ESCITALOPRAM 10 MG TAB PO SCH (09:00)
[2022-02-07] MEDS: MAGNESIUM OXIDE 400 MG TAB PO SCH ×2 (09:00→19:58)
[2022-02-07] MEDS: ASPIRIN 325 MG TAB PO SCH (09:00)
[2022-02-07] MEDS: TACROLIMUS 0.5 MG CAP PO SCH ×2 (09:01→19:59)
[2022-02-07] MEDS: ursodioL 300 MG CAP PO SCH ×2 (09:01→19:59)
[2022-02-07] MEDS: EVEROLIMUS 0.75 MG PO SCH ×2 (09:01→20:03)
[2022-02-07] MEDS: INSULIN DETEMIR (LEVEMIR) 100 UNIT/ML SYR SQ SCH (09:02)
--- NOTE | 2022-02-07 09:08 | US ---
EXAMINATION TYPE: US abdomen complete DATE OF EXAM: 02/07/2022 COMPARISON: CT, renal US CLINICAL HISTORY: Bacteremia /UTI. Bacteremia/UTI. Patient states she has history of liver transplant in 2015, hx cholecystectomy. TECHNIQUE: Multiple sonographic images of the abdomen are obtained. FINDINGS: EXAM MEASUREMENTS: Liver Length: 18.3 cm CBD: 0.57 cm Spleen: 11.5 cm Right Kidney: 10.5 4.9 x 3.8 cm Left Kidney: 10.8 x 4.6 x 3.3 cm *Exam diagnostically limited and technically difficult. Patient in great amount of pain for entire ex am. Limited due to gas and body habitus. Pancreas: Not well visualized. Liver: Increased echogenicity. Appears heterogeneous and enlarged. Hx liver transplant. Gallbladder: Surgically absent. Evidence for sonographic Elkins's sign: Pt felt pain throughout exam. CBD: Appears wnl Spleen: Limited Right Kidney: No hydronephrosis or masses seen Left Kidney: No hydronephrosis or masses seen Upper IVC: Possible internal echoes within the IVC shown by arrow. Limited. Unable to clearly image with color Doppler due to patient movement. Abd Aorta: Obscured IMPRESSION: 1. Limited exam with internal echoes within the inferior vena cava could represent nonobstructive th rombus. 2. Post liver transplant changes.
[2022-02-07 09:39] LABS: Basophils # (A) 0.02 X 10*3/uL (0.00-0.10); Basophils % (A) 0.4 %; Eosinophils # (A) 0.07 X 10*3/uL (0.04-0.35); Eosinophils % (A) 1.4 %; HCT 28.4 % (37.2-46.3); HGB 9.1 g/dL (12.0-15.0); Immature Grans, Automated 0.6 %; Lymphocytes # (A) 0.89 X 10*3/uL (0.90-5.00); Lymphocytes % (A) 18.1 %; MCH 26.3 pg (27.0-32.0); MCV 82.1 fL (80.0-97.0); Mean Platelet Volume 10.8 fL (9.5-12.2); Monocytes # (A) 0.63 X 10*3/uL (0.20-1.00); Monocytes % (A) 12.8 %; NRBC Per 100 WBC 0 /100 WBCS (0.0-0.0); Neutrophils # (A) 3.28 X 10*3/uL (1.80-7.70); Neutrophils % (A) 66.7 %; Platelet Count 124 X 10*3/uL (140-440); RBC 3.46 X 10*6/uL (4.10-5.20); RDW 16.3 % (11.5-14.5); WBC 4.92 X 10*3/uL (4.50-10.00)
[2022-02-07] MEDS ORDERED: LOPERAMIDE 2 MG CAP PO PRN (10:13)
--- NOTE | 2022-02-07 10:48 | P.PN ---
Subjective Progress Note Date: 02/07/22 Principal diagnosis: Generalized weakness, acute UTI, acute right lower lobe pneumonia 76-year-old female patient presented emergency room on 02/04/2022 for evaluation of generalized weakness. Symptoms started earlier that day and was noted to have had a fall with no resulting injury. That time she denies chest pain pressure, shortness breath or difficulty breathing, nausea\vomiting, diarrhea, abdominal pain or known fevers. Patient was found to have elevated white count, elevated lactic acid (which has since corrected), acute UTI and right lower lobe pneumonia. Patient was started on azithromycin and ceftriaxone. She was afebrile on admission, but temperature of 101.1 noted on 02/05/2022. Infectious disease was consult and patient has been evaluated with noted a ntibiotic changes of Rocephin IV 2 g daily. Blood cultures were obtained which resulted with E. coli. 02/07/2022 patient resting comfortably in chair at this time with the only complaints being loose stools that started today, upper abdomen discomfort with palpation and continued fatigue. Vital signs are stable with temperature 97.8, blood pressure of 114/72, heart rate is 73, maintaining oxygen saturation 97% on 2 L nasal cannula. Patient has a De Leon catheter in place with clear yellow urin e and is ambulating with a walker and standby assist of one. Smiling blood work reveals a CBC with white blood cell count of 4.9, hemoglobin of 9.1, hematocrit of 28.4, platelet count 124. This morning's dhins-ot-ldyl glucose was 95. Objective - Vital Signs Vital signs: Vital Signs Temp 97.8 F 02/07/22 05:01 Pulse 73 02/07/22 05:01 Resp 16 02/07/22 05:01 BP 114/72 02/07/22 05:01 Pulse Ox 97 02/07/22 05:01 FiO2 Intake & Output 02/06/22 02/07/22 02/07/22 18:59 06:59 18:59 Intake Total 120 Output Total 400 400 Balance -400 -280 Intake: Oral 120 Output: Urine 400 400 Other: Voiding Method Indwelling Catheter Indwelling Catheter # Bowel Movements 1 - Exam GENERAL: Alert and oriented 3, sitting in chair, fatigued, elderly female, well-nourished and in no acute distress. HEAD: Atraumatic, normocephalic. EYES: Pupils equal round and reactive to light, extraocular movements intact, sclera anicteric, conjunctiva are normal. ENT:nares patent, oropharynx clear without exudates. Moist mucous membranes. NECK: Normal range of motion, supple without lymphadenopathy or JVD, no thyromegaly LUNGS: Breath sounds clear to auscultation bilaterally and equal. Diminished sounds in the bases bilaterally, No wheezes rales or rhonchi. HEART: Regular rate and rhythm without murmurs, rubs or gallops.S1S2 Normal ABDOMEN: Soft, mild tenderness with palpation of bilateral upper quadrants, normoactive bowel sounds. No guarding, no rebound. No masses appreciated. EXTREMITIES: Normal range of motion, no pitting or edema. No clubbing or cyanosis. NEUROLOGICAL: Cranial nerves II through XII grossly intact. Normal speech, gait is slow and with use of wheeled walker and standby assist. PSYCH: Normal mood, normal affect. SKIN: Warm, Dry, normal turgor, no rashes or lesions noted. - Labs CBC & Chem 7: 02/07/22 05:19 02/06/22 04:53 Labs: Abnormal Lab Results - Last 24 Hours (Table) 02/06/22 02/06/22 02/06/22 Range/Units 10:02 12:49 17:23 RBC 3.72 L (3.80-5.40) m/uL Hgb 9.9 L (11.4-16.0) gm/dL Hct 30.8 L (34.0-46.0) % MCH (27.0-32.0) pg RDW 16.5 H (11.5-15.5) % Plt Count 144 L (150-450) k/uL Lymphocytes # 0.5 L (1.0-4.8) k/uL POC Glucose (mg/dL) 164 H 215 H (70-110) mg/dL 02/06/22 02/07/22 Range/Units 20:21 05:19 RBC 3.46 L (3.80-5.40) m/uL Hgb 9.1 L (11.4-16.0) gm/dL Hct 28.4 L (34.0-46.0) % MCH 26.3 L (27.0-32.0) pg RDW 16.3 H (11.5-15.5) % Plt Count 124 L (150-450) k/uL Lymphocytes # 0.89 L (1.0-4.8) k/uL POC Glucose (mg/dL) 181 H (70-110) mg/dL Microbiology - Last 24 Hours (Table) 02/04/22 15:41 Blood Culture Gram Stain - Final Blood Blood Culture - Final Escherichia coli 02/04/22 14:53 Urine Culture - Final Urine,Clean Catch Escherichia coli 02/04/22 15:51 Blood Culture - Preliminary Blood No Growth after 48 hours Assessment and Plan (1) CKD (chronic kidney disease) stage 3, GFR 30-59 ml/min Current Visit: Yes Status: Acute Code(s): N18.30 - CHRONIC KIDNEY DISEASE, STAGE 3 UNSPECIFIED SNOMED Code(s): 028926018 (2) Hyponatremia Current Visit: Yes Status: Acute Code(s): E87.1 - HYPO-OSMOLALITY AND HYPON ATREMIA SNOMED Code(s): 67061033 (3) Hypothyroidism, unspecified Current Visit: Yes Status: Acute Code(s): E03.9 - HYPOTHYROIDISM, UNSPECIFIED SNOMED Code(s): 72149784 (4) Long-term use of immunosuppressant medication Current Visit: Yes Status: Acute Code(s): Z79.899 - OTHER PLACEMENT SECRETARY (CURRENT) DRUG THERAPY SNOMED Code(s): 125156328 (5) Pneumonia Current Visit: Yes Status: Acute Code(s): J18.9 - PNEUMONIA, UNSPECIFIED ORGANISM SNOMED Code(s): 688068552 (6) Seizure disorder Current Visit: Yes Status: Acute Code(s): G40.909 - EPILEPSY, UNSP, NOT INTRACTABLE, WITHOUT STATUS EPILEPTICUS SNOMED Code(s): 977225140 (7) Sepsis Current Visit: Yes Status: Acute Code(s): A41.9 - SEPSIS, UNSPECIFIED ORGANISM SNOMED Code(s): 61144222 (8) Type 2 diabetes mellitus with hyperglycemia Current Visit: Yes Status: Acute Code(s): E11.65 - TYPE 2 DIABETES MELLITUS WITH HYPERGLYCEMIA SNOMED Code(s): 741896231626781 (9) Urinary tract infection Current Visit: Yes Status: Acute Code(s): N39.0 - URINARY TRACT INFECTION, SITE NOT SPECIFIED SNOMED Code(s): 62738820 (10) Abdominal pain Current Visit: No Status: Acute Code(s): R10.9 - UNSPECIFIED ABDOMINAL PAIN SNOMED Code(s): 39565016 (11) Delirium due to general medical condition Current Visit: No Status: Acute Code(s): F05 - DELIRIUM DUE TO KNOWN PHYSIOLOGICAL CONDITION SNOMED Code(s): 1187362 (12) Diarrhea Current Visit: No Status: Acute Code(s): R19.7 - DIARRHEA, UNSPECIFIED SNOMED Code(s): 63286268 (13) Liver transplant recipient Current Visit: No Status: Chronic Code(s): Z94.4 - LIVER TRANSPLANT STATUS SNOMED Code(s): 116906582 (14) Primary biliary cirrhosis Current Visit: No Status: Resolved Code(s): K74.3 - PRIMARY BILIARY CIRRHOSIS SNOMED Code(s): 63247120 Plan: Continue current medication regimen as prescribed (immunosuppression addressed, seizure medication addressed, hypertension medications addressed, and hypothyroidism addressed) Rocephin 2 g IV every 24 hours Incentive spirometer 10 times an hour while awake Reorder labs for tomorrow Reduce IV fluids 75 mL an hour Infectious disease for antibiotic coverage We'll continue to follow closely and reassess again tomorrow Time with Patient: Greater than 30
[2022-02-07 11:12] LABS: Glucose,Whole Blood 168 mg/dL (70-110)
[2022-02-07 12:45] LABS: African American GFR (CKD) 48.1 (60.0-200.0); Anion Gap 11.2 mmol/L (10.00-18.00); BUN/Creat Ratio 10.31 Ratio (12.00-20.00); Blood Urea Nitrogen 13.1 mg/dL (9.0-27.0); Calcium 8.4 mg/dL (8.7-10.3); Carbon Dioxide 22.6 mmol/L (20.0-27.5); Magnesium 1.9 mg/dL (1.5-2.4); Non-African American GFR(CKD) 41.5 (60.0-200.0); Potassium 3.1 mmol/L (3.5-5.5)
--- NOTE | 2022-02-07 15:21 | P.PN ---
Subjective Progress Note Date: 02/07/22 Principal diagnosis: E coli urinary tract infection and bacteremia Patient is a 76-year-old female with a past medical history significant for liver transplant on use of this medication presenting to the hospital with weakness and fall did have evidence of E. coli UTI and bacteremia. On today's evaluation that is 02/07/2022, the patient denies having any fever or any chills, the patient is breathing comfortably, patient denies having any chest pain or shortness of breath or cough no abdominal pain and no diarrhea Objective - Vital Signs Vital signs: Vital Signs Temp 97.8 F 02/07/22 11:10 Pulse 59 L 02/07/22 11:10 Resp 19 02/07/22 11:10 BP 92/59 02/07/22 11:10 Pulse Ox 96 02/07/22 11:10 FiO2 Intake & Output 02/06/22 02/07/22 02/07/22 18:59 06:59 18:59 Intake Total 120 Output Total 400 400 Balance -400 -280 Intake: Oral 120 Output: Urine 400 400 Other: Voiding Method Indwelling Catheter Indwelling Catheter Indwelling Catheter # Bowel Movements 1 - Exam GENERAL DESCRIPTION: An elderly female lying in bed in no distress RESPIRATORY SYSTEM: Unlabored breathing , decreased breath sounds at bases HEART: S1 S2 regular rate and rhythm , ABDOMEN: Soft , no tenderness EXTREMITIES: No edema feet - Labs CBC & Chem 7: 02/07/22 05:19 02/07/22 05:19 Labs: Abnormal Lab Results - Last 24 Hours (Table) 02/06/22 02/06/22 02/07/22 Range/Units 17:23 20:21 05:19 RBC 3.46 L (4.10-5.20) X 10*6/uL Hgb 9.1 L (12.0-15.0) g/dL Hct 28.4 L (37.2-46.3) % MCH 26.3 L (27.0-32.0) pg RDW 16.3 H (11.5-14.5) % Plt Count 124 L (140-440) X 10*3/uL Lymphocytes # 0.89 L (0.90-5.00) X 10*3/uL Potassium (3.5-5.5) mmol/L Est GFR (CKD-EPI)AfAm (60.0-200.0) Est GFR (CKD-EPI)NonAf (60.0-200.0) BUN/Creatinine Ratio (12.00-20.00) Ratio POC Glucose (mg/dL) 215 H 181 H (70-110) mg/dL Calcium (8.7-10.3) mg/dL 02/07/22 02/07/22 Range/Units 05:19 11:11 RBC (4.10-5.20) X 10*6/uL Hgb (12.0-15.0) g/dL Hct (37.2-46.3) % MCH (27.0-32.0) pg RDW (11.5-14.5) % Plt Count (140-440) X 10*3/uL Lymphocytes # (0.90-5.00) X 10*3/uL Potassium 3.1 L (3.5-5.5) mmol/L Est GFR (CKD-EPI)AfAm 48.1 L (60.0-200.0) Est GFR (CKD-EPI)NonAf 41.5 L (60.0-200.0) BUN/Creatinine Ratio 10.31 L (12.00-20.00) Ratio POC Glucose (mg/dL) 168 H (70-110) mg/dL Calcium 8.4 L (8.7-10.3) mg/dL Microbiology - Last 24 Hours (Table) 02/04/22 15:41 Blood Culture Gram Stain - Final Blood Blood Culture - Final Escherichia coli 02/04/22 14:53 Urine Culture - Final Urine,Clean Catch Escherichia coli 02/04/22 15:51 Blood Culture - Preliminary Blood No Growth after 48 hours Assessment and Plan (1) Sepsis Current Visit: Yes Status: Acute Code(s): A41.9 - SEPSIS, UNSPECIFIED ORGANISM SNOMED Code(s): 28034906 (2) Urinary tract infection Current Visit: Yes Status: Acute Code(s): N39.0 - URINARY TRACT INFECTION, SITE NOT SPECIFIED SNOMED Code(s): 92702236 Plan: 1patient presented to hospital with sepsis in this patient did have a fever leukocytosis and elevated lactic acid source and likely urinary in this patient did have a positive UA and no other obvious focus of infection. 2 ultrasound of the kidney bladder area did not show any hydronephrosis or structural mobility of the kidney did show possible echo in the inferior vena cava suspicious for clot. 3patient to continue with Rocephin 2 g daily while inpatient and will finish therapy with oral antibiotics 4-RN to communicate abnormal ultrasound finding to the primary team to see the need for any anticoagulation Time with Patient: Less than 30
[2022-02-07 17:53] LABS: Glucose,Whole Blood 77 mg/dL (70-110)
[2022-02-07] MEDS: SODIUM CHLORIDE 0.9% 1,000 ML IV SCH (17:57)
[2022-02-07 20:30] LABS: Glucose,Whole Blood 82 mg/dL (70-110)
[2022-02-08] MEDS: INSULIN ASPART (NovoLOG) 100 UNIT/ML VIAL SQ SCH ×5 (04:41→21:37)
[2022-02-08] MEDS: SODIUM CHLORIDE 0.9% 1,000 ML IV SCH ×2 (06:25→11:02)
[2022-02-08] MEDS: LEVOTHYROXINE 100 MCG TAB PO SCH (06:26)
[2022-02-08 07:17] LABS: Glucose,Whole Blood 89 mg/dL (70-110)
[2022-02-08] MEDS: ASPIRIN 325 MG TAB PO SCH (08:33)
[2022-02-08] MEDS: TACROLIMUS 0.5 MG CAP PO SCH ×2 (08:33→21:51)
[2022-02-08] MEDS: levETIRAcetam 250 MG TAB PO SCH ×2 (08:33→21:51)
[2022-02-08] MEDS: METOPROLOL TARTRATE 50 MG TAB PO SCH ×2 (08:33→21:50)
[2022-02-08] MEDS: MAGNESIUM OXIDE 400 MG TAB PO SCH ×2 (08:34→21:51)
[2022-02-08] MEDS: ursodioL 300 MG CAP PO SCH ×2 (08:34→21:51)
[2022-02-08] MEDS: INSULIN DETEMIR (LEVEMIR) 100 UNIT/ML SYR SQ SCH (08:34)
[2022-02-08] MEDS: ESCITALOPRAM 10 MG TAB PO SCH (08:34)
[2022-02-08] MEDS: EVEROLIMUS 0.75 MG PO SCH ×2 (08:35→21:51)
[2022-02-08 08:51] LABS: Basophils # (A) 0.02 X 10*3/uL (0.00-0.10); Basophils % (A) 0.4 %; Eosinophils # (A) 0.17 X 10*3/uL (0.04-0.35); Eosinophils % (A) 3.6 %; HGB 8.9 g/dL (12.0-15.0); Immature Grans, Automated 0.2 %; Lymphocytes # (A) 0.94 X 10*3/uL (0.90-5.00); MCH 25.9 pg (27.0-32.0); MCHC 31.8 g/dL (32.0-37.0); MCV 81.6 fL (80.0-97.0); Mean Platelet Volume 10.9 fL (9.5-12.2); Monocytes # (A) 0.55 X 10*3/uL (0.20-1.00); Monocytes % (A) 11.7 %; NRBC Per 100 WBC 0 /100 WBCS (0.0-0.0); Neutrophils # (A) 3.02 X 10*3/uL (1.80-7.70); Neutrophils % (A) 64.1 %; Platelet Count 140 X 10*3/uL (140-440); RBC 3.43 X 10*6/uL (4.10-5.20); RDW 15.9 % (11.5-14.5); WBC 4.71 X 10*3/uL (4.50-10.00)
[2022-02-08 08:59] LABS: ALT 12 U/L (8-44); AST 24 U/L (13-35); African American GFR (CKD) 57.3 (60.0-200.0); Albumin 2.7 g/dL (3.8-4.9); Albumin/Globulin Ratio 1.17 (1.60-3.17); Alkaline Phosphatase 66 U/L (41-126); BUN/Creat Ratio 10.64 Ratio (12.00-20.00); Blood Urea Nitrogen 11.7 mg/dL (9.0-27.0); Calcium 8.4 mg/dL (8.7-10.3); Carbon Dioxide 27.4 mmol/L (20.0-27.5); Chloride 107 mmol/L (96-109); Globulin 2.3 g/dL (1.6-3.3); Glucose 87 mg/dL (70-110); Magnesium 1.9 mg/dL (1.5-2.4); Non-African American GFR(CKD) 49.4 (60.0-200.0); Potassium 3.1 mmol/L (3.5-5.5); Sodium 141 mmol/L (135-145); Total Bilirubin <0.15 mg/dL (0.30-1.20)
[2022-02-08] MEDS ORDERED: Potassium Replacement Protocol 1 EACH MISC MISCELLANE PRN (10:00)
[2022-02-08 10:25] LABS: Anisocytosis Slight; HCT 30.4 % (34.0-46.0); HGB 9.4 gm/dL (11.4-16.0); Hypochromasia Moderate; MCH 25.8 pg (25.0-35.0); MCHC 31.1 g/dL (31.0-37.0); MCV 83.1 fL (80.0-100.0); Mean Platelet Volume 8.4; Platelet Count 146 k/uL (150-450); Poikilocytosis Slight; RBC 3.66 m/uL (3.80-5.40); WBC 4.2 k/uL (3.8-10.6)
[2022-02-08 10:38] LABS: African American GFR (CKD) 55 (>60 ml/min/1.73 sqM); Anion Gap 6 mmol/L; Blood Urea Nitrogen 12 mg/dL (7-17); Calcium 7.6 mg/dL (8.4-10.2); Carbon Dioxide 22 mmol/L (22-30); Chloride 108 mmol/L (98-107); Glucose 163 mg/dL (74-99); Non-African American GFR(CKD) 48 (>60 ml/min/1.73 sqM); Potassium 3.2 mmol/L (3.5-5.1); Sodium 136 mmol/L (137-145)
[2022-02-08] MEDS: POTASSIUM CHLORIDE ER 20 MEQ TAB.ER PO SCH ×2 (11:01→12:46)
[2022-02-08 11:21] LABS: Glucose,Whole Blood 138 mg/dL (70-110)
--- NOTE | 2022-02-08 12:04 | P.PN ---
Subjective Progress Note Date: 02/08/22 H&P Date: 02/05/22 Chief Complaint: Generalized weakness This is a 76-year-old female with past medical history of primary biliary cirrhosis, status post liver transplant 2014 at [facility], COPD, DVT, former nicotine dependence-quit smoking in 2014 and multiple other medical issues brought into the ER via EMS . Patient reports increased weakness, fatigue 1 today. Significant other reports 3 falls, initially started approximately 3 days ago. Denies syncope. Denies lightheadedness dizziness or focal deficits. Denies chest pain, palpitations or shortness of breath. Denies cough, congestion. Denies decreased oral intak e.Denies nausea, vomiting or diarrhea. Chest x-ray reporting cardiomegaly, chronic changes with new right basilar acute infiltrate or atelectasis. Repeat chest x-ray reported right basilar airspace opacity, no significant change from prior.Brain CT reporting no acute intracranial hemorrhage or midline shift, moderate diffuse cerebral atrophy, chronic small vessel ischemic change we demonstrated, no significant change from prior CT. EKG sinus tachycardia. Afebrile, T-max 99.7, WBC 11.6. Hemoglobin 10.7, platelets 167. On admission Sodium 129, BUN 15, creatinine 1.33 . Received IV fluid hydration, sodium currently 132, renal function improved with creatinine 1.18. Hyperglycemic with blood sugar 393 on admission. A1c 11.9. Lactic acid 1. Q-wave reporting 91 WBCs, large leukocytes, positive nitrates, urine and blood cultures pending. 02/08/2022 maintained on IV antibiotics as per infectious disease. Afebrile. Abdominal ultrasound limited suggesting possible inferior vena cava nonobstructive thrombus. Currently on aspirin 325 mg by mouth daily. Potassium 3.2, creatinine 1.14. Recent magnesium 1.9. Maintaining O2 sats in the high 90s on 2 L nasal cannula. Diet consumption 50%, blood sugars controlled. Denies chest pain, palpitations or shortness of breath. Objective - Vital Signs Vital signs: Vital Signs Temp 97.4 F L 02/08/22 04:11 Pulse 86 02/08/22 04:11 Resp 15 02/08/22 04:11 BP 116/74 02/08/22 04:11 Pulse Ox 98 02/08/22 04:11 FiO2 Intake & Output 02/07/22 02/08/22 02/08/22 18:59 06:59 18:59 Output Total 500 300 Balance -500 -300 Output: Urine 500 300 Other: Voiding Method Indwelling Catheter Indwelling Catheter # Bowel Movements 1 1 - Exam - Exam PHYSICAL EXAM: VITAL SIGNS: As above GENERAL: Alert and oriented 3 ,Sitting up in bed, no acute distress. HEENT: Conjunctivae normal. eyes normal. NECK: Supple, No JVD. CARDIOVASCULAR: S1, S2 regular.No murmur RESPIRATION: Breath sounds diminished in the bases. ABDOMEN: Soft, nontender . Nondistended No guarding. no masses palpable. Positive Bowel sounds heard. LEGS: No edema. no swelling NERVOUS SYSTEM: Cranial nerves II through XII grossly intact, No focal deficits.Strength and sensation grossly intact. Skin: Warm and dry, no rash - Labs CBC & Chem 7: 02/08/22 10:11 02/08/22 10:11 Labs: Abnormal Lab Results - Last 24 Hours (Table) 02/07/22 02/07/22 02/07/22 Range/Units 05:19 05:19 11:11 RBC 3.46 L (4.10-5.20) X 10*6/uL Hgb 9.1 L (12.0-15.0) g/dL Hct 28.4 L (37.2-46.3) % MCH 26.3 L (27.0-32.0) pg RDW 16.3 H (11.5-14.5) % Plt Count 124 L (140-440) X 10*3/uL Lymphocytes # 0.89 L (0.90-5.00) X 10*3/uL Potassium 3.1 L (3.5-5.5) mmol/L Est GFR (CKD-EPI)AfAm 48.1 L (60.0-200.0) Est GFR (CKD-EPI)NonAf 41.5 L (60.0-200.0) BUN/Creatinine Ratio 10.31 L (12.00-20.00) Ratio POC Glucose (mg/dL) 168 H (70-110) mg/dL Calcium 8.4 L (8.7-10.3) mg/dL Microbiology - Last 24 Hours (Table) 02/04/22 15:51 Blood Culture - Preliminary Blood No Growth after 72 hours 02/04/22 15:41 Blood Culture Gram Stain - Final Blood Blood Culture - Final Escherichia coli Assessment and Plan Assessment: Sepsis secondary to Acute right lower lobe pneumonia, community-acquired, possibly aspiration secondary to fall, bacteremia with E. coli as well as acute UTI, E. coli Multiple falls without syncope Acute metabolic encephalopathy secondary all the above Hyponatremia, improving with IV fluid hydration COPD, stage III, currently no evidence of acute exacerbation Emphysema History of Covid-19 infection in June 2021 Diabetes mellitus, Hyperglycemic, A1c 11.9, new onset- further diabetic education outpatient in clinic Chronic kidney disease stage IIIB with baseline creatinines 1.3-1.5 secondary to nephrosclerosis. 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 Potassium supplements ordered with repeat potassium level this afternoon. IV antibiotics as per ID. PT/OT consult in place, recommendations pending. Hematology/ ONC consulted for suggestion of possible nonobstructive inferior vena cava thrombus reported on limited ultrasound of the abdomen, regarding anticoagulation. Patient currently on aspirin 325 mg daily. The impression and plan of care has been dictated as directed. : I performed a history and examination of this patient, discussed the same with the dictator. I agree with the dictator's note ,documented as a scribe. Any additional findings or plans will be noted.
[2022-02-08] MEDS: TAMSULOSIN 0.4 MG CAP.ER.24H PO SCH (12:46)
[2022-02-08] MEDS: PANTOPRAZOLE 40 MG/10 ML VIAL IVP SCH (12:47)
[2022-02-08 17:23] LABS: Glucose,Whole Blood 124 mg/dL (70-110)
--- NOTE | 2022-02-08 17:51 | P.CONS ---
History of Present Illness - Reason for Consult Consult date: 02/08/22 Possible IVC clot - History of Present Illness Mrs Montenegro is a 76 year old who was admiitted with UTI and flank pain, on imaging a "possible" incidental IVC thrombus mentioned so we were asked to evaluate Review of Systems All systems: negative Constitutional: Reports as per HPI Past Medical History Past Medical History: COPD, Deep Vein Thrombosis (DVT), Liver Disease, Respiratory Disorder, Thyroid Disorder Additional Past Medical History / Comment(s): emphysema, thoracentesis 06/24/14, underactive thyroid. liver transplant 2014 History of Any Multi-Drug Resistant Organisms: None Reported Past Surgical History: Hernia Repair, Tonsillectomy Additional Past Surgical History / Comment(s): hiatal hernia, past live r/gallbladder biopsies neg, Liver transplant 03/27/2015. Past Anesthesia/Blood Transfusion Reactions: No Reported Reaction Past Psychological History: No Psychological Hx Reported Smoking Status: Never smoker Past Alcohol Use History: None Reported Past Drug Use History: None Reported - Past Family History Father Family Medical History: Liver Disease Additional Family Medical History / Comment(s): dad at age 72- was a heavy drinker had liver disease Mother Family Medical History: Diabetes Mellitus, Renal Disease Additional Family Medical History / Comment(s): at age 78 kidney failure Medications and Allergies Home Medications Medication Instructions Recorded Confirmed Type Everolimus [Zortress] 3 mg PO BID 03/03/16 02/04/22 History ursodioL [Actigall] 300 mg PO HS 03/09/17 02/04/22 History ursodioL [Ursodiol] 600 mg PO DAILY 03/09/17 02/04/22 History Levothyroxine Sodium 100 mcg PO DAILY 04/27/17 02/04/22 History Tacrolimus [Prograf] 0.5 mg PO BID 11/01/18 02/04/22 History Albuterol Sulfate [Albuterol 2 puff PO RT-Q6H PRN 03/24/21 02/04/22 History Sulfate Hfa] calcitrioL [Calcitriol] 0.25 mcg PO SA 03/24/21 02/04/22 History Aspirin EC [Ecotrin] 325 mg PO DAILY 07/01/21 02/04/22 History Escitalopram [Lexapro] 10 mg PO DAILY 07/01/21 02/04/22 History Magnesium Oxide [Mag-Ox] 400 mg PO BID 07/01/21 02/04/22 History Metoprolol Tartrate [Lopressor] 50 mg PO BID 07/01/21 02/04/22 History levETIRAcetam [Keppra] 250 mg PO BID 02/04/22 02/04/22 History Allergies Allergy/AdvReac Type Severity Reaction Status Date / Time No Known Allergies Allergy Verified 02/04/22 16:29 Physical Exam Vitals: Vital Signs Temp Pulse Pulse Resp BP Pulse Ox 02/08/22 11:28 97.5 F L 16 115/70 98 02/08/22 09:19 97 02/08/22 04:11 97.4 F L 86 15 116/74 98 02/07/22 20:00 81 20 02/07/22 19:00 94 L 02/07/22 18:37 97.5 F L 99 16 130/73 97 Intake and Output 02/08/22 02/08/22 02/08/22 06:59 14:59 22:59 Output Total 300 300 Balance -300 -300 Output: Urine 300 300 Uretheral (De Leon) 300 Other: Voiding Method Indwelling Catheter # Bowel Movements 1 - Constitutional General appearance: cooperative, no acute distress - EENT Eyes: EOMI ENT: NA/AT - Neck Neck: normal ROM - Respiratory Respiratory: bilateral: diminished - Cardiovascular Rhythm: regularly irregular - Gastrointestinal General gastrointestinal: normal bowel sounds - Genitourinary Tender Left CV - Integumentary Integumentary: pale - Neurologic Neurologic: CNII-XII intact - Musculoskeletal Musculoskeletal: generalized weakness - Psychiatric Psychiatric: A&O x's 3, appropriate affect Results CBC & Chem 7: 02/08/22 10:11 02/08/22 16:27 Labs: Abnormal Lab Results - Last 24 Hours (Table) 02/08/22 02/08/22 02/08/22 Range/Units 05:39 05:39 10:11 RBC 3.43 L 3.66 L (4.10-5.20) X 10*6/uL Hgb 8.9 L 9.4 L (12.0-15.0) g/dL Hct 28.0 L 30.4 L (37.2-46.3) % MCH 25.9 L (27.0-32.0) pg MCHC 31.8 L (32.0-37.0) g/dL RDW 15.9 H 16.0 H (11.5-14.5) % Plt Count 146 L (150-450) k/uL Sodium (137-145) mmol/L Potassium 3.1 L (3.5-5.5) mmol/L Chloride (98-107) mmol/L Anion Gap 6.60 L (10.00-18.00) mmol/L Creatinine (0.52-1.04) mg/dL Est GFR (CKD-EPI)AfAm 57.3 L (60.0-200.0) Est GFR (CKD-EPI)NonAf 49.4 L (60.0-200.0) BUN/Creatinine Ratio 10.64 L (12.00-20.00) Ratio Glucose (74-99) mg/dL POC Glucose (mg/dL) (70-110) mg/dL Calcium 8.4 L (8.7-10.3) mg/dL Total Bilirubin <0.15 L (0.30-1.20) mg/dL Total Protein 5.0 L (6.2-8.2) g/dL Albumin 2.7 L (3.8-4.9) g/dL Albumin/Globulin Ratio 1.17 L (1.60-3.17) g/dL 02/08/22 02/08/22 02/08/22 Range/Units 10:11 11:20 17:17 RBC (4.10-5.20) X 10*6/uL Hgb (12.0-15.0) g/dL Hct (37.2-46.3) % MCH (27.0-32.0) pg MCHC (32.0-37.0) g/dL RDW (11.5-14.5) % Plt Count (150-450) k/uL Sodium 136 L (137-145) mmol/L Potassium 3.2 L (3.5-5.5) mmol/L Chloride 108 H (98-107) mmol/L Anion Gap (10.00-18.00) mmol/L Creatinine 1.14 H (0.52-1.04) mg/dL Est GFR (CKD-EPI)AfAm (60.0-200.0) Est GFR (CKD-EPI)NonAf (60.0-200.0) BUN/Creatinine Ratio (12.00-20.00) Ratio Glucose 163 H (74-99) mg/dL POC Glucose (mg/dL) 138 H 124 H (70-110) mg/dL Calcium 7.6 L (8.7-10.3) mg/dL Total Bilirubin (0.30-1.20) mg/dL Total Protein (6.2-8.2) g/dL Albumin (3.8-4.9) g/dL Albumin/Globulin Ratio (1.60-3.17) g/dL Microbiology - Last 24 Hours (Table) 02/04/22 15:51 Blood Culture - Preliminary Blood No Growth after 72 hours Assessment and Plan (1) CKD (chronic kidney disease) stage 3, GFR 30-59 ml/min Current Visit: Yes Status: Acute Code(s): N18.30 - CHRONIC KIDNEY DISEASE, STAGE 3 UNSPECIFIED SNOMED Code(s): 412539020 (2) Urinary tract infection Current Visit: Yes Status: Acute Code(s): N39.0 - URINARY TRACT INFECTION, SITE NOT SPECIFIED SNOMED Code(s): 15344337 Plan: We were consulted regarding possible IVC Thrombus on incidental imaging, imaging read is non-diagnostic therefore a CTA angio of abdomen ordered Dr. Gonzalez: I have completed the full history and physical and developed the above impression and plan, agree with dictation, dictated as a ascribe
[2022-02-08] MEDS ORDERED: POTASSIUM CHLORIDE ER 20 MEQ TAB.ER PO SCH (18:00)
[2022-02-08 20:51] LABS: Glucose,Whole Blood 144 mg/dL (70-110)
--- NOTE | 2022-02-08 21:37 | US ---
EXAMINATION TYPE: US venous doppler duplex LE DATE OF EXAM: 02/08/2022 9:18 PM COMPARISON: NONE CLINICAL HISTORY: Assess for DVT. Assess for dvt. No hx of dvt. Not on blood thinners SIDE PERFORMED: Bilateral TECHNIQUE: The lower extremity deep venous system is examined utilizing real time linear array sonog deya with graded compression, doppler sonography and color-flow sonography. VESSELS IMAGED: Common Femoral Vein Deep Femoral Vein Greater Saphenous Vein * Femoral Vein Popliteal Vein Small Saphenous Vein * Proximal Calf Veins (* superficial vessels) Right Leg: Negative for DVT Left Leg: Negative for DVT IMPRESSION: Negative exam. No evidence of deep vein thrombosis in both legs.
--- NOTE | 2022-02-08 23:38 | CT ---
EXAMINATION TYPE: CT angio abdomen pelvis DATE OF EXAM: 02/08/2022 COMPARISON: 03/06/2018 HISTORY: Definitive thrombus?:? CT DLP: 2112.3 mGycm Automated exposure control for dose reduction was used. CONTRAST: Performed with IV Contrast, patient injected with 80ml mL of Isovue 370. There are Three-D postprocessed images. Images obtained without and with IV contrast from the diaphra gm to the floor the pelvis. There is small pleural effusions. Heart size is normal. No pericardial effusion. There are numerous s urgical clips in the upper abdomen at the stomach. Liver and spleen are intact. No pancreatic mass. T he stomach is intact. Gallbladder is absent. There is no adrenal mass. Kidneys show satisfactory contrast opacification. There is no hydronephrosi s. Ureters are not dilated. No retroperitoneal adenopathy. Bladder distends smoothly. No inguinal her gladys. No free fluid in the pelvis. There is small air bubble in the urinary bladder that could be catheterization no mesenteric edema. N o ascites or free air. No bowel obstruction. There is arterial flow in the abdominal aorta which is somewhat atheromatous. There is arterial opaci fication of the celiac artery and superior mesenteric artery. There is arterial flow in the renal and iliac and femoral arteries. There is plaque formation at the origin of the iliac arteries with 50% s tenosis. No hemodynamic stenosis seen. No aneurysm or dissection. There is tapering of the lower abdo joaquin aorta that measures only 1 cm in diameter. IMPRESSION: No evidence of hemodynamic arterial stenosis. No aneurysm or dissection. Atherosclerotic vascular dis ease with some stenosis at the origins of the common iliac arteries. There is narrowing of the lower abdominal aorta that measures only 1 cm. Aorta and iliac arteries similar to old exam. Small pleural effusions and basilar mild atelectasis. This appears new compared to the old exam.
[2022-02-09] MEDS: ACETAMINOPHEN TAB 325 MG TAB PO PRN (02:35)
[2022-02-09] MEDS: LEVOTHYROXINE 100 MCG TAB PO SCH (05:54)
[2022-02-09 07:24] LABS: Glucose,Whole Blood 93 mg/dL (70-110)
[2022-02-09] MEDS: INSULIN ASPART (NovoLOG) 100 UNIT/ML VIAL SQ SCH ×4 (07:41→20:53)
[2022-02-09] MEDS: MAGNESIUM OXIDE 400 MG TAB PO SCH ×2 (09:19→20:52)
[2022-02-09] MEDS: METOPROLOL TARTRATE 50 MG TAB PO SCH ×2 (09:19→20:52)
[2022-02-09] MEDS: PANTOPRAZOLE 40 MG/10 ML VIAL IVP SCH (09:19)
[2022-02-09] MEDS: TAMSULOSIN 0.4 MG CAP.ER.24H PO SCH (09:19)
[2022-02-09] MEDS: INSULIN DETEMIR (LEVEMIR) 100 UNIT/ML SYR SQ SCH (09:19)
[2022-02-09] MEDS: ASPIRIN 325 MG TAB PO SCH (09:19)
[2022-02-09] MEDS: TACROLIMUS 0.5 MG CAP PO SCH ×2 (09:19→20:52)
[2022-02-09] MEDS: levETIRAcetam 250 MG TAB PO SCH ×2 (09:20→20:52)
[2022-02-09] MEDS: ursodioL 300 MG CAP PO SCH ×2 (09:20→20:51)
[2022-02-09] MEDS: ESCITALOPRAM 10 MG TAB PO SCH (09:21)
[2022-02-09] MEDS: EVEROLIMUS 0.75 MG PO SCH ×2 (09:21→20:51)
[2022-02-09] MEDS: SODIUM CHLORIDE 0.9% 1,000 ML IV SCH ×2 (09:44→20:55)
[2022-02-09] MEDS: ENOXAPARIN 40 MG/0.4 ML SYRINGE SQ SCH (09:48)
--- NOTE | 2022-02-09 10:33 | P.DS ---
Providers Date of admission: 02/04/22 16:20 Expected date of discharge: 02/09/22 Attending physician: George Wheeler Consults: 02/06/22 10:34 Consult Physician Routine Consulting Provider: Oliver Doyle Consult Reason/Comments: sepsis + blood cultures Do you want consulting provider notified?: Yes 02/08/22 08:27 Consult Physician Routine Consulting Provider: Jose Alejandro ePña Consult Reason/Comments: poss. ivc nonobstructive thrombus/ anticoag. hx of liver tx Do you want consulting provider notified?: Yes Primary care physician: George Wheeler [facility] Course: Final Diagnoses: Sepsis secondary to Acute right lower lobe pneumonia, community-acquired, possibly aspiration secondary to fall, bacteremia with E. coli as well as acute UTI, E. coli Multiple falls without syncope Acute metabolic encephalopathy secondary all the above Hyponatremia, improving with IV fluid hydration Hypokalemia COPD, stage III, currently no evidence of acute exacerbation Emphysema History of Covid-19 infection in June 2021 Diabetes mellitus, Hyperglycemic, A1c 11.9, new onset- further diabetic education outpatient in clinic Chronic kidney disease stage IIIB with baseline creatinines 1.3-1.5 secondary to nephrosclerosis. 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 Patient reports increased weakness, fatigue 1 today. Significant other reports 3 falls, initially started approximately 3 days ago. Denies syncope. Denies lightheadedness dizziness or focal deficits. Denies chest pain, palpitations or shortness of breath. Denies cough, congestion. Denies decreased oral intake.Denies nausea, vomiting or diarrhea. Chest x-ray reporting cardiomegaly, chronic changes with new right basilar acute infiltrate or atelectasis. Repeat chest x-ray reported right basilar airspace opacity, no significant change from prior.Brain CT reporting no acute intracranial hemorrhage or midline shift, moderate diffuse cerebral atrophy, chronic small vessel ischemic change we demonstrated, no significant change from prior CT. EKG sinus tachycardia. Afebrile, T-max 99.7, WBC 11.6. Hemoglobin 10.7, platelets 167. On admission Sodium 129, BUN 15, creatinine 1.33 . Received IV fluid hydration, sodium currently 132, renal function improved with creatinine 1.18. Hyperglycemic with blood sugar 393 on admission. A1c 11.9. Lactic acid 1. Q-wave reporting 91 WBCs, large leukocytes, positive nitrates, urine and blood cultures pending. 02/08/2022 maintained on IV antibiotics as per infectious disease. Afebrile. Abdominal ultrasound limited suggesting possible inferior vena cava nonobstructive thrombus. Currently on aspirin 325 mg by mouth daily. Potassium 3.2, creatinine 1.14. Recent magnesium 1.9. Maintaining O2 sats in the high 90s on 2 L nasal cannula. Diet consumption 50%, blood sugars controlled. Denies chest pain, palpitations or shortness of breath. Potassium supplements ordered with repeat potassium level this afternoon. IV antibiotics as per ID. PT/OT consult in place, recommendations pending. Hematology/ ONC consulted for suggestion of possible nonobstructive inferior vena cava thrombus reported on limited ultrasound of the abdomen, regarding anticoagulation. Patient currently on aspirin 325 mg daily. Potassium supplemented yesterday afternoon to repeat potassium level III.7, repeat potassium level this morning pending. Evaluated by hematology. Bilateral venous Doppler reported negative for DVT. Abdomen/pelvis CTA reported no evidence of hemodynamic arterial stenosis, no aneurysm or dissection, acute renal sclerotic vascular disease with some stenosis at the origin of the common iliac arteries, narrowing of the lower abdominal aorta that measures only 1 cm. Aorta and iliac arteries similar to prior exam. Significant clinical improvement. Currently oxygen weaned off ,maintaining O2 sat of 93% on room air . Denies chest pain, palpitations or increasing shortness of breath. Patient will be discharged to [facility] subacute rehab today in a stable condition with guarded prognosis pending hematology/ONC's review of radiology studies with final DC recommendations and clearance. Microbiology 02/04/22 15:51 Blood Blood Culture - Preliminary No Growth after 96 hours 02/04/22 15:41 Blood Blood Culture Gram Stain - Final 02/04/22 15:41 Blood Blood Culture - Final Escherichia coli 02/04/22 14:53 Urine,Clean Catch Urine Culture - Final Escherichia coli 02/04/22 15:41 Blood Blood Culture - Final The impression and plan of care has been dictated as directed. : I performed a history and examination of this patient, discussed the same with the dictator. I agree with the dictator's note ,documented as a scribe. Any additional findings or plans will be noted. Patient Condition at Discharge: Stable Plan - Discharge Summary Discharge Rx Participant: No New Discharge Prescriptions: New Loperamide [Imodium] 2 mg PO QID PRN #12 cap PRN Reason: Diarrhea Pantoprazole Sodium [Protonix] 40 mg PO DAILY #30 tab Tamsulosin [Flomax] 0.4 mg PO PC-BRKFST 3 Days #3 cap INSULIN LISPRO (HumaLOG) [humaLOG] 0 unit SQ ACHS #10 ml Insulin Detemir (Levemir) [Levemir] 15 unit SQ DAILY@0700 each Acetaminophen Tab [Tylenol] 650 mg PO Q4HR PRN tab PRN Reason: Fever And/ Or Pain Continue Everolimus [Zortress] 3 mg PO BID ursodioL [Actigall] 300 mg PO HS ursodioL [Ursodiol] 600 mg PO DAILY Levothyroxine Sodium 100 mcg PO DAILY Tacrolimus [Prograf] 0.5 mg PO BID levETIRAcetam [Keppra] 250 mg PO BID Albuterol Sulfate [Albuterol Sulfate Hfa] 2 puff PO RT-Q6H PRN PRN Reason: Shortness Of Breath calcitrioL [Calcitriol] 0.25 mcg PO SA Escitalopram [Lexapro] 10 mg PO DAILY Aspirin EC [Ecotrin] 325 mg PO DAILY Magnesium Oxide [Mag-Ox] 400 mg PO BID Metoprolol Tartrate [Lopressor] 50 mg PO BID Discharge Medication List Everolimus [Zortress] 3 mg PO BID 03/03/16 [History] ursodioL [Actigall] 300 mg PO HS 03/09/17 [History] ursodioL [Ursodiol] 600 mg PO DAILY 03/09/17 [History] Levothyroxine Sodium 100 mcg PO DAILY 04/27/17 [History] Tacrolimus [Prograf] 0.5 mg PO BID 11/01/18 [History] Albuterol Sulfate [Albuterol Sulfate Hfa] 2 puff PO RT-Q6H PRN 03/24/21 [History] calcitrioL [Calcitriol] 0.25 mcg PO SA 03/24/21 [History] Aspirin EC [Ecotrin] 325 mg PO DAILY 07/01/21 [History] Escitalopram [Lexapro] 10 mg PO DAILY 07/01/21 [History] Magnesium Oxide [Mag-Ox] 400 mg PO BID 07/01/21 [History] Metoprolol Tartrate [Lopressor] 50 mg PO BID 07/01/21 [History] levETIRAcetam [Keppra] 250 mg PO BID 02/04/22 [History] Acetaminophen Tab [Tylenol] 650 mg PO Q4HR PRN tab 02/09/22 [Rx] INSULIN LISPRO (HumaLOG) [humaLOG] 0 unit SQ ACHS #10 ml 02/09/22 [Rx] Insulin Detemir (Levemir) [Levemir] 15 unit SQ DAILY@0700 each 02/09/22 [Rx] Loperamide [Imodium] 2 mg PO QID PRN #12 cap 02/09/22 [Rx] Pantoprazole Sodium [Protonix] 40 mg PO DAILY #30 tab 02/09/22 [Rx] Tamsulosin [Flomax] 0.4 mg PO PC-BRKFST 3 Days #3 cap 02/09/22 [Rx] Follow up Appointment(s)/Referral(s): George Wheeler MD [Primary Care Provider] - 3 Days Patient Instructions/Handouts: Viral Pneumonia (DC), Urinary Tract Infection in Women (DC), Type 2 Diabetes in Adults: New Diagnosis (DC), Sepsis (DC) Activity/Diet/Wound Care/Special Instructions: CECI: [facility] Case management to assist with Glucometer, diabetic supplies CBC,BMP in 3 days Discharge Disposition: TRANSFER TO SNF/ECF
[2022-02-09 10:47] LABS: African American GFR (CKD) 57.3 (60.0-200.0); BUN/Creat Ratio 9.73 Ratio (12.00-20.00); Blood Urea Nitrogen 10.7 mg/dL (9.0-27.0); Calcium 8.5 mg/dL (8.7-10.3); Non-African American GFR(CKD) 49.4 (60.0-200.0); Potassium 3.9 mmol/L (3.5-5.5)
[2022-02-09 11:40] LABS: Glucose,Whole Blood 137 mg/dL (70-110)
[2022-02-09 17:28] LABS: Glucose,Whole Blood 147 mg/dL (70-110)
[2022-02-09 20:14] LABS: Glucose,Whole Blood 162 mg/dL (70-110)
--- NOTE | 2022-02-09 22:12 | P.PN ---
Subjective Progress Note Date: 02/09/22 Principal diagnosis: IVC thrombosis In f/u today pt feels, good, denies fever, nausea or pain, she is ambulating with a walker Objective - Vital Signs Vital signs: Vital Signs Temp 97.5 F L 02/09/22 11:44 Pulse 79 02/09/22 11:44 Resp 18 02/09/22 11:44 BP 122/72 02/09/22 11:44 Pulse Ox 94 L 02/09/22 11:44 FiO2 Intake & Output 02/08/22 02/09/22 02/09/22 18:59 06:59 18:59 Intake Total 350 Output Total 300 Balance -300 350 Intake: Oral 350 Output: Urine 300 Uretheral ([place]) 300 Other: Voiding Method Indwelling Catheter Indwelling Catheter Toilet # Voids 1 3 1 # Bowel Movements 3 2 - Constitutional General appearance: Present: average body habitus, cooperative, no acute distress - EENT Eyes: Present: anicteric sclerae, EOMI ENT: Present: hearing grossly normal - Respiratory Details: resp unlabored ambulating - Integumentary Integumentary: Present: normal - Neurologic Neurologic: Present: CNII-XII intact (grossly) - Musculoskeletal Musculoskeletal: Present: generalized weakness, strength equal bilaterally - Psychiatric Psychiatric: Present: A&O x's 3, appropriate affect, intact judgment & insight - Labs CBC & Chem 7: 02/08/22 10:11 02/09/22 10:42 Labs: Abnormal Lab Results - Last 24 Hours (Table) 02/08/22 02/08/22 02/09/22 Range/Units 17:17 20:45 06:02 Anion Gap 8.00 L (10.00-18.00) mmol/L Est GFR (CKD-EPI)AfAm 57.3 L (60.0-200.0) Est GFR (CKD-EPI)NonAf 49.4 L (60.0-200.0) BUN/Creatinine Ratio 9.73 L (12.00-20.00) Ratio POC Glucose (mg/dL) 124 H 144 H (70-110) mg/dL Calcium 8.5 L (8.7-10.3) mg/dL 02/09/22 Range/Units 11:30 Anion Gap (10.00-18.00) mmol/L Est GFR (CKD-EPI)AfAm (60.0-200.0) Est GFR (CKD-EPI)NonAf (60.0-200.0) BUN/Creatinine Ratio (12.00-20.00) Ratio POC Glucose (mg/dL) 137 H (70-110) mg/dL Calcium (8.7-10.3) mg/dL Microbiology - Last 24 Hours (Table) 02/04/22 15:51 Blood Culture - Preliminary Blood No Growth after 96 hours - Imaging and Cardiology Venous US: report reviewed Abd and pelvis CTA report reviewed. Assessment and Plan Plan: Suspicions for IVC thrombus. CTA AP no clot seen but, venous system not evaluated. Did discuss case with Radiologist who reviewed the images with me. Recommendation was for US of the IVC as well as the portal vein-saw something suspicious when reviewing images. US ordered. If inconclusive recommendation for venogram. Pending US findings. BLE doppler neg for DVT. Cont DVT prophylaxis for now
--- NOTE | 2022-02-09 23:32 | P.PN ---
Subjective Progress Note Date: 02/08/22 Principal diagnosis: E coli urinary tract infection and bacteremia Patient is a 76-year-old female with a past medical history significant for liver transplant on use of this medication presenting to the hospital with weakness and fall did have evidence of E. coli UTI and bacteremia. On today's evaluation that is 02/08/2022, the patient continues to be afebrile, the patient is breathing comfortably on nasal cannula oxygen, patient denies having any chest pain or shortness of breath or cough no abdominal pain and no diarrhea Objective - Vital Signs Vital signs: Vital Signs Temp 97.4 F L 02/08/22 04:11 Pulse 86 02/08/22 04:11 Resp 15 02/08/22 04:11 BP 116/74 02/08/22 04:11 Pulse Ox 97 02/08/22 09:19 FiO2 Intake & Output 02/07/22 02/08/22 02/08/22 18:59 06:59 18:59 Output Total 500 300 Balance -500 -300 Output: Urine 500 300 Other: Voiding Method Indwelling Catheter Indwelling Catheter Indwelling Catheter # Bowel Movements 1 1 - Exam GENERAL DESCRIPTION: An elderly female lying in bed in no distress RESPIRATORY SYSTEM: Unlabored breathing , decreased breath sounds at bases HEART: S1 S2 regular rate and rhythm , ABDOMEN: Soft , no tenderness EXTREMITIES: No edema feet - Labs CBC & Chem 7: 02/08/22 10:11 02/09/22 10:42 Labs: Abnormal Lab Results - Last 24 Hours (Table) 02/07/22 02/08/22 02/08/22 Range/Units 05:19 05:39 05:39 RBC 3.43 L (4.10-5.20) X 10*6/uL Hgb 8.9 L (12.0-15.0) g/dL Hct 28.0 L (37.2-46.3) % MCH 25.9 L (27.0-32.0) pg MCHC 31.8 L (32.0-37.0) g/dL RDW 15.9 H (11.5-14.5) % Plt Count (150-450) k/uL Sodium (137-145) mmol/L Potassium 3.1 L 3.1 L (3.5-5.5) mmol/L Chloride (98-107) mmol/L Anion Gap 6.60 L (10.00-18.00) mmol/L Creatinine (0.52-1.04) mg/dL Est GFR (CKD-EPI)AfAm 48.1 L 57.3 L (60.0-200.0) Est GFR (CKD-EPI)NonAf 41.5 L 49.4 L (60.0-200.0) BUN/Creatinine Ratio 10.31 L 10.64 L (12.00-20.00) Ratio Glucose (74-99) mg/dL Calcium 8.4 L 8.4 L (8.7-10.3) mg/dL Total Bilirubin <0.15 L (0.30-1.20) mg/dL Total Protein 5.0 L (6.2-8.2) g/dL Albumin 2.7 L (3.8-4.9) g/dL Albumin/Globulin Ratio 1.17 L (1.60-3.17) g/dL 02/08/22 02/08/22 Range/Units 10:11 10:11 RBC 3.66 L (4.10-5.20) X 10*6/uL Hgb 9.4 L (12.0-15.0) g/dL Hct 30.4 L (37.2-46.3) % MCH (27.0-32.0) pg MCHC (32.0-37.0) g/dL RDW 16.0 H (11.5-14.5) % Plt Count 146 L (150-450) k/uL Sodium 136 L (137-145) mmol/L Potassium 3.2 L (3.5-5.5) mmol/L Chloride 108 H (98-107) mmol/L Anion Gap (10.00-18.00) mmol/L Creatinine 1.14 H (0.52-1.04) mg/dL Est GFR (CKD-EPI)AfAm (60.0-200.0) Est GFR (CKD-EPI)NonAf (60.0-200.0) BUN/Creatinine Ratio (12.00-20.00) Ratio Glucose 163 H (74-99) mg/dL Calcium 7.6 L (8.7-10.3) mg/dL Total Bilirubin (0.30-1.20) mg/dL Total Protein (6.2-8.2) g/dL Albumin (3.8-4.9) g/dL Albumin/Globulin Ratio (1.60-3.17) g/dL Microbiology - Last 24 Hours (Table) 02/04/22 15:51 Blood Culture - Preliminary Blood No Growth after 72 hours 02/04/22 15:41 Blood Culture Gram Stain - Final Blood Blood Culture - Final Escherichia coli Assessment and Plan (1) Sepsis Current Visit: Yes Status: Acute Code(s): A41.9 - SEPSIS, UNSPECIFIED ORGANISM SNOMED Code(s): 73866599 (2) Urinary tract infection Current Visit: Yes Status: Acute Code(s): N39.0 - URINARY TRACT INFECTION, SITE NOT SPECIFIED SNOMED Code(s): 49336332 Plan: 1patient presented to hospital with sepsis in this patient did have a fever leukocytosis and elevated lactic acid source and likely urinary in this patient did have a positive UA and no other obvious focus of infection. 2 ultrasound of the kidney bladder area did not show any hydronephrosis or structural mobility of the kidney did show possible echo in the inferior vena cava suspicious for clot. 3patient to continue with Rocephin 2 g daily while inpatient and will finish therapy with oral antibiotics Time with Patient: Less than 30
--- NOTE | 2022-02-09 23:33 | P.PN ---
Subjective Progress Note Date: 02/09/22 Principal diagnosis: E coli urinary tract infection and bacteremia Patient is a 76-year-old female with a past medical history significant for liver transplant on use of this medication presenting to the hospital with weakness and fall did have evidence of E. coli UTI and bacteremia. On today's evaluation that is 02/09/2022, the patient denies any fever or any chills, the patient is breathing comfortably on nasal cannula oxygen, patient denies having any chest pain or shortness of breath or cough no abdominal pain and no diarrhea, the patient overall is feeling better Objective - Vital Signs Vital signs: Vital Signs Temp 97.5 F L 02/09/22 11:44 Pulse 79 02/09/22 11:44 Resp 18 02/09/22 11:44 BP 122/72 02/09/22 11:44 Pulse Ox 94 L 02/09/22 11:44 FiO2 Intake & Output 02/08/22 02/09/22 02/09/22 18:59 06:59 18:59 Intake Total 350 Output Total 300 Balance -300 350 Intake: Oral 350 Output: Urine 300 Uretheral ([place]) 300 Other: Voiding Method Indwelling Catheter Indwelling Catheter Toilet # Voids 1 3 1 # Bowel Movements 3 2 - Exam GENERAL DESCRIPTION: An elderly female lying in bed in no distress RESPIRATORY SYSTEM: Unlabored breathing , decreased breath sounds at bases HEART: S1 S2 regular rate and rhythm , ABDOMEN: Soft , no tenderness EXTREMITIES: No edema feet - Labs CBC & Chem 7: 02/08/22 10:11 02/09/22 10:42 Labs: Abnormal Lab Results - Last 24 Hours (Table) 02/08/22 02/08/22 02/09/22 Range/Units 17:17 20:45 06:02 Anion Gap 8.00 L (10.00-18.00) mmol/L Est GFR (CKD-EPI)AfAm 57.3 L (60.0-200.0) Est GFR (CKD-EPI)NonAf 49.4 L (60.0-200.0) BUN/Creatinine Ratio 9.73 L (12.00-20.00) Ratio POC Glucose (mg/dL) 124 H 144 H (70-110) mg/dL Calcium 8.5 L (8.7-10.3) mg/dL 08/30/22 Range/Units 11:30 Anion Gap (10.00-18.00) mmol/L Est GFR (CKD-EPI)AfAm (60.0-200.0) Est GFR (CKD-EPI)NonAf (60.0-200.0) BUN/Creatinine Ratio (12.00-20.00) Ratio POC Glucose (mg/dL) 137 H (70-110) mg/dL Calcium (8.7-10.3) mg/dL Microbiology - Last 24 Hours (Table) 02/04/22 15:51 Blood Culture - Preliminary Blood No Growth after 96 hours Assessment and Plan (1) Sepsis Current Visit: Yes Status: Acute Code(s): A41.9 - SEPSIS, UNSPECIFIED ORGANISM SNOMED Code(s): 10968940 (2) Urinary tract infection Current Visit: Yes Status: Acute Code(s): N39.0 - URINARY TRACT INFECTION, SITE NOT SPECIFIED SNOMED Code(s): 05974447 Plan: 1patient presented to hospital with sepsis in this patient did have a fever leukocytosis and elevated lactic acid source and likely urinary in this patient did have a positive UA and no other obvious focus of infection. 2 ultrasound of the kidney bladder area did not show any hydronephrosis or structural mobility of the kidney did show possible echo in the inferior vena cava suspicious for clot. 3patient to continue with Rocephin 2 g daily while inpatient and will finish therapy with Ceftin 10 days Time with Patient: Less than 30
[2022-02-10] MEDS: LEVOTHYROXINE 100 MCG TAB PO SCH (05:30)
[2022-02-10 07:14] LABS: Glucose,Whole Blood 218 mg/dL (70-110)
[2022-02-10] MEDS: INSULIN ASPART (NovoLOG) 100 UNIT/ML VIAL SQ SCH ×2 (07:58→12:32)
[2022-02-10] MEDS: ASPIRIN 325 MG TAB PO SCH (07:58)
[2022-02-10] MEDS: TAMSULOSIN 0.4 MG CAP.ER.24H PO SCH (07:58)
[2022-02-10] MEDS: INSULIN DETEMIR (LEVEMIR) 100 UNIT/ML SYR SQ SCH (07:58)
[2022-02-10] MEDS: ENOXAPARIN 40 MG/0.4 ML SYRINGE SQ SCH (07:58)
[2022-02-10] MEDS: MAGNESIUM OXIDE 400 MG TAB PO SCH (07:59)
[2022-02-10] MEDS: TACROLIMUS 0.5 MG CAP PO SCH (07:59)
[2022-02-10] MEDS: METOPROLOL TARTRATE 50 MG TAB PO SCH (07:59)
[2022-02-10] MEDS: PANTOPRAZOLE 40 MG/10 ML VIAL IVP SCH (07:59)
[2022-02-10] MEDS: ursodioL 300 MG CAP PO SCH (07:59)
[2022-02-10] MEDS: EVEROLIMUS 0.75 MG PO SCH (08:00)
[2022-02-10] MEDS: ESCITALOPRAM 10 MG TAB PO SCH (08:00)
[2022-02-10] MEDS: levETIRAcetam 250 MG TAB PO SCH (08:00)
--- NOTE | 2022-02-10 08:58 | US ---
EXAMINATION TYPE: US portal vein DATE OF EXAM: 02/10/2022 COMPARISON: NONE CLINICAL HISTORY: abnormality CT image when reviewed w/ Radiologist. EXAM MEASUREMENTS: Liver Length: 16.8 cm Gallbladder Wall: surgically absent CBD: 0.5cm Right Kidney: 9.4 x 4.4 x 3.6cm ANATOMY: technical limitations due to patient's body habitus and large amount of overlying bowel content Pancreas: obscured by overlying bowel content Liver: limited evaluation, attenuating Color flow patency within the portal vein: yes Portal Vein Flow: unable to visualize hepatic artery to determine flow direction Gallbladder: surgically absent Evidence for sonographic Elkins's sign: no CBD: appears wnl Right Kidney: no evidence of hydronephrosis IMPRESSION: 1. Limited evaluation due to body habitus and bowel gas. 2. Nonvisualization hepatic artery prevents identification of flow direction of portal vein. Portal v ein is patent.
--- NOTE | 2022-02-10 09:00 | US ---
EXAMINATION TYPE: US inferior vena cava DATE OF EXAM: 02/10/2022 COMPARISON: NONE CLINICAL HISTORY: concern for IVC thrombus on imaging. extreme technical limitations due to patient's body habitus and large amount of overlying bowel con tent. only short proximal portion visualized, no evidence of thrombus as visualized IMPRESSION: 1. Flow present within the inferior vena cava. Thrombus by ultrasound is not identified. Nonobstructi ng thrombus cannot be excluded due to limitations on this exam.
[2022-02-10] MEDS: SODIUM CHLORIDE 0.9% 1,000 ML IV SCH (10:59)
[2022-02-10 12:10] LABS: Glucose,Whole Blood 113 mg/dL (70-110)
[2022-02-10 15:02] VITALS: BP 124/78; PULSE 70; RESP 16; TEMP 97.9
--- NOTE | 2022-02-10 16:32 | P.PN ---
Subjective Progress Note Date: 02/10/22 Principal diagnosis: IVC thrombosis In f/u today pt resting, denies any abdominal pain or chest pain, denies any bleeding. Objective - Vital Signs Vital signs: Vital Signs Temp 97.9 F 02/10/22 14:00 Pulse 70 02/10/22 14:00 Resp 16 02/10/22 14:00 BP 124/78 02/10/22 14:00 Pulse Ox 98 02/10/22 14:00 FiO2 Intake & Output 02/09/22 02/10/22 02/10/22 18:59 06:59 18:59 Other: Voiding Method Toilet Toilet # Voids 2 1 1 - Constitutional General appearance: Present: average body habitus, cooperative, no acute distress - EENT Eyes: Present: anicteric sclerae, EOMI ENT: Present: hearing grossly normal - Respiratory Details: respirations even and unlabored at rest - Cardiovascular Details: skin warm and dry to the touch - Gastrointestinal Gastrointestinal Comment(s): abdomen is soft, nontender - Neurologic Neurologic: Present: CNII-XII intact - Musculoskeletal Musculoskeletal: Present: generalized weakness, strength equal bilaterally - Psychiatric Psychiatric: Present: A&O x's 3, appropriate affect, intact judgment & insight - Labs CBC & Chem 7: 02/08/22 10:11 02/09/22 10:42 Labs: Abnormal Lab Results - Last 24 Hours (Table) 02/09/22 02/09/22 02/10/22 Range/Units 17:23 20:12 07:12 POC Glucose (mg/dL) 147 H 162 H 218 H (70-110) mg/dL 02/10/22 Range/Units 12:07 POC Glucose (mg/dL) 113 H (70-110) mg/dL Microbiology - Last 24 Hours (Table) 02/04/22 15:51 Blood Culture - Preliminary Blood No Growth after 120 hours - Imaging and Cardiology portal vein ultrasound report reviewed IVC ultrasound, report reviewed
== END 2022-02-10 15:28 | DRG 871 ==
LOC: EC 14:14 → 4SSUR 16:20 → 5NMEDONC 02-05 01:15
PROVIDERS: ADMIT Family Medicine; ATTEND Family Medicine
DX: A41.51 Sepsis due to Escherichia coli [E. coli] (principal); G93.41 Metabolic encephalopathy; I82.220 Acute embolism and thrombosis of inferior vena cava; J18.9 Pneumonia, unspecified organism; D84.821 Immunodeficiency due to drugs; F05 Delirium due to known physiological condition; E87.1 Hypo-osmolality and hyponatremia; Z94.4 Liver transplant status; N39.0 Urinary tract infection, site not specified; J98.11 Atelectasis; E11.22 Type 2 diabetes mellitus with diabetic chronic kidney disease; I13.10 Hypertensive heart and chronic kidney disease without heart failure, with stage 1 through stage 4 chronic kidney disease, or unspecified chronic kidney disease; J43.9 Emphysema, unspecified; E03.9 Hypothyroidism, unspecified; N18.32 Chronic kidney disease, stage 3b; E11.65 Type 2 diabetes mellitus with hyperglycemia; G40.909 Epilepsy, unspecified, not intractable, without status epilepticus; K44.9 Diaphragmatic hernia without obstruction or gangrene; B96.20 Unspecified Escherichia coli [E. coli] as the cause of diseases classified elsewhere; R29.6 Repeated falls; F41.9 Anxiety disorder, unspecified; E87.6 Hypokalemia; R19.7 Diarrhea, unspecified; W19.XXXA Unspecified fall, initial encounter; Z20.822 Contact with and (suspected) exposure to COVID-19; Z87.19 Personal history of other diseases of the digestive system; Z79.890 Hormone replacement therapy; Z79.899 Other long term (current) drug therapy; Z79.82 Long term (current) use of aspirin; Z83.3 Family history of diabetes mellitus; Z84.1 Family history of disorders of kidney and ureter; Z81.1 Family history of alcohol abuse and dependence; Z86.718 Personal history of other venous thrombosis and embolism; Z98.890 Other specified postprocedural states; Z83.79 Family history of other diseases of the digestive system; Z90.89 Acquired absence of other organs; Z87.891 Personal history of nicotine dependence; Z91.81 History of falling; Z86.16 Personal history of COVID-19
CPT/HCPCS: 36415; 70450; 71045; 71046; 74174; 76700; 76775; 80048; 80053; 81001; 82140; 83036; 83605; 83735; 84132; 85025; 85027; 85610; 85730; 87040; 87077; 87086; 87186; 87502; 87635; 93005; 93970; 93976; 94760; 96361; 96365; 96366; 96368; 99285

== ENCOUNTER → 2022-07-01 | Outpatient (CLI) | payer MEDICARE, BC ==
--- NOTE | 2022-07-01 15:34 | US ---
EXAMINATION TYPE: US venous doppler duplex LE BI DATE OF EXAM: 07/01/2022 3:05 PM COMPARISON: NONE CLINICAL HISTORY: R60.0 localized edema. SIDE PERFORMED: Bilateral TECHNIQUE: The lower extremity deep venous system is examined utilizing real time linear array sonog deya with graded compression, doppler sonography and color-flow sonography. VESSELS IMAGED: Common Femoral Vein Deep Femoral Vein Greater Saphenous Vein * Femoral Vein Popliteal Vein Small Saphenous Vein * Proximal Calf Veins-not visualized due to edema (* superficial vessels) Right Leg: Negative for DVT Left Leg: Negative for DVT IMPRESSION: 1. Bilateral lower extremity ultrasound negative for deep venous thrombosis
== END | disposition home or self-care (01) ==
LOC: RADUSWWP 14:35
PROVIDERS: ATTEND Family Medicine
DX: M79.604 Pain in right leg (principal); R60.0 Localized edema
CPT/HCPCS: 93970

== ENCOUNTER → 2022-07-12 | Outpatient (CLI) | payer MEDICARE, BC ==
--- NOTE | 2022-07-13 08:01 | BD ---
EXAMINATION TYPE: Axial Bone Density DATE OF EXAM: 07/12/2022 COMPARISON: 10/05/2018 CLINICAL HISTORY: 76 years year old Female. ICD-10 CODE: Z78.0 POST MENOPAUSAL Height: 62 Weight: 179 FRAX RISK QUESTIONS: Family History (Parent hip fracture): NO History of Fracture in Adulthood: NO Secondary Osteoporosis: NO 5. Chronic liver disease: NO, HAD LIVER TRANSPLANT 2014 Rheumatoid Arthritis: NO RISK FACTORS HISTORY OF: Family History of Osteoporosis: NO Active: YES Diet low in dairy products/other sources of calcium: NO Lost more than 2 inches in height since high school: NO Frequent falls: NO Poor Health: NO MEDICATIONS: Additional Medications: YES VIT D EXAM MEASUREMENTS: Bone mineral densitometry was performed using the Sennari System. Bone mineral density as measured about the Lumbar spine is: ----- L1-L4(G/cm2): 0.968 T Score Values are as follows: ----- L1: -2.4 ----- L2: -2.4 ----- L3: -0.9 ----- L4: -1.6 ----- L1-L4: -1.8 Bone mineral density has: Decreased -3.2% since study of: 10/05/2018 Bone mineral density about the R hip (g/cm2): 0.662 Bone mineral density about the L hip (g/cm2): 0.614 T Score values are as follows: -----R Neck: -2.6 -----L Neck: -3.3 -----R Total: -2.7 -----L Total: -3.1 Bone mineral density has: Decreased -7.7% since study of: 10/05/2018 FRAX%s: The graph provided illustrates a 23.5% chance for a major osteoporotic fx and a 10.1% chance for the hips probability for fx in 10 years time. IMPRESSION: Osteoporosis (T Score less than -2.5). There is increased fracture risk and therapy is usually indicated based on age. Re-Screen 1-2 years. NOTE: T-SCORE=SD OF THE YOUNG ADULT MEAN.
--- NOTE | 2022-07-13 08:52 | MM ---
Reason for Exam: Screening (asymptomatic). Last mammogram was performed 3 year(s) and 9 month(s) ago. Patient History: Menarche at age 15. First Full-Term at age 19. Postmenopausal. Currently using Estrogen, beginning at age 58 for 2 years. Currently using Progesterone, beginning at age 58 for 2 years. 1994, Benign Excisional Biopsy on the right side. 03/05/2002, Benign Stereotactic Core Biopsy on the left side. Maternal grandmother had breast cancer. Risk Values: Wendy 5 year model risk: 1.9%. NCI Lifetime model risk: 4.4%. Prior Study Comparison: 05/26/2005 Bilateral Screening Mammogram, [facility]. 06/07/2006 Bilateral Screening Mammogram, [facility]. 10/05/2018 Bilateral Screening Mammogram, [facility]. Tissue Density: There are scattered fibroglandular densities. Findings: Analyzed By CAD. There is no suspicious group of microcalcifications or new suspicious mass in either breast. Benign calcifications bilaterally. Overall Assessment: Benign, BI-RAD 2 Management: Screening Mammogram of both breasts in 1 year. A clinical breast exam by your physician is recommended on an annual basis and results should be correlated with mammographic findings. Electronically signed and approved by: Sebastian Meredith D.O.
== END | disposition home or self-care (01) ==
LOC: RADMAMWWP 16:06
PROVIDERS: ATTEND Family Medicine
DX: Z12.31 Encounter for screening mammogram for malignant neoplasm of breast (principal); M81.0 Age-related osteoporosis without current pathological fracture; M85.89 Other specified disorders of bone density and structure, multiple sites; Z78.0 Asymptomatic menopausal state; Z80.3 Family history of malignant neoplasm of breast; Z98.890 Other specified postprocedural states
CPT/HCPCS: 77063; 77067; 77080

== ENCOUNTER 2023-10-15 17:08 | Emergency (ER) | payer MEDICARE, BC ==
--- NOTE | 2023-10-15 18:31 | ED ---
General Adult HPI <Meng Henderson - Last Filed: 10/15/23 20:06> - General Source: patient, RN notes reviewed Mode of arrival: ambulatory Limitations: no limitations <Gaviota Bingham - Last Filed: 10/17/23 15:36> - General Chief complaint: Upper Respiratory Infection Stated complaint: Covid positive, liver transplant patient Time Seen by Provider: 10/15/23 17:51 - History of Present Illness Initial comments: 78 year old female presents to the emergency department for positive covid test. Patient states that her tested positive for COVID at urgent care earlier this week. She notes today that she has had fatigue, sore throat, cough. Also reports fever today. Symptoms starting this morning. She took an at home COVID test which was positive. Patient is concerned because she has had a liver transplant and is on immunosuppressants. She denies chest pain, shortness of breath. (Gaviota Bingham) - Related Data Home Medications Medication Instructions Recorded Confirmed Everolimus [Zortress] 3 mg PO BID 03/03/16 11/01/22 ursodioL [Actigall] 300 mg PO HS 03/09/17 11/01/22 ursodioL [Ursodiol] 600 mg PO DAILY 03/09/17 11/01/22 Levothyroxine Sodium 100 mcg PO DAILY 04/27/17 11/01/22 Tacrolimus [Prograf] 0.5 mg PO BID 11/01/18 11/01/22 Albuterol Sulfate [Albuterol 2 puff PO RT-Q6H PRN 03/24/21 11/01/22 Sulfate Hfa] calcitrioL 0.25 mcg PO SA 03/24/21 11/01/22 Aspirin EC [Ecotrin] 325 mg PO DAILY 07/01/21 11/01/22 Escitalopram [Lexapro] 10 mg PO DAILY 07/01/21 11/01/22 Magnesium Oxide [Mag-Ox] 400 mg PO BID 07/01/21 11/01/22 Metoprolol Tartrate [Lopressor] 50 mg PO BID 07/01/21 11/01/22 Previous Rx's Medication Instructions Recorded Acetaminophen Tab [Tylenol] 650 mg PO Q4HR PRN tab 02/09/22 Insulin Glargine,Hum.rec.anlog 15 unit SQ DAILY #2 pen 02/09/22 [Basaglar Kwikpen U-100] Tamsulosin [Flomax] 0.4 mg PO PC-BRKFST 3 Days #3 cap 02/09/22 cefUROXime axetiL [Ceftin] 500 mg PO BID 10 Days #20 tab 02/09/22 Molnupiravir [Lagevrio (Eua)] 800 mg PO BID #40 cap 10/17/23 Allergies Allergy/AdvReac Type Severity Reaction Status Date / Time No Known Allergies Allergy Verified 11/01/22 09:52 Review of Systems ROS Other: All systems not noted in ROS Statement are negative. <Meng Henderson - Last Filed: 10/15/23 20:06> ROS Other: All systems not noted in ROS Statement are negative. <Gaviota Bingham - Last Filed: 10/17/23 15:36> ROS Statement: Those systems with pertinent positive or pertinent negative responses have been documented in the HPI. Past Medical History Past Medical History: COPD, Deep Vein Thrombosis (DVT), Liver Disease, Respiratory Disorder, Thyroid Disorder Additional Past Medical History / Comment(s): emphysema, thoracentesis 06/24/14, underactive thyroid. liver transplant 2014 History of Any Multi-Drug Resistant Organisms: None Reported Past Surgical History: Hernia Repair, Tonsillectomy Additional Past Surgical History / Comment(s): hiatal hernia, past liver/gallbladder biopsies neg, Liver transplant 03/27/2015. Past Anesthesia/Blood Transfusion Reactions: No Reported Reaction Past Psychological History: No Psychological Hx Reported Smoking Status: Never smoker Past Alcohol Use History: None Reported - Past Family History Father Family Medical History: Liver Disease Additional Family Medical History / Comment(s): dad at age 72- was a heavy drinker had liver disease Mother Family Medical History: Diabetes Mellitus, Renal Disease Additional Family Medical History / Comment(s): at age 78 kidney failure <Gaviota Bingham - Last Filed: 10/17/23 15:36> General Exam Limitations: no limitations General appearance: alert, in no apparent distress Head exam: Present: atraumatic, normocephalic, normal inspection Eye exam: Present: normal appearance, PERRL, EOMI. Absent: scleral icterus, conjunctival injection, periorbital swelling ENT exam: Present: normal exam, mucous membranes moist, TM's normal bilaterally, normal external ear exam Neck exam: Present: normal inspection. Absent: tenderness, meningismus, lymphadenopathy Respiratory exam: Present: normal lung sounds bilaterally. Absent: respiratory distress, wheezes, rales, rhonchi, stridor Cardiovascular Exam: Present: regular rate, normal rhythm, normal heart sounds. Absent: systolic murmur, diastolic murmur, rubs, gallop, clicks Extremities exam: Present: normal inspection, full ROM, normal capillary refill. Absent: tenderness, pedal edema, joint swelling, calf tenderness Back exam: Present: normal inspection Neurological exam: Present: alert, oriented X3 Psychiatric exam: Present: normal affect, normal mood Skin exam: Present: warm, dry, intact, normal color. Absent: rash <Gaviota Bingham - Last Filed: 10/17/23 15:36> Course Vital Signs 10/15/23 10/15/23 10/15/23 17:39 18:17 18:41 Temperature 98.0 F Pulse Rate 108 H 88 Respiratory 20 18 17 Rate Blood Pressure 116/97 O2 Sat by Pulse 92 L 95 Oximetry 10/15/23 20:10 Temperature 98.2 F Pulse Rate 86 Respiratory 17 Rate Blood Pressure 135/73 O2 Sat by Pulse 97 Oximetry Medical Decision Making <Gaviota Bingham - Last Filed: 10/17/23 15:36> - Medical Decision Making Was pt. sent in by a medical professional or institution (LINDA Campa, LOGGING ENGINEER, urgent care, hospital, or jail...) When possible be specific @ -[No] Did you speak to anyone other than the patient for history (EMS, parent, family, police, friend...)? What history was obtained from this source @ -[No] Did you review nursing and triage notes (agree or disagree)? Why? @ -[I reviewed and agree with nursing and triage notes] Were old charts reviewed (outside hosp., previous admission, EMS record, old EKG, old radiological studies, urgent care reports/EKG's, jail records)? Report findings @ -[No old charts were reviewed] Differential Diagnosis (chest pain, altered mental status, abdominal pain women, abdominal pain men, vaginal bleeding, weakness, fever, dyspnea, syncope, headache, dizziness, GI bleed, back pain, seizure, CVA, palpatations, mental health, musculoskeletal)? @ -[Differential Fever: Pneumonia, viral URI, endocarditis, myocarditis, pericarditis, otitis, sinusitis, peritonsillar Abscess, retropharyngeal Abscess, epiglottitis, peritonitis, appendicitis, Sue cystitis, diverticulitis, hepatitis, colitis, UTI, PID, TOA, pyelonephritis, prostatitis, epididymitis, meningitis, encephalitis, pulmonary embolism, CVA, thyroid storm, pancreatitis, adrenal crisis, cavernous sinus thrombosis, this is not meant to be an all-inclusive list. ] EKG interpreted by me (3pts min.). @ -None X-rays interpreted by me (1pt min.). @ -Chest x-ray shows no acute infiltrate CT interpreted by me (1pt min.). @ -[None done] U/S interpreted by me (1pt. min.). @ -[None done] What testing was considered but not performed or refused? (CT, X-rays, U/S, labs)? Why? @ -[None] What meds were considered but not given or refused? Why? @ -[None] Did you discuss the management of the patient with other professionals (professionals i.e. , PA, LOGGING ENGINEER, lab, RT, psych nurse, 7th grade social studies teacher, piece marker small arms, teacher, aoc plans intelligence officer, patient case coordinator)? Give summary @ -[No] Was smoking cessation discussed for >3mins.? @ -[No] Was critical care preformed (if so, how long)? @ -[No] Were there social determinants of health that impacted care today? How? (Homelessness, low income, unemployed, alcoholism, drug addiction, haney sportation, low edu. Level, literacy, decrease access to med. care, snf, rehab)? @ -[No] Was there de-escalation of care discussed even if they declined (Discuss DNR or withdrawal of care, Hospice)? DNR status @ -[No] What co-morbidities impacted this encounter? (DM, HTN, Smoking, COPD, CAD, Cancer, CVA, ARF, Chemo, Hep., AIDS, mental health diagnosis, sleep apnea, morbid obesity)? @ -[None] Was patient admitted / discharged? Hospital course, mention meds given and route, prescriptions, significant lab abnormalities, going to OR and other pertinent info. @ -[Discharged. Patient presented to the emergency department for evaluation of positive covid test. Patient denies shortness of breath. Patient positive for covid in ED. Chest XR shows no acute process. VSS. Medication interactions to paxlovid. Patient prescribed molnupiravir. Patient will be discharged home. Patient and family understanding and agreeable with plan. Patient stable at time of discharge. Case discussed with Dr. WatsonAcuteCOVIDNoNoNoDischarged. Patient presented to the emergency department for evaluation of positive covid test. Patient denies shortness of breath. Patient positive for covid in ED. Chest XR shows no acute process. VSS. Medication interactions to paxlovid. Patient prescribed molnupiravir. Patient will be discharged home. Patient and family understanding and agreeable with plan. Patient stable at time of discharge. Case discussed with Dr. Henderson] Undiagnosed new problem with uncertain prognosis? @ -[No] Drug Therapy requiring intensive monitoring for toxicity (Heparin, Nitro, Insu quin, Cardizem)? @ -[No] Were any procedures done? @ -[No] Diagnosis/symptom? @ -[COVID] Acute, or Chronic, or Acute on Chronic? @ -[Acute] Uncomplicated (without systemic symptoms) or Complicated (systemic symptoms)? @ -Uncomplicated Side effects of treatment? @ -[No] Exacerbation, Progression, or Severe Exacerbation? @ -[No] Poses a threat to life or bodily function? How? (Chest pain, USA, [place], pneumonia, PE, COPD, DKA, ARF, appy, cholecystitis, CVA, Diverticulitis, Homicidal, Suicidal, threat to staff... and all critical care pts) @ -[No] (Gaviota Bingham) - Lab Data Lab Results 10/15/23 Range/Units 19:18 Influenza Type A (PCR) Not Detected (Not Detectd) Influenza Type B (PCR) Not Detected (Not Detectd) RSV (PCR) Not Detected (Not Detectd) SARS-CoV-2 (PCR) Detected A (Not Detectd) Disposition <Meng Henderson - Last Filed: 10/15/23 20:06> Is patient prescribed a controlled substance at d/c from ED?: No <Gaviota Bingham - Last Filed: 10/17/23 15:36> Clinical Impression: COVID Disposition: HOME SELF-CARE Condition: Stable Instructions (If sedation given, give patient instructions): Coronavirus Disease 2019 (COVID-19) Additional Instructions: Please diamond picker medication and take to completion. Follow up with your primary care provider. Return to the emergency department for new or worsening symptoms. Prescriptions: Molnupiravir [Lagevrio (Eua)] 800 mg PO BID #40 cap Referrals: George Wheeler MD [Primary Care Provider] - 1-2 days
[2023-10-15 18:55] VITALS: RESP 17
--- NOTE | 2023-10-15 19:22 | XR ---
EXAMINATION TYPE: XR chest 2V DATE OF EXAM: 10/15/2023 COMPARISON: 02/07/2010 INDICATION: Covid and dyspnea TECHNIQUE: Frontal and lateral views of the chest are obtained. FINDINGS: The heart size is normal. The pulmonary vasculature is normal. The lungs are clear. There is hyperinflation flattened diaphragms compatible COPD IMPRESSION: 1. No no radiographically apparent acute pulmonary process.
[2023-10-15 20:49] VITALS: BP 135/73; PULSE 86; TEMP 98.2
== END 2023-10-15 20:21 | disposition home or self-care (01) ==
LOC: EC 17:08
DX: U07.1 COVID-19 (principal)
CPT/HCPCS: 71046; 87636; 99283

== ENCOUNTER 2024-03-08 08:53 | Day surgery (SDC) | payer MEDICARE, BC ==
[2024-03-08 09:44] LABS: Glucose,Whole Blood 111 mg/dL (70-110)
[2024-03-08 10:28] VITALS: RESP 16; TEMP 97.6
[2024-03-08 10:30] VITALS: BP 111/61; PULSE 68
--- NOTE | 2024-03-08 12:01 | US ---
ULTRASOUND GUIDED BIOPSY LEFT ARM MASS: CLINICAL HISTORY: Left arm palpable mass FINDINGS: The procedure was explained to the patient. The risks, complications, benefits and alternatives were discussed and any questions were answered. Informed consent was obtained. Patient was placed supin e on the ultrasound table and prepped and draped in the usual sterile fashion. Utilizing a 18 gauge needle, two passes were made into the dominant mass. Mass appeared to be echogenic and may represent a lipoma. Patient was stable throughout the procedure. Pathology is pending. All elements of maximal barrier technique were utilized. IMPRESSION: 1. Successful ultrasound guided biopsy left arm mass. [facility], , 03/08/2024 11:49 AM
== END 2024-03-08 10:25 | disposition home or self-care (01) ==
LOC: RADPROMAIN 08:53
PROVIDERS: ATTEND Family Medicine
DX: R22.32 Localized swelling, mass and lump, left upper limb
CPT/HCPCS: 20206; 76942; 88305

== ENCOUNTER 2024-05-09 15:10 | Inpatient (IN) | payer MEDICARE, BC ==
--- NOTE | 2024-05-09 15:53 | ED ---
SOB HPI - General Chief Complaint: Shortness of Breath Stated Complaint: VIANNEY Time Seen by Provider: 05/09/24 15:13 Source: patient, RN notes reviewed, old records reviewed Mode of arrival: wheelchair Limitations: no limitations - History of Present Illness Initial Comments: This is a 78-year-old female to the ER for evaluation patient presents today for evaluation regards to severe shortness of breath especially with exertion weakness decreased activity level no chest pain, shortness of breath currently here in the ER and just has not been feeling well lately. Patient saw primary care this week with no improvement in symptoms MD Complaint: shortness of breath, cough, pain with inspiration, "asthma attack" -: week(s) Severity: severe Severity scale (1-10): 8 Consistency: constant Improves With: nothing Worsens With: nothing Known History Of: COPD Context: recent URI, anxiety Associated Symptoms: pain with inspiration, cough, sputum production - Related Data Home Medications Medication Instructions Recorded Confirmed Everolimus [Zortress] 0.75 mg PO HS@209903/03/16 05/09/24 ursodioL [Ursodiol] 600 mg PO DAILY@129903/09/17 05/09/24 Levothyroxine Sodium 75 mcg PO AC-BRKFST 04/27/17 05/09/24 calcitrioL 0.25 mcg PO MOTUWETHFRSA@0800 03/24/21 05/09/24 Aspirin EC [Ecotrin] 81 mg PO DAILY@0800 07/01/21 05/09/24 Escitalopram [Lexapro] 10 mg PO DAILY@0800 07/01/21 05/09/24 Atorvastatin [Lipitor] 10 mg PO HS@209902/27/24 05/09/24 Insulin Glargine/Lixisenatide 36 units SQ DAILY 02/27/24 05/09/24 [Soliqua 100 Unit-33 Mcg/ml Pen] Midodrine [ProAmatine] 5 mg PO BID@0800,209902/27/24 05/09/24 allopurinoL 100 mg PO HS@209902/27/24 05/09/24 Everolimus 1.5 mg PO DAILY@1300 05/09/24 05/09/24 Metoprolol Tartrate [Lopressor] 12.5 mg PO BID@0800,209905/09/24 05/09/24 Nystatin 100,000Unit/gm Cream 1 applic TOPICAL BID PRN 05/09/24 05/09/24 [Mycostatin Cream] Vit C/E/Zn/Coppr/Lutein/Zeaxan 1 cap PO DAILY@0800 05/09/24 05/09/24 [Preservision Areds 2 Softgel] ursodioL [Ursodiol] 300 mg PO HS@2100 05/09/24 05/09/24 Allergies Allergy/AdvReac Type Severity Reaction Status Date / Time No Known Allergies Allergy Verified 05/09/24 16:12 Review of Systems ROS Statement: Those systems with pertinent positive or pertinent negative responses have been documented in the HPI. ROS Other: All systems not noted in ROS Statement are negative. Past Medical History Past Medical History: COPD, Diabetes Mellitus, Deep Vein Thrombosis (DVT), Liver Disease, Respiratory Disorder, Thyroid Disorder Additional Past Medical History / Comment(s): emphysema, thoracentesis 06/24/14, underactive thyroid, non alcoholic cirrhosis. liver transplant 2014 History of Any Multi-Drug Resistant Organisms: None Reported Past Surgical History: Hernia Repair, Tonsillectomy Additional Past Surgical History / Comment(s): hiatal hernia, past liver/gallbladder biopsies neg, Liver transplant 03/27/2015. Past Anesthesia/Blood Transfusion Reactions: No Reported Reaction Past Psychological History: No Psychological Hx Reported Smoking Status: Former smoker Past Alcohol Use History: None Reported Past Drug Use History: None Reported - Past Family History Father Family Medical History: Liver Disease Additional Family Medical History / Comment(s): dad at age 72- was a heavy drinker had liver disease Mother Family Medical History: Diabetes Mellitus, Renal Disease Additional Family Medical History / Comment(s): at age 78 kidney failure General Exam Limitations: no limitations General appearance: alert, in no apparent distress, anxious Head exam: Present: atraumatic, normocephalic, normal inspection Eye exam: Present: normal appearance, PERRL, EOMI. Absent: scleral icterus, conjunctival injection, periorbital swelling ENT exam: Present: normal exam, mucous membranes moist Neck exam: Present: normal inspection. Absent: tenderness, meningismus, lymphad enopathy Respiratory exam: Present: normal lung sounds bilaterally. Absent: respiratory distress, wheezes, rales, rhonchi, stridor Cardiovascular Exam: Present: regular rate, normal rhythm, normal heart sounds. Absent: systolic murmur, diastolic murmur, rubs, gallop, clicks GI/Abdominal exam: Present: soft, normal bowel sounds. Absent: distended, tenderness, guarding, rebound, rigid Extremities exam: Present: normal inspection, full ROM, normal capillary refill. Absent: tenderness, pedal edema, joint swelling, calf tenderness Back exam: Present: normal inspection Neurological exam: Present: alert, oriented X3, CN II-XII intact Psychiatric exam: Present: normal affect, normal mood Skin exam: Present: warm, dry, intact, normal color. Absent: rash Course Vital Signs 05/09/24 05/09/24 05/09/24 15:11 16:25 16:29 Temperature 97.3 F L Pulse Rate 94 86 Respiratory 20 18 25 H Rate Blood Pressure 115/65 136/64 O2 Sat by Pulse 95 95 Oximetry 05/09/24 05/09/24 16:39 16:46 Temperature Pulse Rate 87 86 Respiratory 18 18 Rate Blood Pressure O2 Sat by Pulse Oximetry - Reevaluation(s) Reevaluation #1: 05/09/24 16:07 Medical records reviewed Reevaluation #2: 05/09/24 17:20 patient is feeling better Reevaluation #3: 05/09/24 17:20 Patient informed of results and questions answered Reevaluation #4: Was pt. sent in by a medical professional or institution (, PA, [employer], urgent care, hospital, or jail...) When possible be specific @ -no Did you speak to anyone other than the patient for history (EMS, parent, family, police, friend...)? What history was obtained from this source @ -no Did you review nursing and triage notes (agree or disagree)? Why? @ -agree Are old charts reviewed (outside hosp., previous admission, EMS record, old EKG, old radiological studies, urgent care reports/EKG's, jail records)? Report findings @ -yes Differential Diagnosis (chest pain, altered mental status, abdominal pain women, abdominal pain men, vaginal bleeding, weakness, fever, dyspnea, syncope, headache, dizziness, GI bleed, back pain, seizure, CVA, palpatations, mental health, musculoskeletal)? @ -prior EKG interpreted by me (3pts min.). @ -yes X-rays interpreted by me (1pt min.). @ -yes negative for acute disease CT interpreted by me (1pt min.). @ -no U/S interpreted by me (1pt. min.). @ -no What testing was considered but not performed or refused? (CT, X-rays, U/S, labs)? Why? @ -none What meds were considered but not given or refused? Why? @ -none Did you discuss the management of the patient with other professionals (an[employer] i.e. , PA, [employer], lab, RT, psych nurse, social insurance administrator, byproduct engineer, teacher, intelligence officer basic, caser in)? Give summary @ -no Was smoking cessation discussed for >3mins.? @ -no Was critical care preformed (if so, how long)? @ -no Were there social determinants of health that impacted care today? How? (Homelessness, low income, unemployed, alcoholism, drug addiction, transportation, low edu. Level, literacy, decrease access to med. care, halfway, rehab)? @ -none Was there de-escalation of care discussed even if they declined (Discuss DNR or withdrawal of care, Hospice)? DNR status @ -no What co-morbidities impacted this encounter? (DM, HTN, Smoking, COPD, CAD, Cancer, CVA, ARF, Chemo, Hep., AIDS, mental health diagnosis, sleep apnea, morbid obesity)? @ -none Was patient admitted / discharged? Hospital course, mention meds given and route, prescriptions, significant lab abnormalities, going to OR and other pertinent info. @ - Undiagnosed new problem with uncertain prognosis? @ -no Drug Therapy requiring intensive monitoring for toxicity (Heparin, Nitro, Insulin, Cardizem)? @ -no Were any procedures done? @ -no Diagnosis/symptom? @ - Acute, or Chronic, or Acute on Chronic? @ -Acute Uncomplicated (without systemic symptoms) or Complicated (systemic symptoms)? @ -Complicated Side effects of treatment? @ -no Exacerbation, Progression, or Severe Exacerbation? @ -exacerbation Poses a threat to life or bodily function? How? (Chest pain, [place], [place], pneumonia, PE, COPD, DKA, ARF, appy, cholecystitis, CVA, Diverticulitis, Homicidal, Suicidal, threat to staff... and all critical care pts) @ -yes Reevaluation #5: Differential Dyspnea: Coronary syndrome, arrhythmia, tamponade, asthma, COPD, pulmonary embolism, pneumonia, pneumothorax, pulmonary effusion, anaphylaxis, diabetic ketoacidosis, flailed chest, pulmonary contusion, diaphragmatic rupture, anemia, neuromuscular, this is not meant to be an all-inclusive list. - Consultations Consultation #1: Spoke with Dr. Wheeler who agrees to admit the patient Medical Decision Making - Medical Decision Making 78 female with mixed COPD and CHF exacerbation and fluid overload patient will be admitted for breathing treatment and cardiology evaluation - Lab Data Result diagrams: 05/09/24 16:25 05/09/24 16:25 Lab Results 05/09/24 05/09/24 05/09/24 Range/Units 16:25 16:25 16:25 WBC 10.4 (3.8-10.6) k/uL RBC 4.37 (3.80-5.40) m/uL Hgb 12.1 (11.4-16.0) gm/dL Hct 36.9 (34.0-46.0) % MCV 84.3 (80.0-100.0) fL MCH 27.8 (25.0-35.0) pg MCHC 32.9 (31.0-37.0) g/dL RDW 15.9 H (11.5-15.5) % Plt Count 200 (150-450) k/uL MPV 7.2 Neutrophils % 76 % Lymphocytes % 15 % Monocytes % 6 % Eosinophils % 2 % Basophils % 0 % Neutrophils # 7.9 H (1.3-7.7) k/uL Lymphocytes # 1.5 (1.0-4.8) k/uL Monocytes # 0.7 (0-1.0) k/uL Eosinophils # 0.2 (0-0.7) k/uL Basophils # 0.0 (0-0.2) k/uL PT 10.7 (10.0-12.5) sec INR 1.0 (<1.2) APTT 24.7 (22.0-30.0) sec D-Dimer 3.05 H (<0.60) mg/L FEU Sodium 137 (137-145) mmol/L Potassium 3.5 (3.5-5.1) mmol/L Chloride 105 (98-107) mmol/L Carbon Dioxide 26 (22-30) mmol/L Anion Gap 6 mmol/L BUN 26 H (7-17) mg/dL Creatinine 1.35 H (0.52-1.04) mg/dL Est GFR (CKD-EPI)AfAm 44 (>60 ml/min/1.73 sqM) Est GFR (CKD-EPI)NonAf 38 (>60 ml/min/1.73 sqM) Glucose 92 (74-99) mg/dL Plasma Lactic Acid Jose (0.7-2.0) mmol/L Calcium 8.9 (8.4-10.2) mg/dL Magnesium 1.8 (1.6-2.3) mg/dL Total Bilirubin 0.6 (0.2-1.3) mg/dL AST 24 (14-36) U/L ALT 13 (4-34) U/L Alkaline Phosphatase 124 (38-126) U/L NT-Pro-B Natriuret Pep 772 pg/mL Total Protein 6.9 (6.3-8.2) g/dL Albumin 3.7 (3.5-5.0) g/dL 05/09/24 Range/Units 16:25 WBC (3.8-10.6) k/uL RBC (3.80-5.40) m/uL Hgb (11.4-16.0) gm/dL Hct (34.0-46.0) % MCV (80.0-100.0) fL MCH (25.0-35.0) pg MCHC (31.0-37.0) g/dL RDW (11.5-15.5) % Plt Count (150-450) k/uL MPV Neutrophils % % Lymphocytes % % Monocytes % % Eosinophils % % Basophils % % Neutrophils # (1.3-7.7) k/uL Lymphocytes # (1.0-4.8) k/uL Monocytes # (0-1.0) k/uL Eosinophils # (0-0.7) k/uL Basophils # (0-0.2) k/uL PT (10.0-12.5) sec INR (<1.2) APTT (22.0-30.0) sec D-Dimer (<0.60) mg/L FEU Sodium (137-145) mmol/L Potassium (3.5-5.1) mmol/L Chloride (98-107) mmol/L Carbon Dioxide (22-30) mmol/L Anion Gap mmol/L BUN (7-17) mg/dL Creatinine (0.52-1.04) mg/dL Est GFR (CKD-EPI)AfAm (>60 ml/min/1.73 sqM) Est GFR (CKD-EPI)NonAf (>60 ml/min/1.73 sqM) Glucose (74-99) mg/dL Plasma Lactic Acid Jose 1.7 (0.7-2.0) mmol/L Calcium (8.4-10.2) mg/dL Magnesium (1.6-2.3) mg/dL Total Bilirubin (0.2-1.3) mg/dL AST (14-36) U/L ALT (4-34) U/L Alkaline Phosphatase (38-126) U/L NT-Pro-B Natriuret Pep pg/mL Total Protein (6.3-8.2) g/dL Albumin (3.5-5.0) g/dL - EKG Data -: EKG Interpreted by Me (EKG is sinus 98 MA 140 QRS 82 QTc 441) - Radiology Data Radiology results: report reviewed (CXR is positive for CHF), image reviewed Disposition Clinical Impression: Congestive heart failure, Acute pulmonary edema, COPD exacerbation, CKD (chronic kidney disease) stage 3, GFR 30-59 ml/min Disposition: ADMITTED IP TO THIS HOSP Condition: Fair Is patient prescribed a controlled substance at d/c from ED?: No Referrals: Aron Avila Jr, DO [Doctor of Osteopathic Medicine] - 1-2 days Time of Disposition: 17:30
[2024-05-09] MEDS: SODIUM CHLORIDE 0.9% 1,000 ML IV STA (16:17)
[2024-05-09] MEDS: SODIUM CHLORIDE 0.9% 500 ML 500 ML IV STA ×2 (16:17→18:45)
[2024-05-09] MEDS: methylPREDNISolone SOD SUCCI 125 MG/2 ML VIAL IV STA (16:18)
[2024-05-09 16:38] LABS: Basophils % (A) 0 %; Eosinophils # (A) 0.2 k/uL (0-0.7); Eosinophils % (A) 2 %; HCT 36.9 % (34.0-46.0); HGB 12.1 gm/dL (11.4-16.0); Lymphocytes # (A) 1.5 k/uL (1.0-4.8); Lymphocytes % (A) 15 %; MCH 27.8 pg (25.0-35.0); MCHC 32.9 g/dL (31.0-37.0); MCV 84.3 fL (80.0-100.0); Mean Platelet Volume 7.2; Monocytes # (A) 0.7 k/uL (0-1.0); Monocytes % (A) 6 %; Neutrophils # (A) 7.9 k/uL (1.3-7.7); Neutrophils % (A) 76 %; Platelet Count 200 k/uL (150-450); RBC 4.37 m/uL (3.80-5.40); RDW 15.9 % (11.5-15.5); WBC 10.4 k/uL (3.8-10.6)
[2024-05-09] MEDS: IPRATROPIUM-ALBUTEROL 3 ML NEB INHALATION STA (16:39)
[2024-05-09 16:47] LABS: ALT 13 U/L (4-34); AST 24 U/L (14-36); African American GFR (CKD) 44 (>60 ml/min/1.73 sqM); Albumin 3.7 g/dL (3.5-5.0); Alkaline Phosphatase 124 U/L (38-126); Anion Gap 6 mmol/L; Blood Urea Nitrogen 26 mg/dL (7-17); Calcium 8.9 mg/dL (8.4-10.2); Carbon Dioxide 26 mmol/L (22-30); Chloride 105 mmol/L (98-107); Glucose 92 mg/dL (74-99); Magnesium 1.8 mg/dL (1.6-2.3); Non-African American GFR(CKD) 38 (>60 ml/min/1.73 sqM); Potassium 3.5 mmol/L (3.5-5.1); Sodium 137 mmol/L (137-145); Total Bilirubin 0.6 mg/dL (0.2-1.3); Total Protein 6.9 g/dL (6.3-8.2)
[2024-05-09 16:49] LABS: Lactic Acid, Venous 1.7 mmol/L (0.7-2.0)
[2024-05-09 16:56] LABS: NT-Pro-B-Type Natriuretic Pept 772 pg/mL; Partial Thromboplastin Time 24.7 sec (22.0-30.0); Prothrombin Time 10.7 sec (10.0-12.5)
--- NOTE | 2024-05-09 16:57 | XR ---
EXAMINATION TYPE: XR chest 1V portable DATE OF EXAM: 05/09/2024 4:49 PM COMPARISON: Chest radiographs from 10/15/2023 CLINICAL INDICATION: Female, 78 years old with history of sob; [facility] TECHNIQUE: XR chest 1V portable Frontal view of the chest. FINDINGS: Lungs/Pleura: There is no evidence of pleural effusion, focal consolidation, or pneumothorax. Pulmonary vascularity: Unremarkable. Heart/mediastinum: Cardiomediastinal silhouette is unremarkable. Musculoskeletal: No acute osseous pathology. Surgical clips project over the gastroesophageal junction. IMPRESSION: Cardiomegaly and mild pulmonary vascular congestion. Correlate with BNP for congestive heart failure. [facility], , 05/09/2024 4:55 PM
[2024-05-09] MEDS ORDERED: ONDANSETRON 4 MG/2 ML VIAL IVP PRN (17:15)
[2024-05-09] MEDS ORDERED: MORPHINE SULFATE 4 MG/ML SYRINGE IV PRN (17:15)
[2024-05-09] MEDS ORDERED: NALOXONE 0.4 MG/ML 1 ML VIAL IV PRN (17:15)
--- NOTE | 2024-05-09 18:27 | CT ---
EXAMINATION TYPE: CT angio chest DATE OF EXAM: 05/09/2024 5:27 PM COMPARISON: Chest radiograph from same day. CLINICAL INDICATION: Female, 78 years old with history of cp; CP, elevated D-dimer. TECHNIQUE/CONTRAST: CTA scan of the thorax is performed with IV Contrast, patient injected with 80 ml mL of Isovue 370, M IP images are created and reviewed these are created on a separate workstation.. CT DLP: 414.2 mGycm, Automated exposure control for dose reduction was used. FINDINGS: Lungs/Pleura: No evidence of focal consolidation, pleural effusion or pneumothorax. Airway: Large airways are patent. Heart: Heart is within normal limits for size. Vasculature: There is no evidence for a filling defect within the pulmonary vasculature to suggest ac rell pulmonary embolism. The pulmonary artery is of normal size. Mediastinum: No gross evidence of adenopathy. Musculoskeletal: No acute osseous abnormalities Soft Tissues/lymph nodes: Unremarkable. Lower neck: No significant findings. Upper Abdomen: Mild lobular contour to the liver. Multiple surgical clips around the gastrohepatic li quid. IMPRESSION: 1. No evidence of pulmonary embolism. 2. Mild nodularity to liver correlate for cirrhosis. Follow up recommendations for incidental pulmonary nodules, if there are any, are per [employer] [employer] or [employer] [employer]. https://radiopaedia.org/articles/klcrknvhez-tzwkcnp-kribuexdr-yxzgrf-nkgweiiyimobold-[email or web address]?lang=us [facility], , 05/09/2024 6:24 PM
[2024-05-09] MEDS: FUROSEMIDE 10 MG/ML 4 ML VIAL IV SCH (18:47)
[2024-05-09] MEDS: SODIUM CHLORIDE 0.9% 1,000 ML IV SCH (18:49)
--- NOTE | 2024-05-09 18:52 | US ---
EXAMINATION TYPE: US venous doppler duplex LE BI DATE OF EXAM: 05/09/2024 6:20 PM COMPARISON: 07/01/2022 CLINICAL INDICATION: Female, 78 years old with history of dvt,pain; Patient states no pain and no hx dvt , TECHNIQUE: The lower extremity deep venous system is examined utilizing real time linear array sonog deya with graded compression, color doppler sonography, and spectral doppler. SIDE PERFORMED: Bilateral FINDINGS: VESSELS IMAGED: Common Femoral Vein Deep Femoral Vein Greater Saphenous Vein * Femoral Vein Popliteal Vein Small Saphenous Vein * Proximal Calf Veins (* superficial vessels) Right Leg: Negative for DVT, Color Doppler imaging shows patency of the vessels. Spectral waveforms are within normal limits. Left Leg: Negative for DVT, Color Doppler imaging shows patency of the vessels. Spectral waveforms a re within normal limits. IMPRESSION: No ultrasound evidence for deep venous thrombosis. [facility], , 05/09/2024 6:50 PM
--- NOTE | 2024-05-10 06:44 | P.CNPUL ---
History of Present Illness Consult date: 05/10/24 Requesting physician: Gustavo Trimble Reason for consult: COPD Chief complaint: Exertional shortness of breath History of present illness: Patient is a 78-year-old white female with past medical history significant for severe COPD with an FEV1 46% of predicted, not O2 dependent at baseline, lung nodules, previous liver transplant at [facility] in 2015, DVT, and seizure disorder. Presented yesterday afternoon with a chief complaint of shortness of breath, mostly on exertion. Interestingly, no other particular symptoms. She denies sick contacts. Denies any URI like symptoms. Denies cough, sputum production, hemoptysis, chest pain. Denies fevers or chills. She denies chest pain, heart palpitations, lower extremity swelling, orthopnea, PND. She does state that the shortness of breath is worse when sitting up. She is not on any home O2. Her COPD has been fairly well-controlled. She has seen Dr. Baer in the past, but it does not appear that the patient has followed up in the pulmonary office in a year and a half. She does have severe COPD with a known FEV1 46% of predicted. Not oxygen dependent. Usually fairly well-controlled, states that she only uses a as needed rescue inhaler. Chest x-ray does not show any focal infiltrates or evidence of pneumonia. There is mild cardiomegaly and possible pulmonary vascular congestion. NT proBNP was only mildly elevated at 772. D-dimer was elevated at 3, this preempted a chest CT angio protocol, which was unremarkable for any filling defects consistent with pulmonary embolism. Mild liver nodularity. Patient does have history of liver transplant. She takes Zortress. Negative for influenza, RSV, COVID. CBC: WBC count 10.4, hemoglobin 12.1, hematocrit 36.9, platelets 200. CMP: Sodium 137, potassium 3.5, chloride 105, serum bicarb 26, BUN 26, creatinine 1.35, glucose 93. Lactic 1.7. Troponins less than 0.012 x 3. LFTs unremarkable. Current vital signs: Afebrile, heart rate 88 bpm, blood pressure 133/78 mmHg, SpO2 95% on room air. Nontoxic appearance. Review of Systems Constitutional: Denies anorexia, Denies chills, Denies fatigue, Denies fever, Denies poor appetite, Denies sweats, Denies weight gain, Denies weight loss Ears, nose, mouth and throat: Denies headache, Denies nasal congestion, Denies nasal discharge, Denies post-nasal drip, Denies sinus pain, Denies sinus pressure, Denies sore throat Cardiovascular: Denies chest pain, Denies edema, Denies irregular heart beat, De nies leg edema, Denies lightheadedness, Denies orthopnea, Denies palpitations, Denies paroxysmal nocturnal dyspnea Respiratory: Reports as per HPI Gastrointestinal: Denies abdominal pain, Denies constipation, Denies diarrhea, Denies nausea, Denies vomiting Genitourinary: Denies dysuria Musculoskeletal: Denies limitation of motion Integumentary: Denies rash Neurological: Denies seizures, Denies syncope Psychiatric: Denies anxiety, Denies depression Past Medical History Past Medical History: COPD, Diabetes Mellitus, Deep Vein Thrombosis (DVT), Liver Disease, Respiratory Disorder, Thyroid Disorder Additional Past Medical History / Comment(s): emphysema, thoracentesis 06/24/14, underactive thyroid, non alcoholic cirrhosis. liver transplant 2014 History of Any Multi-Drug Resistant Organisms: None Reported Past Surgical History: Hernia Repair, Tonsillectomy Additional Past Surgical History / Comment(s): hiatal hernia, past liver/gallbladder biopsies neg, Liver transplant 03/27/2015. Past Anesthesia/Blood Transfusion Reactions: No Reported Reaction Past Psychological History: No Psychological Hx Reported Smoking Status: Former smoker Past Alcohol Use History: None Reported Past Drug Use History: None Reported - Past Family History Father Family Medical History: Liver Disease Additional Family Medical History / Comment(s): dad at age 72- was a heavy drinker had liver disease Mother Family Medical History: Diabetes Mellitus, Renal Disease Additional Family Medical History / Comment(s): at age 78 kidney failure Medications and Allergies Home Medications Medication Instructions Recorded Confirmed Type Everolimus [Zortress] 0.75 mg PO HS@2100 03/03/16 05/09/24 History ursodioL [Ursodiol] 600 mg PO DAILY@1300 03/09/17 05/09/24 History Levothyroxine Sodium 75 mcg PO AC-BRKFST 04/27/17 05/09/24 History calcitrioL 0.25 mcg PO MOTUWETHFRSA@0800 03/24/21 05/09/24 History Aspirin EC [Ecotrin] 81 mg PO DAILY@0800 07/01/21 05/09/24 History Escitalopram [Lexapro] 10 mg PO DAILY@0800 07/01/21 05/09/24 History Atorvastatin [Lipitor] 10 mg PO HS@209902/27/24 05/09/24 History Insulin Glargine/Lixisenatide 36 units SQ DAILY 02/27/24 05/09/24 History [Soliqua 100 Unit-33 Mcg/ml Pen] Midodrine [ProAmatine] 5 mg PO BID@0800,209902/27/24 05/09/24 History allopurinoL 100 mg PO HS@209902/27/24 05/09/24 History Everolimus 1.5 mg PO DAILY@1300 05/09/24 05/09/24 History Metoprolol Tartrate [Lopressor] 12.5 mg PO BID@0800,209905/09/24 05/09/24 History Nystatin 100,000Unit/gm Cream 1 applic TOPICAL BID PRN 05/09/24 05/09/24 History [Mycostatin Cream] Vit C/E/Zn/Coppr/Lutein/Zeaxan 1 cap PO DAILY@0800 05/09/24 05/09/24 History [Preservision Areds 2 Softgel] ursodioL [Ursodiol] 300 mg PO HS@209905/09/24 05/09/24 History Allergies Allergy/AdvReac Type Severity Reaction Status Date / Time No Known Allergies Allergy Verified 05/09/24 16:12 Physical Exam Vitals: Vital Signs Temp Pulse Resp BP Pulse Ox 05/10/24 03:00 84 16 133/78 95 05/10/24 02:00 95 18 118/64 95 05/10/24 01:00 97 18 138/92 95 05/10/24 00:00 98 18 130/74 94 L 05/09/24 23:00 87 18 125/64 95 05/09/24 22:00 94 18 141/75 95 05/09/24 21:00 107 H 20 141/75 95 05/09/24 20:00 95 20 123/69 95 05/09/24 18:51 89 18 139/76 97 05/09/24 17:30 92 24 118/59 96 05/09/24 16:46 86 18 05/09/24 16:39 87 18 05/09/24 16:30 98 19 136/64 94 L 05/09/24 16:29 25 H 05/09/24 16:25 86 18 136/64 95 05/09/24 15:11 97.3 F L 94 20 115/65 95 Intake and Output 05/09/24 05/09/24 05/10/24 14:59 22:59 06:59 Other: Weight 86.183 kg GENERAL EXAM: Alert, 78-year-old white female, comfortable in no apparent distress. HEAD: Normocephalic and atraumatic EYES: Normal reaction of pupils, equal size. NOSE: Clear with pink turbinates. THROAT: No erythema or exudates. NECK: No masses, no JVD. CHEST: No chest wall deformity. LUNGS: Equal air entry with no crackles, wheeze, rhonchi or dullness. On room air. No conversational dyspnea or accessory muscle use.. CVS: S1 and S2 normal with no audible murmur, regular rhythm. No extra heart sounds ABDOMEN: No hepatosplenomegaly, active bowel sounds, no guarding or rigidity. SPINE: No scoliosis or deformity SKIN: No rashes CENTRAL NERVOUS SYSTEM: No focal deficits, tone is normal in all 4 extremities. EXTREMITIES: There is no peripheral edema, clubbing, or cyanosis. Peripheral pulses are intact. Results - Laboratory Findings CBC and BMP: 05/10/24 08:53 05/10/24 08:53 PT/INR, D-dimer PT 10.7 sec (10.0-12.5) 05/09/24 16:25 INR 1.0 (<1.2) 05/09/24 16:25 D-Dimer 3.05 mg/L FEU (<0.60) H 05/09/24 16:25 Abnormal lab findings: Abnormal Labs 05/09/24 05/09/24 05/09/24 16:25 16:25 16:25 RDW 15.9 H Neutrophils # 7.9 H D-Dimer 3.05 H BUN 26 H Creatinine 1.35 H - Diagnostic Findings Chest x-ray: image reviewed CT scan - chest: image reviewed Assessment and Plan Assessment: Acute on chronic dyspnea, chest x-ray demonstrating some mild cardiomegaly and possible pulmonary vascular congestion, NT proBNP only mildly elevated at 772. No focal infiltrates evidence of pneumonia, pleural effusions, pneumothoraces. Severe chronic obstructive pulmonary disease, with an FEV1 46% of predicted, not particularly active on my evaluation Elevated D-dimer, chest CTA unremarkable for filling defects consistent with pulmonary embolism, no acute parenchymal abnormalities noted. No acute infiltrates, pleural effusions, pneumothoraces. Bilateral lower extremity veno us Dopplers negative for DVT. Paroxysmal atrial fibrillation, current rhythm is sinus and the patient is currently on Cardizem attending grams an hour. The patient remains on anticoagulation with Eliquis. History of lung nodules, follows up on outpatient basis History of liver transplant, maintained on Zortress History of hyperlipidemia History of hypothyroidism History of DVT, not on any anticoagulation at the moment Former tobacco dependence Plan: Patient is currently on room air oxygen Will optimize patient's lung function with a combination of bronchodilators, Symbicort inhaler, and IV Solu-Medrol Recommend patient follow-up outpatient on discharge in the pulmonary office. Patient is also going to be evaluated by cardiology. Transthoracic echocardiogram planned for the morning. Cardizem drip for management of atrial fibrillation per cardiology Anticoagulation with Eliquis Receiving Lasix 40 mg BID. We will continue to follow I have personally seen and examined the patient, performed the documentation and the assessment and plan as written. Number of minutes spent on the visit:20 This is a joint evaluation that was done along with the nurse practitioner. This evaluation was done more than 30 minutes. The patient is known to have COPD with an FEV1 of 46% of predicted and the patient presented to the hospital because of worsening shortness of breath. The patient is having episodes of atrial fibrillation the patient is currently on Cardizem drip at 10 mg an hour. The patient is maintained on anticoagulation with Eliquis 5 mg p.o. twice a day. CT angiogram of the chest was done at time of admission and shows no evidence of any pulm embolism. No other acute abnormalities. The Doppler of the lower extremity was also negative for DVT or pulmonary embolism. The patient is a recipient of a liver transplant. The patient remains on immunosuppression and the patient is on everolimus. She was considered to have some mild [employer]END[employer] exacerbation and patient was started on IV Solu-Medrol. Creatinine stable at 1.3. BUN is at 30. Electrolytes are stable. White cell count is not elevated. Currently, on room air oxygen with a pulse ox of 94%. Cardiology on the case regarding paroxysmal atrial fibrillation. Will continue to follow. Time with Patient: Greater than 30
[2024-05-10] MEDS: SYMBICORT 160-4.5 MCG INHALER INHALATION SCH (07:45)
[2024-05-10] MEDS: IPRATROPIUM-ALBUTEROL 3 ML NEB INHALATION SCH (07:45)
[2024-05-10] MEDS: LEVOTHYROXINE 75 MCG TAB PO SCH (08:02)
[2024-05-10] MEDS: methylPREDNISolone SOD SUCCI 40 MG/ML 1 ML VIAL IV SCH (08:02)
[2024-05-10] MEDS ORDERED: NYSTATIN 100,000UNIT/GM CREAM 30 GM TUBE TOPICAL PRN (08:12)
[2024-05-10] MEDS ORDERED: MIDODRINE 5 MG TAB PO SCH (09:00)
[2024-05-10] MEDS ORDERED: HEPARIN SODIUM 1,000 UN/ML (10ML VL) IV PRN (09:17)
[2024-05-10] MEDS: MIDODRINE 5 MG TAB PO SCH (09:18)
[2024-05-10] MEDS: ESCITALOPRAM 10 MG TAB PO SCH (09:18)
[2024-05-10 09:19] LABS: Anisocytosis Slight; Basophils % (A) 0 %; Eosinophils # (A) 0.1 k/uL (0-0.7); Eosinophils % (A) 1 %; HGB 13.7 gm/dL (11.4-16.0); Lymphocytes # (A) 1.1 k/uL (1.0-4.8); Lymphocytes % (A) 17 %; MCH 27.4 pg (25.0-35.0); MCHC 32.6 g/dL (31.0-37.0); MCV 84.2 fL (80.0-100.0); Mean Platelet Volume 7.9; Monocytes # (A) 0.1 k/uL (0-1.0); Monocytes % (A) 2 %; Neutrophils # (A) 5.2 k/uL (1.3-7.7); Neutrophils % (A) 80 %; Platelet Count 227 k/uL (150-450); RBC 4.99 m/uL (3.80-5.40); WBC 6.5 k/uL (3.8-10.6)
[2024-05-10] MEDS: METOPROLOL TARTRATE 12.5 MG TAB PO STA ×2 (09:19→09:25)
[2024-05-10] MEDS: ASPIRIN 81 MG PO SCH (09:19)
[2024-05-10] MEDS: HEPARIN SODIUM 1,000 UN/ML (10ML VL) IV ONE (09:20)
[2024-05-10] MEDS: HEPARIN SOD,PORK IN 0.45% NACL 25,000 UNIT in 0.45% NACL 1 250ML.BAG IV SCH (09:21)
[2024-05-10 09:32] LABS: ALT 17 U/L (4-34); AST 23 U/L (14-36); African American GFR (CKD) 45 (>60 ml/min/1.73 sqM); Albumin 4.2 g/dL (3.5-5.0); Alkaline Phosphatase 152 U/L (38-126); Anion Gap 15 mmol/L; Blood Urea Nitrogen 30 mg/dL (7-17); Calcium 9.4 mg/dL (8.4-10.2); Carbon Dioxide 24 mmol/L (22-30); Chloride 99 mmol/L (98-107); Glucose 258 mg/dL (74-99); Magnesium 1.7 mg/dL (1.6-2.3); Non-African American GFR(CKD) 39 (>60 ml/min/1.73 sqM); Phosphorus 3.4 mg/dL (2.5-4.5); Potassium 3.2 mmol/L (3.5-5.1); Sodium 138 mmol/L (137-145); Total Bilirubin 0.4 mg/dL (0.2-1.3); Total Protein 7.5 g/dL (6.3-8.2)
[2024-05-10] MEDS: SOLIQUA SQ SCH (09:37)
[2024-05-10] MEDS: DILTIAZEM DRIP BOLUS FROM BAG 1 MG SOLN IV ONE (09:53)
[2024-05-10] MEDS: DILTIAZEM 125 MG in SODIUM CHLORIDE 0.9% 100 ML IV SCH (09:53)
[2024-05-10] MEDS: METOPROLOL TARTRATE 12.5 MG TAB PO SCH (09:57)
--- NOTE | 2024-05-10 11:12 | P.CRDCN ---
History of Present Illness History of present illness: HISTORY OF PRESENT ILLNESS: This is a 78-year-old female with a past medical history significant for hyperlipidemia, COPD, and former nicotine dependence. 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 We have been asked to see the patient in consultation for congestive heart failure. Patient examined at the bedside in the emergency room. Patient states that she presented to the hospital with a chief complaint of sudden shortness of breath. She states the onset was just prior to coming to the hospital. She denied any chest pain or pressure. Denied any dizziness or lightheadedness. Denied nausea or vomiting. Denied any palpitations. The patient was thought to be in congestive heart failure and was started on IV Lasix. At the time of my examination, the patient is tachycardic and her heart sounds irregular. However her bedside compliance monitor is not connected. Spoke with nursing to obtain EKG which demonstrated A-fib with RVR. Patient does not have a history of A-fib. DIAGNOSTICS: - EKG reveals sinus mechanism. Repeat EKG reveals A-fib with RVR - Chest xray cardiomegaly and mild pulmonary vascular congestion - Chest CTA: Negative for pulmonary embolism. Mild nodularity to liver correlate for cirrhosis. - Venous Doppler: Negative for DVT bilaterally - Laboratory data: WBC 6.5. Hemoglobin 13.7. Platelet count 227. D-dimer 3.05 sodium 138. Potassium 3.2. BUN 30. Creatinine 1.33. Troponin negative x 3. proBNP 772. - Current home cardiac medications include Lipitor 10 mg at night and midodrine 5 mg twice a day - Most recent echocardiogram obtained in 2019 revealed ejection fraction 60 to 65%, trace MR, mild TR - Cardiac catheterization history: Patient denies REVIEW OF SYSTEMS: At the time of my exam: CONSTITUTIONAL: Denies fever or chills. HEENT: Denies blurred vision, vision changes, or eye pain. Denies hemoptysis CARDIOVASCULAR: Denies chest pain. Denies orthopnea. Denies PND. Denies palpitations RESPIRATORY: Denies shortness of breath. GASTROINTESTINAL: Denies abdominal pain. Denies nausea or vomiting. HEMATOLOGIC: Denies bleeding disorders. GENITOURINARY: Denies any blood in urine. SKIN: Denies pruitis. Denies rash. PHYSICAL EXAM: VITAL SIGNS: Reviewed. GENERAL: Well-developed in no acute distress. HEENT: Head is normocephalic. Pupils are equal, round. Sclerae anicteric. Mucous membranes of the mouth are moist. Neck supple. No JVD or thyromegaly LUNGS: Respirations even and unlabored. Lungs essentially clear to auscultation bilaterally. HEART: Tachycardic. Irregular rate and rhythm. S1 and S2 heard. ABDOMEN: Soft. Nondistended. Nontender. EXTREMITIES: Normal range of motion. No clubbing or cyanosis. Peripheral pulses intact. No lower extremity edema NEUROLOGIC: Awake and alert. Oriented x 3. ASSESSMENT: Shortness of breath New onset atrial fibrillation with RVR Congestive heart failure, ruled out, BNP within normal limits and no clinical evidence of CHF Hyperlipidemia COPD Liver transplant Former nicotine dependence, patient quit smoking 7 to 8 years ago PLAN: Obtain 2D echo to assess cardiac structure and function Check TSH Discontinue IV Lasix as patient is currently euvolemic Begin IV Cardizem bolus and drip Begin Eliquis 5 mg twice a day Increase metoprolol to 25 mg twice a day Increase atorvastatin to 20 mg at night Continue telemetry monitoring Further recommendations pending patient course Nurse practitioner note has been reviewed by physician. Signing provider agrees with the documented findings, assessment, and plan of care documented by GLASS GLAZIER as a scribe. Past Medical History Past Medical History: COPD, Diabetes Mellitus, Deep Vein Thrombosis (DVT), Liver Disease, Respiratory Disorder, Thyroid Disorder Additional Past Medical History / Comment(s): emphysema, thoracentesis 06/24/14, underactive thyroid, non alcoholic cirrhosis. liver transplant 2014 History of Any Multi-Drug Resistant Organisms: None Reported Past Surgical History: Hernia Repair, Tonsillectomy Additional Past Surgical History / Comment(s): hiatal hernia, past liver/gallbladder biopsies neg, Liver transplant 03/27/2015. Past Anesthesia/Blood Transfusion Reactions: No Reported Reaction Past Psychological History: No Psychological Hx Reported Smoking Status: Former smoker Past Alcohol Use History: None Reported Past Drug Use History: None Reported - Past Family History Father Family Medical History: Liver Disease Additional Family Medical History / Comment(s): dad at age 72- was a heavy drinker had liver disease Mother Family Medical History: Diabetes Mellitus, Renal Disease Additional Family Medical History / Comment(s): at age 78 kidney failure Medications and Allergies Home Medications Medication Instructions Recorded Confirmed Type Everolimus [Zortress] 0.75 mg PO HS@2100 03/03/16 11/27/24 History ursodioL [Ursodiol] 600 mg PO DAILY@1300 03/09/17 05/09/24 History Levothyroxine Sodium 75 mcg PO AC-BRKFST 04/27/17 05/09/24 History calcitrioL 0.25 mcg PO MOTUWETHFRSA@0800 03/24/21 05/09/24 History Aspirin EC [Ecotrin] 81 mg PO DAILY@0800 07/01/21 05/09/24 History Escitalopram [Lexapro] 10 mg PO DAILY@0800 07/01/21 05/09/24 History Atorvastatin [Lipitor] 10 mg PO HS@209902/27/24 05/09/24 History Insulin Glargine/Lixisenatide 36 units SQ DAILY 02/27/24 05/09/24 History [Soliqua 100 Unit-33 Mcg/ml Pen] Midodrine [ProAmatine] 5 mg PO BID@0800,209902/27/24 05/09/24 History allopurinoL 100 mg PO HS@209902/27/24 05/09/24 History Everolimus 1.5 mg PO DAILY@129905/09/24 05/09/24 History Metoprolol Tartrate [Lopressor] 12.5 mg PO BID@0800,209905/09/24 05/09/24 History Nystatin 100,000Unit/gm Cream 1 applic TOPICAL BID PRN 05/09/24 05/09/24 History [Mycostatin Cream] Vit C/E/Zn/Coppr/Lutein/Zeaxan 1 cap PO DAILY@0800 05/09/24 05/09/24 History [Preservision Areds 2 Softgel] ursodioL [Ursodiol] 300 mg PO HS@209905/09/24 05/09/24 History Allergies Allergy/AdvReac Type Severity Reaction Status Date / Time No Known Allergies Allergy Verified 05/09/24 16:12 Physical Exam Vitals: Vital Signs Temp Pulse Resp BP Pulse Ox 05/10/24 07:58 86 05/10/24 07:46 78 05/10/24 03:00 84 16 133/78 95 05/10/24 02:00 95 18 118/64 95 05/10/24 01:00 97 18 138/92 95 05/10/24 00:00 98 18 130/74 94 L 05/09/24 23:00 87 18 125/64 95 05/09/24 22:00 94 18 141/75 95 05/09/24 21:00 107 H 20 141/75 95 05/09/24 20:00 95 20 123/69 95 05/09/24 18:51 89 18 139/76 97 05/09/24 17:30 92 24 118/59 96 05/09/24 16:46 86 18 05/09/24 16:39 87 18 05/09/24 16:30 98 19 136/64 94 L 05/09/24 16:29 25 H 05/09/24 16:25 86 18 136/64 95 05/09/24 15:11 97.3 F L 94 20 115/65 95 Intake and Output 05/09/24 05/10/24 05/10/24 22:59 06:59 14:59 Other: Weight 86.183 kg Results 05/10/24 08:53 05/10/24 08:53 Cardiac Enzymes 05/09/24 05/09/24 05/09/24 Range/Units 16:25 16:25 19:40 AST 24 (14-36) U/L Troponin I <0.012 <0.012 (0.000-0.034) ng/mL 05/09/24 Range/Units 22:28 AST (14-36) U/L Troponin I <0.012 (0.000-0.034) ng/mL Coagulation 05/09/24 Range/Units 16:25 PT 10.7 (10.0-12.5) sec APTT 24.7 (22.0-30.0) sec CBC 05/09/24 Range/Units 16:25 WBC 10.4 (3.8-10.6) k/uL RBC 4.37 (3.80-5.40) m/uL Hgb 12.1 (11.4-16.0) gm/dL Hct 36.9 (34.0-46.0) % Plt Count 200 (150-450) k/uL Comprehensive Metabolic Panel 05/09/24 Range/Units 16:25 Sodium 137 (137-145) mmol/L Potassium 3.5 (3.5-5.1) mmol/L Chloride 105 (98-107) mmol/L Carbon Dioxide 26 (22-30) mmol/L BUN 26 H (7-17) mg/dL Creatinine 1.35 H (0.52-1.04) mg/dL Glucose 92 (74-99) mg/dL Calcium 8.9 (8.4-10.2) mg/dL AST 24 (14-36) U/L ALT 13 (4-34) U/L Alkaline Phosphatase 124 (38-126) U/L Total Protein 6.9 (6.3-8.2) g/dL Albumin 3.7 (3.5-5.0) g/dL Current Medications Generic Name Dose Route Start Last Admin Trade Name Freq PRN Reason Stop Dose Admin Albuterol/Ipratropium 3 ml 05/10/24 08:00 05/10/24 07:45 Ipratropium-Albuterol 3 Ml Neb INHALATION 3 ml RT-QID KATT Administration Aspirin 81 mg 05/10/24 09:00 Aspirin 81 Mg PO DAILY@0800 [facility] Atorvastatin Calcium 10 mg 05/10/24 21:00 Atorvastatin 10 Mg Tab PO HS@2100 [facility] Budesonide/Formoterol Fumarate 2 puff 05/10/24 08:00 05/10/24 07:45 Symbicort 160-4.5 Mcg Inhaler INHALATION 2 puff RT-BID KATT Administration Calcitriol 0.25 mcg 05/10/24 09:00 Calcitriol 0.25 Mcg Cap PO MOTUWETHFRSA@0800 [facility] Escitalopram Oxalate 10 mg 05/10/24 09:00 Escitalopram 10 Mg Tab PO DAILY@0800 [facility] Furosemide 40 mg 05/09/24 18:00 05/10/24 06:01 Furosemide 10 Mg/Ml 4 Ml Vial IV 40 mg Q12H KATT Administration Sodium Chloride 1,000 mls @ 20 mls/hr 05/09/24 17:15 05/09/24 18:49 Saline 0.9% IV 20 mls/hr .Q24H KATT Administration Levothyroxine Sodium 75 mcg 05/10/24 07:30 05/10/24 08:02 Levothyroxine 75 Mcg Tab PO 75 mcg AC-BRKFST KATT Administration Methylprednisolone Sodium Succinate 40 mg 05/10/24 08:00 05/10/24 08:02 Methylprednisolone Sod Succi 40 Mg/Ml 1 Ml Vial IV 40 mg Q8HR KATT Administration Metoprolol Tartrate 12.5 mg 05/10/24 09:00 Metoprolol Tartrate 12.5 Mg Tab PO BID@0800,2100 [facility] Midodrine 5 mg 05/10/24 09:00 Midodrine 5 Mg Tab PO BID@0800,1800 [facility] Morphine Sulfate 4 mg 05/09/24 17:15 Morphine Sulfate 4 Mg/Ml Syringe IV Q4HR PRN Severe Pain (Scale 7 to 10) Naloxone HCl 0.2 mg 05/09/24 17:15 Naloxone 0.4 Mg/Ml 1 Ml Vial IV Q2M PRN Opioid Reversal Zortress (Everolimus 1 each 05/10/24 21:00 ) 0.75 Mg Tablet PO HS@2100 [facility] Zortress (Everolimus 2 each 05/10/24 13:00 ) 0.75 Mg Tablet PO DAILY@1300 [facility] Soliqua [Insulin 36 units 05/10/24 09:00 Glargine/ SQ Lixisenatide] 100 DAILY [facility] Unit-33 Mcg/Ml 3ml Pen Nystatin 1 applic 05/10/24 08:12 Nystatin 100,000unit/Gm Cream 30 Gm Tube TOPICAL BID PRN Rash Protocol Ondansetron HCl 4 mg 05/09/24 17:15 Ondansetron 4 Mg/2 Ml Vial IVP Q8HR PRN Nausea And Vomiting Intake and Output 05/09/24 05/10/24 05/10/24 22:59 06:59 14:59 Other: Weight 86.183 kg 05/09/24 16:25 05/09/24 16:25
[2024-05-10 12:42] LABS: T4, Free (Free Thyroxine) 1.96 ng/dL (0.78-2.19)
[2024-05-10] MEDS: APIXABAN 5 MG TAB PO SCH (13:44)
--- NOTE | 2024-05-10 15:09 | P.HPIM ---
History of Present Illness H&P Date: 05/10/24 Chief Complaint: shortness of breath, palpitation 78-year-old female presents to the hospital with shortness of breath and new onset atrial fibrillation, patient complains of fast heartbeat, no nausea no vomiting no overt chest pain patient is alert is oriented 3 Review of Systems Constitutional: Reports weakness Ears, nose, mouth and throat: Reports as per HPI Cardiovascular: Reports irregular heart beat, Reports shortness of breath Respiratory: Reports cough, Reports dyspnea Gastrointestinal: Reports as per HPI Genitourinary: Reports as per HPI Menstruation: Reports postmenopausal Musculoskeletal: Reports as per HPI, Reports leg numbness/tingling Integumentary: Reports as per HPI Neurological: Reports as per HPI Psychiatric: Reports as per HPI Past Medical History Past Medical History: COPD, Diabetes Mellitus, Deep Vein Thrombosis (DVT), Liver Disease, Respiratory Disorder, Thyroid Disorder Additional Past Medical History / Comment(s): emphysema, thoracentesis 06/24/14, underactive thyroid, non alcoholic cirrhosis. liver transplant 2014 History of Any Multi-Drug Resistant Organisms: None Reported Past Surgical History: Hernia Repair, Tonsillectomy Additional Past Surgical History / Comment(s): hiatal hernia, past liver/gal lbladder biopsies neg, Liver transplant 03/27/2015. Past Anesthesia/Blood Transfusion Reactions: No Reported Reaction Past Psychological History: No Psychological Hx Reported Smoking Status: Former smoker Past Alcohol Use History: None Reported Past Drug Use History: None Reported - Past Family History Father Family Medical History: Liver Disease Additional Family Medical History / Comment(s): dad at age 72- was a heavy drinker had liver disease Mother Family Medical History: Diabetes Mellitus, Renal Disease Additional Family Medical History / Comment(s): at age 78 kidney failure Medications and Allergies Home Medications Medication Instructions Recorded Confirmed Type Everolimus [Zortress] 0.75 mg PO HS@2100 03/03/16 05/09/24 History ursodioL [Ursodiol] 600 mg PO DAILY@1300 03/09/17 05/09/24 History Levothyroxine Sodium 75 mcg PO AC-BRKFST 04/27/17 05/09/24 History calcitrioL 0.25 mcg PO MOTUWETHFRSA@0800 03/24/21 05/09/24 History Aspirin EC [Ecotrin] 81 mg PO DAILY@0800 07/01/21 05/09/24 History Escitalopram [Lexapro] 10 mg PO DAILY@0800 07/01/21 05/09/24 History Atorvastatin [Lipitor] 10 mg PO HS@209902/27/24 05/09/24 History Insulin Glargine/Lixisenatide 36 units SQ DAILY 02/27/24 05/09/24 History [Soliqua 100 Unit-33 Mcg/ml Pen] Midodrine [ProAmatine] 5 mg PO BID@0800,209902/27/24 05/09/24 History allopurinoL 100 mg PO HS@209902/27/24 05/09/24 History Everolimus 1.5 mg PO DAILY@1300 05/09/24 05/09/24 History Metoprolol Tartrate [Lopressor] 12.5 mg PO BID@0800,209905/09/24 05/09/24 History Nystatin 100,000Unit/gm Cream 1 applic TOPICAL BID PRN 05/09/24 05/09/24 History [Mycostatin Cream] Vit C/E/Zn/Coppr/Lutein/Zeaxan 1 cap PO DAILY@0805/09/24 05/09/24 History [Preservision Areds 2 Softgel] ursodioL [Ursodiol] 300 mg PO HS@209905/09/24 05/09/24 History Allergies Allergy/AdvReac Type Severity Reaction Status Date / Time No Known Allergies Allergy Verified 05/09/24 16:12 Physical Exam Osteopathic Statement: *. No significant issues noted on an osteopathic structural exam other than those noted in the History and Physical/Consult. Vitals: Vital Signs Temp Pulse Resp BP Pulse Ox 05/10/24 13:47 93 18 93/53 94 L 05/10/24 11:49 104 H 05/10/24 11:38 96 05/10/24 10:35 95 18 115/68 92 L 05/10/24 10:19 135 H 20 107/75 95 05/10/24 09:58 154 H 22 84/59 94 L 05/10/24 09:49 179 H 24 101/67 95 05/10/24 09:27 186 H 22 93/72 94 L 05/10/24 09:11 200 H 24 111/95 93 L 05/10/24 07:58 86 05/10/24 07:46 78 05/10/24 03:00 84 16 133/78 95 05/10/24 02:00 95 18 118/64 95 05/10/24 01:00 97 18 138/92 95 05/10/24 00:00 98 18 130/74 94 L 05/09/24 23:00 87 18 125/64 95 05/09/24 22:00 94 18 141/75 95 05/09/24 21:00 107 H 20 141/75 95 05/09/24 20:00 95 20 123/69 95 05/09/24 18:51 89 18 139/76 97 05/09/24 17:30 92 24 118/59 96 05/09/24 16:46 86 18 05/09/24 16:39 87 18 05/09/24 16:30 98 19 136/64 94 L 05/09/24 16:29 25 H 05/09/24 16:25 86 18 136/64 95 05/09/24 15:11 97.3 F L 94 20 115/65 95 Intake and Output 05/09/24 05/10/24 05/10/24 22:59 06:59 14:59 Other: Weight 86.183 kg General: [Patient awake, alert and oriented times 3. Patient in no acute distress.] HEENT: [PERRL. EOMI. No pharyngeal erythema or exudate.] Neck: [No adenopathy.] Cardiac: [Heart regular in rate and rhythm. No S3. No S4. No clicks, rubs. No murmur.] Lungs: [Clear to auscultation bilaterally.] Abdomen: [No mass. No organomegaly. Bowel sounds presnt and normoactive in all 4 quadrants.] Extremes: [No edema no cyanosis no claudication normal pulses] : normal female genitalia Musculoskeletal: [No joint erythema, edema or tenderness.] Skin: [No rash.] Neurologic: [No lateralizing deficits. CN II - XII grossly intact.] Lymphatic: [No adenopathy.] Results CBC & Chem 7: 05/10/24 08:53 05/10/24 08:53 Labs: Abnormal Lab Results - Last 24 Hours (Table) 05/09/24 05/09/24 05/09/24 Range/Units 16:25 16:25 16:25 RDW 15.9 H (11.5-15.5) % Neutrophils # 7.9 H (1.3-7.7) k/uL D-Dimer 3.05 H (<0.60) mg/L FEU Potassium (3.5-5.1) mmol/L BUN 26 H (7-17) mg/dL Creatinine 1.35 H (0.52-1.04) mg/dL Glucose (74-99) mg/dL Alkaline Phosphatase (38-126) U/L TSH (0.465-4.680) mIU/L 05/10/24 05/10/24 05/10/24 Range/Units 08:53 08:53 08:53 RDW 16.0 H (11.5-15.5) % Neutrophils # (1.3-7.7) k/uL D-Dimer (<0.60) mg/L FEU Potassium 3.2 L (3.5-5.1) mmol/L BUN 30 H (7-17) mg/dL Creatinine 1.33 H (0.52-1.04) mg/dL Glucose 258 H (74-99) mg/dL Alkaline Phosphatase 152 H (38-126) U/L TSH 0.376 L (0.465-4.680) mIU/L Thrombosis Risk Factor Assmnt - DVT/VTE Prophylaxis DVT/VTE Prophylaxis: Pharmacologic Prophylaxis ordered Assessment and Plan (1) Acute pulmonary edema Current Visit: Yes Status: Acute Code(s): J81.0 - ACUTE PULMONARY EDEMA SNOMED Code(s): 58511018 (2) Atrial fibrillation with RVR Current Visit: Yes Status: Acute Code(s): I48.91 - UNSPECIFIED ATRIAL FIBRILLATION SNOMED Code(s): 586815922883428 (3) CKD (chronic kidney disease) stage 3, GFR 30-59 ml/min Current Visit: Yes Status: Acute Code(s): N18.30 - CHRONIC KIDNEY DISEASE, STAGE 3 UNSPECIFIED SNOMED Code(s): 686284574 (4) COPD exacerbation Current Visit: Yes Status: Acute Code(s): J44.1 - CHRONIC OBSTRUCTIVE PULMONARY DISEASE W (ACUTE) EXACERBATION SNOMED Code(s): 179651027 (5) Congestive heart failure Current Visit: Yes Status: Acute Code(s): I50.9 - HEART FAILURE, UNSPECIFIED SNOMED Code(s): 99331409 Plan: admit to the hospital Cardiology consultation Rate control Anticoagulant therapy Reevaluate Time with Patient: Greater than 30
[2024-05-10] MEDS: ZORTRESS 0.75 MG PO SCH ×2 (16:11→21:15)
[2024-05-10 16:47] LABS: Glucose,Whole Blood 306 mg/dL (70-110)
[2024-05-10] MEDS: INSULIN ASPART (NovoLOG) 100 UNIT/ML VIAL SQ SCH (18:02)
[2024-05-10] MEDS ORDERED: ATORVASTATIN 10 MG TAB PO SCH (21:00)
[2024-05-10 21:14] LABS: Glucose,Whole Blood 209 mg/dL (70-110)
[2024-05-10] MEDS: ATORVASTATIN 20 MG TAB PO SCH (21:20)
[2024-05-10] MEDS: METOPROLOL TARTRATE 25 MG TAB PO SCH (21:20)
[2024-05-11] MEDS ORDERED: Potassium Replacement Protocol 1 EACH MISC MISCELLANE PRN (00:26)
[2024-05-11] MEDS: POTASSIUM CHLORIDE ER 20 MEQ TAB.ER PO SCH (01:12)
[2024-05-11 06:18] LABS: Glucose,Whole Blood 359 mg/dL (70-110)
[2024-05-11 06:39] LABS: African American GFR (CKD) 30 (>60 ml/min/1.73 sqM); Anion Gap 9 mmol/L; Blood Urea Nitrogen 56 mg/dL (7-17); Calcium 9.6 mg/dL (8.4-10.2); Carbon Dioxide 27 mmol/L (22-30); Chloride 102 mmol/L (98-107); Glucose 347 mg/dL (74-99); Non-African American GFR(CKD) 26 (>60 ml/min/1.73 sqM); Potassium 4.4 mmol/L (3.5-5.1); Sodium 138 mmol/L (137-145)
[2024-05-11 06:40] LABS: Prothrombin Time 10.7 sec (10.0-12.5)
[2024-05-11 07:29] LABS: Anisocytosis Slight; Basophils % (A) 0 %; Eosinophils # (A) 0.1 k/uL (0-0.7); Eosinophils % (A) 1 %; HCT 43.2 % (34.0-46.0); HGB 13.8 gm/dL (11.4-16.0); Lymphocytes # (A) 0.7 k/uL (1.0-4.8); Lymphocytes % (A) 6 %; MCH 26.8 pg (25.0-35.0); MCV 83.9 fL (80.0-100.0); Mean Platelet Volume 8.2; Monocytes # (A) 0.3 k/uL (0-1.0); Monocytes % (A) 2 %; Neutrophils # (A) 10.9 k/uL (1.3-7.7); Neutrophils % (A) 91 %; Platelet Count 244 k/uL (150-450); RBC 5.15 m/uL (3.80-5.40); RDW 16.1 % (11.5-15.5); WBC 11.9 k/uL (3.8-10.6)
--- NOTE | 2024-05-11 11:35 | P.PN ---
Subjective HISTORY OF PRESENT ILLNESS: This is a 78-year-old female with a past medical history significant for hyperlipidemia, COPD, and former nicotine dependence. 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 We have been asked to see the patient in consultation for congestive heart failure. Patient examined at the bedside in the emergency room. Patient states that she presented to the hospital with a chief complaint of sudden shortness of breath. She states the onset was just prior to coming to the hospital. She denied any chest pain or pressure. Denied any dizziness or lightheadedness. Denied nausea or vomiting. Denied any palpitations. The patient was thought to be in congestive heart failure and was started on IV Lasix. At the time of my examination, the patient is tachycardic and her heart sounds irregular. However her bedside monitoring engineer is not connected. Spoke with nursing to obtain EKG which demonstrated A-fib with RVR. Patient does not have a history of A-fib. DIAGNOSTICS: - EKG reveals sinus mechanism. Repeat EKG reveals A-fib with RVR - Chest xray cardiomegaly and mild pulmonary vascular congestion - Chest CTA: Negative for pulmonary embolism. Mild nodularity to liver correlate for cirrhosis. - Venous Doppler: Negative for DVT bilaterally - Laboratory data: WBC 6.5. Hemoglobin 13.7. Platelet count 227. D-dimer 3.05 sodium 138. Potassium 3.2. BUN 30. Creatinine 1.33. Troponin negative x 3. proBNP 772. - Current home cardiac medications include Lipitor 10 mg at night and midodrine 5 mg twice a day - Most recent echocardiogram obtained in 2019 revealed ejection fraction 60 to 65%, trace MR, mild TR - Cardiac catheterization history: Patient denies 05/11/2024 Patient examined this morning. She is sitting up in the chair. She denies chest pain or pressure. She denies shortness of breath. She is maintaining sinus mechanism this morning. 2D echo remains pending. Patient does have ASAF this morning with a creatinine of 1.84 up from 1.33 yesterday. PHYSICAL EXAM: VITAL SIGNS: Reviewed. GENERAL: Well-developed in no acute distress. HEENT: Head is normocephalic. Pupils are equal, round. Sclerae anicteric. Mucous membranes of the mouth are moist. Neck supple. No JVD or thyromegaly LUNGS: Respirations even and unlabored. Lungs essentially clear to auscultation bilaterally. HEART: Regular rate and rhythm. S1 and S2 heard. ABDOMEN: Soft. Nondistended. Nontender. EXTREMITIES: Normal range of motion. No clubbing or cyanosis. Peripheral pulses intact. No lower extremity edema NEUROLOGIC: Awake and alert. Oriented x 3. ASSESSMENT: Shortness of breath New onset atrial fibrillation with RVR, currently maintaining sinus mechanism Congestive heart failure, ruled out, BNP within normal limits and no clinical evidence of CHF Acute kidney injury, likely from diuresis on admission Hyperlipidemia COPD Liver transplant Former nicotine dependence, patient quit smoking 7 to 8 years ago PLAN: 2D echo remains pending. Await results Continue anticoagulation with Eliquis Continue current dose of metoprolol Repeat BMP in a.m. Continue telemetry monitoring Anticipate discharge home tomorrow if patient remains stable Further recommendations pending patient course Nurse practitioner note has been reviewed by physician. Signing provider agrees with the documented findings, assessment, and plan of care documented by CORK GRINDER as a scribe. Objective - Vital Signs Vital signs: Vital Signs Temp 97.5 F L 05/11/24 08:00 Pulse 100 05/11/24 09:43 Resp 16 05/11/24 08:00 BP 139/73 05/11/24 08:00 Pulse Ox 100 05/11/24 09:28 FiO2 Intake & Output 05/10/24 05/11/24 05/11/24 18:59 06:59 18:59 Intake Total 660 240 Balance 660 240 Weight 86.183 kg 80 kg Intake: Oral 660 240 Other: Voiding Method Toilet Toilet # Voids 2 - Labs CBC & Chem 7: 05/11/24 06:19 05/11/24 06:19 Labs: Abnormal Lab Results - Last 24 Hours (Table) 05/10/24 05/10/24 05/10/24 Range/Units 08:53 15:26 16:46 WBC (3.8-10.6) k/uL RDW (11.5-15.5) % Neutrophils # (1.3-7.7) k/uL Lymphocytes # (1.0-4.8) k/uL APTT 37.7 H (22.0-30.0) sec BUN (7-17) mg/dL Creatinine (0.52-1.04) mg/dL Glucose (74-99) mg/dL POC Glucose (mg/dL) 306 H (70-110) mg/dL TSH 0.376 L (0.465-4.680) mIU/L 05/10/24 05/11/24 05/11/24 Range/Units 21:12 06:18 06:19 WBC 11.9 H (3.8-10.6) k/uL RDW 16.1 H (11.5-15.5) % Neutrophils # 10.9 H (1.3-7.7) k/uL Lymphocytes # 0.7 L (1.0-4.8) k/uL APTT (22.0-30.0) sec BUN (7-17) mg/dL Creatinine (0.52-1.04) mg/dL Glucose (74-99) mg/dL POC Glucose (mg/dL) 209 H 359 H (70-110) mg/dL TSH (0.465-4.680) mIU/L 05/11/24 Range/Units 06:19 WBC (3.8-10.6) k/uL RDW (11.5-15.5) % Neutrophils # (1.3-7.7) k/uL Lymphocytes # (1.0-4.8) k/uL APTT (22.0-30.0) sec BUN 56 H (7-17) mg/dL Creatinine 1.84 H (0.52-1.04) mg/dL Glucose 347 H (74-99) mg/dL POC Glucose (mg/dL) (70-110) mg/dL TSH (0.465-4.680) mIU/L
[2024-05-11] MEDS: SOLIQUA SQ SCH (11:40)
[2024-05-11 11:47] LABS: Glucose,Whole Blood 219 mg/dL (70-110)
[2024-05-11] MEDS: ZORTRESS 0.75 MG PO SCH ×2 (12:03→21:03)
[2024-05-11] MEDS: ursodioL 300 MG CAP PO SCH ×2 (12:34→21:03)
[2024-05-11] MEDS ORDERED: ursodioL 300 MG CAP PO SCH ×2 (13:00→21:00)
[2024-05-11 13:47] VITALS: BMI 30.2
--- NOTE | 2024-05-11 15:14 | CA ---
Transthoracic Echo Report Name: Wendie Montenegro Age: 78 Gender: F : 1945 Exam Date: 05/11/2024 08:11 Exam Location: [facility] Ht (in): 64 Wt (lb): 190 Ordering Physician: Gustavo Trimble DO Attending/Referring Phys: [id number], Nai Beck Tender Elaine Daily RDCS Procedure CPT: Indications: Heart failure Cardiac Hx: COPD Technical Quality: Fair Contrast 1: Total Dose (mL): Contrast 2: Total Dose (mL): MEASUREMENTS (Male / Female) Normal Values 2D ECHO LV Diastolic Diameter PLAX 4.0 cm 4.2 - 5.9 / 3.9 - 5.3 cm LV Systolic Diameter PLAX 3.4 cm IVS Diastolic Thickness 0.9 cm 0.6 - 1.0 / 0.6 - 0.9 cm LVPW Diastolic Thickness 1.0 cm 0.6 - 1.0 / 0.6 - 0.9 cm LV Relative Wall Thickness 0.5 RV Internal Dim ED PLAX 3.3 cm LA Systolic Diameter LX 3.3 cm 3.0 - 4.0 / 2.7 - 3.8 cm LV Diastolic Volume MOD 4C 79.1 cm??? LV Systolic Volume MOD 4C 40.9 cm??? LV Ejection Fraction MOD 4C 48.3 % LV Cardiac Index MOD 4C 1505.0 cm???/min???m??? LV Diastolic Length 4C 7.0 cm LV Systolic Length 4C 5.7 cm LV Diastolic Volume MOD 2C 72.4 cm??? LV Systolic Volume MOD 2C 33.9 cm??? LV Ejection Fraction MOD 2C 53.2 % LV Cardiac Index MOD 2C 1517.2 cm???/min???m??? LV Diastolic Length 2C 7.4 cm LV Systolic Length 2C 6.2 cm LA Volume 39.7 cm??? 18 - 58 / 22 - 52 cm??? LA Volume Index 19.8 cm???/m??? 16 - 28 cm???/m??? M-MODE Aortic Root Diameter MM 3.1 cm AV Cusp Separation MM 2.2 cm DOPPLER AV Peak Velocity 129.3 cm/s AV Peak Gradient 6.7 mmHg MV Area PHT 3.3 cm??? Mitral E Point Velocity 84.7 cm/s Mitral A Point Velocity 111.3 cm/s Mitral E to A Ratio 0.8 MV Deceleration Time 231.3 ms TR Peak Velocity 335.4 cm/s TR Peak Gradient 45.0 mmHg Right Ventricular Systolic Press 49.7 mmHg FINDINGS Left Ventricle Left ventricular ejection fraction is estimated at 55-60 %. Left ventricular cavity size normal. Normal left ventricular wall motion.Normal left ventricular systolic function with no obvious regional wall motion abnormalities. Right Ventricle Mild right ventricular dilatation. Moderate pulmonary hypertension. Right ventricular systolic pressure estimated at 50 mm hg. Right Atrium Normal right atrial size. No right atrial thrombus or mass seen. Left Atrium Normal left atrial size. No left atrial thrombus or mass present. Mitral Valve Structurally normal mitral valve. No mitral stenosis, or prolapse.mild mitral regurgitation. Mitral annular calcification. Aortic Valve Trileaflet aortic valve. No aortic valve stenosis or regurgitation.aortic valve sclerosis. Tricuspid Valve Structurally normal tricuspid valve. Mild tricuspid regurgitation. Pulmonic Valve Structurally normal pulmonic valve. No pulmonic regurgitation. Pericardium No pericardial or pleural effusion. Aorta Normal size aortic root and proximal ascending aorta. CONCLUSIONS 1. Normal left ventricular size and systolic function 2. Mild mitral regurgitation 3. Mild tricuspid regurgitation with moderate pulmonary hypertension Previewed by: Dr. Rebecca Samuel MD (Electronically Signed) Final Date: 11 May 2024 15:13
[2024-05-11 16:36] LABS: Glucose,Whole Blood 317 mg/dL (70-110)
--- NOTE | 2024-05-11 17:23 | P.PN ---
Subjective Progress Note Date: 05/11/24 Principal diagnosis: A. fib with RVR patient complained of shortness of breath which has improved with rate control Objective - Vital Signs Vital signs: Vital Signs Temp 97.5 F L 05/11/24 08:00 Pulse 100 05/11/24 16:38 Resp 16 05/11/24 16:00 BP 144/83 05/11/24 16:00 Pulse Ox 92 L 05/11/24 16:00 FiO2 Intake & Output 05/10/24 05/11/24 05/11/24 18:59 06:59 18:59 Intake Total 660 240 358 Balance 660 240 358 Weight 86.183 kg 80 kg 80 kg Intake: Oral 660 240 358 Other: Voiding Method Toilet Toilet # Voids 2 2 - Exam General: [Patient awake, alert and oriented times 3. Patient in no acute distress.] HEENT: [PERRL. EOMI. No pharyngeal erythema or exudate.] Neck: [No adenopathy.] Cardiac: [Heart regular in rate and rhythm. No S3. No S4. No clicks, rubs. No murmur.] Lungs: [Clear to auscultation bilaterally.] Abdomen: [No mass. No organomegaly. Bowel sounds presnt and normoactive in all 4 quadrants.] Extremes: [No edema no cyanosis no claudication normal pulses] Musculoskeletal: [No joint erythema, edema or tenderness.] Skin: [No rash.] Neurologic: [No lateralizing deficits. CN II - XII grossly intact.] Lymphatic: [No adenopathy.] - Constitutional General appearance: Present: no acute distress - Labs CBC & Chem 7: 05/11/24 06:19 05/11/24 06:19 Labs: Abnormal Lab Results - Last 24 Hours (Table) 05/10/24 05/11/24 05/11/24 Range/Units 21:12 06:18 06:19 WBC 11.9 H (3.8-10.6) k/uL RDW 16.1 H (11.5-15.5) % Neutrophils # 10.9 H (1.3-7.7) k/uL Lymphocytes # 0.7 L (1.0-4.8) k/uL BUN (7-17) mg/dL Creatinine (0.52-1.04) mg/dL Glucose (74-99) mg/dL POC Glucose (mg/dL) 209 H 359 H (70-110) mg/dL 05/11/24 05/11/24 05/11/24 Range/Units 06:19 11:45 16:34 WBC (3.8-10.6) k/uL RDW (11.5-15.5) % Neutrophils # (1.3-7.7) k/uL Lymphocytes # (1.0-4.8) k/uL BUN 56 H (7-17) mg/dL Creatinine 1.84 H (0.52-1.04) mg/dL Glucose 347 H (74-99) mg/dL POC Glucose (mg/dL) 219 H 317 H (70-110) mg/dL Assessment and Plan (1) Acute pulmonary edema Current Visit: Yes Status: Acute Code(s): J81.0 - ACUTE PULMONARY EDEMA SNOMED Code(s): 72199663 (2) Atrial fibrillation with RVR Current Visit: Yes Status: Acute Code(s): I48.91 - UNSPECIFIED ATRIAL FIBRILLATION SNOMED Code(s): 931664498138727 (3) CKD (chronic kidney disease) stage 3, GFR 30-59 ml/min Current Visit: Yes Status: Acute Code(s): N18.30 - CHRONIC KIDNEY DISEASE, STAGE 3 UNSPECIFIED SNOMED Code(s): 288385389 (4) COPD exacerbation Current Visit: Yes Status: Acute Code(s): J44.1 - CHRONIC OBSTRUCTIVE PULMONARY DISEASE W (ACUTE) EXACERBATION SNOMED Code(s): 431132634 (5) Congestive heart failure Current Visit: Yes Status: Acute Code(s): I50.9 - HEART FAILURE, UNSPECIFIED SNOMED Code(s): 22476614 Plan: admit to the hospital Cardiology consultation Rate control Anticoagulant therapy Reevaluate Time with Patient: Greater than 30
--- NOTE | 2024-05-11 17:26 | P.PN ---
Subjective Progress Note Date: 05/11/24 Patient is a 78-year-old white female with past medical history significant for severe COPD with an FEV1 46% of predicted, not O2 dependent at baseline, lung nodules, previous liver transplant at [facility] in 2015, DVT, and seizure disorder. Presented yesterday afternoon with a chief complaint of shortness of breath, mostly on exertion. Interestingly, no other particular symptoms. She denies sick contacts. Denies any URI like symptoms. Denies cough, sputum production, hemoptysis, chest pain. Denies fevers or chills. She denies chest pain, heart palpitations, lower extremity swelling, orthopnea, PND. She does state that the shortness of breath is worse when sitting up. She is not on any home O2. Her COPD has been fairly well-controlled. She has seen Dr. Baer in the past, but it does not appear that the patient has followed up in the pulmonary office in a year and a half. She does have severe COPD with a known FEV1 46% of predicted. Not oxygen dependent. Usually fairly well-controlled, states that she only uses a as needed rescue inhaler. Chest x-ray does not show any focal infiltrates or evidence of pneumonia. There is mild cardiomegaly and possible pulmonary vascular congestion. NT proBNP was only mildly elevated at 772. D-dimer was elevated at 3, this preempted a chest CT angio protocol, which was unremarkable for any filling defects consistent with pulmonary embolism. Mild liver nodularity. Patient does have history of liver transplant. She takes Zortress. Negative for influenza, RSV, COVID. CBC: WBC count 10.4, hemoglobin 12.1, hematocrit 36.9, platelets 200. CMP: Sodium 137, potassium 3.5, chloride 105, serum bicarb 26, BUN 26, creatinine 1.35, glucose 93. Lactic 1.7. Troponins less than 0.012 x 3. LFTs unremarkable. Current vital signs: Afebrile, heart rate 88 bpm, blood pressure 133/78 mmHg, SpO2 95% on room air. Nontoxic appearance. On 05/11/2024, the patient is being seen for a follow-up. The patient has advanced COPD. She was hospitalized for some increased shortness of breath and currently she is being treated for an acuity of exacerbation. The patient is doing well. No specific complaints. Her 2D echocardiogram is still pending. Her cardiac mechanism is sinus this morning. Denies having any chest pain. On her blood work, her white cell count 11.9 with a hemoglobin 13.8 and a platelet count of 244. Creatinine is up to 1.8 with a BUN of 56 and a sodium levels at 138. The patient is on Symbicort, DuoNeb updrafts and the patient is on IV Solu-Medrol 40 mg every 8 hours. The patient is a recipient of a liver transplant and the patient remains on everolimus. Rest of the medications remain unchanged. She is currently on room air oxygen with a pulse ox of 92%. Objective - Vital Signs Vital signs: Vital Signs Temp 97.5 F L 05/11/24 08:00 Pulse 100 05/11/24 09:43 Resp 16 05/11/24 08:00 BP 139/73 05/11/24 08:00 Pulse Ox 100 05/11/24 09:28 FiO2 Intake & Output 05/10/24 05/11/24 05/11/24 18:59 06:59 18:59 Intake Total 660 240 Balance 660 240 Weight 86.183 kg 80 kg Intake: Oral 660 240 Other: Voiding Method Toilet Toilet # Voids 2 - Exam GENERAL EXAM: Alert, 78-year-old white female, comfortable in no apparent distress. The patient is currently on room air oxygen. HEAD: Normocephalic and atraumatic EYES: Normal reaction of pupils, equal size. NOSE: Clear with pink turbinates. THROAT: No erythema or exudates. NECK: No masses, no JVD. CHEST: No chest wall deformity. LUNGS: Equal air entry with no crackles, wheeze, rhonchi or dullness. On room air. No conversational dyspnea or accessory muscle use.. CVS: S1 and S2 normal with no audible murmur, regular rhythm. No extra heart sounds ABDOMEN: No hepatosplenomegaly, active bowel sounds, no guarding or rigidity. SPINE: No scoliosis or deformity SKIN: No rashes CENTRAL NERVOUS SYSTEM: No focal deficits, tone is normal in all 4 extremities. EXTREMITIES: There is no peripheral edema, clubbing, or cyanosis. Peripheral pulses are intact. - Labs CBC & Chem 7: 05/11/24 06:19 05/11/24 06:19 Labs: Abnormal Lab Results - Last 24 Hours (Table) 05/10/24 05/10/24 05/10/24 Range/Units 08:53 15:26 16:46 WBC (3.8-10.6) k/uL RDW (11.5-15.5) % Neutrophils # (1.3-7.7) k/uL Lymphocytes # (1.0-4.8) k/uL APTT 37.7 H (22.0-30.0) sec BUN (7-17) mg/dL Creatinine (0.52-1.04) mg/dL Glucose (74-99) mg/dL POC Glucose (mg/dL) 306 H (70-110) mg/dL TSH 0.376 L (0.465-4.680) mIU/L 05/10/24 05/11/24 05/11/24 Range/Units 21:12 06:18 06:19 WBC 11.9 H (3.8-10.6) k/uL RDW 16.1 H (11.5-15.5) % Neutrophils # 10.9 H (1.3-7.7) k/uL Lymphocytes # 0.7 L (1.0-4.8) k/uL APTT (22.0-30.0) sec BUN (7-17) mg/dL Creatinine (0.52-1.04) mg/dL Glucose (74-99) mg/dL POC Glucose (mg/dL) 209 H 359 H (70-110) mg/dL TSH (0.465-4.680) mIU/L 05/11/24 05/11/24 Range/Units 06:19 11:45 WBC (3.8-10.6) k/uL RDW (11.5-15.5) % Neutrophils # (1.3-7.7) k/uL Lymphocytes # (1.0-4.8) k/uL APTT (22.0-30.0) sec BUN 56 H (7-17) mg/dL Creatinine 1.84 H (0.52-1.04) mg/dL Glucose 347 H (74-99) mg/dL POC Glucose (mg/dL) 219 H (70-110) mg/dL TSH (0.465-4.680) mIU/L Assessment and Plan Assessment: Acute on chronic dyspnea, possibly with a component of COPD exacerbation and chest x-ray demonstrating some mild cardiomegaly and possible pulmonary vascular congestion, NT proBNP only mildly elevated at 772. No focal infiltrates evidence of pneumonia, pleural effusions, pneumothoraces. The patient remains on bronchodilators and steroids. Severe chronic obstructive pulmonary disease, with an FEV1 46% of predicted, not particularly active on my evaluation Elevated D-dimer, chest CTA unremarkable for filling defects consistent with pulmonary embolism, no acute parenchymal abnormalities noted. No acute infiltrates, pleural effusions, pneumothoraces. Bilateral lower extremity venous Dopplers negative for DVT. Paroxysmal atrial fibrillation, current rhythm is sinus and the patient is currently off Cardizem drip. The patient remains on anticoagulation with Eleanor silvina. History of lung nodules, follows up on outpatient basis History of liver transplant, maintained on Zortress History of hyperlipidemia History of hypothyroidism History of DVT, not on any anticoagulation at the moment Former tobacco dependence Acute kidney injury creatinine is up to 1.8 Plan: Patient is currently on room air oxygen Will optimize patient's lung function with a combination of bronchodilators Symbicort inhaler IV Solu-Medrol Hold Lasix Monitor renal function Echo is pending Patient is back to normal sinus mechanism Anticoagulation with Eliquis We will continue to follow
[2024-05-11 19:59] LABS: Glucose,Whole Blood 285 mg/dL (70-110)
[2024-05-12 06:13] LABS: Glucose,Whole Blood 320 mg/dL (70-110)
[2024-05-12 07:27] LABS: African American GFR (CKD) 37 (>60 ml/min/1.73 sqM); Anion Gap 14 mmol/L; Blood Urea Nitrogen 57 mg/dL (7-17); Calcium 9.7 mg/dL (8.4-10.2); Carbon Dioxide 20 mmol/L (22-30); Chloride 104 mmol/L (98-107); Glucose 334 mg/dL (74-99); Non-African American GFR(CKD) 32 (>60 ml/min/1.73 sqM); Potassium 4.5 mmol/L (3.5-5.1); Sodium 138 mmol/L (137-145)
[2024-05-12 11:36] LABS: Glucose,Whole Blood 257 mg/dL (70-110)
[2024-05-12] MEDS: predniSONE 20 MG TAB PO SCH (12:07)
--- NOTE | 2024-05-12 12:17 | P.PN ---
Subjective HISTORY OF PRESENT ILLNESS: This is a 78-year-old female with a past medical history significant for hyperlipidemia, COPD, and former nicotine dependence. Patient does not follow with a motorboat mechanic inboard. We have been asked to see the patient in consultation for congestive heart failure. Patient examined at the bedside in the emergency room. Patient states that she presented to the hospital with a chief complaint of sudden shortness of breath. She states the onset was just prior to coming to the hospital. She denied any chest pain or pressure. Denied any dizziness or lightheadedness. Denied nausea or vomiting. Denied any palpitations. The patient was thought to be in congestive heart failure and was started on IV Lasix. At the time of my examination, the patient is tachycardic and her heart sounds irregular. However her bedside principal planner is not connected. Spoke with nursing to obtain EKG which demonstrated A-fib with RVR. Patient does not have a history of A-fib. DIAGNOSTICS: - EKG reveals sinus mechanism. Repeat EKG reveals A-fib with RVR - Chest xray cardiomegaly and mild pulmonary vascular congestion - Chest CTA: Negative for pulmonary embolism. Mild nodularity to liver correlate for cirrhosis. - Venous Doppler: Negative for DVT bilaterally - Laboratory data: WBC 6.5. Hemoglobin 13.7. Platelet count 227. D-dimer 3.05 sodium 138. Potassium 3.2. BUN 30. Creatinine 1.33. Troponin negative x 3. proBNP 772. - Current home cardiac medications include Lipitor 10 mg at night and midodrine 5 mg twice a day - Most recent echocardiogram obtained in 2019 revealed ejection fraction 60 to 65%, trace MR, mild TR - Cardiac catheterization history: Patient denies 05/11/2024 Patient examined this morning. She is sitting up in the chair. She denies chest pain or pressure. She denies shortness of breath. She is maintaining sinus mechanism this morning. 2D echo remains pending. Patient does have ASAF this morning with a creatinine of 1.84 up from 1.33 yesterday. 05/12/2024 Patient examined this morning the bedside. Patient denies chest pain or pressure. She denies shortness of breath. Telemetry Veals sinus mechanism. Echocardiogram completed revealing ejection fraction 55 to 60%, moderate pulm hypertension, mild mitral regurgitation, mild tricuspid regurgitation. Vital signs are stable. Creatinine is improved today at 1.56. PHYSICAL EXAM: VITAL SIGNS: Reviewed. GENERAL: Well-developed in no acute distress. HEENT: Head is normocephalic. Pupils are equal, round. Sclerae anicteric. Mucous membranes of the mouth are moist. Neck supple. No JVD or thyromegaly LUNGS: Respirations even and unlabored. Lungs essentially clear to auscultation bilaterally. HEART: Regular rate and rhythm. S1 and S2 heard. ABDOMEN: Soft. Nondistended. Nontender. EXTREMITIES: Normal range of motion. No clubbing or cyanosis. Peripheral pulses intact. No lower extremity edema NEUROLOGIC: Awake and alert. Oriented x 3. ASSESSMENT: Shortness of breath New onset atrial fibrillation with RVR, currently maintaining sinus mechanism Congestive heart failure, ruled out, BNP within normal limits and no clinical evidence of CHF Acute kidney injury, likely from diuresis on admission Hyperlipidemia COPD Liver transplant Former nicotine dependence, patient quit smoking 7 to 8 years ago Moderate pulmonary hypertension PLAN: Continue current cardiac medications Patient is stable for discharge today from a cardiac standpoint Patient to follow-up postdischarge in the office with Dr. Samuel Nurse practitioner note has been reviewed by physician. Signing provider agrees with the documented findings, assessment, and plan of care documented by PIPE COVERER AND INSULATOR as a scribe. Objective - Vital Signs Vital signs: Vital Signs Temp 97.9 F 05/12/24 09:17 Pulse 100 05/12/24 12:13 Resp 16 05/12/24 12:12 BP 135/93 05/12/24 12:12 Pulse Ox 97 05/12/24 12:12 FiO2 Intake & Output 05/11/24 05/12/24 05/12/24 18:59 06:59 18:59 Intake Total 476 190 Balance 476 190 Weight 80 kg 80.1 kg Intake: IV 10 Invasive Line 1 10 Oral 476 180 Other: Voiding Method Toilet Toilet Toilet # Voids 1 2 - Labs CBC & Chem 7: 05/11/24 06:19 05/12/24 06:43 Labs: Abnormal Lab Results - Last 24 Hours (Table) 05/11/24 05/11/24 05/12/24 Range/Units 16:34 19:58 06:12 Carbon Dioxide (22-30) mmol/L BUN (7-17) mg/dL Creatinine (0.52-1.04) mg/dL Glucose (74-99) mg/dL POC Glucose (mg/dL) 317 H 285 H 320 H (70-110) mg/dL 05/12/24 05/12/24 Range/Units 06:43 11:34 Carbon Dioxide 20 L (22-30) mmol/L BUN 57 H (7-17) mg/dL Creatinine 1.56 H (0.52-1.04) mg/dL Glucose 334 H (74-99) mg/dL POC Glucose (mg/dL) 257 H (70-110) mg/dL
--- NOTE | 2024-05-12 14:22 | P.PN ---
Subjective Progress Note Date: 05/12/24 Patient is a 78-year-old white female with past medical history significant for severe COPD with an FEV1 46% of predicted, not O2 dependent at baseline, lung nodules, previous liver transplant at [facility] in 2015, DVT, and seizure disorder. Presented yesterday afternoon with a chief complaint of shortness of breath, mostly on exertion. Interestingly, no other particular symptoms. She denies sick contacts. Denies any URI like symptoms. Denies cough, sputum production, hemoptysis, chest pain. Denies fevers or chills. She denies chest pain, heart palpitations, lower extremity swelling, orthopnea, PND. She does state that the shortness of breath is worse when sitting up. She is not on any home O2. Her COPD has been fairly well-controlled. She has seen Dr. Baer in the past, but it does not appear that the patient has followed up in the pulmonary office in a year and a half. She does have severe COPD with a known FEV1 46% of predicted. Not oxygen dependent. Usually fairly well-controlled, states that she only uses a as needed rescue inhaler. Chest x-ray does not show any focal infiltrates or evidence of pneumonia. There is mild cardiomegaly and possible pulmonary vascular congestion. NT proBNP was only mildly elevated at 772. D-dimer was elevated at 3, this preempted a chest CT angio protocol, which was unremarkable for any filling defects consistent with pulmonary embolism. Mild liver nodularity. Patient does have history of liver transplant. She takes Zortress. Negative for influenza, RSV, COVID. CBC: WBC count 10.4, hemoglobin 12.1, hematocrit 36.9, platelets 200. CMP: Sodium 137, potassium 3.5, chloride 105, serum bicarb 26, BUN 26, creatinine 1.35, glucose 93. Lactic 1.7. Troponins less than 0.012 x 3. LFTs unremarkable. Current vital signs: Afebrile, heart rate 88 bpm, blood pressure 133/78 mmHg, SpO2 95% on room air. Nontoxic appearance. On 05/11/2024, the patient is being seen for a follow-up. The patient has advanced COPD. She was hospitalized for some increased shortness of breath and currently she is being treated for an acuity of exacerbation. The patient is doing well. No specific complaints. Her 2D echocardiogram is still pending. Her cardiac mechanism is sinus this morning. Denies having any chest pain. On her blood work, her white cell count 11.9 with a hemoglobin 13.8 and a platelet count of 244. Creatinine is up to 1.8 with a BUN of 56 and a sodium levels at 138. The patient is on Symbicort, DuoNeb updrafts and the patient is on IV Solu-Medrol 40 mg every 8 hours. The patient is a recipient of a liver transplant and the patient remains on everolimus. Rest of the medications remain unchanged. She is currently on room air oxygen with a pulse ox of 92%. On 05/12/2024, patient is being seen for a follow-up. Doing well and no specific complaints. The patient is less bronchospastic and wheezy. No chest pain. No shortness of breath. Resting comfortably in bed. BUN is 57 with a creatinine of 1.56 and the creatinine continues to improve. Sodium is at 138, serum bicarb is at 20 with a chloride of 104. She is afebrile and hemodynamically stable. She remains on DuoNeb nebulized treatments [id number]. She is on IV Solu-Medrol. She is on Symbicort as maintenance. Rest of her home medications below resumed. Cardiac rhythm is sinus. The patient is on Eliquis and metoprolol. Echocardiogram shows a preserved LV function with moderate degree of pulmonary hypertension. Objective - Vital Signs Vital signs: Vital Signs Temp 97.9 F 05/12/24 09:17 Pulse 99 05/12/24 09:17 Resp 18 05/12/24 09:17 BP 116/69 05/12/24 09:17 Pulse Ox 96 05/12/24 09:17 FiO2 Intake & Output 05/11/24 05/12/24 05/12/24 18:59 06:59 18:59 Intake Total 476 190 Balance 476 190 Weight 80 kg 80.1 kg Intake: IV 10 Invasive Line 1 10 Oral 476 180 Other: Voiding Method Toilet Toilet Toilet # Voids 1 2 - Exam GENERAL EXAM: Alert, 78-year-old white female, comfortable in no apparent distress. The patient is currently on room air oxygen. HEAD: Normocephalic and atraumatic EYES: Normal reaction of pupils, equal size. NOSE: Clear with pink turbinates. THROAT: No erythema or exudates. NECK: No masses, no JVD. CHEST: No chest wall deformity. LUNGS: Equal air entry with no crackles, wheeze, rhonchi or dullness. On room air. No conversational dyspnea or accessory muscle use.. CVS: S1 and S2 normal with no audible murmur, regular rhythm. No extra heart sounds ABDOMEN: No hepatosplenomegaly, active bowel sounds, no guarding or rigidity. SPINE: No scoliosis or deformity SKIN: No rashes CENTRAL NERVOUS SYSTEM: No focal deficits, tone is normal in all 4 extremities. EXTREMITIES: There is no peripheral edema, clubbing, or cyanosis. Peripheral pulses are intact. - Labs CBC & Chem 7: 05/11/24 06:19 05/12/24 06:43 Labs: Abnormal Lab Results - Last 24 Hours (Table) 05/11/24 05/11/24 05/11/24 Range/Units 11:45 16:34 19:58 Carbon Dioxide (22-30) mmol/L BUN (7-17) mg/dL Creatinine (0.52-1.04) mg/dL Glucose (74-99) mg/dL POC Glucose (mg/dL) 219 H 317 H 285 H (70-110) mg/dL 05/12/24 05/12/24 Range/Units 06:12 06:43 Carbon Dioxide 20 L (22-30) mmol/L BUN 57 H (7-17) mg/dL Creatinine 1.56 H (0.52-1.04) mg/dL Glucose 334 H (74-99) mg/dL POC Glucose (mg/dL) 320 H (70-110) mg/dL Assessment and Plan Assessment: Acute on chronic dyspnea, possibly with a component of COPD exacerbation and chest x-ray demonstrating some mild cardiomegaly and possible pulmonary vascular congestion, NT proBNP only mildly elevated at 772. No focal infiltrates evidence of pneumonia, pleural effusions, pneumothoraces. The patient remains on bronchodilators and steroids. Severe chronic obstructive pulmonary disease, with an FEV1 46% of predicted, not particularly active on my evaluation Elevated D-dimer, chest CTA unremarkable for filling defects consistent with pulmonary embolism, no acute parenchymal abnormalities noted. No acute infiltrates, pleural effusions, pneumothoraces. Bilateral lower extremity venous Dopplers negative for DVT. Paroxysmal atrial fibrillation, current rhythm is sinus and the patient is currently off Cardizem drip. The patient remains on anticoagulation with Eliquis. History of lung nodules, follows up on outpatient basis History of liver transplant, maintained on Zortress History of hyperlipidemia History of hypothyroidism History of DVT, not on any anticoagulation at the moment Former tobacco dependence Acute kidney injury creatinine is up to 1.8 Plan: Patient is currently on room air oxygen Will optimize patient's lung function with a combination of bronchodilators Symbicort inhaler Stop the IV Solu-Medrol and start the patient on prednisone burst taper starting at 40 mg p.o. daily Diuretics are currently on hold and renal function is improved compared to yesterday Echocardiogram was also performed and the patient has a preserved LV function with an EF of around 55 to 60%. Mild mitral regurgitation and moderate pulmonary hypertension was noted. Patient is back to normal sinus mechanism Anticoagulation with Eliquis We will continue to follow
[2024-05-12 16:10] LABS: Glucose,Whole Blood 207 mg/dL (70-110)
[2024-05-12 20:01] LABS: Glucose,Whole Blood 301 mg/dL (70-110)
[2024-05-12] MEDS: amLODIPine 5 MG TAB PO SCH (21:54)
[2024-05-13 06:09] LABS: Glucose,Whole Blood 361 mg/dL (70-110)
[2024-05-13 08:59] VITALS: TEMP 98.3
--- NOTE | 2024-05-13 09:27 | P.PN ---
Subjective Progress Note Date: 05/12/24 Principal diagnosis: A. fib with RVR patient complained of shortness of breath which has improved with rate control 05/13/2024 Patient is awake alert oriented 3 vital signs are stable patient is afebrile, rate is well-controlled,no new complaints Objective - Vital Signs Vital signs: Vital Signs Temp 98.3 F 05/13/24 08:58 Pulse 77 05/13/24 08:58 Resp 18 05/13/24 08:58 BP 127/65 05/13/24 08:58 Pulse Ox 94 L 05/13/24 08:58 FiO2 Intake & Output 05/12/24 05/13/24 05/13/24 18:59 06:59 18:59 Intake Total 500 20 250 Balance 500 20 250 Weight 80.7 kg Intake: IV 20 20 10 Invasive Line 1 20 20 10 Oral 480 240 Other: Voiding Method Toilet Toilet Toilet # Voids 2 4 - Exam General: [Patient awake, alert and oriented times 3. Patient in no acute distress. HEENT: [PERRL. EOMI. No pharyngeal erythema or exudate.] Neck: [No adenopathy.] Cardiac: [Heart regularly,irregular in rate and rhythm. No S3. No S4. No clicks, rubs. No murmur.] Lungs: bibasilar crackles Abdomen: [No mass. No organomegaly. Bowel sounds presnt and normoactive in all 4 quadrants.] Extremes: [No edema no cyanosis no claudication normal pulses] Musculoskeletal: [No joint erythema, edema or tenderness.] Skin: [No rash.] Neurologic: [No lateralizing deficits. CN II - XII grossly intact.] Lymphatic: [No adenopathy.] - Labs CBC & Chem 7: 05/11/24 06:19 05/12/24 06:43 Labs: Abnormal Lab Results - Last 24 Hours (Table) 05/12/24 05/12/24 05/12/24 Range/Units 11:34 16:07 19:59 POC Glucose (mg/dL) 257 H 207 H 301 H (70-110) mg/dL 05/13/24 Range/Units 06:08 POC Glucose (mg/dL) 361 H (70-110) mg/dL Assessment and Plan (1) Acute pulmonary edema Current Visit: Yes Status: Acute Code(s): J81.0 - ACUTE PULMONARY EDEMA SNOMED Code(s): 64890969 (2) Atrial fibrillation with RVR Current Visit: Yes Status: Acute Code(s): I48.91 - UNSPECIFIED ATRIAL FIBRILLATION SNOMED Code(s): 617215475955159 (3) CKD (chronic kidney disease) stage 3, GFR 30-59 ml/min Current Visit: Yes Status: Acute Code(s): N18.30 - CHRONIC KIDNEY DISEASE, STAGE 3 UNSPECIFIED SNOMED Code(s): 275002935 (4) COPD exacerbation Current Visit: Yes Status: Acute Code(s): J44.1 - CHRONIC OBSTRUCTIVE PULMONARY DISEASE W (ACUTE) EXACERBATION SNOMED Code(s): 405552113 (5) Congestive heart failure Current Visit: Yes Status: Acute Code(s): I50.9 - HEART FAILURE, UNSPECIFIED SNOMED Code(s): 47748509 Plan: rhythm is sinus with well-controlled rate Currently on apixaban beta manjinder No new complaints Patient improved Time with Patient: Less than 30
--- NOTE | 2024-05-13 11:25 | P.PN ---
Subjective HISTORY OF PRESENT ILLNESS: This is a 78-year-old female with a past medical history significant for hyperlipidemia, COPD, and former nicotine dependence. 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 We have been asked to see the patient in consultation for congestive heart failure. Patient examined at the bedside in the emergency room. Patient states that she presented to the hospital with a chief complaint of sudden shortness of breath. She states the onset was just prior to coming to the hospital. She denied any chest pain or pressure. Denied any dizziness or lightheadedness. Denied nausea or vomiting. Denied any palpitations. The patient was thought to be in congestive heart failure and was started on IV Lasix. At the time of my examination, the patient is tachycardic and her heart sounds irregular. However her bedside signal mechanic is not connected. Spoke with nursing to obtain EKG which demonstrated A-fib with RVR. Patient does not have a history of A-fib. DIAGNOSTICS: - EKG reveals sinus mechanism. Repeat EKG reveals A-fib with RVR - Chest xray cardiomegaly and mild pulmonary vascular congestion - Chest CTA: Negative for pulmonary embolism. Mild nodularity to liver correlate for cirrhosis. - Venous Doppler: Negative for DVT bilaterally - Laboratory data: WBC 6.5. Hemoglobin 13.7. Platelet count 227. D-dimer 3.05 sodium 138. Potassium 3.2. BUN 30. Creatinine 1.33. Troponin negative x 3. proBNP 772. - Current home cardiac medications include Lipitor 10 mg at night and midodrine 5 mg twice a day - Most recent echocardiogram obtained in 2019 revealed ejection fraction 60 to 65%, trace MR, mild TR - Cardiac catheterization history: Patient denies 05/11/2024 Patient examined this morning. She is sitting up in the chair. She denies chest pain or pressure. She denies shortness of breath. She is maintaining sinus mechanism this morning. 2D echo remains pending. Patient does have ASAF this morning with a creatinine of 1.84 up from 1.33 yesterday. 05/12/2024 Patient examined this morning the bedside. Patient denies chest pain or pressure. She denies shortness of breath. Telemetry Veals sinus mechanism. Echocardiogram completed revealing ejection fraction 55 to 60%, moderate pulm hypertension, mild mitral regurgitation, mild tricuspid regurgitation. Vital signs are stable. Creatinine is improved today at 1.56. 05/13/2024 Patient examined this morning at the bedside. Patient currently denies chest pain or pressure. She denies shortness of breath. She is maintaining sinus mechanism. Vital signs are stable. PHYSICAL EXAM: VITAL SIGNS: Reviewed. GENERAL: Well-developed in no acute distress. HEENT: Head is normocephalic. Pupils are equal, round. Sclerae anicteric. Mucous membranes of the mouth are moist. Neck supple. No JVD or thyromegaly LUNGS: Respirations even and unlabored. Lungs essentially clear to auscultation bilaterally. HEART: Regular rate and rhythm. S1 and S2 heard. ABDOMEN: Soft. Nondistended. Nontender. EXTREMITIES: Normal range of motion. No clubbing or cyanosis. Peripheral pulses intact. No lower extremity edema NEUROLOGIC: Awake and alert. Oriented x 3. ASSESSMENT: Shortness of breath New onset atrial fibrillation with RVR, currently maintaining sinus mechanism Congestive heart failure, ruled out, BNP within normal limits and no clinical evidence of CHF Acute kidney injury, likely from diuresis on admission Hyperlipidemia COPD Liver transplant Former nicotine dependence, patient quit smoking 7 to 8 years ago Moderate pulmonary hypertension PLAN: Continue current cardiac medications Patient is stable for discharge today from a cardiac standpoint Patient to follow-up postdischarge in the office with Dr. Samuel Nurse practitioner note has been reviewed by physician. Signing provider agrees with the documented findings, assessment, and plan of care documented by QUARTER INSPECTOR as a scribe. Objective - Vital Signs Vital signs: Vital Signs Temp 98.3 F 05/13/24 08:58 Pulse 100 05/13/24 10:12 Resp 18 05/13/24 08:58 BP 127/65 05/13/24 08:58 Pulse Ox 94 L 05/13/24 08:58 FiO2 Intake & Output 05/12/24 05/13/24 05/13/24 18:59 06:59 18:59 Intake Total 500 20 250 Balance 500 20 250 Weight 80.7 kg Intake: IV 20 20 10 Invasive Line 1 20 20 10 Oral 480 240 Other: Voiding Method Toilet Toilet Toilet # Voids 2 4 - Labs CBC & Chem 7: 05/11/24 06:19 05/12/24 06:43 Labs: Abnormal Lab Results - Last 24 Hours (Table) 05/12/24 05/12/24 05/12/24 Range/Units 11:34 16:07 19:59 POC Glucose (mg/dL) 257 H 207 H 301 H (70-110) mg/dL 05/13/24 Range/Units 06:08 POC Glucose (mg/dL) 361 H (70-110) mg/dL
[2024-05-13 11:45] LABS: Glucose,Whole Blood 99 mg/dL (70-110)
[2024-05-13 11:57] VITALS: BP 117/77; RESP 16
--- NOTE | 2024-05-13 13:32 | P.PN ---
Subjective Progress Note Date: 05/13/24 Patient is a 78-year-old white female with past medical history significant for severe COPD with an FEV1 46% of predicted, not O2 dependent at baseline, lung nodules, previous liver transplant at [facility] in 2015, DVT, and seizure disorder. Presented yesterday afternoon with a chief complaint of shortness of breath, mostly on exertion. Interestingly, no other particular symptoms. She denies sick contacts. Denies any URI like symptoms. Denies cough, sputum production, hemoptysis, chest pain. Denies fevers or chills. She denies chest pain, heart palpitations, lower extremity swelling, orthopnea, PND. She does state that the shortness of breath is worse when sitting up. She is not on any home O2. Her COPD has been fairly well-controlled. She has seen Dr. Baer in the past, but it does not appear that the patient has followed up in the pulmonary office in a year and a half. She does have severe COPD with a known FEV1 46% of predicted. Not oxygen dependent. Usually fairly well-controlled, states that she only uses a as needed rescue inhaler. Chest x-ray does not show any focal infiltrates or evidence of pneumonia. There is mild cardiomegaly and possible pulmonary vascular congestion. NT proBNP was only mildly elevated at 772. D-dimer was elevated at 3, this preempted a chest CT angio protocol, which was unremarkable for any filling defects consistent with pulmonary embolism. Mild liver nodularity. Patient does have history of liver transplant. She takes Zortress. Negative for influenza, RSV, COVID. CBC: WBC count 10.4, hemoglobin 12.1, hematocrit 36.9, platelets 200. CMP: Sodium 137, potassium 3.5, chloride 105, serum bicarb 26, BUN 26, creatinine 1.35, glucose 93. Lactic 1.7. Troponins less than 0.012 x 3. LFTs unremarkable. Current vital signs: Afebrile, heart rate 88 bpm, blood pressure 133/78 mmHg, SpO2 95% on room air. Nontoxic appearance. On 05/11/2024, the patient is being seen for a follow-up. The patient has advanced COPD. She was hospitalized for some increased shortness of breath and currently she is being treated for an acuity of exacerbation. The patient is doing well. No specific complaints. Her 2D echocardiogram is still pending. Her cardiac mechanism is sinus this morning. Denies having any chest pain. On her blood work, her white cell count 11.9 with a hemoglobin 13.8 and a platelet count of 244. Creatinine is up to 1.8 with a BUN of 56 and a sodium levels at 138. The patient is on Symbicort, DuoNeb updrafts and the patient is on IV Solu-Medrol 40 mg every 8 hours. The patient is a recipient of a liver transplant and the patient remains on everolimus. Rest of the medications remain unchanged. She is currently on room air oxygen with a pulse ox of 92%. On 05/12/2024, patient is being seen for a follow-up. Doing well and no specific complaints. The patient is less bronchospastic and wheezy. No chest pain. No shortness of breath. Resting comfortably in bed. BUN is 57 with a creatinine of 1.56 and the creatinine continues to improve. Sodium is at 138, serum bicarb is at 20 with a chloride of 104. She is afebrile and hemodynamically stable. She remains on DuoNeb nebulized treatments [id number]. She is on IV Solu-Medrol. She is on Symbicort as maintenance. Rest of her home medications below resumed. Cardiac rhythm is sinus. The patient is on Eliquis and metoprolol. Echocardiogram shows a preserved LV function with moderate degree of pulmonary hypertension. On 05/13/2024, the patient is being seen for a follow-up. No new complaints. Feeling great and she feels that she is back to baseline. No significant cough or sputum production. Remains on DuoNeb of chest, Symbicort maintenance and she was also started on prednisone burst taper. Rest of the medications remain unchanged. No new labs are available from today. Objective - Vital Signs Vital signs: Vital Signs Temp 98.3 F 05/13/24 08:58 Pulse 100 05/13/24 10:12 Resp 18 05/13/24 08:58 BP 127/65 05/13/24 08:58 Pulse Ox 94 L 05/13/24 08:58 FiO2 Intake & Output 05/12/24 05/13/24 05/13/24 18:59 06:59 18:59 Intake Total 500 20 250 Balance 500 20 250 Weight 80.7 kg Intake: IV 20 20 10 Invasive Line 1 20 20 10 Oral 480 240 Other: Voiding Method Toilet Toilet Toilet # Voids 2 4 - Exam GENERAL EXAM: Alert, 78-year-old white female, comfortable in no apparent distress. The patient is currently on room air oxygen. HEAD: Normocephalic and atraumatic EYES: Normal reaction of pupils, equal size. NOSE: Clear with pink turbinates. THROAT: No erythema or exudates. NECK: No masses, no JVD. CHEST: No chest wall deformity. LUNGS: Equal air entry with no crackles, wheeze, rhonchi or dullness. On room air. No conversational dyspnea or accessory muscle use.. CVS: S1 and S2 normal with no audible murmur, regular rhythm. No extra heart sounds ABDOMEN: No hepatosplenomegaly, active bowel sounds, no guarding or rigidity. SPINE: No scoliosis or deformity SKIN: No rashes CENTRAL NERVOUS SYSTEM: No focal deficits, tone is normal in all 4 extremities. EXTREMITIES: There is no peripheral edema, clubbing, or cyanosis. Peripheral pulses are intact. - Labs CBC & Chem 7: 05/11/24 06:19 05/12/24 06:43 Labs: Abnormal Lab Results - Last 24 Hours (Table) 05/12/24 05/12/24 05/12/24 Range/Units 11:34 16:07 19:59 POC Glucose (mg/dL) 257 H 207 H 301 H (70-110) mg/dL 05/13/24 Range/Units 06:08 POC Glucose (mg/dL) 361 H (70-110) mg/dL Assessment and Plan Assessment: Acute on chronic dyspnea, possibly with a component of COPD exacerbation and chest x-ray demonstrating some mild cardiomegaly and possible pulmonary vascular congestion, NT proBNP only mildly elevated at 772. No focal infiltrates evidence of pneumonia, pleural effusions, pneumothoraces. The patient remains on bronchodilators and steroids. Severe chronic obstructive pulmonary disease, with an FEV1 46% of predicted, not particularly active on my evaluation Elevated D-dimer, chest CTA unremarkable for filling defects consistent with pulmonary embolism, no acute parenchymal abnormalities noted. No acute inf iltrates, pleural effusions, pneumothoraces. Bilateral lower extremity venous Dopplers negative for DVT. Paroxysmal atrial fibrillation, current rhythm is sinus and the patient is currently off Cardizem drip. The patient remains on anticoagulation with Eliquis. History of lung nodules, follows up on outpatient basis History of liver transplant, maintained on Zortress History of hyperlipidemia History of hypothyroidism History of DVT, not on any anticoagulation at the moment Former tobacco dependence Acute kidney injury and the creatinine is improving Plan: Patient is currently on room air oxygen Will optimize patient's lung function with a combination of bronchodilators Symbicort inhaler Continue prednisone burst taper 40 mg p.o. daily Diuretics are currently on hold and the creatinine is improving Echocardiogram was also performed and the patient has a preserved LV function with an EF of around 55 to 60%. Mild mitral regurgitation and moderate pu lmonary hypertension was noted. Patient is back to normal sinus mechanism Anticoagulation with Eliquis We will continue to follow, possible discharge home today.
[2024-05-13 13:37] VITALS: PULSE 100
--- NOTE | 2024-05-13 14:36 | P.DS ---
Providers Date of admission: 05/09/24 17:17 Expected date of discharge: 05/13/24 Attending physician: George Wheeler Consults: 05/09/24 17:15 Consult Physician Routine Consulting Provider: Angel Uribe Consult Reason/Comments: copd Do you want consulting provider notified?: Yes Consult Physician Routine Consulting Provider: Rebecca Samuel Consult Reason/Comments: chf Do you want consulting provider notified?: Yes Primary care physician: George Wheeler - Discharge Diagnosis(es) (1) Acute pulmonary edema Current Visit: Yes Status: Acute (2) Atrial fibrillation with RVR Current Visit: Yes Status: Acute (3) CKD (chronic kidney disease) stage 3, GFR 30-59 ml/min Current Visit: Yes Status: Acute (4) COPD exacerbation Current Visit: Yes Status: Acute (5) Congestive heart failure Current Visit: Yes Status: Acute Patient Condition at Discharge: Fair Plan - Discharge Summary New Discharge Prescriptions: No Action Everolimus [Zortress] 0.75 mg PO HS@2100 ursodioL [Ursodiol] 600 mg PO DAILY@1300 Levothyroxine Sodium 75 mcg PO AC-BRKFST Insulin Glargine/Lixisenatide [Soliqua 100 Unit-33 Mcg/ml Pen] 36 units SQ DAILY Atorvastatin [Lipitor] 10 mg PO HS@2100 ursodioL [Ursodiol] 300 mg PO HS@2100 Metoprolol Tartrate [Lopressor] 12.5 mg PO BID@0800,2100 Vit C/E/Zn/Coppr/Lutein/Zeaxan [Preservision Areds 2 Softgel] 1 cap PO DAILY@0800 Nystatin 100,000Unit/gm Cream [Mycostatin Cream] 1 applic TOPICAL BID PRN PRN Reason: Rash calcitrioL 0.25 mcg PO MOTUWETHFRSA@0800 Escitalopram [Lexapro] 10 mg PO DAILY@0800 Aspirin EC [Ecotrin] 81 mg PO DAILY@0800 Midodrine [ProAmatine] 5 mg PO BID@0800,2100 allopurinoL 100 mg PO HS@2100 Everolimus 1.5 mg PO DAILY@1300 Discharge Medication List Everolimus [Zortress] 0.75 mg PO HS@2100 03/03/16 [History] ursodioL [Ursodiol] 600 mg PO DAILY@1300 03/09/17 [History] Levothyroxine Sodium 75 mcg PO AC-BRKFST 04/27/17 [History] calcitrioL 0.25 mcg PO MOTUWETHFRSA@0800 03/24/21 [History] Aspirin EC [Ecotrin] 81 mg PO DAILY@0800 07/01/21 [History] Escitalopram [Lexapro] 10 mg PO DAILY@0800 07/01/21 [History] Atorvastatin [Lipitor] 10 mg PO HS@209902/27/24 [History] Insulin Glargine/Lixisenatide [Soliqua 100 Unit-33 Mcg/ml Pen] 36 units SQ DAILY 02/27/24 [History] Midodrine [ProAmatine] 5 mg PO BID@0800,209902/27/24 [History] allopurinoL 100 mg PO HS@209902/27/24 [History] Everolimus 1.5 mg PO DAILY@1300 05/09/24 [History] Metoprolol Tartrate [Lopressor] 25 mg PO BID@0800,209905/09/24 [History] Nystatin 100,000Unit/gm Cream [Mycostatin Cream] 1 applic TOPICAL BID PRN 05/09/24 [History] Vit C/E/Zn/Coppr/Lutein/Zeaxan [Preservision Areds 2 Softgel] 1 cap PO DAILY@0800 05/09/24 [History] ursodioL [Ursodiol] 300 mg PO HS@209905/09/24 [History] Apixaban [Eliquis] 5 mg PO BID 05/13/24 [History] Follow up Appointment(s)/Referral(s): Rebecca Samuel MD [STAFF PHYSICIAN] - 1 Week Aron Avila Jr, DO [Doctor of Osteopathic Medicine] - 1-2 days
== END 2024-05-13 16:47 | disposition home or self-care (01) | DRG 308 ==
LOC: EC 15:10 → 3SCARD 17:17
PROVIDERS: ADMIT Family Medicine; ATTEND Family Medicine
PROC: 3E033RZ Introduction of Antiarrhythmic into Peripheral Vein, Percutaneous Approach (ICD-10-PCS; principal; 2024-05-10)
DX: I48.0 Paroxysmal atrial fibrillation (principal); J81.0 Acute pulmonary edema; J44.1 Chronic obstructive pulmonary disease with (acute) exacerbation; N17.9 Acute kidney failure, unspecified; N18.30 Chronic kidney disease, stage 3 unspecified; F41.9 Anxiety disorder, unspecified; E11.22 Type 2 diabetes mellitus with diabetic chronic kidney disease; E07.9 Disorder of thyroid, unspecified; G40.909 Epilepsy, unspecified, not intractable, without status epilepticus; E78.5 Hyperlipidemia, unspecified; E03.9 Hypothyroidism, unspecified; I27.20 Pulmonary hypertension, unspecified; I34.0 Nonrheumatic mitral (valve) insufficiency; Z87.891 Personal history of nicotine dependence; Z79.82 Long term (current) use of aspirin; Z94.4 Liver transplant status; Z79.4 Long term (current) use of insulin; Z79.890 Hormone replacement therapy; Z86.718 Personal history of other venous thrombosis and embolism
CPT/HCPCS: 36415; 71045; 71275; 80048; 80053; 82140; 83605; 83735; 83880; 84100; 84439; 84443; 84484; 85025; 85379; 85610; 85730; 87636; 93005; 93306; 93970; 94640; 94760; 96361; 96365; 96366; 96375; 96376; 99285

== ENCOUNTER → 2024-10-10 | Outpatient (CLI) | payer MEDICARE, BC ==
[2024-10-10 20:02] LABS: ALT 16 U/L (8-44); AST 18 U/L (13-35); Albumin 3.7 g/dL (3.8-4.9); Albumin/Globulin Ratio 1.23 Ratio (1.60-3.17); Alkaline Phosphatase 120 U/L (41-126); BUN/Creat Ratio 29.83 Ratio (12.00-20.00); Blood Urea Nitrogen 35.8 mg/dL (9.0-27.0); Calcium 9.3 mg/dL (8.7-10.3); Carbon Dioxide 22.5 mmol/L (21.6-31.8); Chloride 103 mmol/L (96-109); Chol/HDL Ratio 3.86 Ratio; Glucose 179 mg/dL (70-110); Potassium 4.4 mmol/L (3.5-5.5); Sodium 138 mmol/L (135-145); Total Bilirubin <0.2 mg/dL (0.3-1.2); Total Protein 6.7 g/dL (6.2-8.2)
== END | disposition home or self-care (01) ==
LOC: LABWHC1 15:26
PROVIDERS: ATTEND Internal Medicine Interventional Cardiology
DX: I27.0 Primary pulmonary hypertension (principal); I48.0 Paroxysmal atrial fibrillation; E78.2 Mixed hyperlipidemia; R53.83 Other fatigue
CPT/HCPCS: 36415; 80053; 80061

== ENCOUNTER → 2024-11-27 | Outpatient (CLI) | payer MEDICARE, BC ==
--- NOTE | 2024-11-27 15:20 | US ---
EXAMINATION TYPE: US kidneys/renal and bladder DATE OF EXAM: 11/27/2024 COMPARISON: US 2021, CT 2021, US 2021 CLINICAL INDICATION: Female, 79 years old with history of N18.32 CHRONIC KIDNEY DISEASE, STAGE 3B; CK D stage 3B TECHNIQUE: Grayscale imaging of the bilateral kidneys and urinary bladder: FINDINGS: EXAM MEASUREMENTS: Right Kidney: 9.6 x 5.1 x 5.0 cm Left Kidney: 10.8 x 4.1 x 3.6 cm Exam is very limited due to gas and body habitus. Right Kidney: No hydronephrosis or masses seen Left Kidney: No hydronephrosis or masses seen Bladder: Appears anechoic Bilateral Jets seen: Yes IMPRESSION: No evidence for obstructive uropathy. No renal calculi visualized. [facility], , 11/27/2024 3:17 PM
== END | disposition home or self-care (01) ==
LOC: RADUSWWP 13:50
PROVIDERS: ATTEND Internal Medicine
DX: N18.32 Chronic kidney disease, stage 3b (principal)
CPT/HCPCS: 76770

== ENCOUNTER 2024-12-20 20:14 | Observation (INO) | payer MEDICARE, BC ==
[2024-12-20 20:21] VITALS: TEMP 98.2
[2024-12-20 22:11] LABS: Basophils # (A) 0.02 10*3/uL (0.00-0.10); Basophils % (A) 0.3 %; Eosinophils # (A) 0.13 10*3/uL (0.04-0.35); Eosinophils % (A) 1.7 %; HCT 40.2 % (37.2-46.3); HGB 12.6 g/dL (12.0-15.0); Lymphocytes # (A) 2.13 10*3/uL (0.90-5.00); Lymphocytes % (A) 27.1 %; MCH 27.3 pg (27.0-32.0); MCHC 31.3 g/dL (32.0-37.0); MCV 87.0 fL (80.0-97.0); Monocytes # (A) 0.78 10*3/uL (0.20-1.00); Monocytes % (A) 9.9 %; Neutrophils # (A) 4.77 10*3/uL (1.80-7.70); Neutrophils % (A) 60.7 %; Platelet Count 225 10*3/uL (140-440); RBC 4.62 10*6/uL (4.10-5.20); RDW 15.6 % (11.5-14.5); WBC 7.85 10*3/uL (4.50-10.00)
[2024-12-20] MEDS: SODIUM CHLORIDE 0.9% 1,000 ML IV ONE (22:19)
[2024-12-20 22:51] LABS: ALT 14 U/L (4-34); African American GFR (CKD) 48 (>60 ml/min/1.73 sqM); Albumin 4.1 g/dL (3.5-5.0); Anion Gap 11 mmol/L; Blood Urea Nitrogen 35 mg/dL (7-17); Calcium 9.8 mg/dL (8.4-10.2); Carbon Dioxide 25 mmol/L (22-30); Chloride 106 mmol/L (98-107); Glucose 58 mg/dL (74-99); Non-African American GFR(CKD) 42 (>60 ml/min/1.73 sqM); Sodium 142 mmol/L (137-145); Total Protein 7.2 g/dL (6.3-8.2)
--- NOTE | 2024-12-20 22:56 | XR ---
EXAM: XR Chest, 2 Views CLINICAL HISTORY: ITS.REASON XR Reason: cough TECHNIQUE: Frontal and lateral views of the chest. COMPARISON: No relevant prior studies available. FINDINGS: Lungs: No consolidation. No overt edema. Pleural space: No pleural effusion. No pneumothorax. Heart: Cardiomegaly. Bones/joints: Unremarkable. No fracture or malalignment. IMPRESSION: No acute findings in the chest.
[2024-12-20] MEDS: methylPREDNISolone SOD SUCCI 125 MG/2 ML VIAL IV STA (22:58)
[2024-12-20] MEDS: MAGNESIUM SULFATE-D5W PMX 1 GM in DEXTROSE/WATER 1 100ML.BAG IVPB ONE (23:07)
[2024-12-20 23:18] LABS: AST 29 U/L (14-36); Alkaline Phosphatase 89 U/L (38-126); Magnesium 2.0 mg/dL (1.6-2.3); Potassium 4.2 mmol/L (3.5-5.1)
[2024-12-20] MEDS: IPRATROPIUM-ALBUTEROL 3 ML NEB INHALATION STA (23:25)
[2024-12-20 23:27] LABS: RSV Not Detected (Not Detectd)
[2024-12-20] MEDS: LORazepam 1 MG TAB PO STA (23:35)
[2024-12-21 00:07] LABS: Glucose,Whole Blood 85 mg/dL (70-110)
[2024-12-21] MEDS ORDERED: IPRATROPIUM-ALBUTEROL 3 ML NEB INHALATION PRN (00:37)
[2024-12-21] MEDS ORDERED: NALOXONE 0.4 MG/ML 1 ML VIAL IV PRN (00:40)
--- NOTE | 2024-12-21 00:40 | ED ---
General Adult HPI - General Chief complaint: Shortness of Breath Stated complaint: Heart issues/shortness of breath Time Seen by Provider: 12/20/24 20:15 Source: patient, RN notes reviewed, old records reviewed Mode of arrival: ambulatory Limitations: no limitations - History of Present Illness Initial comments: 79-year-old female presents emergency department complaining of dyspnea and shortness of breath. States has been intermittent. Is not on oxygen at home at baseline but does have a history of emphysema COPD. Is on inhalers at home. Also has a history of diabetes. Significant cardiac history as well according to family. Patient apparently has been eating. Is on blood thinners Eliquis at home. Otherwise has been acting normally. No significant cough or congestion. No fevers. No nausea or vomiting or abdominal pain. Presents for further evaluation at this time. States her shortness of breath seems to be somewhat im proved at rest but worse with some exertion. Patient apparently had an episode of tremors at home. This is when she was brought here for evaluation. Currently has no tremors. - Related Data Home Medications Medication Instructions Recorded Confirmed Everolimus [Zortress] 0.75 mg PO HS@209903/03/16 05/09/24 ursodioL [Ursodiol] 600 mg PO DAILY@129903/09/17 05/09/24 Levothyroxine Sodium 75 mcg PO AC-BRKFST 04/27/17 05/09/24 calcitrioL 0.25 mcg PO MOTUWETHFRSA@0800 03/24/21 05/09/24 Aspirin EC [Ecotrin] 81 mg PO DAILY@0807/01/21 05/09/24 Escitalopram [Lexapro] 10 mg PO DAILY@0800 07/01/21 05/09/24 Atorvastatin [Lipitor] 10 mg PO HS@209902/27/24 05/09/24 Insulin Glargine/Lixisenatide 36 units SQ DAILY 02/27/24 05/09/24 [Soliqua 100 Unit-33 Mcg/ml Pen] Midodrine [ProAmatine] 5 mg PO BID@0800,209902/27/24 05/09/24 allopurinoL 100 mg PO HS@209902/27/24 05/09/24 Everolimus 1.5 mg PO DAILY@1300 05/09/24 05/09/24 Metoprolol Tartrate [Lopressor] 25 mg PO BID@0800,2100 05/09/24 05/13/24 Nystatin 100,000Unit/gm Cream 1 applic TOPICAL BID PRN 05/09/24 05/09/24 [Mycostatin Cream] Vit C/E/Zn/Coppr/Lutein/Zeaxan 1 cap PO DAILY@0800 05/09/24 05/09/24 [Preservision Areds 2 Softgel] ursodioL [Ursodiol] 300 mg PO HS@2100 05/09/24 05/09/24 Apixaban [Eliquis] 5 mg PO BID 05/13/24 05/13/24 Allergies Allergy/AdvReac Type Severity Reaction Status Date / Time No Known Allergies Allergy Verified 12/20/24 20:20 Review of Systems ROS Statement: Those systems with pertinent positive or pertinent negative responses have been documented in the HPI. Review of Systems: CONST: Denies fever EYES: Denies blurry vision ENT: Denies nasal congestion C/V: Denies Chest pain RESP: Endorses intermittent dyspnea. GI: Denies abdominal pain : Denies dysuria SKIN: Denies rash. MSK: Denies joint pain. NEURO: Denies headache ROS Other: All systems not noted in ROS Statement are negative. Past Medical History Past Medical History: COPD, Diabetes Mellitus, Deep Vein Thrombosis (DVT), Liver Disease, Respiratory Disorder, Thyroid Disorder Additional Past Medical History / Comment(s): emphysema, thoracentesis 06/24/14, underactive thyroid, non alcoholic cirrhosis. liver transplant 2014 History of Any Multi-Drug Resistant Organisms: None Reported Past Surgical History: Hernia Repair, Tonsillectomy Additional Past Surgical History / Comment(s): hiatal hernia, past liver/gallbladder biopsies neg, Liver transplant 03/27/2015. Past Anesthesia/Blood Transfusion Reactions: No Reported Reaction Past Psychological History: No Psychological Hx Reported Smoking Status: Former smoker Past Alcohol Use History: None Reported Past Drug Use History: None Reported - Past Family History Father Family Medical History: Liver Disease Additional Family Medical History / Comment(s): dad at age 72- was a heavy drinker had liver disease Mother Family Medical History: Diabetes Mellitus, Renal Disease Additional Family Medical History / Comment(s): at age 78 kidney failure General Exam - General Exam Comments Initial Comments: General: Appears in no acute distress. HEAD: Normal with no signs of head trauma. EYES: PERRLA, EOMI, conjunctiva normal, no discharge. ENT: Hearing grossly intact, normal oropharynx. RESPIRATORY: Bilateral end expiratory wheezing. No significant hypoxia on room air. No significant increased work of breathing. C/V: Regular rate and rhythm. S1 and S2 auscultated, no edema, peripheral pulses 2+ and intact throughout ABD: Abd is soft, nontender, nondistended EXT: Normal range of motion, no obvious deformity SKIN: No rashes or lesions observed on exposed skin. NEURO: Alert and oriented x 4. No focal sensory or strength deficits. Limitations: no limitations Course Vital Signs 12/20/24 12/20/24 12/20/24 20:17 23:00 23:23 Temperature 98.2 F Pulse Rate 94 80 80 Respiratory 26 H 20 18 Rate Blood Pressure 160/60 172/90 163/78 O2 Sat by Pulse 95 97 96 Oximetry 12/20/24 12/20/24 23:26 23:34 Temperature Pulse Rate 85 82 Respiratory 18 18 Rate Blood Pressure O2 Sat by Pulse Oximetry Medical Decision Making - Medical Decision Making Was pt. sent in by a medical professional or institution (, PA, FUR VAULT ATTENDANT, urgent care, hospital, or [facility]...) When possible be specific @ -No Did you speak to anyone other than the patient for history (EMS, parent, family, police, friend...)? What history was obtained from this source @ -Patient's daughter and son present bedside and orient patient's primary historians. Did you review nursing and triage notes (agree or disagree)? Why? @ -I reviewed and agree with nursing and triage notes Were old charts reviewed (outside hosp., previous admission, EMS record, old EKG, old radiological studies, urgent care reports/EKG's, [facility] records)? Report findings @ -No old charts were reviewed Differential Diagnosis (chest pain, altered mental status, abdominal pain women, abdominal pain men, vaginal bleeding, weakness, fever, dyspnea, syncope, headache, dizziness, GI bleed, back pain, seizure, CVA, palpatations, mental health, musculoskeletal)? @ -COPD, pneumonia, hypoglycemia. This list is not all-inclusive. EKG interpreted by me (3pts min.). @ -As above X-rays interpreted by me (1pt min.). @ -Chest x-ray shows no obvious acute cardiopulmonary process. CT interpreted by me (1pt min.). @ -None done U/S interpreted by me (1pt. min.). @ -None done What testing was considered but not performed or refused? (CT, X-rays, U/S, labs)? Why? @ -None What meds were considered but not given or refused? Why? @ -None Did you discuss the management of the patient with other professionals (professionals i.e. , PA, FUR VAULT ATTENDANT, lab, RT, psych nurse, hospice social worker, assistant surveyor, teacher, contact officer, manager case management)? Give summary @ -Discussed with Dr. Avila who accepted the admission. Was smoking cessation discussed for >3mins.? @ -No Was critical care preformed (if so, how long)? @ -No Were there social determinants of health that impacted care today? How? (Homelessness, low income, unemployed, alcoholism, drug addiction, transportation, low edu. Level, literacy, decrease access to med. care, halfway, rehab)? @ -No Was there de-escalation of care discussed even if they declined (Discuss DNR or withdrawal of care, Hospice)? DNR status @ -No What co-morbidities impacted this encounter? (DM, HTN, Smoking, COPD, CAD, Cancer, CVA, ARF, Chemo, Hep., AIDS, mental health diagnosis, sleep apnea, morbid obesity)? @ -COPD, diabetes Was patient admitted / discharged? Hospital course, mention meds given and route, prescriptions, significant lab abnormalities, going to OR and other pertinent info. @ -Presents for tremors at home as well as shortness of breath. Appears to be having a COPD exacerbation based on exam. Patient be given IV fluids, IV steroids, breathing treatments. Patient and family in agreement this plan. Apparently had episodes of tremors at home. Vital signs are currently within acceptable limits. EKG shows no signs of acute ischemia. Laboratory studies remarkable for hypoglycemia 58. Patient had reoccurrence of these tremors apparently at baseline but when I presented they had ceased. Based on the story, do not seem to be a seizure in nature and patient has no acidosis on labs. Low suspicion for this. Troponin was added and was undetectable. Viral swabs negative. I do suspect that the tremors were likely secondary to the hypoglycemia which improved and tremors resolved after hypoglycemia resolved. At this time, I discussed with family we all agreed to admit the patient for her COPD exacerbation we will monitor sugars overnight. Patient was in agreement this plan. Consult placed to pulmonology. Spoke with the admitting provider, Dr. Avila who is covering for Dr. Wheeler who accepted the admission. Undiagnosed new problem with uncertain prognosis? @ -No Drug Therapy requiring intensive monitoring for toxicity (Heparin, Nitro, Insulin, Cardizem)? @ -No Were any procedures done? @ -No Diagnosis/symptom? @ -COPD, hypoglycemia Acute, or Chronic, or Acute on Chronic? @ -Acute Uncomplicated (without systemic symptoms) or Complicated (systemic symptoms)? @ -Complicated Side effects of treatment? @ -No Exacerbation, Progression, or Severe Exacerbation? @ -No Poses a threat to life or bodily function? How? (Chest pain, [place], HI, pneumonia, PE, COPD, DKA, ARF, appy, cholecystitis, CVA, Diverticulitis, Homicidal, Suicidal, threat to staff... and all critical care pts) @ -Potentially, yes - Lab Data Result diagrams: 12/20/24 22:01 12/20/24 22:01 Lab Results 12/20/24 12/20/24 12/20/24 Range/Units 22:01 22:01 22:23 WBC 7.85 (4.50-10.00) 10*3/uL RBC 4.62 (4.10-5.20) 10*6/uL Hgb 12.6 (12.0-15.0) g/dL Hct 40.2 (37.2-46.3) % MCV 87.0 (80.0-97.0) fL MCH 27.3 (27.0-32.0) pg MCHC 31.3 L (32.0-37.0) g/dL Plt Count 225 (140-440) 10*3/uL MPV 9.8 (9.5-12.2) fL Immature Gran % (Auto) 0.3 % Neutrophils % 60.7 % Lymphocytes % 27.1 % Monocytes % 9.9 % Eosinophils % 1.7 % Basophils % 0.3 % Immature Gran # 0.02 (0.00-0.04) 10*3/uL Neutrophils # 4.77 (1.80-7.70) 10*3/uL Lymphocytes # 2.13 (0.90-5.00) 10*3/uL Monocytes # 0.78 (0.20-1.00) 10*3/uL Eosinophils # 0.13 (0.04-0.35) 10*3/uL Basophils # 0.02 (0.00-0.10) 10*3/uL Sodium 142 (137-145) mmol/L Potassium 4.2 (3.5-5.1) mmol/L Chloride 106 (98-107) mmol/L Carbon Dioxide 25 (22-30) mmol/L Anion Gap 11 mmol/L BUN 35 H (7-17) mg/dL Creatinine 1.24 H (0.52-1.04) mg/dL Est GFR (CKD-EPI)AfAm 48 (>60 ml/min/1.73 sqM) Est GFR (CKD-EPI)NonAf 42 (>60 ml/min/1.73 sqM) Glucose 58 L (74-99) mg/dL POC Glucose (mg/dL) (70-110) mg/dL POC Glu Sr. Manager ID Calcium 9.8 (8.4-10.2) mg/dL Magnesium 2.0 (1.6-2.3) mg/dL Total Bilirubin 0.4 (0.2-1.3) mg/dL AST 29 (14-36) U/L ALT 14 (4-34) U/L Alkaline Phosphatase 89 (38-126) U/L Troponin I (0.000-0.034) ng/mL Total Protein 7.2 (6.3-8.2) g/dL Albumin 4.1 (3.5-5.0) g/dL Influenza Type A (PCR) Not Detected (Not Detectd) Influenza Type B (PCR) Not Detected (Not Detectd) RSV (PCR) Not Detected (Not Detectd) SARS-CoV-2 (PCR) Not Detected (Not Detectd) 12/20/24 12/21/24 Range/Units 23:39 00:06 WBC (4.50-10.00) 10*3/uL RBC (4.10-5.20) 10*6/uL Hgb (12.0-15.0) g/dL Hct (37.2-46.3) % MCV (80.0-97.0) fL MCH (27.0-32.0) pg MCHC (32.0-37.0) g/dL Plt Count (140-440) 10*3/uL MPV (9.5-12.2) fL Immature Gran % (Auto) % Neutrophils % % Lymphocytes % % Monocytes % % Eosinophils % % Basophils % % Immature Gran # (0.00-0.04) 10*3/uL Neutrophils # (1.80-7.70) 10*3/uL Lymphocytes # (0.90-5.00) 10*3/uL Monocytes # (0.20-1.00) 10*3/uL Eosinophils # (0.04-0.35) 10*3/uL Basophils # (0.00-0.10) 10*3/uL Sodium (137-145) mmol/L Potassium (3.5-5.1) mmol/L Chloride (98-107) mmol/L Carbon Dioxide (22-30) mmol/L Anion Gap mmol/L BUN (7-17) mg/dL Creatinine (0.52-1.04) mg/dL Est GFR (CKD-EPI)AfAm (>60 ml/min/1.73 sqM) Est GFR (CKD-EPI)NonAf (>60 ml/min/1.73 sqM) Glucose (74-99) mg/dL POC Glucose (mg/dL) 85 (70-110) mg/dL POC Glu Sr. Manager ID [facility] Calcium (8.4-10.2) mg/dL Magnesium (1.6-2.3) mg/dL Total Bilirubin (0.2-1.3) mg/dL AST (14-36) U/L ALT (4-34) U/L Alkaline Phosphatase (38-126) U/L Troponin I <0.012 (0.000-0.034) ng/mL Total Protein (6.3-8.2) g/dL Albumin (3.5-5.0) g/dL Influenza Type A (PCR) (Not Detectd) Influenza Type B (PCR) (Not Detectd) RSV (PCR) (Not Detectd) SARS-CoV-2 (PCR) (Not Detectd) - EKG Data -: EKG Interpreted by Me EKG Comments: 12-lead Electrocardiogram Interpretation Note EKG was reviewed and interpreted by myself. 12-lead ECG performed at 0 is interpreted by me as revealing normal sinus rhythm at a rate of 90 beats per minute. [place] is normal. UT interval is 131 ms, QRS duration 74 ms, QTc is 415 ms.. There were no ST or T wave abnormalities to suggest myocardial ischemia or injury. R wave progression across the precordium was satisfactory. By my interpretation this EKG is non-diagnostic for acute ischemia. Disposition Clinical Impression: Hypoglycemia, COPD (chronic obstructive pulmonary disease) Disposition: ADMITTED IP TO THIS HOSP Condition: Stable Referrals: George Wheeler MD [Primary Care Provider] - 1-2 days Time of Disposition: 00:39
[2024-12-21] MEDS ORDERED: ONDANSETRON 4 MG/2 ML VIAL IVP PRN (00:49)
[2024-12-21 01:07] LABS: Glucose,Whole Blood 128 mg/dL (70-110)
[2024-12-21] MEDS: IPRATROPIUM-ALBUTEROL 3 ML NEB INHALATION SCH (03:05)
[2024-12-21] MEDS ORDERED: DEXTROSE 50% SYRINGE 50 ML IVP PRN ×2 (08:03)
[2024-12-21 08:05] VITALS: RESP 20
[2024-12-21 08:09] LABS: Glucose,Whole Blood 237 mg/dL (70-110)
[2024-12-21] MEDS: SYMBICORT 160-4.5 MCG INHALER INHALATION SCH (08:28)
[2024-12-21 08:43] VITALS: PULSE 82
[2024-12-21] MEDS: methylPREDNISolone SOD SUCCI 40 MG/ML 1 ML VIAL IV SCH (09:05)
[2024-12-21] MEDS: INSULIN GLARGINE (LANTUS) 100 UNIT/ML SYR SQ SCH (09:36)
[2024-12-21 09:46] VITALS: BP 143/84
--- NOTE | 2024-12-21 10:31 | P.HPIM ---
History of Present Illness H&P Date: 12/28/24 Chief Complaint: Hypoglycemic, tremors History and Physical and Discharge Summary This is a pleasant 79-year-old female with past medical history significant for severe COPD, not O2 dependent , lung nodules, diabetes mellitus, previous liver transplant at [facility] 2014, seizure disorder, DVT and multiple other medical issues ,admitted to the hospital with complaints of tremors, hypoglycemia possible COPD exacerbation. Chest x-ray reports no acute findings in the chest, no consolidation, no overt edema, no pleural effusion, no pneum othorax patient maintaining O2 sats in the 90s on room air. Lungs are clear to auscultation. Patient stated family complained she was not eating enough, states she likes to graze. Denies nausea vomiting or diarrhea. Denies abdominal pain. She maintains blood sugar logs at home with low of 67 and high in the 1 teens. Confirms her Lantus dose at home is 36 units daily of Lantus- patient's body weight is 81 kg. blood sugar on admission 58. Creatinine 1.24, at baseline. Telemetry sinus rhythm. Denies chest pain, palpitations or shortness of breath. Patient expresses she really does not understand why she is here. Blood sugars up to 237 as patient has been receiving IV steroids. Trace to no tremors. Viral studies negative. Denies increased cough reports at baseline. Denies chills fevers or sick contacts. Vital signs stable. Review of Systems ROS Statement: Those systems with pertinent positive or pertinent negative responses have been documented in the HPI. ROS Other: All systems not noted in ROS Statement are negative. Past Medical History Past Medical History: COPD, Diabetes Mellitus, Deep Vein Thrombosis (DVT), Liver Disease, Respiratory Disorder, Thyroid Disorder Additional Past Medical History / Comment(s): emphysema, thoracentesis 06/24/14, underactive thyroid, non alcoholic cirrhosis. liver transplant 2014 History of Any Multi-Drug Resistant Organisms: None Reported Past Surgical History: Hernia Repair, Tonsillectomy Additional Past Surgical History / Comment(s): hiatal hernia, past liver/gallbladder biopsies neg, Liver transplant 03/27/2015. Past Anesthesia/Blood Transfusion Reactions: No Reported Reaction Past Psychological History: No Psychological Hx Reported Smoking Status: Former smoker Past Alcohol Use History: None Reported Past Drug Use History: None Reported - Past Family History Father Family Medical History: Liver Disease Additional Family Medical History / Comment(s): dad at age 72- was a heavy drinker had liver disease Mother Family Medical History: Diabetes Mellitus, Renal Disease Additional Family Medical History / Comment(s): at age 78 kidney failure Medications and Allergies Home Medications Medication Instructions Recorded Confirmed Type Everolimus [Zortress] 0.75 mg PO HS@209903/03/16 05/09/24 History ursodioL [Ursodiol] 600 mg PO DAILY@129903/09/17 05/09/24 History Levothyroxine Sodium 75 mcg PO AC-BRKFST 04/27/17 05/09/24 History calcitrioL 0.25 mcg PO MOTUWETHFRSA@0800 03/24/21 05/09/24 History Aspirin EC [Ecotrin] 81 mg PO DAILY@0800 07/01/21 05/09/24 History Escitalopram [Lexapro] 10 mg PO DAILY@0800 07/01/21 05/09/24 History Atorvastatin [Lipitor] 10 mg PO HS@209902/27/24 05/09/24 History Midodrine [ProAmatine] 5 mg PO BID@0800,209902/27/24 05/09/24 History allopurinoL 100 mg PO HS@209902/27/24 05/09/24 History Everolimus 1.5 mg PO DAILY@129905/09/24 05/09/24 History Metoprolol Tartrate [Lopressor] 25 mg PO BID@0800,209905/09/24 05/13/24 History Nystatin 100,000Unit/gm Cream 1 applic TOPICAL BID PRN 05/09/24 05/09/24 History [Mycostatin Cream] Vit C/E/Zn/Coppr/Lutein/Zeaxan 1 cap PO DAILY@0800 05/09/24 05/09/24 History [Preservision Areds 2 Softgel] ursodioL [Ursodiol] 300 mg PO HS@209905/09/24 05/09/24 History Apixaban [Eliquis] 5 mg PO BID 05/13/24 05/13/24 History Budesonide-Formot 160-4.5 Mcg 2 puff INHALATION RT-BID #1 each 12/21/24 Rx [Symbicort 160-4.5 Mcg Inhaler] Insulin Glargine/Lixisenatide 30 units SQ DAILY #1 each 12/21/24 Rx [Soliqua 100 Unit-33 Mcg/ml Pen] methylPREDNISolone [Medrol Dose 0 mg PO DIRECTED #1 packet 12/21/24 Rx Pack] Allergies Allergy/AdvReac Type Severity Reaction Status Date / Time No Known Allergies Allergy Verified 12/20/24 20:20 Physical Exam Vitals: Vital Signs Temp Pulse Resp BP Pulse Ox 12/21/24 09:45 82 20 143/84 97 12/21/24 08:42 82 12/21/24 08:30 71 12/21/24 08:00 82 20 148/76 96 12/21/24 07:00 83 20 96 12/21/24 06:33 81 18 137/74 94 L 12/21/24 02:32 92 18 131/73 94 L 12/20/24 23:34 82 18 12/20/24 23:26 85 18 12/20/24 23:23 80 18 163/78 96 12/20/24 23:00 80 20 172/90 97 12/20/24 20:17 98.2 F 94 26 H 160/60 95 Intake and Output 12/20/24 12/21/24 12/21/24 22:59 06:59 14:59 Other: Weight 81.193 kg General: [Patient pleasant, awake, alert and oriented times 3, sitting up on stretcher patient in no acute distress.] HEENT: [PERRL. EOMI. No pharyngeal erythema or exudate.mmm.] Neck: [Supple, no JVD, no adenopathy.] Cardiac: [Heart regular in rate and rhythm. No S3. No S4. No clicks, rubs. No murmur.] Lungs: [Unlabored, equal air entry, clear to auscultation bilaterally.No wheezing, no rhonch. Abdomen: [Soft, no mass or organomegaly appreciated. Bowel sounds present.] Extremes: [No edema no cyanosis no claudication, no calf tenderness, peripheral pulses intact.] Musculoskeletal: [No joint erythema, edema or tenderness.] Skin: [Warm and dry, no rash.] Neurologic: [No lateralizing deficits. CN II - XII grossly intact.] Results CBC & Chem 7: 12/20/24 22:01 12/20/24 22:01 Labs: Abnormal Lab Results - Last 24 Hours (Table) 12/20/24 12/20/24 12/21/24 Range/Units 22:01 22:01 01:05 MCHC 31.3 L (32.0-37.0) g/dL BUN 35 H (7-17) mg/dL Creatinine 1.24 H (0.52-1.04) mg/dL Glucose 58 L (74-99) mg/dL POC Glucose (mg/dL) 128 H (70-110) mg/dL 12/21/24 Range/Units 08:08 MCHC (32.0-37.0) g/dL BUN (7-17) mg/dL Creatinine (0.52-1.04) mg/dL Glucose (74-99) mg/dL POC Glucose (mg/dL) 237 H (70-110) mg/dL Assessment and Plan Assessment: Tremors, with hypoglycemia, home dose of Lantus decreased. Reports log of home sugars range from 67-110s. A1c ordered, pending Severe chronic obstructive pulmonary disease, pulmonary reports FEV 146% of predicted , nonacute, stable Hypothyroidism History of paroxysmal atrial fibrillation, maintained on Eliquis. Currently sinus rhythm History of lung nodules, follows up on outpatient basis History of liver transplant 2014, maintained on Zortress Hyperlipidemia History of DVT Former tobacco dependence Plan: Continue on current medication regimen ,monitoring and symptomatic treatment. Symbicort initiated. IV steroids discontinued, will send home on a Medrol Dosepak. Patient has been seen and evaluated by pulmonary and cleared for discharge. Patient will be discharged home today in a stable condition with guarded prognosis on Symbicort, Medrol Dosepak and with her Lantus dose decreased. Patient has been advised to maintain a log of Accu-Cheks and to take to follow-up visit with PCP for further recommendations. Discharge Medication List Everolimus [Zortress] 0.75 mg PO HS@2100 03/03/16 [History] ursodioL [Ursodiol] 600 mg PO DAILY@1300 03/09/17 [History] Levothyroxine Sodium 75 mcg PO AC-BRKFST 04/27/17 [History] calcitrioL 0.25 mcg PO MOTUWETHFRSA@0800 03/24/21 [History] Aspirin EC [Ecotrin] 81 mg PO DAILY@0800 07/01/21 [History] Escitalopram [Lexapro] 10 mg PO DAILY@0800 07/01/21 [History] Atorvastatin [Lipitor] 10 mg PO HS@209902/27/24 [History] Midodrine [ProAmatine] 5 mg PO BID@0800,209902/27/24 [History] allopurinoL 100 mg PO HS@209902/27/24 [History] Everolimus 1.5 mg PO DAILY@1300 05/09/24 [History] Metoprolol Tartrate [Lopressor] 25 mg PO BID@0800,209905/09/24 [History] Nystatin 100,000Unit/gm Cream [Mycostatin Cream] 1 applic TOPICAL BID PRN [History] Vit C/E/Zn/Coppr/Lutein/Zeaxan [Preservision Areds 2 Softgel] 1 cap PO DAILY@0800 05/09/24 [History] ursodioL [Ursodiol] 300 mg PO HS@209905/09/24 [History] Apixaban [Eliquis] 5 mg PO BID 05/13/24 [History] Budesonide-Formot 160-4.5 Mcg [Symbicort 160-4.5 Mcg Inhaler] 2 puff INHALATION RT-BID #1 each 12/21/24 [Rx] Insulin Glargine/Lixisenatide [Soliqua 100 Unit-33 Mcg/ml Pen] 30 units SQ DAILY #1 each 12/21/24 [Rx] methylPREDNISolone [Medrol Dose Pack] 0 mg PO DIRECTED #1 packet 12/21/24 [Rx] The impression and plan of care has been dictated as directed. : I performed a history and examination of this patient, discussed the same with the dictator. I agree with the dictator's note ,documented as a scribe. Any additional findings or plans will be noted.
[2024-12-21] MEDS ORDERED: INSULIN LISPRO (HumaLOG) 100 UNIT/ML 10 mL VL SQ SCH (12:30)
--- NOTE | 2024-12-21 12:47 | P.CNPUL ---
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 She follows in our office with Dr. Baer for COPD as well. She is a former smoker. She was brought into the emergency room yesterday with complaints of intermittent shortness of breath, shaking and tremors. Chest x-ray showed no acute pulmonary process. W herman count 7.8. Hemoglobin 12.6. Platelets 225. Sodium 142. Potassium 4.2. Bicarb 25. BUN 35. Creatinine 1.24. Glucose 58. Viral screen was negative for influenza A/B, RSV or COVID. She is seen today in consultation in the emergency department. She is currently sitting up on a stretcher. Awake and alert in no acute distress. Maintaining good O2 saturations in the 90s on room air oxygen. She has been afebrile. Hemodynamically stable. Review of Systems REVIEW OF SYSTEMS: CONSTITUTIONAL: Denies any recent significant weight loss or weight gain. EYES: Denies change in vision. EARS, NOSE, MOUTH, THROAT: Denies headaches, denies sore throat. CARDIOVASCULAR: Denies chest pain, palpitations or syncopal episodes. RESPIRATORY: Positive for shortness of breath, tremors, no cough, congestion or hemoptysis. GASTROINTESTINAL: Denies change in appetite, denies abdominal pain GENITOURINARY: Denies hematuria, denies infections. MUSKULOSKELETAL: Denies pain, denies swelling. INTEGUMENTARY: Denies rash, denies eczema. NEUROLOGICAL: Denies recent memory loss, no recent seizure activity. PSYCHIATRIC: Denies anxiety, denies depression. HEMATOLOGIC/LYMPHATIC: Denies anemia, denies enlarged lymph nodes. Past Medical History Past Medical History: COPD, Diabetes Mellitus, Deep Vein Thrombosis (DVT), Liver Disease, Respiratory Disorder, Thyroid Disorder Additional Past Medical History / Comment(s): emphysema, thoracentesis 06/24/14, underactive thyroid, non alcoholic cirrhosis. liver transplant 2014 History of Any Multi-Drug Resistant Organisms: None Reported Past Surgical History: Hernia Repair, Tonsillectomy Additional Past Surgical History / Comment(s): hiatal hernia, past liver/gallbladder biopsies neg, Liver transplant 03/27/2015. Past Anesthesia/Blood Transfusion Reactions: No Reported Reaction Past Psychological History: No Psychological Hx Reported Smoking Status: Former smoker Past Alcohol Use History: None Reported Past Drug Use History: None Reported - Past Family History Father Family Medical History: Liver Disease Additional Family Medical History / Comment(s): dad at age 72- was a heavy drinker had liver disease Mother Family Medical History: Diabetes Mellitus, Renal Disease Additional Family Medical History / Comment(s): at age 78 kidney failure Medications and Allergies Home Medications Medication Instructions Recorded Confirmed Type Everolimus [Zortress] 0.75 mg PO HS@209903/03/16 05/09/24 History ursodioL [Ursodiol] 600 mg PO DAILY@129903/09/17 05/09/24 History Levothyroxine Sodium 75 mcg PO AC-BRKFST 04/27/17 05/09/24 History calcitrioL 0.25 mcg PO MOTUWETHFRSA@0800 03/24/21 05/09/24 History Aspirin EC [Ecotrin] 81 mg PO DAILY@0800 07/01/21 05/09/24 History Escitalopram [Lexapro] 10 mg PO DAILY@0800 07/01/21 05/09/24 History Atorvastatin [Lipitor] 10 mg PO HS@209902/27/24 05/09/24 History Midodrine [ProAmatine] 5 mg PO BID@0800,209902/27/24 05/09/24 History allopurinoL 100 mg PO HS@209902/27/24 05/09/24 History Everolimus 1.5 mg PO DAILY@129905/09/24 05/09/24 History Metoprolol Tartrate [Lopressor] 25 mg PO BID@0800,209905/09/24 05/13/24 History Nystatin 100,000Unit/gm Cream 1 applic TOPICAL BID PRN 05/09/24 05/09/24 History [Mycostatin Cream] Vit C/E/Zn/Coppr/Lutein/Zeaxan 1 cap PO DAILY@0800 05/09/24 05/09/24 History [Preservision Areds 2 Softgel] ursodioL [Ursodiol] 300 mg PO HS@209905/09/24 05/09/24 History Apixaban [Eliquis] 5 mg PO BID 05/13/24 05/13/24 History Budesonide-Formot 160-4.5 Mcg 2 puff INHALATION RT-BID #1 each 12/21/24 Rx [Symbicort 160-4.5 Mcg Inhaler] Insulin Glargine/Lixisenatide 30 units SQ DAILY #1 each 12/21/24 Rx [Soliqua 100 Unit-33 Mcg/ml Pen] methylPREDNISolone [Medrol Dose 0 mg PO DIRECTED #1 packet 12/21/24 Rx Pack] Allergies Allergy/AdvReac Type Severity Reaction Status Date / Time No Known Allergies Allergy Verified 12/20/24 20:20 Physical Exam Vitals: Vital Signs Temp Pulse Resp BP Pulse Ox 12/21/24 09:45 82 20 143/84 97 12/21/24 08:42 82 12/21/24 08:30 71 12/21/24 08:00 82 20 148/76 96 12/21/24 07:00 83 20 96 12/21/24 06:33 81 18 137/74 94 L 12/21/24 02:32 92 18 131/73 94 L 12/20/24 23:34 82 18 12/20/24 23:26 85 18 12/20/24 23:23 80 18 163/78 96 12/20/24 23:00 80 20 172/90 97 12/20/24 20:17 98.2 F 94 26 H 160/60 95 Intake and Output 12/20/24 12/21/24 12/21/24 22:59 06:59 14:59 Other: Weight 81.193 kg GENERAL EXAM: Alert, pleasant 79-year-old female, sitting up on a stretcher, on room air oxygen, comfortable in no apparent distress. HEAD: Normocephalic. EYES: Normal reaction of pupils, equal size. NOSE: Clear with pink turbinates. THROAT: No erythema or exudates. NECK: No masses, no JVD. CHEST: No chest wall deformity. LUNGS: Equal air entry with no crackles, wheeze, rhonchi or dullness. CVS: S1 and S2 normal with no audible murmur, regular rhythm. ABDOMEN: No hepatosplenomegaly, normal bowel sounds, no guarding or rigidity. SPINE: No scoliosis or deformity SKIN: No rashes CENTRAL NERVOUS SYSTEM: No focal deficits, tone is normal in all 4 extremities. EXTREMITIES: There is no peripheral edema. No clubbing, no cyanosis. Peripheral pulses are intact. Results - Laboratory Findings CBC and BMP: 12/20/24 22:01 12/20/24 22:01 Abnormal lab findings: Abnormal Labs 12/20/24 12/20/24 12/21/24 22:01 22:01 01:05 MCHC 31.3 L BUN 35 H Creatinine 1.24 H Glucose 58 L POC Glucose (mg/dL) 128 H 12/21/24 08:08 MCHC BUN Creatinine Glucose POC Glucose (mg/dL) 237 H - Diagnostic Findings Chest x-ray: image reviewed Assessment and Plan Assessment: Mild exacerbation of chronic obstructive pulmonary disease Diabetes mellitus with hypoglycemia, recovered History of DVT, anticoagulated with Eliquis History of nonalcoholic cirrhosis status post liver transplant in 2014 Hypothyroidism Hypertension Hyperlipidemia Plan: The patient was seen and evaluated Chest x-ray, labs and medications reviewed Stable and on room air oxygen Cleared for discharge Continue her home medications Initiated on Symbicort Complete a Medrol Dosepak Insulin adjusted per primary service Keep her appointment in our office as scheduled I have personally seen and examined the patient, performed the documentation and the assessment and plan as written. Number of minutes spent on the visit: 20 Dictation was produced using [employer] dictation software. Please excuse any grammatical, word or spelling errors.
== END 2024-12-21 10:26 | disposition home or self-care (01) ==
LOC: EC 20:14 → 4SSUR 12-21 00:50 → 5NMEDONC 12-21 06:10
PROVIDERS: ADMIT Family Medicine; ATTEND Family Medicine
DX: E11.649 Type 2 diabetes mellitus with hypoglycemia without coma (principal); J43.9 Emphysema, unspecified; E03.9 Hypothyroidism, unspecified; I48.0 Paroxysmal atrial fibrillation; R91.8 Other nonspecific abnormal finding of lung field; E78.5 Hyperlipidemia, unspecified; I10 Essential (primary) hypertension; K74.60 Unspecified cirrhosis of liver; Z11.52 Encounter for screening for COVID-19; Z11.59 Encounter for screening for other viral diseases; Z79.01 Long term (current) use of anticoagulants; Z79.890 Hormone replacement therapy; Z79.899 Other long term (current) drug therapy; Z79.82 Long term (current) use of aspirin; Z79.4 Long term (current) use of insulin; Z79.51 Long term (current) use of inhaled steroids; Z94.4 Liver transplant status; Z87.891 Personal history of nicotine dependence; Z86.718 Personal history of other venous thrombosis and embolism; Z83.79 Family history of other diseases of the digestive system; Z81.1 Family history of alcohol abuse and dependence; Z83.3 Family history of diabetes mellitus
CPT/HCPCS: 96361; 96365; 96375; 99285; 36415 ×2; 94640 ×3; 93005; 83880; 80053; 83735; 84484; 85025; 83036; 87636; 71046; G0378; J3475; J2919